=== PATIENT | female | born 1950 | race Caucasian/White ===

== ENCOUNTER → 2018-09-25 | Emergency (ER) | payer MEDICARE, MEDICAID ==
[~2018-09-25] VITALS: Ht 163.8 cm; Wt 165.1 kg
[~2018-09-25] MED LIST: HYDROcodone/APAP 5 MG/325 MG (LORTAB) TAB PO ONE
--- NOTE | 2018-09-25 12:32 | ED Head Injury ---
General Chief Complaint: Trauma-Non Activation Stated Complaint: FALL Source: patient Exam Limitations: no limitations History of Present Illness Date Seen by Provider: Sep 25, 2018 Time Seen by Provider: 12:10 Initial Comments 68-year-old female who was brought to to the emergency room by [facility] with complaints of left-sided facial pain, headache, neck pain after [facility] She is a paraplegic with a T10/T11 level spinal cord injury. She reports that her mattress is an air mattress and when she was getting out it kind of gave way causing her to roll out of bed. Her bed frame is one and a half feet off of the floor with a mattress on top of that is approximately 2 foot fall. She reports striking her left side of her head on the floor. She denies loss of consciousness, nausea, vomiting or dizziness. She does have ecchymosis to the left cheek area. Occurred: this morning Method of Injury: fell Loss of Consciousness: no loss of consciousness Associated Systoms: Denies Symptoms Allergies and Home Medications Allergies Coded Allergies: No Known Drug Allergies (Unverified , 09/25/18) Physical Exam Vital Signs Capillary Refill : Height, Weight, BMI Height: '" Weight: lbs. oz. kg; BMI Method: Progress/Results/Core Measures Results/Orders My Orders Orders - VERÓNICA LOERA Ct Head/Face/Cervical Wo (09/25/18 12:13) Shoulder, Left, 3 Views (09/25/18 12:42) Hydrocodone/Apap 5/325 Tablet (Lortab 5 (09/25/18 13:30) Ankle, Left, 3 Views (09/25/18 13:37) Medications Given in ED Current Medications Medications Dose Ordered Sig/Renato Route Start Time Stop Time Status Last Admin Dose Admin Acetaminophen/ Hydrocodone Bitart 1 tab ONCE ONCE PO 09/25/18 13:30 09/25/18 13:32 DC 09/25/18 13:41 1 TAB Departure Impression Primary Impression: Fall from bed Qualified Codes: W06.XXXA - Fall from bed, initial encounter Additional Impression: Contusion Disposition: 01 HOME, SELF-CARE Condition: Stable/Unchanged Departure-Patient Inst. Decision time for Depature: 14:21 Patient Instructions: Contusion (DC) Add. Discharge Instructions: You may continue to use your home medications as previously prescribed for pain. Follow-up with her primary care provider within 1 week for recheck. Return back to the emergency room for worsening symptoms or concerns as needed. All discharge instructions reviewed with patient and/or family. Voiced understanding. VERÓNICA LOERA Sep 25, 2018 12:32
--- NOTE | 2018-09-25 13:01 | Diagnostic Imaging Report ---
PROCEDURE: CT head, face, and cervical spine without contrast. TECHNIQUE: Multiple contiguous axial images were obtained through the head, neck, and facial bones without the use of intravenous contrast. Sagittal and coronal reformations through the cervical spine and facial bones were also performed. INDICATION: Fall with head, neck and facial injuries. COMPARISON: No prior studies are available for comparison. FINDINGS: CT head: The ventricles and sulci are within normal limits. No sulcal effacement, midline shift or hemorrhage is detected. The cisterns are patent. Visualized paranasal sinuses are clear. No depressed calvarial fracture is seen. IMPRESSION: No acute intracranial process is detected. CT cervical spine: Study is compromised due to patient body habitus. There is significant multilevel degenerative disc disease with variable disc space narrowing and marginal spurring. There are large anterior osteophytes noted C4-C5, C5-C6 and C6-C7 levels. Multilevel facet arthropathy is also noted. There is significant neuroforaminal narrowing on the left at the C2-C3 and C3-C4 levels. There is significant bilateral neuroforaminal stenosis, left greater at the C4-C5 level. Severe bilateral neuroforaminal stenosis C5-C6 and C6-C7 levels is noted. No fractures are identified. The odontoid appears to be intact. IMPRESSION: Severe cervical spondylosis. No acute bony abnormality is detected. CT face: The mandible appears intact. Zygomatic arches are intact. Maxillary sinus mills and nasal bones appear to be intact. The orbital mills are unremarkable. The visualized paranasal sinuses are clear. IMPRESSION: No facial bone fracture is identified. Dictated by: Dictated on workstation # [id number]
--- NOTE | 2018-09-25 13:07 | Diagnostic Imaging Report ---
PATIENT HISTORY: Fall, left shoulder pain. TECHNIQUE: Three views of the left shoulder. COMPARISON: None. FINDINGS: No acute fracture or dislocation is seen in the left shoulder. Alignment appears normal. There are severe degenerative changes in the glenohumeral joint and moderate in the acromioclavicular joint. IMPRESSION: Advanced degenerative changes in the left shoulder with no acute osseous abnormalities seen. Dictated by: Dictated on workstation # [id number]
--- NOTE | 2018-09-25 13:38 | NUR ---
SPoke with ZANA at [facility]. ZANA would like pt's L ankle xrayed. DON also sending transportation for pt to return to [place].
--- NOTE | 2018-09-25 14:12 | Diagnostic Imaging Report ---
INDICATION: Fall. Time of exam 1:48 PM 3 views of the left ankle were obtained. There is generalized demineralization. Ankle alignment appears normal. No definite fracture is detected. Midfoot and hindfoot are unremarkable. IMPRESSION: Demineralization. No acute bony abnormality is detected. Dictated by: Dictated on workstation # [id number]
[2018-09-25 15:15] VITALS: BP 142/71
== END | disposition home or self-care (01) ==
LOC: EDUNIT# 12:05 → ER 12:07
DX: S00.83XA Contusion of other part of head, initial encounter (principal); W06.XXXA Fall from bed, initial encounter; Y92.129 Unspecified place in nursing home as the place of occurrence of the external cause
CPT/HCPCS: 70450; 70486; 72125; 73030; 73610

== ENCOUNTER 2019-01-09 10:31 | Emergency (ER) | payer MEDICARE, MEDICAID ==
[~2019-01-09] VITALS: Ht 165.1 cm; Wt 167.8 kg
--- OUTSIDE RECORDS SUMMARY | 2019-01-09 10:36 | XMS REPORT | Continuity of Care Document ---
Author Organization Unknown Address Unknown Allergies There is no data. Medications There is no data. Problems There is no data. Procedures There is no data. Results Test Result Range MAGNESIUM SERUM - 11/25/18 10:21 MAGNESIUM 1.6 mg/dL 1.5-2.5 CULTURE, ANAEROBIC AND AEROBIC - 11/27/18 15:03 CULTURE, ANAEROBIC BACTERIA W/GRAM STAIN NRG CULTURE, AEROBIC BACTERIA NRG A1C - 12/22/18 09:36 HEMOGLOBIN A1c 10.8 % of total Hgb <5.7 Encounters ACCT No. Visit Date/Time Discharge Status Pt. Type Provider Facility Loc./Unit Complaint [id number] 12/22/2018 17:45:00 12/22/2018 23:59:59 CLS Out[facility] SELF[id number] 12/22/2018 17:45:00 Document Registration [id number] 11/27/2018 15:00:00 Document Registration [id number] 11/25/2018 17:40:00 Document Registration
--- NOTE | 2019-01-09 10:43 | ED General ---
General Source of Information: Patient, EMS History of Present Illness Date Seen by Provider: January 09, 2019 Time Seen by Provider: 10:30 Initial Comments 68-year-old female brought in by EMS. Patient is a paraplegic from [facility]. She is brought in today because she "just feels off" she can't really describe how she feels off. She reports that this is happened at occasionally in the past. She denies any cough, nausea, vomiting, diarrhea. She has a history of recurrent cellulitis/chronic vascular changes/lymphedema that is unchanged and looks good. She does have an indwelling Mc with some sediment that might be that possible problem. Otherwise she has no other complaints. Allergies and Home Medications Allergies Coded Allergies: No Known Drug Allergies (Unverified , 09/25/18) Patient Home Medication List Home Medication List Reviewed: Yes Review of Systems Review of Systems Constitutional: No chills, No diaphoresis, No fever EENTM: no symptoms reported Respiratory: No cough, No short of breath Cardiovascular: No chest pain, No palpitations Gastrointestinal: No abdominal pain, No constipation, No diarrhea, No nausea Musculoskeletal: no symptoms reported Skin: see HPI Past Inxsbyb-Tqzlix-Hagyvt Hx Past Med/Social Hx: Reviewed Nursing Past Med/Soc Hx Patient Social History Type Used: Cigarettes 2nd Hand Smoke Exposure: No (former quit 1996) Recent Hopitalizations: No Past Medical History Appendectomy, Bladder Surgery, Bowel Surgery, Orthopedic Respiratory: Yes COPD Deep Vein Thrombosis, High Cholesterol Paralysis, Spinal Cord Injury 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 Disorders: Menstrual Problems 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 oz. 165.424860hc; BMI Method:Stated General Appearance: No Apparent Distress, WD/WN, Obese (morbid ) Eyes: Bilateral Eye Normal Inspection HEENT: PERRL/EOMI, Pharynx Normal Neck: Non Tender, Supple Respiratory: Lungs Clear, Normal Breath Sounds, No Accessory Muscle Use, No Respiratory Distress Cardiovascular: Regular Rate, Rhythm, No Edema Gastrointestinal: Other (ostomy bag in place, mc in place, no acute finding ) Extremity: Normal Capillary Refill Neurologic/Psychiatric: Alert, Oriented x3, Other (no acute change ) Skin: Other (severe ecxoration, bed sores, bilateral buttock, mild bilateral lower ext changes. ) Progress/Results/Core Measures Suspected Sepsis SIRS Temperature: Pulse: Respiratory Rate: Laboratory Tests 01/09/19 10:42: White Blood Count 14.1H Blood Pressure / Mean: Laboratory Tests 01/09/19 10:42: Creatinine 0.84, Platelet Count 404H, Total Bilirubin 0.3 Results/Orders Lab Results Laboratory Tests Test 01/09/19 10:42 Range/Units White Blood Count 14.1 H 4.3-11.0 10^3/uL Red Blood Count 3.94 L 4.35-5.85 10^6/uL Hemoglobin 11.5 11.5-16.0 G/DL Hematocrit 37 35-52 % Mean Corpuscular Volume 95 80-99 FL Mean Corpuscular Hemoglobin 29 25-34 PG Mean Corpuscular Hemoglobin Concent 31 L 32-36 G/DL Red Cell Distribution Width 14.9 H 10.0-14.5 % Platelet Count 404 H 130-400 10^3/uL Mean Platelet Volume 9.4 7.4-10.4 FL Neutrophils (%) (Auto) 77 H 42-75 % Lymphocytes (%) (Auto) 14 12-44 % Monocytes (%) (Auto) 6 0-12 % Eosinophils (%) (Auto) 3 0-10 % Basophils (%) (Auto) 1 0-10 % Neutrophils # (Auto) 10.9 H 1.8-7.8 X 10^3 Lymphocytes # (Auto) 1.9 1.0-4.0 X 10^3 Monocytes # (Auto) 0.8 0.0-1.0 X 10^3 Eosinophils # (Auto) 0.4 H 0.0-0.3 10^3/uL Basophils # (Auto) 0.1 0.0-0.1 10^3/uL Neutrophils % (Manual) 76 % Lymphocytes % (Manual) 14 % Monocytes % (Manual) 6 % Eosinophils % (Manual) 1 % Basophils % (Manual) 0 % Band Neutrophils 3 % Urine Color YELLOW Urine Clarity CLOUDY Urine pH 8.0 5-9 Urine Specific [place] 1.010 L 1.016-1.022 Urine Protein 1+ H NEGATIVE Urine Glucose (UA) NEGATIVE NEGATIVE Urine Ketones TRACE H NEGATIVE Urine Nitrite NEGATIVE NEGATIVE Urine Bilirubin NEGATIVE NEGATIVE Urine Urobilinogen 0.2 NORMAL MG/DL Urine Leukocyte Esterase 2+ H NEGATIVE Urine RBC (Auto) NEGATIVE NEGATIVE Urine RBC NONE /HPF Urine WBC 5-10 H /HPF Urine Squamous Epithelial Cells 0-2 /HPF Urine Crystals NONE /LPF Urine Bacteria LARGE H /HPF Urine Casts NONE /LPF Urine Mucus NONE /LPF Urine Culture Indicated YES Sodium Level 134 L 135-145 MMOL/L Potassium Level 6.2 H 3.6-5.0 MMOL/L Chloride Level 105 98-107 MMOL/L Carbon Dioxide Level 21 21-32 MMOL/L Anion Gap 8 5-14 MMOL/L Blood Urea Nitrogen 40 H 7-18 MG/DL Creatinine 0.84 0.60-1.30 MG/DL Estimat Glomerular Filtration Rate > 60 BUN/Creatinine Ratio 48 Glucose Level 325 H 70-105 MG/DL Calcium Level 10.6 H 8.5-10.1 MG/DL Corrected Calcium 11.4 H 8.5-10.1 MG/DL Total Bilirubin 0.3 0.1-1.0 MG/DL Aspartate Amino Transf (AST/SGOT) 22 5-34 U/L Alanine Aminotransferase (ALT/SGPT) 27 0-55 U/L Alkaline Phosphatase 186 H 40-136 U/L Total Protein 8.3 H 6.4-8.2 GM/DL Albumin 3.0 L 3.2-4.5 GM/DL My Orders Orders - MEDINA,KALEN L DO Cbc With Automated Diff (01/09/19 10:43) Comprehensive Metabolic Panel (01/09/19 10:43) Ua Culture If Indicated (01/09/19 10:43) Chest 1 View Ap/Pa Only (01/09/19 10:43) Manual Differential (01/09/19 10:42) Urine Culture (01/09/19 10:42) Ceftriaxone For Iv Use (Rocephin For I (01/09/19 11:30) Diphenhydramine Injection (Benadryl Inje (01/09/19 11:30) Medications Given in ED Current Medications Medications Dose Ordered Sig/Renato Route Start Time Stop Time Status Last Admin Dose Admin Ceftriaxone Sodium 1000 mg/ Sterile Water 10 ml @ 200 mls/hr ONCE ONCE IV 01/09/19 11:30 01/09/19 11:32 DC 01/09/19 11:40 200 MLS/HR Vital Signs/I&O Capillary Refill : Progress Note : Time: 11:43 Progress Note Patient has a mild elevated WBC. Chem unsure if this is a inflammatory reaction from her significant chronic skin sores or a UTI. Patient has no significant acute physical findings. I will start her on Keflex 10 days. I recommend that she follows up with wound care and her primary care physician for reevaluation. [facility]. Departure Impression Primary Impression: Urinary tract infection Qualified Codes: T83.511A - Infection and inflammatory reaction due to indwelling urethral catheter, initial encounter; N39.0 - Urinary tract infection, site not specified Additional Impression: Decubitus skin ulcer Qualified Codes: L89.309 - Pressure ulcer of unspecified buttock, unspecified stage Disposition: 01 HOME, SELF-CARE Condition: Stable Departure-Patient Inst. Referrals: SELFFREEMAN MD (PCP/Family) Primary Care Physician Patient Instructions: Pressure Sores (DC), How to Prevent Pressure Sores, Urinary Tract Infection, Adult (DC) Scripts Cephalexin (Cephalexin) 500 Mg Tablet 500 MG PO QID, #20 TAB 0 Refills Prov: KALEN MEDINA DO 01/09/19 KALEN MEDINA DO January 09, 2019 10:42
[2019-01-09 10:57] LABS: HEMATOCRIT 37 % (35-52); HEMOGLOBIN 11.5 G/DL (11.5-16.0); MEAN CORPUSCULAR HEMOGLOBIN 29 PG (25-34); MEAN CORPUSCULAR VOLUME 95 FL (80-99); WHITE BLOOD COUNT 14.1 10^3/uL (4.3-11.0)
[2019-01-09 10:58] LABS: BASOPHILS # (AUTO) 0.1 10^3/uL (0.0-0.1); BASOPHILS % (AUTO) 1 % (0-10); EOSINOPHILS # (AUTO) 0.4 10^3/uL (0.0-0.3); EOSINOPHILS % (AUTO) 3 % (0-10); LYMPHOCYTES # (AUTO) 1.9 X 10^3 (1.0-4.0); LYMPHOCYTES % (AUTO) 14 % (12-44); MEAN CORPUSCULAR HGB CONC 31 G/DL (32-36); MEAN PLATELET VOLUME 9.4 FL (7.4-10.4); MONOCYTES # (AUTO) 0.8 X 10^3 (0.0-1.0); MONOCYTES % (AUTO) 6 % (0-12); NEUTROPHILS # (AUTO) 10.9 X 10^3 (1.8-7.8); NEUTROPHILS % (AUTO) 77 % (42-75); PLATELET COUNT 404 10^3/uL (130-400); RED CELL DISTRIBUTION WIDTH 14.9 % (10.0-14.5)
[2019-01-09 11:03] LABS: COLOR,URINE YELLOW
[2019-01-09 11:04] LABS: BACTERIA,URINE LARGE /HPF; BILIRUBIN,URINE NEGATIVE (NEGATIVE); CLARITY,URINE CLOUDY; GLUCOSE, URINE (UA) NEGATIVE (NEGATIVE); KETONES,URINE TRACE (NEGATIVE); LEUKOCYTE ESTERASE ,URINE 2+ (NEGATIVE); NITRITE,URINE NEGATIVE (NEGATIVE); PROTEIN,URINE 1+ (NEGATIVE); SQUAMOUS EPITHELIAL CELL,UR 0-2 /HPF; UROBILINOGEN,URINE 0.2 MG/DL (NORMAL)
--- NOTE | 2019-01-09 11:15 | NUR ---
Patient turned and cleaned after arriving to ED incontinent of a large amount of dark green stool. Patient has large open ulcers to gluteal folds, coccyx, and upper posterior thighs with open and bleeding areas. Stool cleaned from wounds and clean sheets replaced. Addendum: 01/09/19 at 1208 by KBELTRAM Patient turned and cleaned after arriving to ED incontinent of a large amount of dark green stool. Patient has large open ulcers to gluteal folds, coccyx, and upper posterior thighs with open and bleeding areas. Stool cleaned from wounds and clean sheets replaced. Dr Barrios present and inspected wounds.
[2019-01-09 11:18] LABS: ALANINE AMINOTRANSFERASE 27 U/L (0-55); ALKALINE PHOSPHATASE 186 U/L (40-136); BILIRUBIN,TOTAL 0.3 MG/DL (0.1-1.0); BUN/CREATININE RATIO 48; CALCIUM 10.6 MG/DL (8.5-10.1); CARBON DIOXIDE 21 MMOL/L (21-32); CHLORIDE 105 MMOL/L (98-107); CREATININE SERUM 0.84 MG/DL (0.60-1.30); GFR ESTIMATED > 60; POTASSIUM 6.2 MMOL/L (3.6-5.0); SODIUM 134 MMOL/L (135-145)
[2019-01-09 11:19] LABS: BAND NEUTROPHILS 3 %; BASOPHILS % (MANUAL) 0 %; EOSINOPHILS % (MANUAL) 1 %; GLUCOSE 325 MG/DL (70-105); LYMPHOCYTES % (MANUAL) 14 %; MONOCYTES % (MANUAL) 6 %; NEUTROPHILS % (MANUAL) 76 %; TOTAL PROTEIN 8.3 GM/DL (6.4-8.2)
[2019-01-09] MEDS ORDERED: diphenhydrAMINE 50 MG/ML INJ (BENADRYL) IVP ONE (11:30)
[2019-01-09] MEDS ORDERED: cefTRIAXone FOR IV USE 1,000 MG in WATER (STERILE) FOR INJECTION 10 ML IV ONE (11:30)
--- NOTE | 2019-01-09 11:30 | NUR ---
Spoke with [facility] to ask about current wound care for pressure ulcers. Nurse reports they are currently using hypochloric acid, triamcinolone cream and powdered collagen and then covered with an ABD. Reported to Dr Barrios.
--- NOTE | 2019-01-09 11:34 | Diagnostic Imaging Report ---
INDICATION: Poor historian. EXAMINATION: Chest, 01/09/2019. COMPARISONS: None. FINDINGS: A single frontal view of the chest demonstrates cardiomegaly. Pulmonary vasculature appears congested although there are low lung volumes possibly worsening the appearance of findings. Atelectasis or infiltrate left lung base not excluded. There may be a small left effusion. Edema not excluded. IMPRESSION: 1. Limited evaluation due to low lung volumes. Findings as above. Dictated by: Dictated on workstation # [id number]
--- NOTE | 2019-01-09 11:35 | NUR ---
Daughter present in room and updated on patient condition and probable return to [facility] on antibiotics.
[2019-01-09] MEDS ORDERED: CEPH500T PO (11:47)
--- NOTE | 2019-01-09 12:07 | NUR ---
Updated [facility] RN of patient returning to [facility] on cephalexin. RN instructed to have EMS return patient to care home.
--- NOTE | 2019-01-09 12:27 | NUR ---
urostomy pouch changed at this time.
[2019-01-09 12:28] VITALS: BP 117/64
== END 2019-01-09 12:47 | disposition home or self-care (01) ==
LOC: EDUNIT# 10:31 → ER FS 10:32
DX: N39.0 Urinary tract infection, site not specified (principal); L89.319 Pressure ulcer of right buttock, unspecified stage; L89.329 Pressure ulcer of left buttock, unspecified stage; J44.9 Chronic obstructive pulmonary disease, unspecified; E78.00 Pure hypercholesterolemia, unspecified; E11.9 Type 2 diabetes mellitus without complications; F41.9 Anxiety disorder, unspecified; F31.9 Bipolar disorder, unspecified; Z92.21 Personal history of antineoplastic chemotherapy; Z85.038 Personal history of other malignant neoplasm of large intestine; Z97.5 Presence of (intrauterine) contraceptive device; Z86.718 Personal history of other venous thrombosis and embolism; Z87.891 Personal history of nicotine dependence; Z90.49 Acquired absence of other specified parts of digestive tract; Z98.890 Other specified postprocedural states
CPT/HCPCS: 36415; 71045; 80053; 81000; 85007; 85027; 87077; 87088; 87186

== ENCOUNTER 2019-01-28 14:18 | Emergency (ER) | payer MEDICARE, MEDICAID ==
[~2019-01-28] VITALS: Ht 162.6 cm; Wt 164.7 kg
[~2019-01-28 14:18] MED LIST changes: +CEPH500T PO; -HYDROcodone/APAP 5 MG/325 MG (LORTAB) TAB PO ONE
[2019-01-28] MEDS ORDERED: NS IV 1000 ML 1,000 ML IV ONE ×2 (14:28→16:30)
[2019-01-28] MEDS ORDERED: NS IV 1000 ML 1,000 ML IV SCH ×2 (14:28)
[2019-01-28 14:30] VITALS: BP 123/54
[2019-01-28] MEDS ORDERED: CEFEPIME INJECTION 1,000 MG in WATER (STERILE) FOR INJECTION 10 ML IV ONE (14:30)
[2019-01-28] MEDS ORDERED: ONDANSETRON 4 MG/2 ML (SDV) Z0FRAN IV PRN (14:30)
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
--- OUTSIDE RECORDS SUMMARY | 2019-01-28 14:53 | XMS REPORT | Continuity of Care Document ---
Author Organization Unknown Address Unknown Allergies Active Description Code Type Severity Reaction Onset Reported/Identified Relationship to Patient Clinical Status Yes No Known Drug Allergies [id number] Drug Allergy Unknown N/A 09/25/2018 Yes exenatide [id number] Drug Allergy Unknown nausea and vomi 01/09/2019 Yes liraglutide [id number] Drug Allergy Unknown nausea and vomi 01/09/2019 Yes nitrofurantoin [id number] Drug Allergy Unknown diarrhea 01/09/2019 Yes terconazole [id number] Drug Allergy Unknown N/A 01/09/2019 Medications There is no data. Problems Date Dx Coded Attending Type Code Diagnosis Diagnosed By 09/25/2018 VERÓNICA LOERA Ot R51 HEADACHE 09/25/2018 VERÓNICA LOERA Ot S00.83XA CONTUSION OF OTHER PART OF HEAD, INITIAL 09/25/2018 VERÓNICA LOERA Ot W06.XXXA FALL FROM BED, INITIAL ENCOUNTER 09/25/2018 VERÓNICA LOERA Ot Y92.[address] CUSTODIAL PLACE 09/28/2018 VERÓNICA LOERA Ot R51 HEADACHE 09/28/2018 ZIYAD LOERAIS Ot S00.83XA CONTUSION OF OTHER PART OF HEAD, INITIAL 09/28/2018 VERÓNICA LOERA Ot W06.XXXA FALL FROM BED, INITIAL ENCOUNTER 09/28/2018 VERÓNICA LOERA Ot Y92.[address] CUSTODIAL PLACE 09/30/2018 VERÓNICA LOERA Ot R51 HEADACHE 09/30/2018 VERÓNICA LOERA Ot S00.83XA CONTUSION OF OTHER PART OF HEAD, INITIAL 09/30/2018 VERÓNICA LOERA Ot W06.XXXA FALL FROM BED, INITIAL ENCOUNTER 09/30/2018 VERÓNICA LOERA Ot Y92.[address] CUSTODIAL PLACE 09/30/2018 VERÓNICA LOERA Ot R51 HEADACHE 09/30/2018 VERÓNICA LOERA Ot S00.83XA CONTUSION OF OTHER PART OF HEAD, INITIAL 09/30/2018 VERÓNICA LOERA Ot W06.XXXA FALL FROM BED, INITIAL ENCOUNTER 09/30/2018 VERÓNICA LOERA Ot Y92.[address] CUSTODIAL PLACE 01/13/2019 MEDINA DO, KALEN L Ot E11.9 TYPE 2 DIABETES MELLITUS WITHOUT COMPLIC 01/13/2019 MEDINA DO, KALEN L Ot E78.00 PURE HYPERCHOLESTEROLEMIA, UNSPECIFIED 01/13/2019 MEDINA DO, KALEN L Ot F31.9 BIPOLAR DISORDER, UNSPECIFIED 01/13/2019 MEDINA DO, KALEN L Ot F41.9 ANXIETY DISORDER, UNSPECIFIED 01/13/2019 MEDINA DO, KALEN L Ot J44.9 CHRONIC OBSTRUCTIVE PULMONARY DISEASE, U 01/13/2019 MEDINA DO, KALEN L Ot L89.319 PRESSURE ULCER OF RIGHT BUTTOCK, UNSPECI 01/13/2019 MEDINA DO, KALEN L Ot L89.329 PRESSURE ULCER OF LEFT BUTTOCK, UNSPECIF 01/13/2019 MEDINA DO, KALEN L Ot N39.0 URINARY TRACT INFECTION, SITE NOT SPECIF 01/13/2019 MEDINA DO, KALEN L Ot R69 ILLNESS, UNSPECIFIED 01/13/2019 MEDINA DO, KALEN L Ot Z85.038 PERSONAL HISTORY OF MALIGNANT NEOPLASM O 01/13/2019 MEDINA DO, KALEN L Ot Z86.718 PERSONAL HISTORY OF OTHER VENOUS THROMBO 01/13/2019 MEDINA DO, KALEN L Ot Z87.891 PERSONAL HISTORY OF NICOTINE DEPENDENCE 01/13/2019 MEDINA DO, KALEN L Ot Z90.49 ACQUIRED ABSENCE OF OTHER SPECIFIED PART 01/13/2019 MEDINA DO, KALEN L Ot Z92.21 PERSONAL HISTORY OF ANTINEOPLASTIC CHEMO 01/13/2019 MEDINA DO, KALEN L Ot Z97.5 PRESENCE OF (INTRAUTERINE) CONTRACEPTIVE 01/13/2019 MEDINA DO, KALEN L Ot Z98.890 OTHER SPECIFIED POSTPROCEDURAL STATES Procedures There is no data. Results Test Result Range CMP - 10/20/18 12:53 GLUCOSE 277 mg/dL 65-99 UREA NITROGEN (BUN) 23 mg/dL 7-25 CREATININE 0.66 mg/dL 0.50-0.99 eGFR NON-AFR. ESTONIAN 91 mL/min/1.73m2 > OR=60 eGFR 106 mL/min/1.73m2 > OR=60 BUN/CREATININE RATIO NOT APPLICABLE (calc) 6-22 SODIUM 137 mmol/L 135-146 POTASSIUM 4.8 mmol/L 3.5-5.3 CHLORIDE 106 mmol/L 98-110 CARBON DIOXIDE 24 mmol/L 20-32 CALCIUM 10.4 mg/dL 8.6-10.4 PROTEIN, TOTAL 7.2 g/dL 6.1-8.1 ALBUMIN 3.3 g/dL 3.6-5.1 GLOBULIN 3.9 g/dL (calc) 1.9-3.7 ALBUMIN/GLOBULIN RATIO 0.8 (calc) 1.0-2.5 BILIRUBIN, TOTAL 0.3 mg/dL 0.2-1.2 ALKALINE PHOSPHATASE 141 U/L 33-130 AST 17 U/L 10-35 ALT 19 U/L 6-29 MAGNESIUM SERUM - 11/25/18 10:21 MAGNESIUM 1.6 mg/dL 1.5-2.5 CULTURE, ANAEROBIC AND AEROBIC - 11/27/18 15:03 CULTURE, ANAEROBIC BACTERIA W/GRAM STAIN NRG CULTURE, AEROBIC BACTERIA NRG A1C - 12/22/18 09:36 HEMOGLOBIN A1c 10.8 % of total Hgb <5.7 Complete blood count (CBC) with automated white blood cell (WBC) differential - 01/09/19 10:42 Blood leukocytes automated count (number/volume) 14.1 10*3/uL 4.3-11.0 Blood erythrocytes automated count (number/volume) 3.94 10*6/uL 4.35-5.85 Venous blood hemoglobin measurement (mass/volume) 11.5 g/dL 11.5-16.0 Blood hematocrit (volume fraction) 37 % 35-52 Automated erythrocyte mean corpuscular volume 95 [foz_us] 80-99 Automated erythrocyte mean corpuscular hemoglobin (mass per erythrocyte) 29 pg 25-34 Automated erythrocyte mean corpuscular hemoglobin concentration measurement (mass/volume) 31 g/dL 32-36 Automated erythrocyte distribution width ratio 14.9 % 10.0- 14.5 Automated blood platelet count (count/volume) 404 10*3/uL 130-400 Automated blood platelet mean volume measurement 9.4 [foz_us] 7.4-10.4 Automated blood neutrophils/100 leukocytes 77 % 42-75 Automated blood lymphocytes/100 leukocytes 14 % 12-44 Blood monocytes/100 leukocytes 6 % 0-12 Automated blood eosinophils/100 leukocytes 3 % 0-10 Automated blood basophils/100 leukocytes 1 % 0-10 Blood neutrophils automated count (number/volume) 10.9 10*3 1.8-7.8 Blood lymphocytes automated count (number/volume) 1.9 10*3 1.0-4.0 Blood monocytes automated count (number/volume) 0.8 10*3 0.0- 1.0 Automated eosinophil count 0.4 10*3/uL 0.0-0.3 Automated blood basophil count (count/volume) 0.1 10*3/uL 0.0-0.1 Complete urinalysis with reflex to culture - 01/09/19 10:42 Urine color determination YELLOW NRG Urine clarity determination CLOUDY NRG Urine pH measurement by test strip 8.0 5-9 Specific gravity of urine by test strip 1.010 1.016-1.022 Urine protein assay by test strip, semi-quantitative 1+ NEGATIVE Urine glucose detection by automated test strip NEGATIVE NEGATIVE Erythrocytes detection in urine sediment by light microscopy NEGATIVE NEGATIVE Urine ketones detection by automated test strip TRACE NEGATIVE Urine nitrite detection by test strip NEGATIVE NEGATIVE Urine total bilirubin detection by test strip NEGATIVE NEGATIVE Urine urobilinogen measurement by automated test strip (mass/volume) 0.2 mg/dL NORMAL Urine leukocyte esterase detection by dipstick 2+ NEGATIVE Automated urine sediment erythrocyte count by microscopy (number/high power field) NONE NRG Automated urine sediment leukocyte count by microscopy (number/high power field) [HPF] NRG Bacteria detection in urine sediment by light microscopy LARGE NRG Squamous epithelial cells detection in urine sediment by light microscopy 0-2 NRG Crystals detection in urine sediment by light microscopy NONE NRG Casts detection in urine sediment by light microscopy NONE NRG Mucus detection in urine sediment by light microscopy NONE NRG Complete urinalysis with reflex to culture YES NRG Comprehensive metabolic panel - 01/09/19 10:42 Serum or plasma sodium measurement (moles/volume) 134 mmol/L 135-145 Serum or plasma potassium measurement (moles/volume) 6.2 mmol/L 3.6-5.0 Serum or plasma chloride measurement (moles/volume) 105 mmol/L 98-107 Carbon dioxide 21 mmol/L 21-32 Serum or plasma anion gap determination (moles/volume) 8 mmol/L 5-14 Serum or plasma urea nitrogen measurement (mass/volume) 40 mg/dL 7-18 Serum or plasma creatinine measurement (mass/volume) 0.84 mg/dL 0.60-1.30 Serum or plasma urea nitrogen/creatinine mass ratio 48 NRG Serum or plasma creatinine measurement with calculation of estimated glomerular filtration rate > NRG Serum or plasma glucose measurement (mass/volume) 325 mg/dL 70-105 Serum or plasma calcium measurement (mass/volume) 10.6 mg/dL 8.5-10.1 Serum or plasma total bilirubin measurement (mass/volume) 0.3 mg/dL 0.1-1.0 Serum or plasma alkaline phosphatase measurement (enzymatic activity/volume) 186 U/L 40-136 Serum or plasma aspartate aminotransferase measurement (enzymatic activity/volume) 22 U/L 5-34 Serum or plasma alanine aminotransferase measurement (enzymatic activity/volume) 27 U/L 0-55 Serum or plasma protein measurement (mass/volume) 8.3 g/dL 6.4-8.2 Serum or plasma albumin measurement (mass/volume) 3.0 g/dL 3.2-4.5 CALCIUM CORRECTED 11.4 mg/dL 8.5-10.1 Blood manual differential performed detection - 01/09/19 10:42 Blood monocytes/100 leukocytes 6 % NR Manual blood segmented neutrophils/100 leukocytes 76 % NRG Blood band neutrophils/100 leukocytes 3 % NR Manual blood lymphocytes/100 leukocytes 14 % NRG Manual eosinophils/100 leukocytes in nose 1 % NR Manual blood basophils/100 leukocytes 0 % NRG Bacterial urine culture - 01/09/19 10:42 Bacterial urine culture [id number] NRG COLONY COUNT >100,000/ML NR FTX;REPORTABLE SUSCEPTIBILITY REPORTED 01/12/19 11:05 NR FREE TEXT ENTRY 2 ID REPORTED 01/11/19 15:05 [facility] RML Sensitivity Panel - 01/09/19 10:42 Gentamicin susceptibility test by minimum inhibitory concentration > NRG Trimethoprim/sulfamethoxazole susceptibility test by minimum inhibitoryconcentration > NR Levofloxacin susceptibility test by minimum inhibitory concentration > NRG Ampicillin susceptibility test by minimum inhibitory concentration > NRG Cefazolin susceptibility test by minimum inhibitory concentration 8 NRG Ceftriaxone susceptibility test by minimum inhibitory concentration <= NRG Ciprofloxacin susceptibility test by minimum inhibitory concentration > NRG Meropenem susceptibility test by minimum inhibitory concentration <= NRG Nitrofurantoin susceptibility test by minimum inhibitory concentration 32 NRG Amoxicillin and clavulanate potassium susc SACHIN = NRG RML Sensitivity Panel - 01/09/19 10:42 Gentamicin susceptibility test by minimum inhibitory concentration <= NRG Trimethoprim/sulfamethoxazole susceptibility test by minimum inhibitoryconcentration = NRG Levofloxacin susceptibility test by minimum inhibitory concentration > NRG Ampicillin susceptibility test by minimum inhibitory concentration <= NRG Cefazolin susceptibility test by minimum inhibitory concentration 8 NRG Ceftriaxone susceptibility test by minimum inhibitory concentration <= NRG Ciprofloxacin susceptibility test by minimum inhibitory concentration > NRG Nitrofurantoin susceptibility test by minimum inhibitory concentration > NRG Amoxicillin and clavulanate potassium susc SACHIN <= NRG Encounters ACCT No. Visit Date/Time Discharge Status Pt. Type Provider Facility Loc./Unit Complaint [id number] 12/22/2018 17:45:00 12/22/2018 23:59:59 [facility] Outpatient SELF, FREEMAN Serrano [facility] [id number] 12/22/2018 17:45:00 Document Registration [id number] 11/27/2018 15:00:00 Document Registration [id number] 11/25/2018 17:40:00 Document Registration [id number] 10/20/2018 16:15:00 Document Registration [id number] 01/09/2019 10:32:00 01/09/2019 12:47:00 DIS Outpatient KALEN MEDIAN DO Via [facility] ER FS PT NOT FEELING WELL [id number] 09/25/2018 12:07:00 09/25/2018 15:15:00 DIS Emergency VERÓNICA LOERA [facility] ER FALL
[2019-01-28 15:04] LABS: HEMATOCRIT 35 % (35-52); HEMOGLOBIN 10.6 G/DL (11.5-16.0); MEAN CORPUSCULAR HEMOGLOBIN 29 PG (25-34); MEAN CORPUSCULAR HGB CONC 31 G/DL (32-36); MEAN CORPUSCULAR VOLUME 93 FL (80-99); WHITE BLOOD COUNT 30.9 10^3/uL (4.3-11.0)
[2019-01-28 15:05] LABS: BASOPHILS # (AUTO) 0.1 10^3/uL (0.0-0.1); BASOPHILS % (AUTO) 0 % (0-10); EOSINOPHILS # (AUTO) 0.4 10^3/uL (0.0-0.3); EOSINOPHILS % (AUTO) 1 % (0-10); LYMPHOCYTES # (AUTO) 1.1 X 10^3 (1.0-4.0); LYMPHOCYTES % (AUTO) 4 % (12-44); MEAN PLATELET VOLUME 8.9 FL (7.4-10.4); MONOCYTES # (AUTO) 0.8 X 10^3 (0.0-1.0); MONOCYTES % (AUTO) 3 % (0-12); NEUTROPHILS # (AUTO) 28.1 X 10^3 (1.8-7.8); NEUTROPHILS % (AUTO) 91 % (42-75); PLATELET COUNT 597 10^3/uL (130-400); RED CELL DISTRIBUTION WIDTH 15.3 % (10.0-14.5)
[2019-01-28 15:12] LABS: BILIRUBIN,URINE NEGATIVE (NEGATIVE); CLARITY,URINE SLT CLOUDY; COLOR,URINE YELLOW; GLUCOSE, URINE (UA) NEGATIVE (NEGATIVE); KETONES,URINE NEGATIVE (NEGATIVE); LEUKOCYTE ESTERASE ,URINE 3+ (NEGATIVE); NITRITE,URINE NEGATIVE (NEGATIVE); PROTEIN,URINE TRACE (NEGATIVE); UROBILINOGEN,URINE 0.2 MG/DL (NORMAL)
[2019-01-28 15:13] LABS: BACTERIA,URINE LARGE /HPF
[2019-01-28 15:15] LABS: INR 1.3 (0.8-1.4); PROTHROMBIN TIME PATIENT 16.4 SEC (12.2-14.7)
[2019-01-28 15:20] LABS: BAND NEUTROPHILS 22 %; NEUTROPHILS % (MANUAL) 75 %
[2019-01-28 15:21] LABS: BASOPHILS % (MANUAL) 0 %; EOSINOPHILS % (MANUAL) 0 %; LYMPHOCYTES % (MANUAL) 2 %; MONOCYTES % (MANUAL) 1 %
[2019-01-28 15:28] LABS: CREATININE SERUM 1.34 MG/DL (0.60-1.30); POTASSIUM 6.4 MMOL/L (3.6-5.0)
[2019-01-28 15:29] LABS: BILIRUBIN,TOTAL 0.3 MG/DL (0.1-1.0); CALCIUM 10.2 MG/DL (8.5-10.1); TOTAL PROTEIN 8.2 GM/DL (6.4-8.2)
[2019-01-28 15:31] LABS: ALBUMIN 2.6 GM/DL (3.2-4.5)
--- NOTE | 2019-01-28 15:34 | Diagnostic Imaging Report ---
INDICATION: Lethargy. Frontal chest obtained at 3:10 p.m. and compared to 01/09/2019. FINDINGS: There is cardiomegaly. There is mild central vascular congestion with some minimal infiltrate versus atelectasis in the right medial base. Lungs are otherwise clear. Study is somewhat technically limited. IMPRESSION: Cardiomegaly and central vascular congestion with mild infiltrate or atelectasis in the right medial base. The study is somewhat technically limited. There is no other abnormality. Dictated by: Dictated on workstation # [id number]
[2019-01-28] MEDS ORDERED: RT-ALBUTEROL SULF 2.5 MG/3 ML PRE-MIX VIAL INH STA (15:55)
[2019-01-28] MEDS ORDERED: CALCIUM GLUC. 10% 4.65 MEQ/10 ML VIAL IV ONE (16:00)
--- NOTE | 2019-01-28 16:57 | NUR ---
Per doctor's orders, 3rd liter of sodium chloride will be changed to 500ml/hr.
[2019-01-28 17:30] VITALS: BP 128/57
[2019-01-28 18:36] VITALS: BP 127/61
--- NOTE | 2019-01-28 18:50 | NUR ---
Report given to EMS at this time. Care was transferred. EMS left the facility at this time. Fluids were continued en route to [facility].
== END 2019-01-28 18:50 | disposition short-term general hospital (02) ==
LOC: EDUNIT# 14:18 → ER FS 14:19
DX: A41.9 Sepsis, unspecified organism (principal); L03.116 Cellulitis of left lower limb; J18.9 Pneumonia, unspecified organism; N39.0 Urinary tract infection, site not specified; L89.150 Pressure ulcer of sacral region, unstageable; N17.9 Acute kidney failure, unspecified; E87.5 Hyperkalemia; E86.0 Dehydration; J44.9 Chronic obstructive pulmonary disease, unspecified; E78.00 Pure hypercholesterolemia, unspecified; E11.9 Type 2 diabetes mellitus without complications; F41.9 Anxiety disorder, unspecified; D64.9 Anemia, unspecified; F31.9 Bipolar disorder, unspecified; Z99.2 Dependence on renal dialysis; Z85.038 Personal history of other malignant neoplasm of large intestine; Z93.6 Other artificial openings of urinary tract status; Z87.440 Personal history of urinary (tract) infections; Z97.5 Presence of (intrauterine) contraceptive device; Z86.718 Personal history of other venous thrombosis and embolism; Z88.8 Allergy status to other drugs, medicaments and biological substances; Z90.49 Acquired absence of other specified parts of digestive tract; Z98.890 Other specified postprocedural states
CPT/HCPCS: 36415; 71045; 80053; 81000; 82962; 83605; 85007; 85027; 85610; 85730; 87040; 87077; 87088; 87186; 93005; 96361; 96365; 96375

== ENCOUNTER 2019-04-21 12:23 | Emergency (ER) | payer MEDICARE, MEDICAID ==
[~2019-04-21] VITALS: Ht 163.8 cm; Wt 144.7 kg
--- NOTE | 2019-04-21 12:53 | ED General ---
General Stated Complaint: HEADACHE; TOOTHACHE; VOMITING History of Present Illness Date Seen by Provider: Apr 21, 2019 Time Seen by Provider: 12:53 Initial Comments Patient presenting to the emergency department for evaluation of multiple complaints including headache nausea right dental pain along with generalized malaise and fatigue. Patient's headache is bilateral temporal associated with nausea but no vomiting fevers chills neck stiffness vision changes unilateral weakness numbness or tingling. She says she does not typically get headaches and this started gradually 2-3 days ago and has progressively worsened. Patient states that she has been having pain in her gingival region does appear to said he has some gingivitis but no periapical abscess. She is in no obvious distress with normal vital signs. Allergies and Home Medications Allergies Coded Allergies: exenatide (Verified Allergy, Unknown, nausea and vomiting, 01/09/19) liraglutide (Verified Allergy, Unknown, nausea and vomiting, abdominal pain, 01/09/19) nitrofurantoin (Verified Allergy, Unknown, diarrhea, 01/09/19) terconazole (Verified Allergy, Unknown, 01/09/19) Home Medications Cephalexin 500 Mg Tablet, 500 MG PO QID Prescribed by: KALEN MEDINA on 01/09/19 2267 Patient Home Medication List Home Medication List Reviewed: Yes Review of Systems Review of Systems Constitutional: no symptoms reported EENTM: mouth pain Respiratory: no symptoms reported Cardiovascular: no symptoms reported Gastrointestinal: nausea Genitourinary: no symptoms reported Musculoskeletal: no symptoms reported Psychiatric/Neurological: Headache All Other Systems Reviewed Negative Unless Noted: Yes Past Cxoskhw-Islxtu-Cwgqic Hx Patient Social History Type Used: Cigarettes 2nd Hand Smoke Exposure: No Recent Hopitalizations: No Past Medical History Appendectomy, Bladder Surgery, Bowel Surgery, Orthopedic Respiratory: Yes COPD Cardiac: Yes Angina, Deep Vein Thrombosis, High Cholesterol Neurological: Yes (PARAPLEGIA) Paralysis, Spinal Cord Injury 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 Disorders: Menstrual Problems 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 Genitourinary: Yes (urostomy) Neurogenic Bladder, UTI-Chronic Gastrointestinal: Yes (HX OF COLON CANCER; colectomy) Musculoskeletal: Yes (paraplegic; carpal tunnel; ) Arthritis, Back Injury Endocrine: Yes Diabetes, Insulin dep HEENT: Yes Cataract Cancer: Yes Colon Did You Recieve Any Treatments: Yes What Type of Treatment Did You: Chemotherapy, Radiation, Surgical Intervention Psychosocial: Yes Anxiety, Bipolar, Depression Integumentary: Yes (CHRONIC YEAST INFECTIONS; chronic pressure ulcers; cellulitis) Psoriasis Blood Disorders: Yes (anemia) Adverse Reaction/Blood Tranf: No (JEHOVAHS WITNESS-DOESNT TAKE BLOOD) Physical Exam Vital Signs Vital Signs - First Documented 04/21/19 12:59 Temp 96.8 Pulse 86 Resp 20 B/P (MAP) 131/113 (119) Pulse Ox 99 O2 Delivery Room Air Capillary Refill : Height, Weight, BMI Height: 5'4.00" Weight: 363lbs. 0oz. [phone]; BMI Method:Stated General Appearance: No Apparent Distress, Chronically ill, Obese HEENT: PERRL/EOMI Neck: Supple Respiratory: Normal Breath Sounds, No Respiratory Distress Cardiovascular: Regular Rate, Rhythm Gastrointestinal: Non Tender Back: Normal Inspection Extremity: Normal Capillary Refill Neurologic/Psychiatric: Alert, Oriented x3, No Motor/Sensory Deficits (normal baseline paraplegic neurologic exam), complex manager II-XII Norm as Tested Skin: Normal Color Progress/Results/Core Measures Suspected Sepsis SIRS Temperature: Pulse: Respiratory Rate: Laboratory Tests 04/21/19 13:08: White Blood Count 11.4H Blood Pressure / Mean: Laboratory Tests 04/21/19 13:08: Creatinine 1.25, Platelet Count 549H, Total Bilirubin 0.2 Results/Orders Lab Results Laboratory Tests Test 04/21/19 13:08 Range/Units White Blood Count 11.4 H 4.3-11.0 10^3/uL Red Blood Count 3.61 L 4.35-5.85 10^6/uL Hemoglobin 10.5 L 11.5-16.0 G/DL Hematocrit 35 35-52 % Mean Corpuscular Volume 96 80-99 FL Mean Corpuscular Hemoglobin 29 25-34 PG Mean Corpuscular Hemoglobin Concent 30 L 32-36 G/DL Red Cell Distribution Width 18.6 H 10.0-14.5 % Platelet Count 549 H 130-400 10^3/uL Mean Platelet Volume 9.8 7.4-10.4 FL Neutrophils (%) (Auto) 67 42-75 % Lymphocytes (%) (Auto) 20 12-44 % Monocytes (%) (Auto) 7 0-12 % Eosinophils (%) (Auto) 5 0-10 % Basophils (%) (Auto) 1 0-10 % Neutrophils # (Auto) 7.6 1.8-7.8 X 10^3 Lymphocytes # (Auto) 2.3 1.0-4.0 X 10^3 Monocytes # (Auto) 0.8 0.0-1.0 X 10^3 Eosinophils # (Auto) 0.6 H 0.0-0.3 10^3/uL Basophils # (Auto) 0.1 0.0-0.1 10^3/uL Sodium Level 138 135-145 MMOL/L Potassium Level 5.6 H 3.6-5.0 MMOL/L Chloride Level 104 98-107 MMOL/L Carbon Dioxide Level 19 L 21-32 MMOL/L Anion Gap 15 H 5-14 MMOL/L Blood Urea Nitrogen 35 H 7-18 MG/DL Creatinine 1.25 0.60-1.30 MG/DL Estimat Glomerular Filtration Rate 43 BUN/Creatinine Ratio 28 Glucose Level 162 H 70-105 MG/DL Calcium Level 10.8 H 8.5-10.1 MG/DL Corrected Calcium 11.4 H 8.5-10.1 MG/DL Magnesium Level 1.7 1.6-2.4 MG/DL Total Bilirubin 0.2 0.1-1.0 MG/DL Aspartate Amino Transf (AST/SGOT) 27 5-34 U/L Alanine Aminotransferase (ALT/SGPT) 25 0-55 U/L Alkaline Phosphatase 151 H 40-136 U/L Troponin I < 0.30 <0.30 NG/ML Total Protein 7.7 6.4-8.2 GM/DL Albumin 3.3 3.2-4.5 GM/DL Lipase 16 8-78 U/L My Orders Orders - LINDA CHUNG DO Ct Head Wo (04/21/19 12:54) Cbc With Automated Diff (04/21/19 12:54) Comprehensive Metabolic Panel (04/21/19 12:54) Magnesium (04/21/19 12:54) Lipase (04/21/19 12:54) Ua Culture If Indicated (04/21/19 12:54) Troponin I (04/21/19 12:54) Ekg Tracing (04/21/19 12:54) Ns Iv 1000 Ml (Sodium Chloride 0.9%) (04/21/19 13:00) Promethazine Injection (Phenergan Injec (04/21/19 13:00) Ketorolac Injection (Toradol Injection) (04/21/19 13:00) Diphenhydramine Injection (Benadryl Inje (04/21/19 13:00) Ns Iv 1000 Ml (Sodium Chloride 0.9%) (04/21/19 14:00) Diazepam Tablet (Valium Tablet) (04/21/19 14:15) Benztropine Injection (Cogentin Injectio (04/21/19 14:15) Diphenhydramine Injection (Benadryl Inje (04/21/19 14:15) Medications Given in ED Current Medications Medications Dose Ordered Sig/Renato Route Start Time Stop Time Status Last Admin Dose Admin Diphenhydramine HCl 50 mg ONCE ONCE IVP 04/21/19 13:00 04/21/19 13:01 DC 04/21/19 13:12 50 MG Ketorolac Tromethamine 15 mg ONCE ONCE IVP 04/21/19 13:00 04/21/19 13:01 DC 04/21/19 13:12 15 MG Promethazine HCl 25 mg ONCE ONCE IVP 04/21/19 13:00 04/21/19 13:01 DC 04/21/19 13:12 25 MG Vital Signs/I&O 04/21/19 12:59 Temp 96.8 Pulse 86 Resp 20 B/P (MAP) 131/113 (119) Pulse Ox 99 O2 Delivery Room Air Capillary Refill : Progress Note : Progress Note CT head negative for acute process and her headache is not typical for acute glaucoma temporal arteritis cavernous sinus thrombosis subarachnoid hemorrhage or other acute neurologic emergency. I will treat her pain nausea and reassess. Thankfully patient's workup is negative for acute process. She does have multiple laboratory abnormalities including leukocytosis hyperkalemia hypercalcemia that are all essentially the same as prior labs drawn in January and December. She does have underlying metabolic derangements however she does not appear to need any emergent intervention. Her headache and nausea resolved with treatment here however unfortunately she sustaining a dystonic reaction to the Phenergan. Patient is having some twitching but no airway involvement. She was given additional Benadryl and Cogentin and she didn't improve however it is not completely resolved. Given she is at her neurologic baseline and is normal vital signs with benign workup she will be discharged in stable condition. I will prescribe her Cogentin and Benadryl to take the next 2 days. I will also prescribe Valium as needed for muscle spasm. She is aware and agreeable with plan for discharge and verbalized understanding of the need for follow-up with her primary care provider within 1-2 days and come back to the ED sooner with any new worsening symptoms. [facility] conditi on. Departure Impression Primary Impression: Headache Additional Impressions: Nausea & vomiting Dystonic drug reaction Hyperkalemia Hypercalcemia Leukocytosis Disposition: 01 HOME, SELF-CARE Condition: Stable Departure-Patient Inst. Referrals: SELFFREEMAN MD (PCP/Family) Primary Care Physician Patient Instructions: Dystonia, Headache, Adult (DC) Add. Discharge Instructions: Follow with pcp in 1-2 days. Take tylenol and ibuprofen for headache. Drink plenty of fluids. The valium is for muscle spasms as needed. Scripts Ondansetron (Ondansetron Odt) 4 Mg Tab.rapdis 4 MG PO Q6H PRN for NAUSEA/VOMITING-1ST LINE, #10 TAB Prov: LINDA CHUNG DO 04/21/19 Diazepam (Valium) 5 Mg Tablet 5 MG PO Q6H PRN for SPASMS for 2 Days, #8 TAB Prov: LINDA CHUNG DO 04/21/19 Diphenhydramine HCl (Benadryl) 25 Mg Capsule 25 MG PO QID for 2 Days, #8 CAP Prov: LINDA CHUNG DO 04/21/19 Benztropine Mesylate (Cogentin) 2 Mg/2 Ml Ampul 2 MG PO BID for 2 Days, #4 TAB Prov: LINDA CHUNG DO 04/21/19 LINDA CHUNG DO Apr 21, 2019 12:53
[2019-04-21] MEDS ORDERED: NS IV 1000 ML 1,000 ML IV SCH ×2 (13:00→14:00)
[2019-04-21] MEDS ORDERED: KETOROLAC 15 MG/ML VIAL IVP ONE (13:00)
[2019-04-21] MEDS ORDERED: PROMETHAZINE INJ 25 MG/ML (PHENERGAN) AMP IVP ONE (13:00)
[2019-04-21] MEDS ORDERED: diphenhydrAMINE 50 MG/ML INJ (BENADRYL) IVP ONE ×2 (13:00→14:15)
[2019-04-21 13:34] LABS: BASOPHILS # (AUTO) 0.1 10^3/uL (0.0-0.1); BASOPHILS % (AUTO) 1 % (0-10); EOSINOPHILS # (AUTO) 0.6 10^3/uL (0.0-0.3); EOSINOPHILS % (AUTO) 5 % (0-10); HEMATOCRIT 35 % (35-52); HEMOGLOBIN 10.5 G/DL (11.5-16.0); LYMPHOCYTES # (AUTO) 2.3 X 10^3 (1.0-4.0); LYMPHOCYTES % (AUTO) 20 % (12-44); MEAN CORPUSCULAR HEMOGLOBIN 29 PG (25-34); MEAN CORPUSCULAR HGB CONC 30 G/DL (32-36); MEAN CORPUSCULAR VOLUME 96 FL (80-99); MEAN PLATELET VOLUME 9.8 FL (7.4-10.4); MONOCYTES # (AUTO) 0.8 X 10^3 (0.0-1.0); MONOCYTES % (AUTO) 7 % (0-12); NEUTROPHILS # (AUTO) 7.6 X 10^3 (1.8-7.8); NEUTROPHILS % (AUTO) 67 % (42-75); PLATELET COUNT 549 10^3/uL (130-400); RED CELL DISTRIBUTION WIDTH 18.6 % (10.0-14.5); WHITE BLOOD COUNT 11.4 10^3/uL (4.3-11.0)
--- NOTE | 2019-04-21 13:36 | Diagnostic Imaging Report ---
PROCEDURE: CT head without contrast. TECHNIQUE: Multiple contiguous axial images were obtained through the brain without the use of intravenous contrast. Auto Exposure Controls were utilized during the CT exam to meet ALARA standards for radiation dose reduction. INDICATION: Head pain, vomiting. COMPARISON: 09/25/2018. FINDINGS: There is no intracranial hemorrhage. There is no hydrocephalus. No focal or generalized cerebral edema. Mastoid air cells and middle ear cavities appear clear. The visualized orbits and paranasal sinuses are unremarkable. IMPRESSION: Stable unremarkable noncontrasted CT head. Dictated by: Dictated on workstation # [id number]
[2019-04-21 13:53] LABS: SODIUM 138 MMOL/L (135-145)
[2019-04-21 13:54] LABS: ALANINE AMINOTRANSFERASE 25 U/L (0-55); ALBUMIN 3.3 GM/DL (3.2-4.5); ALKALINE PHOSPHATASE 151 U/L (40-136); BILIRUBIN,TOTAL 0.2 MG/DL (0.1-1.0); BUN/CREATININE RATIO 28; CALCIUM 10.8 MG/DL (8.5-10.1); CARBON DIOXIDE 19 MMOL/L (21-32); CHLORIDE 104 MMOL/L (98-107); CREATININE SERUM 1.25 MG/DL (0.60-1.30); GFR ESTIMATED 43; GLUCOSE 162 MG/DL (70-105); LIPASE 16 U/L (8-78); MAGNESIUM 1.7 MG/DL (1.6-2.4); POTASSIUM 5.6 MMOL/L (3.6-5.0); TOTAL PROTEIN 7.7 GM/DL (6.4-8.2)
[2019-04-21] MEDS ORDERED: BENZTROPINE 2 MG/2 ML INJ (COGENTIN) AMP IV ONE (14:15)
[2019-04-21] MEDS ORDERED: DIAZEPAM 5 MG (VALIUM) TABLET PO ONE (14:15)
[2019-04-21] MEDS ORDERED: BENZ2AMP2 PO (14:36)
[2019-04-21] MEDS ORDERED: DIAZ5TAB PO (14:36)
[2019-04-21] MEDS ORDERED: DIPH25CA79 PO (14:36)
[2019-04-21] MEDS ORDERED: ONDA4TAB11 PO (14:36)
[2019-04-21 15:33] VITALS: BP 103/59
--- NOTE | 2019-04-21 15:33 | NUR ---
Patient discharged to [facility]. Report called to RINKU Schwartz at [facility] with understanding verbalized. Discharge instructions, prescriptions, personal belongings in hand at time of discharge.
== END 2019-04-21 15:33 | disposition home or self-care (01) ==
LOC: EDUNIT# 12:23 → ER FS 12:25
DX: R51 Headache (principal); G24.09 Other drug induced dystonia; E87.5 Hyperkalemia; E83.52 Hypercalcemia; D72.829 Elevated white blood cell count, unspecified; J44.9 Chronic obstructive pulmonary disease, unspecified; E78.00 Pure hypercholesterolemia, unspecified; E11.9 Type 2 diabetes mellitus without complications; Z86.718 Personal history of other venous thrombosis and embolism; Z88.8 Allergy status to other drugs, medicaments and biological substances; Z87.440 Personal history of urinary (tract) infections; Z85.038 Personal history of other malignant neoplasm of large intestine
CPT/HCPCS: 36415; 70450; 80053; 83690; 83735; 84484; 85025; 93005; 96374; 96375; 96376

== ENCOUNTER → 2019-04-28 | Outpatient (CLI) | payer MEDICARE, MEDICAID ==
[~2019-04-28] MED LIST changes: +BENZ2AMP2 PO; +DIAZ5TAB PO; +DIPH25CA79 PO; +ONDA4TAB11 PO
== END ==
LOC: RAD FS 13:36
PROVIDERS: ATTEND Family Medicine
DX: E87.5 Hyperkalemia (principal)
CPT/HCPCS: 36415; 84132

== ENCOUNTER 2019-04-30 12:14 | Emergency (ER) | payer MEDICARE, MEDICAID ==
[~2019-04-30] VITALS: Ht 162 cm; Wt 158.0 kg
[2019-04-30 12:41] LABS: BASOPHILS # (AUTO) 0.1 10^3/uL (0.0-0.1); BASOPHILS % (AUTO) 1 % (0-10); EOSINOPHILS # (AUTO) 0.7 10^3/uL (0.0-0.3); EOSINOPHILS % (AUTO) 6 % (0-10); HEMATOCRIT 36 % (35-52); HEMOGLOBIN 10.8 G/DL (11.5-16.0); LYMPHOCYTES # (AUTO) 2.4 X 10^3 (1.0-4.0); LYMPHOCYTES % (AUTO) 22 % (12-44); MEAN CORPUSCULAR HEMOGLOBIN 29 PG (25-34); MEAN CORPUSCULAR HGB CONC 30 G/DL (32-36); MEAN CORPUSCULAR VOLUME 95 FL (80-99); MEAN PLATELET VOLUME 8.9 FL (7.4-10.4); MONOCYTES # (AUTO) 0.9 X 10^3 (0.0-1.0); MONOCYTES % (AUTO) 8 % (0-12); NEUTROPHILS # (AUTO) 6.9 X 10^3 (1.8-7.8); NEUTROPHILS % (AUTO) 63 % (42-75); PLATELET COUNT 671 10^3/uL (130-400); RED CELL DISTRIBUTION WIDTH 16.9 % (10.0-14.5)
--- NOTE | 2019-04-30 12:42 | ED General ---
General Stated Complaint: ABD PAIN History of Present Illness Date Seen by Provider: Apr 30, 2019 Time Seen by Provider: 12:42 Initial Comments 69 yo s/p spinal cord injury paraplegic and morbidly obese she has a colostomy in the LLQ and a urinary diversion stoma in the RLQ [facility] the reason is not clear pt tells me she was given miralax yesterday today she had some dark liquidy stool in her ostomy she initially said she'd been vomiting a lot, but then says she just had dry heaves once in the night she's concerned about her stoma there is no apparent leakage around it, no inordinate redness warmth etc ostomy bag was not removed because don't have a replacemetn she does have areas of skin breakdown in the sacral/buttocks/upper thighs which are longstanding says the midlevel provider following this problem just saw her she goes on to relate several other minor concerns none of which seem acute, serious, or related to the above Allergies and Home Medications Allergies Coded Allergies: exenatide (Verified Allergy, Unknown, nausea and vomiting, 01/09/19) liraglutide (Verified Allergy, Unknown, nausea and vomiting, abdominal pain, 01/09/19) nitrofurantoin (Verified Allergy, Unknown, diarrhea, 01/09/19) terconazole (Verified Allergy, Unknown, 01/09/19) Home Medications Benztropine Mesylate 2 Mg/2 Ml Ampul, 2 MG PO BID Prescribed by: LINDA CHUNG on 04/21/19 1436 Cephalexin 500 Mg Tablet, 500 MG PO QID Prescribed by: KALEN MEDINA on 01/09/19 1147 Diazepam 5 Mg Tablet, 5 MG PO Q6H PRN for SPASMS Prescribed by: LINDA CHUNG on 04/21/19 1436 Diphenhydramine HCl 25 Mg Capsule, 25 MG PO QID Prescribed by: LINDA CHUNG on 04/21/19 1436 Ondansetron 4 Mg Tab.rapdis, 4 MG PO Q6H PRN for NAUSEA/VOMITING-1ST LINE Prescribed by: LINDA CHUNG on 04/21/19 1436 Patient Home Medication List Home Medication List Reviewed: Yes Review of Systems Review of Systems Constitutional: No fever EENTM: no symptoms reported Respiratory: no symptoms reported Cardiovascular: no symptoms reported Gastrointestinal: No abdominal pain; vomiting (once) Genitourinary: no symptoms reported (see HPI) Past Ojqqvgx-Jlcvnm-Faileh Hx Patient Social History Type Used: Cigarettes 2nd Hand Smoke Exposure: No Recent Hopitalizations: No Past Medical History Appendectomy, Bladder Surgery, Bowel Surgery, Orthopedic Respiratory: Yes COPD Cardiac: Yes Angina, Deep Vein Thrombosis, High Cholesterol Neurological: Yes (PARAPLEGIA) Paralysis, Spinal Cord Injury 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 Disorders: Menstrual Problems SHIRT TRIMMER History: IUD Genitourinary: Yes (urostomy) Neurogenic Bladder, UTI-Chronic Gastrointestinal: Yes (HX OF COLON CANCER; colectomy) Musculoskeletal: Yes (paraplegic; carpal tunnel; ) Arthritis, Back Injury Endocrine: Yes Diabetes, Insulin dep HEENT: Yes Cataract Cancer: Yes Colon Did You Recieve Any Treatments: Yes What Type of Treatment Did You: Chemotherapy, Radiation, Surgical Intervention Psychosocial: Yes Anxiety, Bipolar, Depression Integumentary: Yes (CHRONIC YEAST INFECTIONS; chronic pressure ulcers; cellulitis) Psoriasis Blood Disorders: Yes (anemia) Adverse Reaction/Blood Tranf: No (JEHOVAHS WITNESS-DOESNT TAKE BLOOD) Physical Exam Vital Signs Capillary Refill : Height, Weight, BMI Height: 5'4.50" Weight: 319lbs. 0oz. 144.465731bk; BMI Method:Stated General Appearance: No Apparent Distress, Chronically ill (mild) Eyes: Bilateral Eye Normal Inspection, Bilateral Eye PERRL, Bilateral Eye EOMI HEENT: PERRL/EOMI, Pharynx Normal Neck: Supple Respiratory: Lungs Clear Cardiovascular: Regular Rate, Rhythm Gastrointestinal: Normal Bowel Sounds Comments abd obese soft non-tender no guarding normal BS's urinary stoma looks fine ostomy site as can be inspected with ostomy bag in place looks fine no stool leak pt does have large areas of jagged skin breakdown over sacrum buttocks upper thighs entire area is reddened but nothing purulent nurse who saw this on her last visit 04-21 says it actually looks significantly better Focused Exam Lactate Level 04/30/19 12:35: Lactic Acid Level 1.24 Lactic Acid Level Laboratory Tests Test 04/30/19 12:35 Lactic Acid Level 1.24 MMOL/L (0.50-2.00) Progress/Results/Core Measures Suspected Sepsis SIRS Temperature: Pulse: Respiratory Rate: Laboratory Tests 04/30/19 12:30: White Blood Count 11.0 Blood Pressure / Mean: 04/30/19 12:35: Lactic Acid Level 1.24 Laboratory Tests 04/30/19 12:30: Creatinine 1.05, INR Comment 1.0, Platelet Count 671H, Total Bilirubin 0.2 Results/Orders Lab Results Laboratory Tests Test 04/30/19 12:20 04/30/19 12:30 04/30/19 12:35 Range/Units Urine Color YELLOW Urine Clarity SL CLOUDY Urine pH 7.0 5-9 Urine Specific [place] <1.005 1.016-1.022 Urine Protein NEGATIVE NEGATIVE Urine Glucose (UA) NEGATIVE NEGATIVE Urine Ketones NEGATIVE NEGATIVE Urine Nitrite POSITIVE H NEGATIVE Urine Bilirubin NEGATIVE NEGATIVE Urine Urobilinogen 0.2 NORMAL MG/DL Urine Leukocyte Esterase NEGATIVE NEGATIVE Urine RBC (Auto) 3+ H NEGATIVE Urine RBC 5-10 H /HPF Urine WBC 5-10 H /HPF Urine Squamous Epithelial Cells 2-5 /HPF Urine Crystals NONE /LPF Urine Bacteria LARGE H /HPF Urine Casts NONE /LPF Urine Mucus NEGATIVE /LPF Urine Culture Indicated YES White Blood Count 11.0 4.3-11.0 10^3/uL Red Blood Count 3.76 L 4.35-5.85 10^6/uL Hemoglobin 10.8 L 11.5-16.0 G/DL Hematocrit 36 35-52 % Mean Corpuscular Volume 95 80-99 FL Mean Corpuscular Hemoglobin 29 25-34 PG Mean Corpuscular Hemoglobin Concent 30 L 32-36 G/DL Red Cell Distribution Width 16.9 H 10.0-14.5 % Platelet Count 671 H 130-400 10^3/uL Mean Platelet Volume 8.9 7.4-10.4 FL Neutrophils (%) (Auto) 63 42-75 % Lymphocytes (%) (Auto) 22 12-44 % Monocytes (%) (Auto) 8 0-12 % Eosinophils (%) (Auto) 6 0-10 % Basophils (%) (Auto) 1 0-10 % Neutrophils # (Auto) 6.9 1.8-7.8 X 10^3 Lymphocytes # (Auto) 2.4 1.0-4.0 X 10^3 Monocytes # (Auto) 0.9 0.0-1.0 X 10^3 Eosinophils # (Auto) 0.7 H 0.0-0.3 10^3/uL Basophils # (Auto) 0.1 0.0-0.1 10^3/uL Prothrombin Time 14.0 12.2-14.7 SEC INR Comment 1.0 0.8-1.4 Sodium Level 136 135-145 MMOL/L Potassium Level 4.8 3.6-5.0 MMOL/L Chloride Level 103 98-107 MMOL/L Carbon Dioxide Level 20 L 21-32 MMOL/L Anion Gap 13 5-14 MMOL/L Blood Urea Nitrogen 28 H 7-18 MG/DL Creatinine 1.05 0.60-1.30 MG/DL Estimat Glomerular Filtration Rate 52 BUN/Creatinine Ratio 27 Glucose Level 125 H 70-105 MG/DL Calcium Level 11.0 H 8.5-10.1 MG/DL Corrected Calcium 11.8 H 8.5-10.1 MG/DL Total Bilirubin 0.2 0.1-1.0 MG/DL Aspartate Amino Transf (AST/SGOT) 20 5-34 U/L Alanine Aminotransferase (ALT/SGPT) 16 0-55 U/L Alkaline Phosphatase 158 H 40-136 U/L Total Protein 8.5 H 6.4-8.2 GM/DL Albumin 3.0 L 3.2-4.5 GM/DL Lactic Acid Level 1.24 0.50-2.00 MMOL/L My Orders Orders - ANATOLY JOE MD Cbc With Automated Diff (04/30/19 12:25) Protime With Inr (04/30/19 12:25) Basic Metabolic Panel (04/30/19 12:25) Fecal Occult Bedside (04/30/19 12:25) Lactic Acid Analyzer (04/30/19 12:34) Comprehensive Metabolic Panel (04/30/19 12:34) Urinalysis (04/30/19 12:34) Urine Culture (04/30/19 12:20) Vital Signs/I&O Capillary Refill : Progress Note : Progress Note Hb 10.8 unchanged from baseline WBC 11,000 hemoccult + dark liquid from ostomy no gross blood or typical tarry stool stool is brwon CMP neg lactic acid normal UA with large bact 5-10 WBC's 5-10 RBC's culture sent pt says she has sensation to upper thighs, has no urinary symptoms VS normal afebrile pt was concerned about sepsis, we have no indication of sepsis urine culture is pending result may dictate treatment but pt has no sx's of UTI and no fever tachycardia etc in spite of heme+ dark liquid in ostomy, there no gross blood, and there is more solid brown stool present i.e. it doesn't appear there is significant active GI bleed requiring hospitalization Departure Impression Primary Impression: Abdominal pain Qualified Codes: R10.84 - Generalized abdominal pain Disposition: HOME, SELF-CARE Condition: Stable Departure-Patient Inst. Decision time for Depature: 13:35 Referrals: FREEMAN CHAPA MD (PCP/Family) Primary Care Physician Patient Instructions: Acute Abdomen (Belly Pain), Adult (DC) ANATOLY JOE MD Apr 30, 2019 12:42
[2019-04-30 12:53] LABS: CLARITY,URINE SL CLOUDY; COLOR,URINE YELLOW; GLUCOSE, URINE (UA) NEGATIVE (NEGATIVE); PROTEIN,URINE NEGATIVE (NEGATIVE)
[2019-04-30 12:54] LABS: BACTERIA,URINE LARGE /HPF; BILIRUBIN,URINE NEGATIVE (NEGATIVE); KETONES,URINE NEGATIVE (NEGATIVE); LEUKOCYTE ESTERASE ,URINE NEGATIVE (NEGATIVE); NITRITE,URINE POSITIVE (NEGATIVE); UROBILINOGEN,URINE 0.2 MG/DL (NORMAL)
[2019-04-30 12:55] LABS: CREATININE SERUM 1.05 MG/DL (0.60-1.30); POTASSIUM 4.8 MMOL/L (3.6-5.0)
[2019-04-30 12:56] LABS: BILIRUBIN,TOTAL 0.2 MG/DL (0.1-1.0); TOTAL PROTEIN 8.5 GM/DL (6.4-8.2)
[2019-04-30 14:09] VITALS: BP 135/63
--- NOTE | 2019-04-30 14:20 | NUR ---
Patient's daughter, Alma Davenport, present in ED wanting update on patient condition. Dr Villanueva to room to talk with daughter.
--- NOTE | 2019-04-30 14:45 | NUR ---
[facility] here to turkey picker patient, but Dr Villanueva is wanting to wait on a call from the GI surgeon in prior to discharge. This RN to call Berta at [facility] when patient ready for discharge.
== END 2019-04-30 15:29 | disposition home or self-care (01) ==
LOC: EDUNIT# 12:14 → ER FS 12:17
DX: R10.84 Generalized abdominal pain (principal); E66.01 Morbid (severe) obesity due to excess calories; J44.9 Chronic obstructive pulmonary disease, unspecified; E78.00 Pure hypercholesterolemia, unspecified; E11.9 Type 2 diabetes mellitus without complications; F31.9 Bipolar disorder, unspecified; F41.9 Anxiety disorder, unspecified; Z87.440 Personal history of urinary (tract) infections; Z85.038 Personal history of other malignant neoplasm of large intestine; Z86.718 Personal history of other venous thrombosis and embolism; Z93.3 Colostomy status; Z88.8 Allergy status to other drugs, medicaments and biological substances; Z88.1 Allergy status to other antibiotic agents; Z90.49 Acquired absence of other specified parts of digestive tract; Z68.44 Body mass index [BMI] 60.0-69.9, adult
CPT/HCPCS: 36415; 80053; 81000; 82274; 83605; 85025; 85610; 87077; 87088; 87186

== ENCOUNTER 2019-05-19 08:17 | Emergency (ER) | payer MEDICARE, MEDICAID ==
[~2019-05-19] VITALS: Ht 162 cm; Wt 158.0 kg
--- NOTE | 2019-05-19 08:17 | NUR ---
Pt arrival to ER via [facility] with AMS. Pt is snoring respirations but awakens to name. Pt reports, "not feeling right, feel very tired." Pt displays obstructive sleep apnea type resp 8-14. Pt awakens for Dr and reports has had some right sided dental pain. Pt otherwise falls asleep in conversation. Pt has a jerking twitch thru body when in apneic phase. Pt is reminded to take deep breath in and out.
--- NOTE | 2019-05-19 08:41 | ED Chest Pain ---
General Stated Complaint: AMS Source: patient, EMS Exam Limitations: no limitations History of Present Illness Date Seen by Provider: May 19, 2019 Time Seen by Provider: 08:20 Initial Comments Presents via EMS from the halfway with complaint of mental status change. No great detail given from halfway, however on arrival patient complains of tooth pain on the right side with gum swelling. Denies any other significant pain or concern. Allergies and Home Medications Allergies Coded Allergies: exenatide (Verified Allergy, Unknown, nausea and vomiting, 01/09/19) liraglutide (Verified Allergy, Unknown, nausea and vomiting, abdominal pain, 01/09/19) nitrofurantoin (Verified Allergy, Unknown, diarrhea, 01/09/19) terconazole (Verified Allergy, Unknown, 01/09/19) Home Medications Benztropine Mesylate 2 Mg/2 Ml Ampul, 2 MG PO BID Prescribed by: LINDA CHUNG on 04/21/19 1436 Cephalexin 500 Mg Tablet, 500 MG PO QID Prescribed by: KALEN MEDINA on 01/09/19 1147 Cephalexin 500 Mg Capsule, 500 MG PO QID Prescribed by: LADONNA ALEGRE on 05/19/19 0959 Diazepam 5 Mg Tablet, 5 MG PO Q6H PRN for SPASMS Prescribed by: LINDA CHUNG on 04/21/19 1436 Diphenhydramine HCl 25 Mg Capsule, 25 MG PO QID Prescribed by: LINDA CHUNG on 04/21/19 1436 Ondansetron 4 Mg Tab.rapdis, 4 MG PO Q6H PRN for NAUSEA/VOMITING-1ST LINE Prescribed by: LINDA CHUNG on 04/21/19 1436 Patient Home Medication List Home Medication List Reviewed: Yes Review of Systems Review of Systems Constitutional: no symptoms reported; No malaise, No weakness Respiratory: Denies Cough, Denies Shortness of Air Cardiovascular: Denies Chest Pain, Denies Irregular Heart Rate Gastrointestinal: Denies Abdomen Distended, Denies Vomiting Musculoskeletal: No back pain, No joint pain Psychiatric/Neurological: Denies Anxiety, Denies Depressed Past Nhapafj-Thvvre-Xqamlh Hx Past Med/Social Hx: Reviewed Nursing Past Med/Soc Hx Patient Social History Type Used: Cigarettes Former Smoker, Quit: Aug 18, 1996 2nd Hand Smoke Exposure: No Recent Hopitalizations: No Past Medical History Appendectomy, Bladder Surgery, Bowel Surgery, Orthopedic Respiratory: Yes COPD Cardiac: Yes Angina, Deep Vein Thrombosis, High Cholesterol Neurological: Yes (PARAPLEGIA) Paralysis, Spinal Cord Injury 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 Disorders: Menstrual Problems 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 Genitourinary: Yes (urostomy) Neurogenic Bladder, UTI-Chronic Gastrointestinal: Yes (HX OF COLON CANCER; colectomy) Musculoskeletal: Yes (paraplegic; carpal tunnel; ) Arthritis, Back Injury Endocrine: Yes Diabetes, Insulin dep HEENT: Yes Cataract Cancer: Yes Colon Did You Recieve Any Treatments: Yes What Type of Treatment Did You: Chemotherapy, Radiation, Surgical Intervention Psychosocial: Yes Anxiety, Bipolar, Depression Integumentary: Yes (CHRONIC YEAST INFECTIONS; chronic pressure ulcers; cellulitis) Psoriasis Blood Disorders: Yes (anemia) Adverse Reaction/Blood Tranf: No (JEHOVAHS WITNESS-DOESNT TAKE BLOOD) Physical Exam Vital Signs Vital Signs - First Documented 05/19/19 08:17 Temp 36.2 Pulse 94 Resp 14 B/P (MAP) 120/64 (82) Pulse Ox 97 O2 Delivery Room Air Capillary Refill : Height, Weight, BMI Height: 5'4.50" Weight: 319lbs. 0oz. 144.608288ft; 60.00 BMI Method:Stated General Appearance: No Apparent Distress, WD/WN (morbidly obese); No Mild Distress HEENT: Normal ENT Inspection, Pharynx Normal Neck: Full Range of Motion, Normal Inspection, Non Tender, Supple Respiratory: Chest Non Tender, Lungs Clear, Normal Breath Sounds Cardiovascular: Regular Rate, Rhythm, No JVD, Normal Peripheral Pulses Gastrointestinal: Normal Bowel Sounds, Non Tender, Soft Extremity: Normal Capillary Refill; No Calf Tenderness; Pedal Edema Neurologic/Psychiatric: Alert, Normal Mood/Affect, Other (sleeps easily with heavy snoring. Easily arousable) Skin: Normal Color, Warm/Dry Focused Exam Lactate Level 05/19/19 08:50: Lactic Acid Level 1.03 Lactic Acid Level Laboratory Tests Test 05/19/19 08:50 Lactic Acid Level 1.03 MMOL/L (0.50-2.00) Progress/Results/Core Measures Results/Orders Lab Results Laboratory Tests Test 05/19/19 08:48 05/19/19 08:50 Range/Units Urine Color YELLOW Urine Clarity CLOUDY Urine pH 7.5 5-9 Urine Specific [place] 1.010 L 1.016-1.022 Urine Protein 1+ H NEGATIVE Urine Glucose (UA) NEGATIVE NEGATIVE Urine Ketones NEGATIVE NEGATIVE Urine Nitrite NEGATIVE NEGATIVE Urine Bilirubin NEGATIVE NEGATIVE Urine Urobilinogen 0.2 NORMAL MG/DL Urine Leukocyte Esterase NEGATIVE NEGATIVE Urine RBC (Auto) 2+ H NEGATIVE Urine RBC 5-10 H /HPF Urine WBC 5-10 H /HPF Urine Crystals NONE /LPF Urine Bacteria LARGE H /HPF Urine Casts NONE /LPF Urine Mucus NEGATIVE /LPF Urine Culture Indicated YES White Blood Count 16.1 H 4.3-11.0 10^3/uL Red Blood Count 3.45 L 4.35-5.85 10^6/uL Hemoglobin 9.8 L 11.5-16.0 G/DL Hematocrit 33 L 35-52 % Mean Corpuscular Volume 96 80-99 FL Mean Corpuscular Hemoglobin 28 25-34 PG Mean Corpuscular Hemoglobin Concent 30 L 32-36 G/DL Red Cell Distribution Width 17.1 H 10.0-14.5 % Platelet Count 554 H 130-400 10^3/uL Mean Platelet Volume 9.1 7.4-10.4 FL Neutrophils (%) (Auto) 68 42-75 % Lymphocytes (%) (Auto) 17 12-44 % Monocytes (%) (Auto) 8 0-12 % Eosinophils (%) (Auto) 5 0-10 % Basophils (%) (Auto) 1 0-10 % Neutrophils # (Auto) 10.9 H 1.8-7.8 X 10^3 Lymphocytes # (Auto) 2.8 1.0-4.0 X 10^3 Monocytes # (Auto) 1.3 H 0.0-1.0 X 10^3 Eosinophils # (Auto) 0.9 H 0.0-0.3 10^3/uL Basophils # (Auto) 0.2 H 0.0-0.1 10^3/uL Neutrophils % (Manual) 65 % Lymphocytes % (Manual) 19 % Monocytes % (Manual) 6 % Eosinophils % (Manual) 9 % Basophils % (Manual) 0 % Band Neutrophils 1 % Blood Morphology Comment NORMAL Sodium Level 135 135-145 MMOL/L Potassium Level 5.5 H 3.6-5.0 MMOL/L Chloride Level 106 98-107 MMOL/L Carbon Dioxide Level 20 L 21-32 MMOL/L Anion Gap 9 5-14 MMOL/L Blood Urea Nitrogen 36 H 7-18 MG/DL Creatinine 1.72 H 0.60-1.30 MG/DL Estimat Glomerular Filtration Rate 29 BUN/Creatinine Ratio 21 Glucose Level 121 H 70-105 MG/DL Lactic Acid Level 1.03 0.50-2.00 MMOL/L Calcium Level 10.0 8.5-10.1 MG/DL Corrected Calcium 11.2 H 8.5-10.1 MG/DL Total Bilirubin 0.2 0.1-1.0 MG/DL Aspartate Amino Transf (AST/SGOT) 16 5-34 U/L Alanine Aminotransferase (ALT/SGPT) 13 0-55 U/L Alkaline Phosphatase 133 40-136 U/L Troponin I < 0.30 <0.30 NG/ML Total Protein 7.4 6.4-8.2 GM/DL Albumin 2.5 L 3.2-4.5 GM/DL My Orders Orders - ROVENSTINEALEKSANDERLADONNA L DO Ed Iv/Invasive Line Start (05/19/19 08:29) Cbc With Automated Diff (05/19/19 08:29) Comprehensive Metabolic Panel (05/19/19 08:29) Lactic Acid Analyzer (05/19/19 08:29) Troponin I Fs (05/19/19 08:51) Urinalysis (05/19/19 08:53) Urine Culture (05/19/19 08:48) Manual Differential (05/19/19 08:50) Cephalexin Capsule (Keflex Capsule) (05/19/19 10:00) Ns Iv 1000 Ml (Sodium Chloride 0.9%) (05/19/19 10:00) Medications Given in ED Current Medications Medications Dose Ordered Sig/Renato Route Start Time Stop Time Status Last Admin Dose Admin Cephalexin HCl 500 mg ONCE ONCE PO 05/19/19 10:00 05/19/19 10:01 DC 05/19/19 10:02 500 MG Vital Signs/I&O 05/19/19 08:17 Temp 36.2 Pulse 94 Resp 14 B/P (MAP) 120/64 (82) Pulse Ox 97 O2 Delivery Room Air Progress Progress Note : Progress Note patient conversive and appropriate when awake. no distress. Admits she is supposed to use CPAP, but has not been using it for several days. Chronic UTI, daily Cipro. Reviewed most recent Urine culture collected 04/30/2019 showing 3 organisms. Will add keflex as pt is already on Cipro and this will provide coverage for Enterococci. Advised close f/u if not improving or worse. Mostly seems to have chronic problems that are being addressed adequately with routine care.......indwelling urine cath, colostomy, chronic ulcerations, morbid obesity, anemia. No evidence or sign of Sepsis. Discussed plan with patients daughter and she agreed w plan and treatment. Took a very long time to return patient to halfway due to her being totally dependent on others to move her and her large size. Assisted by EMS. Departure Impression Primary Impression: Chronic UTI Additional Impression: Anemia Qualified Codes: D64.9 - Anemia, unspecified Disposition: 01 HOME, SELF-CARE ([facility]) Condition: Stable Departure-Patient Inst. Decision time for Depature: 09:48 Referrals: FREEMAN CHAPA MD (PCP/Family) Primary Care Physician Patient Instructions: Urinary Tract Infection, Adult (DC) Add. Discharge Instructions: See Your Primary Care Doctor in 2 days for re-evaluation......go to the nearest ER if not improving or worse in 24 hours. Scripts Cephalexin (Cephalexin) 500 Mg Capsule 500 MG PO QID, #28 CAP Prov: LADONNA ALEGRE DO 05/19/19 LADONNA ALEGRE DO May 19, 2019 08:41
[2019-05-19 09:04] LABS: BILIRUBIN,URINE NEGATIVE (NEGATIVE); CLARITY,URINE CLOUDY; COLOR,URINE YELLOW; GLUCOSE, URINE (UA) NEGATIVE (NEGATIVE); KETONES,URINE NEGATIVE (NEGATIVE); LEUKOCYTE ESTERASE ,URINE NEGATIVE (NEGATIVE); NITRITE,URINE NEGATIVE (NEGATIVE); PH,URINE 7.5 (5-9); PROTEIN,URINE 1+ (NEGATIVE); UROBILINOGEN,URINE 0.2 MG/DL (NORMAL)
[2019-05-19 09:05] LABS: WHITE BLOOD COUNT 16.1 10^3/uL (4.3-11.0)
[2019-05-19 09:05] LABS: BACTERIA,URINE LARGE /HPF
[2019-05-19 09:06] LABS: BASOPHILS # (AUTO) 0.2 10^3/uL (0.0-0.1); BASOPHILS % (AUTO) 1 % (0-10); EOSINOPHILS # (AUTO) 0.9 10^3/uL (0.0-0.3); EOSINOPHILS % (AUTO) 5 % (0-10); HEMATOCRIT 33 % (35-52); HEMOGLOBIN 9.8 G/DL (11.5-16.0); LYMPHOCYTES # (AUTO) 2.8 X 10^3 (1.0-4.0); LYMPHOCYTES % (AUTO) 17 % (12-44); MEAN CORPUSCULAR HEMOGLOBIN 28 PG (25-34); MEAN CORPUSCULAR HGB CONC 30 G/DL (32-36); MEAN CORPUSCULAR VOLUME 96 FL (80-99); MEAN PLATELET VOLUME 9.1 FL (7.4-10.4); MONOCYTES # (AUTO) 1.3 X 10^3 (0.0-1.0); MONOCYTES % (AUTO) 8 % (0-12); NEUTROPHILS # (AUTO) 10.9 X 10^3 (1.8-7.8); NEUTROPHILS % (AUTO) 68 % (42-75); PLATELET COUNT 554 10^3/uL (130-400); RED CELL DISTRIBUTION WIDTH 17.1 % (10.0-14.5)
--- NOTE | 2019-05-19 09:15 | NUR ---
Dgt arriving to visit pt. Pt sleeping but awakens to verbal stimuli of name. Pt continues with snorous respirations.
[2019-05-19 09:21] LABS: ALANINE AMINOTRANSFERASE 13 U/L (0-55); ALKALINE PHOSPHATASE 133 U/L (40-136); BILIRUBIN,TOTAL 0.2 MG/DL (0.1-1.0); BUN/CREATININE RATIO 21; CARBON DIOXIDE 20 MMOL/L (21-32); CHLORIDE 106 MMOL/L (98-107); CREATININE SERUM 1.72 MG/DL (0.60-1.30); GFR ESTIMATED 29; GLUCOSE 121 MG/DL (70-105); POTASSIUM 5.5 MMOL/L (3.6-5.0); SODIUM 135 MMOL/L (135-145)
[2019-05-19 09:22] LABS: ALBUMIN 2.5 GM/DL (3.2-4.5); TOTAL PROTEIN 7.4 GM/DL (6.4-8.2)
[2019-05-19 09:25] LABS: BAND NEUTROPHILS 1 %; NEUTROPHILS % (MANUAL) 65 %
[2019-05-19 09:26] LABS: BASOPHILS % (MANUAL) 0 %; EOSINOPHILS % (MANUAL) 9 %; LYMPHOCYTES % (MANUAL) 19 %; MONOCYTES % (MANUAL) 6 %; RBC MORPH NORMAL
--- NOTE | 2019-05-19 09:30 | NUR ---
spoke with bertha, RN present. Dgt reports patient has a CPAP but possibly not compliant wearing it.
[2019-05-19] MEDS ORDERED: CEPH500C PO (09:59)
[2019-05-19] MEDS ORDERED: CEPHALEXIN 250 MG (KEFLEX) CAP PO ONE (10:00)
[2019-05-19] MEDS ORDERED: NS IV 1000 ML 1,000 ML IV SCH (10:00)
--- NOTE | 2019-05-19 10:20 | NUR ---
Dgt leaving at this time.
--- NOTE | 2019-05-19 10:45 | NUR ---
Pt continues to sleep but awakens easily. NIBP discrepencies with patient BP cuff placement and bending arms. Trying radial cuff at this time. SaO2 95-98% room air when no sleep apnea present, SaO2 down to 90-92% with sleep apneic spells.
--- NOTE | 2019-05-19 11:00 | NUR ---
IV fluids completed, called to [facility] to give report. The primary RN unavailable and the person on phone states "I am the other RN tell me what you need to." Report given and request WC van along with the lift sling for their usage required at residential for [facility] L[facility] available there. Was told the payroll administrator will be notified that patient condition remains altered with sleeping thru ER visit. Explained the patient is displaying sleep apnea thru ED stay and dgt present reports patient does not wear CPAP as it bothers her nose or it is too constraining and causes feeling of unable to breathe.
--- NOTE | 2019-05-19 11:35 | NUR ---
[facility] "[facility]" called and spoke with Bety [facility]B[employer]. Discussed patient report again and she reports that they do not have a WC van available. The senior network administrator reports do not call for EMS.
--- NOTE | 2019-05-19 11:50 | NUR ---
Return call from Berta Kinsey, [employer] and she reports the maintenance staff went to [place] to borrow the WC van and will return to use for her discharge. Berta reports she will also come to assist.
--- NOTE | 2019-05-19 12:25 | NUR ---
Continue to await transportation. Pt has been sleeping soundly with observed periods of sleep apnea of no > 30 seconds.
--- NOTE | 2019-05-19 12:40 | NUR ---
[facility] maintenance arrival with the and a cushion. The van is not here presently.
[2019-05-19 13:40] VITALS: BP 125/65
--- NOTE | 2019-05-19 13:40 | NUR ---
Pt discharged to [facility] at this time via WC assist lift of 7 staff: Dr, 2 EMS, and 3 RN's and PCCT. Pt is weight lift to a WC as no [facility] Lift at this facility. Risks discussed with EMS and Dr and will choose to do EMS transport next time as pt is truly non mobile and [facility] transfer movements only. The [facility] Director, Berta Kinsey had staff assist to get patient onto ramp to elevate patient up to [facility] van the patient's WC does not easily go thru the rear door and add'l VT staff/maintenance came over and another call for assist from EMS. Much manuevering done to get the bariatric WC onto van. There has been approximately 45 min-hour utilized by staff to get patient prepared in transferrring manuevers.
== END 2019-05-19 13:40 | disposition home or self-care (01) ==
LOC: EDUNIT# 08:17 → ER FS 08:18
DX: N39.0 Urinary tract infection, site not specified (principal); D64.9 Anemia, unspecified; J44.9 Chronic obstructive pulmonary disease, unspecified; E11.9 Type 2 diabetes mellitus without complications; F41.9 Anxiety disorder, unspecified; F31.9 Bipolar disorder, unspecified; E78.00 Pure hypercholesterolemia, unspecified; Z86.718 Personal history of other venous thrombosis and embolism; Z87.440 Personal history of urinary (tract) infections; Z85.038 Personal history of other malignant neoplasm of large intestine; Z88.8 Allergy status to other drugs, medicaments and biological substances; Z87.891 Personal history of nicotine dependence; Z90.49 Acquired absence of other specified parts of digestive tract; Z87.828 Personal history of other (healed) physical injury and trauma
CPT/HCPCS: 36415; 80053; 81000; 83605; 84484; 85007; 85027; 87077; 87088; 87186

== ENCOUNTER 2019-05-24 00:57 | Emergency (ER) | payer MEDICARE, MEDICAID ==
[~2019-05-24] VITALS: Ht 162 cm; Wt 145.0 kg
[~2019-05-24 00:57] MED LIST changes: +CEPH500C PO
[2019-05-24] MEDS ORDERED: ONDANSETRON 4 MG/2 ML (SDV) Z0FRAN IVP STA ×2 (01:13→04:36)
[2019-05-24 01:20] LABS: HEMATOCRIT 34 % (35-52); HEMOGLOBIN 10.2 G/DL (11.5-16.0); MEAN CORPUSCULAR HEMOGLOBIN 28 PG (25-34); MEAN CORPUSCULAR HGB CONC 30 G/DL (32-36); MEAN CORPUSCULAR VOLUME 94 FL (80-99); PLATELET COUNT 744 10^3/uL (130-400); RED CELL DISTRIBUTION WIDTH 16.6 % (10.0-14.5); WHITE BLOOD COUNT 13.2 10^3/uL (4.3-11.0)
[2019-05-24 01:21] LABS: BASOPHILS # (AUTO) 0.1 10^3/uL (0.0-0.1); BASOPHILS % (AUTO) 1 % (0-10); EOSINOPHILS # (AUTO) 0.9 10^3/uL (0.0-0.3); EOSINOPHILS % (AUTO) 7 % (0-10); LYMPHOCYTES # (AUTO) 2.6 X 10^3 (1.0-4.0); LYMPHOCYTES % (AUTO) 20 % (12-44); MEAN PLATELET VOLUME 8.7 FL (7.4-10.4); MONOCYTES # (AUTO) 0.8 X 10^3 (0.0-1.0); MONOCYTES % (AUTO) 6 % (0-12); NEUTROPHILS # (AUTO) 8.7 X 10^3 (1.8-7.8); NEUTROPHILS % (AUTO) 66 % (42-75)
[2019-05-24 01:25] LABS: INR 1.2 (0.8-1.4); PROTHROMBIN TIME PATIENT 15.4 SEC (12.2-14.7)
--- NOTE | 2019-05-24 01:27 | ED General ---
General Chief Complaint: Chest Pain Stated Complaint: CHEST PAIN Nursing Triage Note: PT TO [facility] VIA EMS WITH C/O CHEST PAIN AND SOA STARTING THIS MORNING. PT STATES HAS NO CHEST PAIN AT THIS TIME. PT ALSO C/O N/V. Nursing Sepsis Screen: No Definite Risk Source of Information: Patient, EMS History of Present Illness Date Seen by Provider: May 24, 2019 Time Seen by Provider: 00:59 Initial Comments 69-year-old female presenting with complaints of feeling some epigastric pain into her chest. She was also more short of breath with this. The patient does have nausea and vomiting that has been a recurrent issue for her. She still has some nausea on arrival to the emergency department. She has a history of colon cancer and multiple abdominal surgeries. No known fever. Patient has had some chills. Allergies and Home Medications Allergies Coded Allergies: exenatide (Verified Allergy, Unknown, nausea and vomiting, 01/09/19) liraglutide (Verified Allergy, Unknown, nausea and vomiting, abdominal pain, 01/09/19) nitrofurantoin (Verified Allergy, Unknown, diarrhea, 01/09/19) terconazole (Verified Allergy, Unknown, 01/09/19) Home Medications Benztropine Mesylate 2 Mg/2 Ml Ampul, 2 MG PO BID Prescribed by: LINDA CHUNG on 04/21/19 143 Cephalexin 500 Mg Tablet, 500 MG PO QID Prescribed by: KALEN MEDINA on 01/09/19 1147 Cephalexin 500 Mg Capsule, 500 MG PO QID Prescribed by: CASTRO PÉREZ on 05/24/19511 Diazepam 5 Mg Tablet, 5 MG PO Q6H PRN for SPASMS Prescribed by: LINDA CHUNG on 04/21/19 143 Diphenhydramine HCl 25 Mg Capsule, 25 MG PO QID Prescribed by: LINDA CHUNG on 04/21/19 143 Ondansetron 4 Mg Tab.rapdis, 4 MG PO Q6H PRN for NAUSEA/VOMITING-1ST LINE Prescribed by: CASTRO PÉREZ on 05/24/19511 Patient Home Medication List Home Medication List Reviewed: Yes Review of Systems Review of Systems Constitutional: chills; No fever; malaise EENTM: no symptoms reported Respiratory: short of breath (some shortness of breath with her epigastric pain radiating into her chest tonight) Cardiovascular: chest pain (epigastric pain radiating into chest) Gastrointestinal: abdominal pain (epigastric pain that radiates up into her chest), nausea, vomiting Genitourinary: other (chronic indwelling Villanueva catheter) Musculoskeletal: no symptoms reported Skin: no symptoms reported Psychiatric/Neurological: Headache (chronic related to neck pain) Past Gaiyuvy-Ewflen-Mzqmgz Hx Past Med/Social Hx: Reviewed Nursing Past Med/Soc Hx Patient Social History Type Used: Cigarettes Former Smoker, Quit: Aug 18, 1996 2nd Hand Smoke Exposure: No Recent Foreign Travel: No Contact w/Someone Who Travel: No Recent Infectious Disease Expo: No Recent Hopitalizations: No Physical Abuse: No Sexual Abuse: No Mistreated: No Fear: No Seasonal Allergies Seasonal Allergies: No Past Medical History Appendectomy, Bladder Surgery, Bowel Surgery, Orthopedic Respiratory: Yes (questionable GERALDINE) COPD Cardiac: Yes Angina, Deep Vein Thrombosis, High Cholesterol Neurological: Yes (paraplegic) Paralysis, Spinal Cord Injury 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 Disorders: Menstrual Problems [employer] History: IUD Genitourinary: Yes (urostomy) Neurogenic Bladder, UTI-Chronic Gastrointestinal: Yes (Hx colon cancer; colectomy) Musculoskeletal: Yes (paraplegic; carpal tunnel ) Arthritis, Back Injury Endocrine: Yes Diabetes, Insulin dep HEENT: Yes Cataract Cancer: Yes Colon Did You Recieve Any Treatments: Yes What Type of Treatment Did You: Chemotherapy, Radiation, Surgical Intervention Psychosocial: Yes Anxiety, Bipolar, Depression Integumentary: Yes (chronic yeast infections; chronic pressure ulcers; ce llulitis) Psoriasis Blood Disorders: Yes (anemia) Adverse Reaction/Blood Tranf: No (JEHOVAHS WITNESS-DOESNT TAKE BLOOD) Physical Exam Vital Signs Vital Signs - First Documented 05/24/19 05/24/19 00:58 01:06 Temp 35.8 Pulse 106 Resp 18 B/P (MAP) 96/56 (69) Pulse Ox 100 O2 Delivery Nasal Cannula O2 Flow Rate 4.00 Capillary Refill : Less Than 3 Seconds Height, Weight, BMI Height: 5'4.50" Weight: 319lbs. 0oz. [age]yo; 55.00 BMI Method:Stated General Appearance: No Apparent Distress, Obese HEENT: PERRL/EOMI, Normal ENT Inspection, Pharynx Normal Neck: Non Tender, Supple Respiratory: Chest Non Tender, Lungs Clear, No Accessory Muscle Use, No Respiratory Distress, Decreased Breath Sounds Cardiovascular: Regular Rate, Rhythm, Normal Peripheral Pulses Gastrointestinal: No Pulsatile Mass, Soft, Abnormal Bowel Sounds (hyperactive); No Guarding, No Rebound; Tenderness (epigastric tenderness to palpation), Other (colostomy in place with brown colored stool in colostomy bag) Extremity: Normal Capillary Refill, Non Tender Neurologic/Psychiatric: Alert, Oriented x3 Skin: Warm/Dry, Pallor Focused Exam Lactate Level 05/24/19 01:03: Lactic Acid Level 1.45 Lactic Acid Level Progress/Results/Core Measures Suspected Sepsis Recent Fever Within 48 Hours: No Infection Criteria Present: None New/Unexplained Altered Menta: No Sepsis Screen: No Definite Risk SIRS Temperature: Pulse: 106 Respiratory Rate: 18 Laboratory Tests 05/24/19 01:03: White Blood Count 13.2H Blood Pressure 96 /56 Mean: 69 05/24/19 01:03: Lactic Acid Level 1.45 Laboratory Tests 05/24/19 01:03: Creatinine 1.21, INR Comment 1.2, Platelet Count 744H, Total Bilirubin 0.2 Results/Orders Lab Results Laboratory Tests Test 05/24/19 01:03 05/24/19 03:16 05/24/19 04:09 Range/Units White Blood Count 13.2 H 4.3-11.0 10^3/uL Red Blood Count 3.64 L 4.35-5.85 10^6/uL Hemoglobin 10.2 L 11.5-16.0 G/DL Hematocrit 34 L 35-52 % Mean Corpuscular Volume 94 80-99 FL Mean Corpuscular Hemoglobin 28 25-34 PG Mean Corpuscular Hemoglobin Concent 30 L 32-36 G/DL Red Cell Distribution Width 16.6 H 10.0-14.5 % Platelet Count 744 H 130-400 10^3/uL Mean Platelet Volume 8.7 7.4-10.4 FL Neutrophils (%) (Auto) 66 42-75 % Lymphocytes (%) (Auto) 20 12-44 % Monocytes (%) (Auto) 6 0-12 % Eosinophils (%) (Auto) 7 0-10 % Basophils (%) (Auto) 1 0-10 % Neutrophils # (Auto) 8.7 H 1.8-7.8 X 10^3 Lymphocytes # (Auto) 2.6 1.0-4.0 X 10^3 Monocytes # (Auto) 0.8 0.0-1.0 X 10^3 Eosinophils # (Auto) 0.9 H 0.0-0.3 10^3/uL Basophils # (Auto) 0.1 0.0-0.1 10^3/uL Prothrombin Time 15.4 H 12.2-14.7 SEC INR Comment 1.2 0.8-1.4 Activated Partial Thromboplast Time 31 24-35 SEC Sodium Level 139 135-145 MMOL/L Potassium Level 5.1 H 3.6-5.0 MMOL/L Chloride Level 107 98-107 MMOL/L Carbon Dioxide Level 21 21-32 MMOL/L Anion Gap 11 5-14 MMOL/L Blood Urea Nitrogen 30 H 7-18 MG/DL Creatinine 1.21 0.60-1.30 MG/DL Estimat Glomerular Filtration Rate 44 BUN/Creatinine Ratio 25 Glucose Level 149 H 70-105 MG/DL Lactic Acid Level 1.45 0.50-2.00 MMOL/L Calcium Level 10.1 8.5-10.1 MG/DL Corrected Calcium 11.3 H 8.5-10.1 MG/DL Magnesium Level 1.9 1.6-2.4 MG/DL Total Bilirubin 0.2 0.1-1.0 MG/DL Aspartate Amino Transf (AST/SGOT) 21 5-34 U/L Alanine Aminotransferase (ALT/SGPT) 15 0-55 U/L Alkaline Phosphatase 169 H 40-136 U/L Troponin I < 0.30 < 0.30 <0.30 NG/ML Pro-B-Type Natriuretic Peptide 222.2 H <75.0 PG/ML Total Protein 7.7 6.4-8.2 GM/DL Albumin 2.5 L 3.2-4.5 GM/DL Urine Color YELLOW Urine Clarity CLOUDY Urine pH 6.5 5-9 Urine Specific [place] 1.020 1.016-1.022 Urine Protein TRACE NEGATIVE Urine Glucose (UA) NEGATIVE NEGATIVE Urine Ketones NEGATIVE NEGATIVE Urine Nitrite POSITIVE H NEGATIVE Urine Bilirubin NEGATIVE NEGATIVE Urine Urobilinogen 0.2 NORMAL MG/DL Urine Leukocyte Esterase NEGATIVE NEGATIVE Urine RBC (Auto) 2+ H NEGATIVE Urine RBC NONE /HPF Urine WBC 10-25 H /HPF Urine Squamous Epithelial Cells NONE /HPF Urine Crystals NONE /LPF Urine Bacteria LARGE H /HPF Urine Casts PRESENT /LPF Urine Granular Casts RARE /LPF Urine Mucus NEGATIVE /LPF Urine Yeast LARGE H /HPF Urine Culture Indicated YES My Orders Orders - CASTRO PÉREZ MD Cbc With Automated Diff (05/24/19 01:13) Magnesium (05/24/19 01:13) Chest 1 View Ap/Pa Only (05/24/19 01:13) Ekg Tracing (05/24/19:13) Comprehensive Metabolic Panel (05/24/19:13) Protime With Inr (05/24/19:13) Partial Thromboplastin Time (05/24/19:13) O2 (05/24/19 01:13) Monitor-Rhythm Ecg Trace Only (05/24/19:13) Ed Iv/Invasive Line Start (05/24/19 01:13) Troponin I Fs (05/24/19 01:13) Probnp Fs (05/24/19 01:13) Ondansetron Injection (Zofran Injectio (05/24/19 01:13) Blood Culture (05/24/19 01:16) Lactic Acid Analyzer (05/24/19 01:16) Ns Iv 1000 Ml (Sodium Chloride 0.9%) (05/24/19 01:30) Ua Culture If Indicated (05/24/19 01:20) Acetaminophen Tablet (Tylenol Tablet) (05/24/19 02:10) Ns Iv 1000 Ml (Sodium Chloride 0.9%) (05/24/19 02:29) Troponin I Fs (05/24/19 03:01) Ketorolac Injection (Toradol Injection) (05/24/19 03:16) Orphenadrine Injection (Norflex Injectio (05/24/19 03:16) Fentanyl Injection (Sublimaze Injection (05/24/19 03:45) Ct Head/Cervical Spine Wo (05/24/19 03:49) Urine Culture (05/24/19 04:09) Ondansetron Injection (Zofran Injectio (05/24/19 04:36) Ceftriaxone For Iv Use (Rocephin For I (05/24/19 04:37) Medications Given in ED Current Medications Medications Dose Ordered Sig/Renato Route Start Time Stop Time Status Last Admin Dose Admin Fentanyl Citrate 25 mcg ONCE ONCE IVP 05/24/19 03:45 05/24/19 03:46 DC 05/24/19 03:47 25 MCG Vital Signs/I&O 05/24/19 05/24/19 05/24/19 00:58 01:06 01:21 Temp 35.8 Pulse 106 Resp 18 B/P (MAP) 96/56 (69) Pulse Ox 100 100 O2 Delivery Nasal Cannula Nasal Cannula Nasal Cannula O2 Flow Rate 4.00 4.00 4.0 Capillary Refill : Less Than 3 Seconds Blood Pressure Mean: 69 Progress Note #1: Progress Note Obtain labs and electrocardiogram with chest x-ray. Give IVF for hydration and Zofran for nausea. Patient denies having any pain currently. Progress Note #2: Progress Note Labs show continued mild elevation of her white blood cell count. This has improved since previous visit. She has stable chemistry without elevation of her lactic acid. She has negative troponin. Her chest x-ray does not show any definite infiltrate. Will order a second troponin. In the meantime she was complaining of a headache so will give Tylenol for that. Progress Note #3: Progress Note While waiting on the repeat troponin the patient was complaining more of headache and neck pain. Toradol and Norflex were given for headache and neck pain. She states that the neck pain is what is causing her headache and she has seen doctors in over [place] for it and they have done scans in the past. However after receiving the Toradol and Norflex she complained that her headache was worse. Despite complaining about her headache she would fall asleep in between complaining about her headaches. A low-dose of fentanyl 25 g was given to try and help with her headache. Also the repeat troponin did come back and still 0. A CT scan of the head and cervical spine was added on just to make sure there is nothing new or different since she was continuing to intermittently complain about the pain. Progress Note #4: Progress Note CT scan does not show any acute process in the head or neck. She has chronic changes. The urinalysis does show nitrites and chronic infection. Will continue another week of the antibiotics. ECG Initial ECG Impression Date: May 24, 2019 Initial ECG Impression Time: 00:59 Initial ECG Rate: 91 Initial ECG Rhythm: Normal Sinus Initial ECG Comparisson: No Previous ECG Available Comment Normal sinus rhythm with a heart rate of 91 bpm. TX interval of 59 ms. QT interval 334 ms and QT corrected interval [address] elevation but she does have T wave flattening globally. No prior tracing available for comparison. Diagnostic Imaging Diagonstic Imaging: Xray Plain Films/CT/US/NM/MRI: chest Comments No acute infiltrate or effusion on my review of her 1 view CXR NAME: KB PIZANO [facility] REC#: [id number] PT STATUS: REG ER : 1950 PHYSICIAN: CASTRO PÉREZ MD ADMIT DATE: 05/24/19/ER FS Draft Date of Exam:05/24/19 CHEST 1 VIEW AP/PA ONLY INDICATION: Chest pain COMPARISON: None FINDINGS: Single frontal view of the chest demonstrates normal heart size and pulmonary vascularity. The lungs are well aerated and clear. No large pleural effusion or pneumothorax is seen. The visualized osseous structures show no acute abnormalities. Metallic foreign object is seen projecting over the lower chest, midline. IMPRESSION: 1. No acute cardiopulmonary process. Dictated on workstation # [id number] Dict: 05/24/19517 Trans: 05/24/19519 [facility] [id number] Interpreted by: FILIBERTO HAM MD Electronically signed by: Reviewed: Reviewed by Me Diagonstic Imaging: CT Plain Films/CT/US/NM/MRI: c-spine, head Comments Extensive motion artifact markedly limits evaluation. No grossly evident acute intracranial abnormality on this limited exam. Chronic ossific fragment adjacent to the right C1 and C2 lateral mass articulation. Multiple severe foraminal stenosis. Severe cervical degenerative spondylosis. Severe spinal canal stenosis at C4 5 and C5 6. No acute fracture or malalignment. Radiologist Jake Izquierdo M.D. read at 4:54 AM and faxed at 5:11 AM Reviewed: Reviewed Night [facility] Departure Impression Primary Impression: UTI (urinary tract infection) due to urinary indwelling Villanueva catheter Qualified Codes: T83.511A - Infection and inflammatory reaction due to indwelling urethral catheter, initial encounter; N39.0 - Urinary tract infection, site not specified Additional Impressions: Chronic neck pain Nausea and vomiting Qualified Codes: R11.14 - Bilious vomiting Disposition: 01 HOME, SELF-CARE Condition: Stable Departure-Patient Inst. Decision time for Depature: 05:13 Referrals: FREEMAN CHAPA MD (PCP/Family) Primary Care Physician Patient Instructions: Urinary Tract Infection, Adult (DC), Nausea and Vomiting, Adult (DC), Chronic Neck Pain (DC) Add. Discharge Instructions: Continue on antibiotics. Change out Villanueva Catheter when the Antibiotics are completed to help clear the infection. Check back with primary provider about continued problems/concerns All discharge instructions reviewed with patient and/or family. Voiced understanding. Scripts Ondansetron (Ondansetron Odt) 4 Mg Tab.rapdis 4 MG PO Q6H PRN for NAUSEA/VOMITING-1ST LINE, #10 TAB Prov: CASTRO PÉREZ MD 05/24/19 Cephalexin (Cephalexin) 500 Mg Capsule 500 MG PO QID, #28 CAP Prov: CASTRO PÉREZ MD 05/24/19 CASTRO PÉREZ MD May 24, 2019 01:27
[2019-05-24] MEDS ORDERED: NS IV 1000 ML 1,000 ML IV SCH (01:30)
[2019-05-24 01:33] LABS: BILIRUBIN,TOTAL 0.2 MG/DL (0.1-1.0); CALCIUM 10.1 MG/DL (8.5-10.1); MAGNESIUM 1.9 MG/DL (1.6-2.4); POTASSIUM 5.1 MMOL/L (3.6-5.0); TOTAL PROTEIN 7.7 GM/DL (6.4-8.2)
[2019-05-24 01:35] LABS: ALBUMIN 2.5 GM/DL (3.2-4.5); CREATININE SERUM 1.21 MG/DL (0.60-1.30)
--- NOTE | 2019-05-24 02:00 | NUR ---
PT RESTING IN BED. PT STATES THAT SHE HAS NO CHEST PAIN AT THIS TIME BUT SHE DOES HAVE PAIN IN HER LEFT SHOULDER. PROVIDER NOTIFIED.
[2019-05-24] MEDS ORDERED: ACETAMINOPHEN 500 MG TAB (TYLENOL) PO STA (02:10)
[2019-05-24] MEDS ORDERED: NS IV 1000 ML 1,000 ML IV STA (02:29)
--- NOTE | 2019-05-24 03:15 | NUR ---
PT RESTING IN BED. PT STATES SHE HAS PAIN IN HER HEAD AND NECK. PROVIDER NOTIFIED. PT STATES THERE IS NOTHING SHE NEEDS AT THIS TIME.
[2019-05-24] MEDS ORDERED: ORPHENADRINE 60 MG/2 ML (NORFLEX) AMP IV STA (03:16)
[2019-05-24] MEDS ORDERED: KETOROLAC 30 MG/ML VIAL IVP STA (03:16)
[2019-05-24] MEDS ORDERED: fentaNYL INJECTION 100 MCG/2 ML AMP IVP ONE (03:45)
[2019-05-24 04:31] LABS: BACTERIA,URINE LARGE /HPF; BILIRUBIN,URINE NEGATIVE (NEGATIVE); CLARITY,URINE CLOUDY; COLOR,URINE YELLOW; GLUCOSE, URINE (UA) NEGATIVE (NEGATIVE); KETONES,URINE NEGATIVE (NEGATIVE); LEUKOCYTE ESTERASE ,URINE NEGATIVE (NEGATIVE); NITRITE,URINE POSITIVE (NEGATIVE); PH,URINE 6.5 (5-9); PROTEIN,URINE TRACE (NEGATIVE); UROBILINOGEN,URINE 0.2 MG/DL (NORMAL)
[2019-05-24 04:32] LABS: GRANULAR CASTS,URINE RARE /LPF; YEAST,URINE LARGE /HPF
[2019-05-24] MEDS ORDERED: cefTRIAXone FOR IV USE 1,000 MG in WATER (STERILE) FOR INJECTION 10 ML IV STA (04:37)
[2019-05-24] MEDS ORDERED: ONDA4TAB11 PO (05:12)
[2019-05-24] MEDS ORDERED: CEPH500C PO (05:12)
--- NOTE | 2019-05-24 05:20 | Diagnostic Imaging Report ---
INDICATION: Chest pain COMPARISON: None FINDINGS: Single frontal view of the chest demonstrates normal heart size and pulmonary vascularity. The lungs are well aerated and clear. No large pleural effusion or pneumothorax is seen. The visualized osseous structures show no acute abnormalities. Metallic foreign object is seen projecting over the lower chest, midline. IMPRESSION: 1. No acute cardiopulmonary process. Dictated by: Dictated on workstation # [id number]
--- NOTE | 2019-05-24 05:22 | NUR ---
[facility] CONTACTED AND INFORMED THAT PT IS READY TO RETURN. [facility] STATED THAT THEY WILL NOT HAVE A SLIP TENDER UNTIL 0600 AND THAT THEY WILL BE HERE AFTER THAT TO PICK PT UP.
[2019-05-24 06:52] VITALS: BP 113/64
--- NOTE | 2019-05-24 07:23 | Diagnostic Imaging Report ---
PROCEDURE: CT head and CT cervical spine without contrast. TECHNIQUE: Multiple contiguous axial images were obtained through the brain and cervical spine without the use of intravenous contrast. Sagittal and coronal reformations through the cervical spine were then performed. Auto Exposure Controls were utilized during the CT exam to meet ALARA standards for radiation dose reduction. DATE: May 24, 2019. COMPARISON: None. INDICATION: 69-year-old female, head and neck pain. FINDINGS: There are marked motion limitations of the exam. Repeat images were not obtained or provided. There is nondiagnostic evaluation of the skull. There is also essentially nondiagnostic intracranial evaluation. There is no blatantly obvious large area of acute intracranial hemorrhage or midline shift. There is no hydrocephalus. There is also prominent motion artifact limiting cervical spine evaluation although not nearly as prominent as it limited CT head examination. There are multilevel advanced facet degenerative changes of the cervical spine. There is no identified facet joint subluxation or dislocation. There is no asymmetric widening of the cervical disc spaces. There is no particularly prominent prevertebral soft tissue swelling. There are multilevel advanced disc degenerative changes of the cervical spine with multilevel prominent anterior osteophytes. There are also multilevel posterior osteophytes with posterior disc aspect complexes at C3-C4, C4-C5, C5-C6, and C6-C7. CT is limited for assessment of disc pathology and evaluation of non-bony causes of foraminal spinal stenosis. There is motion artifact most notably limiting evaluation at the level of C1-C2 and in the region of the craniocervical junction. There is a benign well-corticated ossification adjacent to the right lateral masses of C1 best illustrated on sagittal image 23 and axial image 40 and adjacent sequential images. The well-corticated nature of the finding is consistent with a long-standing etiology. There is a contour deformity of the right first rib on axial image 120 and also the left first rib on axial image 119. It is uncertain if this relates to motion artifact versus mildly displaced fractures of the bilateral first ribs. Recommend correlation for focal pain at both sites. There are marked limitations of soft tissue assessment. IMPRESSION: 1. Marked motion limitations of CT head evaluation which is essentially nondiagnostic. There is no blatantly obvious very large acute intracranial hemorrhage, midline shift, or hydrocephalus. 2. Significantly limited CT cervical spine evaluation without obvious cervical spine fracture. 3. Multilevel advanced disc and facet degenerative changes of the cervical spine. 4. Contour abnormalities of the bilateral first ribs which potentially may be a motion related versus mildly displaced fractures. Recommend correlation for focal pain at each site. Called to Dr. Martin at 7:20 a.m. by jmb. Dictated by: Dictated on workstation # [id number]
== END 2019-05-24 06:52 | disposition home or self-care (01) ==
LOC: ER FS 00:57 → EDUNIT# 00:57 → ER FS 06:52
DX: T83.511A Infection and inflammatory reaction due to indwelling urethral catheter, initial encounter (principal); N39.0 Urinary tract infection, site not specified; G89.29 Other chronic pain; M54.2 Cervicalgia; E11.9 Type 2 diabetes mellitus without complications; J44.9 Chronic obstructive pulmonary disease, unspecified; E78.00 Pure hypercholesterolemia, unspecified; D64.9 Anemia, unspecified; F41.9 Anxiety disorder, unspecified; F31.9 Bipolar disorder, unspecified; G83.9 Paralytic syndrome, unspecified; Z85.038 Personal history of other malignant neoplasm of large intestine; Z88.8 Allergy status to other drugs, medicaments and biological substances; Z87.440 Personal history of urinary (tract) infections; Z86.718 Personal history of other venous thrombosis and embolism; Z87.891 Personal history of nicotine dependence; Z90.49 Acquired absence of other specified parts of digestive tract
CPT/HCPCS: 36415; 70450; 71045; 72125; 80053; 81000; 83605; 83735; 83880; 84484; 85025; 85610; 85730; 87040; 87077; 87088; 87186; 93005; 93041

== ENCOUNTER 2019-05-26 09:25 | Emergency (ER) | payer MEDICARE, MEDICAID ==
[~2019-05-26] VITALS: Ht 162.6 cm; Wt 145.5 kg
[2019-05-26] MEDS ORDERED: ONDANSETRON 4 MG/2 ML (SDV) Z0FRAN IVP ONE ×2 (09:45→14:00)
[2019-05-26] MEDS ORDERED: NS IV 1000 ML 1,000 ML IV SCH ×2 (09:45→11:00)
[2019-05-26] MEDS ORDERED: FAMOTIDINE 20MG/2ML IV (PEPCID) IVP ONE (10:00)
[2019-05-26 10:17] LABS: BASOPHILS % (AUTO) 1 % (0-10); EOSINOPHILS % (AUTO) 5 % (0-10); HEMATOCRIT 34 % (35-52); LYMPHOCYTES % (AUTO) 18 % (12-44); MEAN CORPUSCULAR HEMOGLOBIN 28 PG (25-34); MEAN CORPUSCULAR HGB CONC 30 G/DL (32-36); MEAN CORPUSCULAR VOLUME 94 FL (80-99); MEAN PLATELET VOLUME 8.6 FL (7.4-10.4); MONOCYTES % (AUTO) 5 % (0-12); PLATELET COUNT 729 10^3/uL (130-400); RED CELL DISTRIBUTION WIDTH 16.8 % (10.0-14.5); WHITE BLOOD COUNT 16.5 10^3/uL (4.3-11.0)
[2019-05-26 10:18] LABS: BASOPHILS # (AUTO) 0.1 10^3/uL (0.0-0.1); EOSINOPHILS # (AUTO) 0.8 10^3/uL (0.0-0.3); LYMPHOCYTES # (AUTO) 2.9 X 10^3 (1.0-4.0); MONOCYTES # (AUTO) 0.9 X 10^3 (0.0-1.0); NEUTROPHILS # (AUTO) 11.8 X 10^3 (1.8-7.8); NEUTROPHILS % (AUTO) 71 % (42-75)
[2019-05-26 10:34] LABS: ALKALINE PHOSPHATASE 173 U/L (40-136); BILIRUBIN,TOTAL 0.2 MG/DL (0.1-1.0); BUN/CREATININE RATIO 23; CALCIUM 10.1 MG/DL (8.5-10.1); CARBON DIOXIDE 19 MMOL/L (21-32); CHLORIDE 108 MMOL/L (98-107); CREATININE SERUM 1.43 MG/DL (0.60-1.30); GFR ESTIMATED 36; GLUCOSE 131 MG/DL (70-105); SODIUM 137 MMOL/L (135-145)
[2019-05-26 10:35] LABS: ALANINE AMINOTRANSFERASE 13 U/L (0-55); ALBUMIN 2.4 GM/DL (3.2-4.5); LIPASE 24 U/L (8-78); TOTAL PROTEIN 7.6 GM/DL (6.4-8.2)
[2019-05-26 10:36] LABS: POTASSIUM 5.2 MMOL/L (3.6-5.0)
--- NOTE | 2019-05-26 11:06 | NUR ---
Attempted to do CT abdomen, patient's body habitus too large for scanner. Dr. Mendenhall notified.
[2019-05-26 11:11] LABS: NEUTROPHILS % (MANUAL) 64 %
[2019-05-26 11:12] LABS: BAND NEUTROPHILS 7 %; BASOPHILS % (MANUAL) 2 %; EOSINOPHILS % (MANUAL) 5 %; HYPOCHROMASIA SLIGHT; LYMPHOCYTES % (MANUAL) 18 %; MONOCYTES % (MANUAL) 4 %
--- NOTE | 2019-05-26 11:20 | ED Abdominal Pain ---
General Chief Complaint: Abdominal/GI Problems Stated Complaint: BLOODY IN COLOSTOMY BAG Nursing Triage Note: [facility] and patient's daughter report that patient had blood in her colostomy bag yesterday, none today. They also report patient had outpatient blood work that revealed her Hgb had dropped from 10 to 9 and her creatinine was increased from previous recent labwork. EMS was called to [facility] and brought patient to ED per PCP recommendation. Sepsis Screen: Possible Severe Sepsis Risk Source of Information: Patient History of Present Illness Date Seen by Provider: May 26, 2019 Time Seen by Provider: 09:45 Initial Comments Patient is a 69-year-old female long term patient with history of paraplegia, colon cancer multiple abdominal surgeries with colostomy who presents with reported bloody output in colostomy bag last evening and this morning. Patient also noted to be hypotensive at long term. Patient denies fever chills nausea vomiting and sweats. She reports feeling fatigue and feeling generally weak and clammy. Denies abdominal pain. Patient is not on anticoagulation therapy. Patient was evaluated emergency department 2 days ago for nausea and vomiting an d diagnosed with urinary tract infection and placed on Keflex and discharged to the long term. Patient denies back pain. No other acute symptoms or complaints. Timing/Duration: 12 Hours Severity/Quality: Mild Activities at Onset: None Allergies and Home Medications Allergies Coded Allergies: exenatide (Verified Allergy, Unknown, nausea and vomiting, 01/09/19) liraglutide (Verified Allergy, Unknown, nausea and vomiting, abdominal pain, 01/09/19) nitrofurantoin (Verified Allergy, Unknown, diarrhea, 01/09/19) terconazole (Verified Allergy, Unknown, 01/09/19) Home Medications Benztropine Mesylate 2 Mg/2 Ml Ampul, 2 MG PO BID Prescribed by: LINDA CHUNG on 04/21/19 1436 Cephalexin 500 Mg Tablet, 500 MG PO QID Prescribed by: KALEN MEDINA on 01/09/19 1147 Cephalexin 500 Mg Capsule, 500 MG PO QID Prescribed by: CASTRO PÉREZ on 05/24/19 0512 Diazepam 5 Mg Tablet, 5 MG PO Q6H PRN for SPASMS Prescribed by: LINDA CHUNG on 04/21/19 1436 Diphenhydramine HCl 25 Mg Capsule, 25 MG PO QID Prescribed by: LINDA CHUNG on 04/21/19 1436 Ondansetron 4 Mg Tab.rapdis, 4 MG PO Q6H PRN for NAUSEA/VOMITING-1ST LINE Prescribed by: CASTRO PÉREZ on 05/24/19 0512 Patient Home Medication List Home Medication List Reviewed: Yes Review of Systems Review of Systems Constitutional: see HPI EENTM: See HPI Respiratory: See HPI Cardiovascular: See HPI Gastrointestinal: See HPI Genitourinary: See HPI Skin: see HPI Psychiatric/Neurological: See HPI Endocrine: See HPI Hematologic/Lymphatic: No Symptoms Reported Past Teygmnc-Mivwpz-Sbrwmo Hx Past Med/Social Hx: Reviewed Nursing Past Med/Soc Hx Patient Social History Alcohol Use: Denies Use Recreational Drug Use: No Smoking Status: Former Smoker Type Used: Cigarettes Former Smoker, Quit: Aug 18, 1996 2nd Hand Smoke Exposure: No Recent Foreign Travel: No Contact w/Someone Who Travel: No Recent Infectious Disease Expo: No Recent Hopitalizations: No Physical Abuse: No Sexual Abuse: No Mistreated: No Fear: No Seasonal Allergies Seasonal Allergies: No Past Medical History Surgeries: Yes (heart cath ) Appendectomy, Bladder Surgery, Bowel Surgery, Orthopedic Respiratory: Yes (questionable GERALDINE) COPD Cardiac: Yes Angina, Deep Vein Thrombosis, High Cholesterol Neurological: Yes (paraplegic) Paralysis, Spinal Cord Injury 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 Disorders: 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 Genitourinary: Yes (urostomy) Neurogenic Bladder, UTI-Chronic Gastrointestinal: Yes (Hx colon cancer; colectomy) Musculoskeletal: Yes (paraplegic; carpal tunnel ) Arthritis, Back Injury Endocrine: Yes Diabetes, Insulin dep HEENT: Yes Cataract Cancer: Yes Colon Did You Recieve Any Treatments: Yes What Type of Treatment Did You: Chemotherapy, Radiation, Surgical Intervention Psychosocial: Yes Anxiety, Bipolar, Depression Integumentary: Yes (chronic yeast infections; chronic pressure ulcers; cellulitis) Psoriasis Blood Disorders: Yes (anemia) Adverse Reaction/Blood Tranf: No (JEHOVAHS WITNESS-DOESNT TAKE BLOOD) Physical Exam Vital Signs Vital Signs - First Documented 05/26/19 09:26 Temp 36.2 Pulse 94 Resp 22 B/P (MAP) 148/92 (110) Pulse Ox 99 O2 Delivery Room Air Capillary Refill : Less Than 3 Seconds Height/Weight/BMI Height: 5'4.50" Weight: 319lbs. 0oz. 144.588727uj; 55.00 BMI Method:Stated General Appearance: WD/WN, no apparent distress HEENT: PERRL/EOMI, normal ENT inspection Neck: full range of motion, supple Respiratory: lungs clear, normal breath sounds Cardiovascular: normal peripheral pulses, regular rate, rhythm Gastrointestinal: soft, other (vital pain/tenderness around colostomy site.) Extremities: pedal edema Neurologic/Psychiatric: normal mood/affect, oriented x 3 Skin: normal color, warm/dry Focused Exam Possible Source: GI Tract/Intra-Abdominal Lactate Level 05/26/19 10:45: Lactic Acid Level 1.11 Respiratory: Chest Non Tender, Lungs Clear Cardiovascular: Regular Rate, Rhythm Capillary Refill: Less Than 3 Seconds Lactic Acid Level Laboratory Tests Test 05/26/19 10:45 Lactic Acid Level 1.11 MMOL/L (0.50-2.00) Progress/Results/Core Measures Results/Orders Lab Results Laboratory Tests Test 05/26/19 10:00 05/26/19 10:45 Range/Units White Blood Count 16.5 H 4.3-11.0 10^3/uL Red Blood Count 3.58 L 4.35-5.85 10^6/uL Hemoglobin 10.0 L 11.5-16.0 G/DL Hematocrit 34 L 35-52 % Mean Corpuscular Volume 94 80-99 FL Mean Corpuscular Hemoglobin 28 25-34 PG Mean Corpuscular Hemoglobin Concent 30 L 32-36 G/DL Red Cell Distribution Width 16.8 H 10.0-14.5 % Platelet Count 729 H 130-400 10^3/uL Mean Platelet Volume 8.6 7.4-10.4 FL Neutrophils (%) (Auto) 71 42-75 % Lymphocytes (%) (Auto) 18 12-44 % Monocytes (%) (Auto) 5 0-12 % Eosinophils (%) (Auto) 5 0-10 % Basophils (%) (Auto) 1 0-10 % Neutrophils # (Auto) 11.8 H 1.8-7.8 X 10^3 Lymphocytes # (Auto) 2.9 1.0-4.0 X 10^3 Monocytes # (Auto) 0.9 0.0-1.0 X 10^3 Eosinophils # (Auto) 0.8 H 0.0-0.3 10^3/uL Basophils # (Auto) 0.1 0.0-0.1 10^3/uL Neutrophils % (Manual) 64 % Lymphocytes % (Manual) 18 % Monocytes % (Manual) 4 % Eosinophils % (Manual) 5 % Basophils % (Manual) 2 % Band Neutrophils 7 % Hypochromasia SLIGHT Macrocytosis SLIGHT Sodium Level 137 135-145 MMOL/L Potassium Level 5.2 H 3.6-5.0 MMOL/L Chloride Level 108 H 98-107 MMOL/L Carbon Dioxide Level 19 L 21-32 MMOL/L Anion Gap 10 5-14 MMOL/L Blood Urea Nitrogen 33 H 7-18 MG/DL Creatinine 1.43 H 0.60-1.30 MG/DL Estimat Glomerular Filtration Rate 36 BUN/Creatinine Ratio 23 Glucose Level 131 H 70-105 MG/DL Calcium Level 10.1 8.5-10.1 MG/DL Corrected Calcium 11.4 H 8.5-10.1 MG/DL Total Bilirubin 0.2 0.1-1.0 MG/DL Aspartate Amino Transf (AST/SGOT) 19 5-34 U/L Alanine Aminotransferase (ALT/SGPT) 13 0-55 U/L Alkaline Phosphatase 173 H 40-136 U/L Troponin I < 0.30 <0.30 NG/ML Total Protein 7.6 6.4-8.2 GM/DL Albumin 2.4 L 3.2-4.5 GM/DL Lipase 24 8-78 U/L Lactic Acid Level 1.11 0.50-2.00 MMOL/L My Orders Orders - VIDHYA MALONE DO Cbc With Automated Diff (05/26/19 09:45) Comprehensive Metabolic Panel (05/26/19 09:45) Ns Iv 1000 Ml (Sodium Chloride 0.9%) (05/26/19 09:45) Ondansetron Injection (Zofran Injectio (05/26/19 09:45) Lipase (05/26/19 09:45) Ekg Tracing (05/26/19 09:45) Troponin I Fs (05/26/19 09:45) Famotidine Injection (Pepcid Injection) (05/26/19 10:00) Occult Blood Stool (05/26/19 09:56) Blood Culture (05/26/19 10:06) Lactic Acid Analyzer (05/26/19 10:06) Manual Differential (05/26/19 10:00) Ns Iv 1000 Ml (Sodium Chloride 0.9%) (05/26/19 11:00) Blood Culture (05/26/19 10:52) Medications Given in ED Current Medications Medications Dose Ordered Sig/Renato Route Start Time Stop Time Status Last Admin Dose Admin Famotidine 20 mg ONCE ONCE IVP 05/26/19 10:00 05/26/19 10:01 DC 05/26/19 10:19 20 MG Ondansetron HCl 4 mg ONCE ONCE IVP 05/26/19 09:45 05/26/19 09:47 DC 05/26/19 10:19 4 MG Vital Signs/I&O 05/26/19 09:26 Temp 36.2 Pulse 94 Resp 22 B/P (MAP) 148/92 (110) Pulse Ox 99 O2 Delivery Room Air Blood Pressure Mean: 110 Fecal Occult: Positive Departure Communication (Admissions) Patient with trace heme positive diarrhea with persistent hypotension in the emergency department despite volume resuscitation. Patient with elevated white blood cell count. Lactic acid is 1.11. No abdominal pain or tenderness on exam. Unable to obtain CT imaging secondary to patient's body size. Patient accepted to [facility] in [place] per Dr. Desai. Impression Primary Impression: Enteritis Additional Impression: Hypotension Disposition: XF SHT-TRM HOSP Condition: Stable Departure-Patient Inst. Referrals: FREEMAN CHAPA MD (PCP/Family) Primary Care Physician VIDHYA MALONE DO May 26, 2019 11:20
[2019-05-26] MEDS ORDERED: morphine INJ 10 MG/ML 1ML (SYR OR VIAL) IVP STA (13:49)
--- NOTE | 2019-05-26 14:31 | NUR ---
1345: Patient to be admitted to [facility] per patient and family prefernece. [facility] called, they declined admission because patient's body habitus is too large for their CT scanner as well. [facility] has bariatric services, call placed to [facility] transfer center. 1400: Patient's daughter called and updated on plan of care. Daughter states that she and other family members do not want patient to go to [facility] because of a previous bad experience with her care there. They would prefer [facility] or [place] for patient's transfer. 1415: [facility] called, agricultural technical officer reports they do have a bariatric CT scanner. Dr. Mendenhall informed, patient agreeable with going to [facility].
[2019-05-26 16:04] VITALS: BP 92/29
== END 2019-05-26 15:50 | disposition short-term general hospital (02) ==
LOC: EDUNIT# 09:25 → ER FS 09:27
DX: K52.9 Noninfective gastroenteritis and colitis, unspecified (principal); I95.9 Hypotension, unspecified; J44.9 Chronic obstructive pulmonary disease, unspecified; E11.9 Type 2 diabetes mellitus without complications; F41.9 Anxiety disorder, unspecified; F31.9 Bipolar disorder, unspecified; D64.9 Anemia, unspecified; G83.9 Paralytic syndrome, unspecified; E78.00 Pure hypercholesterolemia, unspecified; Z86.718 Personal history of other venous thrombosis and embolism; Z90.49 Acquired absence of other specified parts of digestive tract; Z87.440 Personal history of urinary (tract) infections; Z85.038 Personal history of other malignant neoplasm of large intestine; Z98.890 Other specified postprocedural states; Z93.3 Colostomy status; Z88.8 Allergy status to other drugs, medicaments and biological substances; Z87.891 Personal history of nicotine dependence
CPT/HCPCS: 36415; 80053; 82274; 83605; 83690; 84484; 85007; 85027; 87040; 93005; 96361; 96374; 96375; 96376

== ENCOUNTER 2019-12-31 11:28 | Emergency (ER) | payer MEDICARE, MEDICAID ==
[~2019-12-31] VITALS: Ht 167.7 cm; Wt 152.0 kg
--- NOTE | 2019-12-31 11:35 | NUR ---
[place] [facility] [place] at [place].
--- NOTE | 2019-12-31 11:40 | NUR ---
The pts mc catheter line appears to be cloudy and sediment present as well as strong odor. Urine collected.
[2019-12-31 12:05] LABS: BILIRUBIN,URINE NEGATIVE (NEGATIVE); COLOR,URINE PALE YELLOW; GLUCOSE, URINE (UA) NEGATIVE (NEGATIVE); KETONES,URINE NEGATIVE (NEGATIVE); LEUKOCYTE ESTERASE ,URINE 2+ (NEGATIVE); NITRITE,URINE NEGATIVE (NEGATIVE); PROTEIN,URINE 1+ (NEGATIVE)
[2019-12-31 12:06] LABS: BACTERIA,URINE LARGE /HPF; CLARITY,URINE SL CLOUDY; WBC,URINE >100 /HPF
[2019-12-31 12:10] LABS: HEMATOCRIT 37 % (35-52); MEAN CORPUSCULAR HEMOGLOBIN 26 PG (25-34); MEAN CORPUSCULAR HGB CONC 30 G/DL (32-36); MEAN CORPUSCULAR VOLUME 87 FL (80-99); MEAN PLATELET VOLUME 9.5 FL (7.4-10.4); NEUTROPHILS % (AUTO) 74 % (42-75); PLATELET COUNT 422 10^3/uL (130-400); RED CELL DISTRIBUTION WIDTH 18.3 % (10.0-14.5)
[2019-12-31 12:11] LABS: BASOPHILS # (AUTO) 0.1 10^3/uL (0.0-0.1); BASOPHILS % (AUTO) 1 % (0-10); EOSINOPHILS # (AUTO) 0.1 10^3/uL (0.0-0.3); EOSINOPHILS % (AUTO) 1 % (0-10); LYMPHOCYTES % (AUTO) 18 % (12-44); MONOCYTES # (AUTO) 0.6 X 10^3 (0.0-1.0); MONOCYTES % (AUTO) 6 % (0-12); NEUTROPHILS # (AUTO) 8.2 X 10^3 (1.8-7.8)
[2019-12-31 12:13] LABS: BUN/CREATININE RATIO 38; CALCIUM 10.2 MG/DL (8.5-10.1); CARBON DIOXIDE 26 MMOL/L (21-32); CHLORIDE 100 MMOL/L (98-107); CREATININE SERUM 0.84 MG/DL (0.60-1.30); GFR ESTIMATED > 60; GLUCOSE 259 MG/DL (70-105); POTASSIUM 4.5 MMOL/L (3.6-5.0); SODIUM 140 MMOL/L (135-145)
[2019-12-31 12:14] LABS: ALANINE AMINOTRANSFERASE 14 U/L (0-55); ALBUMIN 3.3 GM/DL (3.2-4.5); ALKALINE PHOSPHATASE 155 U/L (40-136); BILIRUBIN,TOTAL 0.3 MG/DL (0.1-1.0); TOTAL PROTEIN 8.4 GM/DL (6.4-8.2)
[2019-12-31] MEDS ORDERED: CIPR500T4 PO (12:27)
--- NOTE | 2019-12-31 12:29 | ED GU-Female ---
General Chief Complaint: - Urinary Stated Complaint: NOT URINATING Nursing Triage Note: Pt arrived via [facility] from [facility] with c/o generalized weakness and "no output for last couple of hours", per [facility] staff. Pt conscious and alert, oriented x3, denies pain or problem yet is lethargic in presentation. Nursing Sepsis Screen: No Definite Risk Source: patient, EMS, retirement records Exam Limitations: no limitations History of Present Illness Date Seen by Provider: December 31, 2019 Time Seen by Provider: 11:30 Initial Comments staff was concerned this morning that she was having decreased urine output and was concerned she may be "septic". No fever. Hx Urostomy and colostomy, paraplegic. Allergies and Home Medications Allergies Coded Allergies: exenatide (Verified Allergy, Unknown, nausea and vomiting, 01/09/19) liraglutide (Verified Allergy, Unknown, nausea and vomiting, abdominal pain, 01/09/19) nitrofurantoin (Verified Allergy, Unknown, diarrhea, 01/09/19) terconazole (Verified Allergy, Unknown, 01/09/19) Home Medications Benztropine Mesylate 2 Mg/2 Ml Ampul, 2 MG PO BID Prescribed by: LINDA CHUNG on 04/21/19 1436 Cephalexin 500 Mg Tablet, 500 MG PO QID Prescribed by: KALEN MEDINA on 01/09/19 1147 Cephalexin 500 Mg Capsule, 500 MG PO QID Prescribed by: CASTRO PÉREZ on 05/24/19511 Ciprofloxacin HCl 500 Mg Tablet, 500 MG PO BID Prescribed by: LADONNA ALEGRE on 12/31/19 1227 Diazepam 5 Mg Tablet, 5 MG PO Q6H PRN for SPASMS Prescribed by: LINDA CHUNG on 04/21/19 1436 Diphenhydramine HCl 25 Mg Capsule, 25 MG PO QID Prescribed by: LINDA CHUNG on 04/21/19 1436 Ondansetron 4 Mg Tab.rapdis, 4 MG PO Q6H PRN for NAUSEA/VOMITING-1ST LINE Prescribed by: CASTRO PÉREZ on 05/24/19511 Patient Home Medication List Home Medication List Reviewed: Yes Review of Systems Review of Systems Constitutional: see HPI; No chills, No fever Respiratory: No cough, No short of breath Cardiovascular: No chest pain, No syncope Gastrointestinal: nausea, vomiting (intermittent) Genitourinary: other (urostomy tube. ) Past Mkybwtg-Rgxpqi-Mmoajy Hx Past Med/Social Hx: Reviewed Nursing Past Med/Soc Hx Patient Social History Alcohol Use: Denies Use Recreational Drug Use: No Type Used: Cigarettes Former Smoker, Quit: Aug 18, 1996 2nd Hand Smoke Exposure: No Recent Foreign Travel: No Contact w/Someone Who Travel: No Recent Infectious Disease Expo: No Recent Hopitalizations: No Physical Abuse: No Sexual Abuse: No Mistreated: No Fear: No Seasonal Allergies Seasonal Allergies: No Past Medical History Surgeries: Yes (heart cath ) Appendectomy, Bladder Surgery, Bowel Surgery, Orthopedic Respiratory: Yes (questionable GERALDINE) COPD Cardiac: Yes Angina, Deep Vein Thrombosis, High Cholesterol Neurological: Yes (paraplegic) Paralysis, Spinal Cord Injury 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 Genitourinary: Yes (urostomy) Neurogenic Bladder, UTI-Chronic Gastrointestinal: Yes (Hx colon cancer; colectomy) Musculoskeletal: Yes (paraplegic; carpal tunnel ) Arthritis, Back Injury Endocrine: Yes Diabetes, Insulin dep HEENT: Yes Cataract Cancer: Yes Colon Did You Recieve Any Treatments: Yes What Type of Treatment Did You: Chemotherapy, Radiation, Surgical Intervention Psychosocial: Yes Anxiety, Bipolar, Depression Integumentary: Yes (chronic yeast infections; chronic pressure ulcers; cellulitis) Psoriasis Blood Disorders: Yes (anemia) Adverse Reaction/Blood Tranf: No (JEHOVAHS WITNESS-DOESNT TAKE BLOOD) Physical Exam Vital Signs Vital Signs - First Documented Capillary Refill : Less Than 3 Seconds Height, Weight, BMI Height: 5'4.50" Weight: 319lbs. 0oz. 144.535856ms; 54.00 BMI Method:Stated General Appearance: WD/WN, no apparent distress Cardiovascular: regular rate, rhythm, no JVD Respiratory: chest non-tender, lungs clear, no respiratory distress Gastrointestinal: non tender, soft Back: normal inspection, no CVA tenderness Extremities: normal range of motion, non-tender Neurologic/Psychiatric: alert, normal mood/affect Skin: normal color, warm/dry Focused Exam Lactate Level 12/31/19 11:35: Lactic Acid Level 1.98 Lactic Acid Level Laboratory Tests Test 12/31/19 11:35 Lactic Acid Level 1.98 MMOL/L (0.50-2.00) Progress/Results/Core Measures Suspected Sepsis Recent Fever Within 48 Hours: No Infection Criteria Present: Suspected New Infection New/Unexplained Altered Menta: Yes Sepsis Screen: No Definite Risk SIRS Temperature: Pulse: 81 Respiratory Rate: 14 Laboratory Tests 12/31/19 11:35: White Blood Count 11.0 Blood Pressure 117 /62 Mean: 80 12/31/19 11:35: Lactic Acid Level 1.98 Laboratory Tests 12/31/19 11:35: Creatinine 0.84, Platelet Count 422H, Total Bilirubin 0.3 Results/Orders Lab Results Laboratory Tests Test 12/31/19 11:35 Range/Units White Blood Count 11.0 4.3-11.0 10^3/uL Red Blood Count 4.24 L 4.35-5.85 10^6/uL Hemoglobin 11.0 L 11.5-16.0 G/DL Hematocrit 37 35-52 % Mean Corpuscular Volume 87 80-99 FL Mean Corpuscular Hemoglobin 26 25-34 PG Mean Corpuscular Hemoglobin Concent 30 L 32-36 G/DL Red Cell Distribution Width 18.3 H 10.0-14.5 % Platelet Count 422 H 130-400 10^3/uL Mean Platelet Volume 9.5 7.4-10.4 FL Neutrophils (%) (Auto) 74 42-75 % Lymphocytes (%) (Auto) 18 12-44 % Monocytes (%) (Auto) 6 0-12 % Eosinophils (%) (Auto) 1 0-10 % Basophils (%) (Auto) 1 0-10 % Neutrophils # (Auto) 8.2 H 1.8-7.8 X 10^3 Lymphocytes # (Auto) 2.0 1.0-4.0 X 10^3 Monocytes # (Auto) 0.6 0.0-1.0 X 10^3 Eosinophils # (Auto) 0.1 0.0-0.3 10^3/uL Basophils # (Auto) 0.1 0.0-0.1 10^3/uL Urine Color PALE YELLOW Urine Clarity SL CLOUDY Urine pH 7.0 5-9 Urine Specific [place] 1.015 L 1.016-1.022 Urine Protein 1+ H NEGATIVE Urine Glucose (UA) NEGATIVE NEGATIVE Urine Ketones NEGATIVE NEGATIVE Urine Nitrite NEGATIVE NEGATIVE Urine Bilirubin NEGATIVE NEGATIVE Urine Urobilinogen 0.2 < = 1.0 MG/DL Urine Leukocyte Esterase 2+ H NEGATIVE Urine RBC (Auto) 1+ H NEGATIVE Urine RBC 5-10 H /HPF Urine WBC >100 H /HPF Urine Squamous Epithelial Cells NONE /HPF Urine Crystals NONE /LPF Urine Bacteria LARGE H /HPF Urine Casts NONE /LPF Urine Mucus NEGATIVE /LPF Urine Culture Indicated YES Sodium Level 140 135-145 MMOL/L Potassium Level 4.5 3.6-5.0 MMOL/L Chloride Level 100 98-107 MMOL/L Carbon Dioxide Level 26 21-32 MMOL/L Anion Gap 14 5-14 MMOL/L Blood Urea Nitrogen 32 H 7-18 MG/DL Creatinine 0.84 0.60-1.30 MG/DL Estimat Glomerular Filtration Rate > 60 BUN/Creatinine Ratio 38 Glucose Level 259 H 70-105 MG/DL Lactic Acid Level 1.98 0.50-2.00 MMOL/L Calcium Level 10.2 H 8.5-10.1 MG/DL Corrected Calcium 10.8 H 8.5-10.1 MG/DL Total Bilirubin 0.3 0.1-1.0 MG/DL Aspartate Amino Transf (AST/SGOT) 17 5-34 U/L Alanine Aminotransferase (ALT/SGPT) 14 0-55 U/L Alkaline Phosphatase 155 H 40-136 U/L Total Protein 8.4 H 6.4-8.2 GM/DL Albumin 3.3 3.2-4.5 GM/DL My Orders Orders - JAMILVENSTLADONNA YOON DO Ed Iv/Invasive Line Start (12/31/19 11:36) Cbc With Automated Diff (12/31/19 11:36) Comprehensive Metabolic Panel (12/31/19 11:36) Blood Culture (12/31/19 11:36) Lactic Acid Analyzer (12/31/19 11:36) Urinalysis (12/31/19 11:36) Urine Culture (12/31/19 11:35) Vital Signs/I&O 12/31/19 12/31/19 11:33 11:33 Temp 36.2 36.2 Pulse 81 81 Resp 14 14 B/P (MAP) 117/62 (80) 117/62 Pulse Ox 88 88 O2 Delivery Nasal Cannula Nasal Cannula O2 Flow Rate 3.00 3.00 Capillary Refill : Less Than 3 Seconds Blood Pressure Mean: 80 Departure Impression Primary Impression: Urinary tract infection Qualified Codes: T83.511A - Infection and inflammatory reaction due to indwelling urethral catheter, initial encounter; N39.0 - Urinary tract infection, site not specified Disposition: 01 HOME, SELF-CARE (retirement) Condition: Stable Departure-Patient Inst. Decision time for Depature: 12:27 Referrals: FREEMAN CHAPA MD (PCP/Family) Primary Care Physician Patient Instructions: Urinary Tract Infection, Adult (DC) Add. Discharge Instructions: contact your PCP about rechecking your urine in 1 week. Your urine will also be sent for a urine culture. You will receive a phone call if the culture reveals the need to switch antibiotic regimen. All discharge instructions reviewed with patient and/or family. Voiced understanding. Scripts Ciprofloxacin HCl (Ciprofloxacin HCl) 500 Mg Tablet 500 MG PO BID, #14 TAB Prov: LADONNA ALEGRE DO 12/31/19 LADONNA ALEGRE DO December 31, 2019 12:29
--- NOTE | 2019-12-31 12:48 | NUR ---
Berta dom[facility]nguez [facility] was present with another pt here and this RN spoke with her about transporting pt back to retirement. She states she would return with a wheelchair and van for transfer back to retirement.
--- OUTSIDE RECORDS SUMMARY | 2019-12-31 13:02 | XMS REPORT | Continuity of Care Document ---
Author Organization Unknown Address Unknown Phone Unavailable Allergies Active Description Code Type Severity Reaction Onset Reported/Identified Relationship to Patient Clinical Status Yes No Known Drug Allergies [id number] Drug Allergy Unknown N/A 09/25/2018 Yes exenatide [id number] Drug Allergy Unknown nausea and vomi 01/09/2019 Yes liraglutide [id number] Drug Aller gy Unknown nausea and vomi 01/09/[id number] ug Allergy Unknown diarrhea 01/09/2019 Yes terconazole [id number] Drug Aller gy Unknown N/A 01/09/2019 Medications There is no data. Problems Date Dx Coded Attending Type Code Diagnosis Diagnosed By 09/25/2018 VERÓNICA LOERA Ot R51 HEADACHE 09/25/2018 VERÓNICA LOERA Ot S00.83XA CONTUSION OF OTHER PART OF HEAD, INITIAL 09/25/2018 VERÓNICA LOERA Ot W06.XXXA FALL FROM BED, INITIAL ENCOUNTER 09/25/2018 VERÓNICA LOERA Ot Y92.[address] IN HALF-WAY PLACE 09/28/2018 VERÓNICA LOERA Ot R51 HEADACHE 09/28/2018 VERÓNICA LOERA Ot S00.83XA CONTUSION OF OTHER PART OF HEAD, INITIAL 09/28/2018 VERÓNICA LOERA Ot W06.XXXA FALL FROM BED, INITIAL ENCOUNTER 09/28/2018 VERÓNICA LOERA Ot Y92.[address] IN HALF-WAY PLACE 09/30/2018 VERÓNICA LOERA Ot R51 HEADACHE 09/30/2018 VERÓNICA LOERA Ot S00.83XA CONTUSION OF OTHER PART OF HEAD, INITIAL 09/30/2018 VERÓNICA LOERA Ot W06.XXXA FALL FROM BED, INITIAL ENCOUNTER 09/30/2018 VERÓNICA LOERA Ot Y92.[address] IN HALF-WAY PLACE 09/30/2018 VERÓNICA LOERA Ot R51 HEADACHE 09/30/2018 VERÓNICA LOERA Ot S00.83XA CONTUSION OF OTHER PART OF HEAD, INITIAL 09/30/2018 VERÓNICA LOERA Ot W06.XXXA FALL FROM BED, INITIAL ENCOUNTER 09/30/2018 VERÓNICA LOERA Ot Y92.[address] IN HALF-WAY PLACE 01/09/2019 MEDINA DO, KALEN L Ot E11.9 TYPE 2 DIABETES MELLITUS WITHOUT COMPLIC 01/09/2019 MEDINA DO, KALEN L Ot E78.0 0 PURE HYPERCHOLESTEROLEMIA, UNSPECIFIED 01/09/2019 MEDINA DO, KALEN L Ot F31.9 BIPOLAR DISORDER, UNSPECIFIED 01/09/2019 MEDINA DO, KALEN L Ot F41.9 ANXIETY DISORDER, UNSPECIFIED 01/09/2019 MEDINA DO, KALEN L Ot J44.9 CHRONIC OBSTRUCTIVE PULMONARY DISEASE, U 01/09/2019 MEDINA DO, KALEN L Ot L89.3 19 PRESSURE ULCER OF RIGHT BUTTOCK, UNSPECI 01/09/2019 MEDINA DO, KALEN L Ot L89.3 29 PRESSURE ULCER OF LEFT BUTTOCK, UNSPECIF 01/09/2019 MEDINA DO, KALEN L Ot N39.0 URINARY TRACT INFECTION, SITE NOT SPECIF 01/09/2019 MEDINA DO, KALEN L Ot R69 ILLNESS, UNSPECIFIED 01/09/2019 MEDINA DO, KALEN L Ot Z85.0 38 PERSONAL HISTORY OF MALIGNANT NEOPLASM O 01/09/2019 MEDINA DO, KALEN L Ot Z86.7 18 PERSONAL HISTORY OF OTHER VENOUS THROMBO 01/09/2019 MEDINA DO, KALEN L Ot Z87.8 91 PERSONAL HISTORY OF NICOTINE DEPENDENCE 01/09/2019 MEDINA DO, KALEN L Ot Z90.4 9 ACQUIRED ABSENCE OF OTHER SPECIFIED PART 01/09/2019 MEDINA DO, KALEN L Ot Z92.2 1 PERSONAL HISTORY OF ANTINEOPLASTIC CHEMO 01/09/2019 MEDINA DO, KALEN L Ot Z97.5 PRESENCE OF (INTRAUTERINE) CONTRACEPTIVE 01/09/2019 MEDINA DO, KALEN L Ot Z98.8 90 OTHER SPECIFIED POSTPROCEDURAL STATES 01/13/2019 MEDINA DO, KALEN L Ot E11.9 TYPE 2 DIABETES MELLITUS WITHOUT COMPLIC 01/13/2019 MEDINA DO, KALEN L Ot E78.0 0 PURE HYPERCHOLESTEROLEMIA, UNSPECIFIED 01/13/2019 MEDINA DO, KALEN L Ot F31.9 BIPOLAR DISORDER, UNSPECIFIED 01/13/2019 MEDINA DO, KALEN L Ot F41.9 ANXIETY DISORDER, UNSPECIFIED 01/13/2019 MEDINA DO, KALEN L Ot J44.9 CHRONIC OBSTRUCTIVE PULMONARY DISEASE, U 01/13/2019 MEDINA DO, KALEN L Ot L89.3 19 PRESSURE ULCER OF RIGHT BUTTOCK, UNSPECI 01/13/2019 MEDINA DO, KALEN L Ot L89.3 29 PRESSURE ULCER OF LEFT BUTTOCK, UNSPECIF 01/13/2019 MEDINA DO, KALEN L Ot N39.0 URINARY TRACT INFECTION, SITE NOT SPECIF 01/13/2019 MEDINA DO, KALEN L Ot R69 ILLNESS, UNSPECIFIED 01/13/2019 MEDINA DO, KALEN L Ot Z85.0 38 PERSONAL HISTORY OF MALIGNANT NEOPLASM O 01/13/2019 MEDINA DO, KALEN L Ot Z86.7 18 PERSONAL HISTORY OF OTHER VENOUS THROMBO 01/13/2019 MEDINA DO, KALEN L Ot Z87.8 91 PERSONAL HISTORY OF NICOTINE DEPENDENCE 01/13/2019 MEDINA DO, KALEN L Ot Z90.4 9 ACQUIRED ABSENCE OF OTHER SPECIFIED PART 01/13/2019 MEDINA DO, KALEN L Ot Z92.2 1 PERSONAL HISTORY OF ANTINEOPLASTIC CHEMO 01/13/2019 MEDINA DO, KALEN L Ot Z97.5 PRESENCE OF (INTRAUTERINE) CONTRACEPTIVE 01/13/2019 MEDINA DO, KALEN L Ot Z98.8 90 OTHER SPECIFIED POSTPROCEDURAL STATES 01/28/2019 NIDA SCOTT MD Ot A41. 9 SEPSIS, UNSPECIFIED ORGANISM 01/28/2019 NIDA SCOTT MD Ot D64. 9 ANEMIA, UNSPECIFIED 01/28/2019 NIDA SCOTT MD Ot E11. 9 TYPE 2 DIABETES MELLITUS WITHOUT COMPLIC 01/28/2019 NIDA SCOTT MD Ot E78. 00 PURE HYPERCHOLESTEROLEMIA, UNSPECIFIED 01/28/2019 NIDA SCOTT MD Ot E86. 0 DEHYDRATION 01/28/2019 NIDA SCOTT MD Ot E87. 5 HYPERKALEMIA 01/28/2019 NIDA SCOTT MD Ot F31. 9 BIPOLAR DISORDER, UNSPECIFIED 01/28/2019 NIDA SCOTT MD Ot F41. 9 ANXIETY DISORDER, UNSPECIFIED 01/28/2019 NIDA SCOTT MD Ot J18. 9 PNEUMONIA, UNSPECIFIED ORGANISM 01/28/2019 NIDA SCOTT MD Ot J44. 9 CHRONIC OBSTRUCTIVE PULMONARY DISEASE, U 01/28/2019 NIDA SCOTT MD Ot L03.116 CELLULITIS OF LEFT LOWER LIMB 01/28/2019 NIDA SCOTT MD Ot L89.150 PRESSURE ULCER OF SACRAL REGION, UNSTAGE 01/28/2019 NIDA SCOTT MD Ot N17. 9 ACUTE KIDNEY FAILURE, UNSPECIFIED 01/28/2019 NIDA SCOTT MD Ot N39. 0 URINARY TRACT INFECTION, SITE NOT SPECIF 01/28/2019 NIDA SCOTT MD Ot R53. 83 OTHER FATIGUE 01/28/2019 NIDA SCOTT MD Ot Z85.038 PERSONAL HISTORY OF MALIGNANT NEOPLASM O 01/28/2019 NIDA SCOTT MD Ot Z86.718 PERSONAL HISTORY OF OTHER VENOUS THROMBO 01/28/2019 NIDA SCOTT MD Ot Z87.440 PERSONAL HISTORY OF URINARY (TRACT) INFE 01/28/2019 NIDA SCOTT MD Ot Z88. 8 ALLERGY STATUS TO [facility] DRUG/MEDS/BIOL SUB 01/28/2019 NIDA SCOTT MD Ot Z90. 49 ACQUIRED ABSENCE OF OTHER SPECIFIED PART 01/28/2019 NIDA SCOTT MD Ot Z93. 6 OTHER ARTIFICIAL OPENINGS OF URINARY TRA 01/28/2019 NIDA SCOTT MD Ot Z97. 5 PRESENCE OF (INTRAUTERINE) CONTRACEPTIVE 01/28/2019 NIDA SCOTT MD Ot Z98.890 OTHER SPECIFIED POSTPROCEDURAL STATES 01/28/2019 NIDA SCOTT MD Ot Z99. 2 DEPENDENCE ON RENAL DIALYSIS 02/01/2019 NIDA SCOTT MD Ot A41. 9 SEPSIS, UNSPECIFIED ORGANISM 02/01/2019 NIDA SCOTT MD Ot D64. 9 ANEMIA, UNSPECIFIED 02/01/2019 NIDA SCOTT MD Ot E11. 9 TYPE 2 DIABETES MELLITUS WITHOUT COMPLIC 02/01/2019 NIDA SCOTT MD Ot E78. 00 PURE HYPERCHOLESTEROLEMIA, UNSPECIFIED 02/01/2019 NIDA SCOTT MD Ot E86. 0 DEHYDRATION 02/01/2019 NIDA SCOTT MD Ot E87. 5 HYPERKALEMIA 02/01/2019 NIDA SCOTT MD Ot F31. 9 BIPOLAR DISORDER, UNSPECIFIED 02/01/2019 NIDA SCOTT MD Ot F41. 9 ANXIETY DISORDER, UNSPECIFIED 02/01/2019 NIDA SCOTT MD, Ot J18. 9 PNEUMONIA, UNSPECIFIED ORGANISM 02/01/2019 NIDA SCOTT MD, Ot J44. 9 CHRONIC OBSTRUCTIVE PULMONARY DISEASE, U 02/01/2019 NIDA SCOTT MD Ot L03.116 CELLULITIS OF LEFT LOWER LIMB 02/01/2019 NIDA SCOTT MD Ot L89.150 PRESSURE ULCER OF SACRAL REGION, UNSTAGE 02/01/2019 NIDA SCOTT MD Ot N17. 9 ACUTE KIDNEY FAILURE, UNSPECIFIED 02/01/2019 NIDA SCOTT MD Ot N39. 0 URINARY TRACT INFECTION, SITE NOT SPECIF 02/01/2019 NIDA SCOTT MD Ot R53. 83 OTHER FATIGUE 02/01/2019 NIDA SCOTT MD Ot Z85.038 PERSONAL HISTORY OF MALIGNANT NEOPLASM O 02/01/2019 NIDA SCOTT MD Ot Z86.718 PERSONAL HISTORY OF OTHER VENOUS THROMBO 02/01/2019 NIDA SCOTT MD Ot Z87.440 PERSONAL HISTORY OF URINARY (TRACT) INFE 02/01/2019 NIDA SCOTT MD Ot Z88. 8 ALLERGY STATUS TO [facility] DRUG/MEDS/BIOL SUB 02/01/2019 NIDA SCOTT MD Ot Z90. 49 ACQUIRED ABSENCE OF OTHER SPECIFIED PART 02/01/2019 NIDA SCOTT MD Ot Z93. 6 OTHER ARTIFICIAL OPENINGS OF URINARY TRA 02/01/2019 NIDA SCOTT MD Ot Z97. 5 PRESENCE OF (INTRAUTERINE) CONTRACEPTIVE 02/01/2019 NIDA SCOTT MD Ot Z98.890 OTHER SPECIFIED POSTPROCEDURAL STATES 02/01/2019 NIDA SCOTT MD Ot Z99. 2 DEPENDENCE ON RENAL DIALYSIS 02/05/2019 NIDA SCOTT MD Ot A41. 9 SEPSIS, UNSPECIFIED ORGANISM 02/05/2019 NIDA SCOTT MD Ot D64. 9 ANEMIA, UNSPECIFIED 02/05/2019 NIDA SOCTT MD Ot E11. 9 TYPE 2 DIABETES MELLITUS WITHOUT COMPLIC 02/05/2019 NIDA SCOTT MD Ot E78. 00 PURE HYPERCHOLESTEROLEMIA, UNSPECIFIED 02/05/2019 NIDA SCOTT MD Ot E86. 0 DEHYDRATION 02/05/2019 NIDA SCOTT MD Ot E87. 5 HYPERKALEMIA 02/05/2019 NIDA SCOTT MD Ot F31. 9 BIPOLAR DISORDER, UNSPECIFIED 02/05/2019 NIDA SCOTT MD Ot F41. 9 ANXIETY DISORDER, UNSPECIFIED 02/05/2019 NIDA SCOTT MD Ot J18. 9 PNEUMONIA, UNSPECIFIED ORGANISM 02/05/2019 NIDA SCOTT MD, Ot J44. 9 CHRONIC OBSTRUCTIVE PULMONARY DISEASE, U 02/05/2019 NIDA SCOTT MD Ot L03.116 CELLULITIS OF LEFT LOWER LIMB 02/05/2019 NIDA SCOTT MD Ot L89.150 PRESSURE ULCER OF SACRAL REGION, UNSTAGE 02/05/2019 NIDA SCOTT MD Ot N17. 9 ACUTE KIDNEY FAILURE, UNSPECIFIED 02/05/2019 NIDA SCOTT MD Ot N39. 0 URINARY TRACT INFECTION, SITE NOT SPECIF 02/05/2019 NIDA SCOTT MD Ot R53. 83 OTHER FATIGUE 02/05/2019 NIDA SCOTT MD Ot Z85.038 PERSONAL HISTORY OF MALIGNANT NEOPLASM O 02/05/2019 NIDA SCOTT MD Ot Z86.718 PERSONAL HISTORY OF OTHER VENOUS THROMBO 02/05/2019 NIDA SCOTT MD Ot Z87.440 PERSONAL HISTORY OF URINARY (TRACT) INFE 02/05/2019 NIDA SCOTT MD Ot Z88. 8 ALLERGY STATUS TO [facility] DRUG/MEDS/BIOL SUB 02/05/2019 NIDA SCOTT MD Ot Z90. 49 ACQUIRED ABSENCE OF OTHER SPECIFIED PART 02/05/2019 NIDA SCOTT MD Ot Z93. 6 OTHER ARTIFICIAL OPENINGS OF URINARY TRA 02/05/2019 NIDA SCOTT MD Ot Z97. 5 PRESENCE OF (INTRAUTERINE) CONTRACEPTIVE 02/05/2019 NIDA SCOTT MD Ot Z98.890 OTHER SPECIFIED POSTPROCEDURAL STATES 02/05/2019 NIDA SCOTT MD Ot Z99. 2 DEPENDENCE ON RENAL DIALYSIS 04/21/2019 LINDA CHUNG DO Ot D72.829 ELEVATED WHITE BLOOD CELL COUNT, UNSPECI 04/21/2019 LINDA CHUNG DO Ot E11 .9 TYPE 2 DIABETES MELLITUS WITHOUT COMPLIC 04/21/2019 LINDA CHUNG DO Ot E78.00 PURE HYPERCHOLESTEROLEMIA, UNSPECIFIED 04/21/2019 LINDA CHUNG DO Ot E83.52 HYPERCALCEMIA 04/21/2019 LINDA CHUNG DO Ot E87 .5 HYPERKALEMIA 04/21/2019 LINDA CHUNG DO Ot G24.09 OTHER DRUG INDUCED DYSTONIA 04/21/2019 LINDA CHUNG DO Ot J44 .9 CHRONIC OBSTRUCTIVE PULMONARY DISEASE, U 04/21/2019 LINDA CHUNG DO Ot R51 HEADACHE 04/21/2019 LINDA CHUNG DO, Ot Z85.038 PERSONAL HISTORY OF MALIGNANT NEOPLASM O 04/21/2019 LINDA CHUNG DO, Ot Z86.718 PERSONAL HISTORY OF OTHER VENOUS THROMBO 04/21/2019 LINDA CHUNG DO, Ot Z87.440 PERSONAL HISTORY OF URINARY (TRACT) INFE 04/21/2019 LINDA CHUNG DO, Ot Z88 .8 ALLERGY STATUS TO [facility] DRUG/MEDS/BIOL SUB 04/27/2019 LINDA CHUNG DO, Ot D72.829 ELEVATED WHITE BLOOD CELL COUNT, UNSPECI 04/27/2019 LINDA CHUNG DO, Ot E11 .9 TYPE 2 DIABETES MELLITUS WITHOUT COMPLIC 04/27/2019 LINDA CHUNG DO, Ot E78.00 PURE HYPERCHOLESTEROLEMIA, UNSPECIFIED 04/27/2019 LINDA CHUNG DO, Ot E83.52 HYPERCALCEMIA 04/27/2019 LINDA CHUNG DO, Ot E87 .5 HYPERKALEMIA 04/27/2019 LINDA CHUNG DO, Ot G24.09 OTHER DRUG INDUCED DYSTONIA 04/27/2019 LINDA CHUNG DO, Ot J44 .9 CHRONIC OBSTRUCTIVE PULMONARY DISEASE, U 04/27/2019 LINDA CHUNG DO, Ot R51 HEADACHE 04/27/2019 LINDA CHUNG DO, Ot Z85.038 PERSONAL HISTORY OF MALIGNANT NEOPLASM O 04/27/2019 LINDA CHUNG DO, Ot Z86.718 PERSONAL HISTORY OF OTHER VENOUS THROMBO 04/27/2019 LINDA CHUNG DO, Ot Z87.440 PERSONAL HISTORY OF URINARY (TRACT) INFE 04/27/2019 LINDA CHUNG DO, Ot Z88 .8 ALLERGY STATUS TO [facility] DRUG/MEDS/BIOL SUB 04/29/2019 LINDA CHUNG DO, Ot D72.829 ELEVATED WHITE BLOOD CELL COUNT, UNSPECI 04/29/2019 LINDA CHUNG DO Ot E11 .9 TYPE 2 DIABETES MELLITUS WITHOUT COMPLIC 04/29/2019 LINDA CHUNG DO Ot E78.00 PURE HYPERCHOLESTEROLEMIA, UNSPECIFIED 04/29/2019 LINDA CHUNG DO Ot E83.52 HYPERCALCEMIA 04/29/2019 LINDA CHUNG DO Ot E87 .5 HYPERKALEMIA 04/29/2019 LNIDA CHUNG DO Ot G24.09 OTHER DRUG INDUCED DYSTONIA 04/29/2019 LINDA CHUNG DO Ot J44 .9 CHRONIC OBSTRUCTIVE PULMONARY DISEASE, U 04/29/2019 LINDA CHUNG DO Ot R51 HEADACHE 04/29/2019 LINDA CHUNG DO Ot Z85.038 PERSONAL HISTORY OF MALIGNANT NEOPLASM O 04/29/2019 LINDA CHUNG DO Ot Z86.718 PERSONAL HISTORY OF OTHER VENOUS THROMBO 04/29/2019 LINDA CHUNG DO Ot Z87.440 PERSONAL HISTORY OF URINARY (TRACT) INFE 04/29/2019 LINDA CHUNG DO Ot Z88 .8 ALLERGY STATUS TO [facility] DRUG/MEDS/BIOL SUB 04/30/2019 FREEMAN CHAPA MD Ot E87.5 HYPERKALEMIA 04/30/2019 ANATOLY JOE MD Ot E11. 9 TYPE 2 DIABETES MELLITUS WITHOUT COMPLIC 04/30/2019 ANATOLY JOE MD Ot E66. 01 MORBID (SEVERE) OBESITY DUE TO EXCESS CA 04/30/2019 ANATOLY JOE MD Ot E78. 00 PURE HYPERCHOLESTEROLEMIA, UNSPECIFIED 04/30/2019 ANATOLY JOE MD Ot F31. 9 BIPOLAR DISORDER, UNSPECIFIED 04/30/2019 ANATOLY JOE MD Ot F41. 9 ANXIETY DISORDER, UNSPECIFIED 04/30/2019 ANATOLY JOE MD Ot J44. 9 CHRONIC OBSTRUCTIVE PULMONARY DISEASE, U 04/30/2019 ANATOLY JOE MD Ot R10. 32 LEFT LOWER QUADRANT PAIN 04/30/2019 ANATOLY JOE MD Ot R10. 84 GENERALIZED ABDOMINAL PAIN 04/30/2019 ANATOLY JOE MD Ot Z68. 44 BODY MASS INDEX (BMI) 60.0-69.9, ADULT 04/30/2019 ANATOLY JOE MD Ot Z85.038 PERSONAL HISTORY OF MALIGNANT NEOPLASM O 04/30/2019 ANATOLY JOE MD Ot Z86.718 PERSONAL HISTORY OF OTHER VENOUS THROMBO 04/30/2019 ANATOLY JOE MD Ot Z87.440 PERSONAL HISTORY OF URINARY (TRACT) INFE 04/30/2019 ANATOLY JOE MD Ot Z88. 1 ALLERGY STATUS TO OTHER ANTIBIOTIC AGENT 04/30/2019 ANATOLY JOE MD Ot Z88. 8 ALLERGY STATUS TO [facility] DRUG/MEDS/BIOL SUB 04/30/2019 ANATOLY JOE MD Ot Z90. 49 ACQUIRED ABSENCE OF OTHER SPECIFIED PART 04/30/2019 ANATOLY JOE MD Ot Z93. 3 COLOSTOMY STATUS 05/04/2019 FREEMAN CHAPA MD Ot E87.5 HYPERKALEMIA 05/04/2019 ANATOLY JOE MD Ot E11. 9 TYPE 2 DIABETES MELLITUS WITHOUT COMPLIC 05/04/2019 ANATOLY JOE MD Ot E66. 01 MORBID (SEVERE) OBESITY DUE TO EXCESS CA 05/04/2019 ANATOLY JOE MD Ot E78. 00 PURE HYPERCHOLESTEROLEMIA, UNSPECIFIED 05/04/2019 ANATOLY JOE MD Ot F31. 9 BIPOLAR DISORDER, UNSPECIFIED 05/04/2019 ANATOLY JOE MD, Ot F41. 9 ANXIETY DISORDER, UNSPECIFIED 05/04/2019 ANATOLY JOE MD Ot J44. 9 CHRONIC OBSTRUCTIVE PULMONARY DISEASE, U 05/04/2019 ANATOLY JOE MD Ot R10. 32 LEFT LOWER QUADRANT PAIN 05/04/2019 ANATOLY JOE MD Ot R10. 84 GENERALIZED ABDOMINAL PAIN 05/04/2019 ANATOLY JOE MD Ot Z68. 44 BODY MASS INDEX (BMI) 60.0-69.9, ADULT 05/04/2019 ANATOLY JOE MD Ot Z85.038 PERSONAL HISTORY OF MALIGNANT NEOPLASM O 05/04/2019 ANATOLY JOE MD Ot Z86.718 PERSONAL HISTORY OF OTHER VENOUS THROMBO 05/04/2019 ANATOLY JOE MD Ot Z87.440 PERSONAL HISTORY OF URINARY (TRACT) INFE 05/04/2019 ANATOLY JOE MD Ot Z88. 1 ALLERGY STATUS TO OTHER ANTIBIOTIC AGENT 05/04/2019 ANATOLY JOE MD Ot Z88. 8 ALLERGY STATUS TO [facility] DRUG/MEDS/BIOL SUB 05/04/2019 ANATOLY JOE MD Ot Z90. 49 ACQUIRED ABSENCE OF OTHER SPECIFIED PART 05/04/2019 TATYANA BELTRE, ANATOLY Morales Ot Z93. 3 COLOSTOMY STATUS 05/19/2019 ROVENSTINE DO, LADONNA Velazco Ot D64.9 ANEMIA, UNSPECIFIED 05/19/2019 ROVENSTINE DO, LADONNA L Ot E11.9 TYPE 2 DIABETES MELLITUS WITHOUT COMPLIC 05/19/2019 ROVENSTINE DOLADONNA Ot E78.00 PURE HYPERCHOLESTEROLEMIA, UNSPECIFIED 05/19/2019 ROVENSTINE DOLADONNA L Ot F31.9 BIPOLAR DISORDER, UNSPECIFIED 05/19/2019 ROVENSTINE DOLADONNA L Ot F41.9 ANXIETY DISORDER, UNSPECIFIED 05/19/2019 ROVENSTINE DOLADONNA Ot J44.9 CHRONIC OBSTRUCTIVE PULMONARY DISEASE, U 05/19/2019 ROVENSTINE DOLADONNA Ot N39.0 URINARY TRACT INFECTION, SITE NOT SPECIF 05/19/2019 ROVENSTINE DOLADONNA Ot R41.82 ALTERED MENTAL STATUS, UNSPECIFIED 05/19/2019 ROVENSTINE DOLADONNA Ot Z85.038 PERSONAL HISTORY OF MALIGNANT NEOPLASM O 05/19/2019 ROVENSTINE DOLADONNA L Ot Z86.718 PERSONAL HISTORY OF OTHER VENOUS THROMBO 05/19/2019 ROVENSTINE DOLADONNA Ot Z87.440 PERSONAL HISTORY OF URINARY (TRACT) INFE 05/19/2019 ROVENSTINE DOLADONNA Ot Z87.828 PERSONAL HISTORY OF OTH (HEALED) PHYSICA 05/19/2019 ROVENSTINE DOLADONNA Ot Z87.891 PERSONAL HISTORY OF NICOTINE DEPENDENCE 05/19/2019 ROVENSTINE DOLADONNA Ot Z88.8 ALLERGY STATUS TO [facility] DRUG/MEDS/BIOL SUB 05/19/2019 ROVENSTINE DOLADONNA Ot Z90.49 ACQUIRED ABSENCE OF OTHER SPECIFIED PART 05/20/2019 FREEMAN CHAPA MD Ot E87.5 HYPERKALEMIA 05/21/2019 ROVENSTINE DOLADONNA Ot D64.9 ANEMIA, UNSPECIFIED 05/21/2019 ROVENSTINE DOLADONNA Ot E11.9 TYPE 2 DIABETES MELLITUS WITHOUT COMPLIC 05/21/2019 ROVENSTINE DOLADONNA Ot E78.00 PURE HYPERCHOLESTEROLEMIA, UNSPECIFIED 05/21/2019 ROVENSTINE DO, LADONNA Velazco Ot F31.9 BIPOLAR DISORDER, UNSPECIFIED 05/21/2019 ROVENSTINE DO LADONNA Velazco Ot F41.9 ANXIETY DISORDER, UNSPECIFIED 05/21/2019 ROVENSTINE DO LADONNA Velazco Ot J44.9 CHRONIC OBSTRUCTIVE PULMONARY DISEASE, U 05/21/2019 ROVENSTINE DO LADONNA Velazco Ot N39.0 URINARY TRACT INFECTION, SITE NOT SPECIF 05/21/2019 ROVENSTINE DO LADONNA Velazco Ot R41.82 ALTERED MENTAL STATUS, UNSPECIFIED 05/21/2019 ROVENSTINE DO LADONNA Velazco Ot Z85.038 PERSONAL HISTORY OF MALIGNANT NEOPLASM O 05/21/2019 ROVENSTINE DO LADONNA Velazco Ot Z86.718 PERSONAL HISTORY OF OTHER VENOUS THROMBO 05/21/2019 ROVENSTINE DO LADONNA Velazco Ot Z87.440 PERSONAL HISTORY OF URINARY (TRACT) INFE 05/21/2019 JAMILVENSTINE DO LADONNA Velazco Ot Z87.828 PERSONAL HISTORY OF OTH (HEALED) PHYSICA 05/21/2019 ROVENSTINE DO LADONNA Velazco Ot Z87.891 PERSONAL HISTORY OF NICOTINE DEPENDENCE 05/21/2019 JAMILVENSTINE DO LADONNA Velazco Ot Z88.8 ALLERGY STATUS TO [facility]TH DRUG/MEDS/BIOL SUB 05/21/2019 ROVENSTINE DO LADONNA Velazco Ot Z90.49 ACQUIRED ABSENCE OF OTHER SPECIFIED PART 05/24/2019 CASTRO PÉREZ MD, Ot D64.9 ANEMIA, UNSPECIFIED 05/24/2019 CASTRO PÉREZ MD, Ot E11.9 TYPE 2 DIABETES MELLITUS WITHOUT COMPLIC 05/24/2019 CASTRO PÉREZ MD, Ot E78.0 0 PURE HYPERCHOLESTEROLEMIA, UNSPECIFIED 05/24/2019 CASTRO PÉREZ MD, Ot F31.9 BIPOLAR DISORDER, UNSPECIFIED 05/24/2019 CASTRO PÉREZ MD, Ot F41.9 ANXIETY DISORDER, UNSPECIFIED 05/24/2019 CASTRO PÉREZ MD, Ot G83.9 PARALYTIC SYNDROME, UNSPECIFIED 05/24/2019 CASTRO PÉREZ MD, Ot G89.2 9 OTHER CHRONIC PAIN 05/24/2019 CASTRO PÉREZ MD, Ot J44.9 CHRONIC OBSTRUCTIVE PULMONARY DISEASE, U 05/24/2019 CASTRO PÉREZ MD, Ot M54.2 CERVICALGIA 05/24/2019 CASTRO PÉREZ MD, Ot N39.0 URINARY TRACT INFECTION, SITE NOT SPECIF 05/24/2019 CASTRO PÉREZ MD, Ot R07.9 CHEST PAIN, UNSPECIFIED 05/24/2019 CASTRO PÉREZ MD, Ot T83.511A I/I REACT D/T INDWELLING URETHRAL CATHET 05/24/2019 CASTRO PÉREZ MD, Ot Z85.0 38 PERSONAL HISTORY OF MALIGNANT NEOPLASM O 05/24/2019 CASTRO PÉREZ MD, Ot Z86.7 18 PERSONAL HISTORY OF OTHER VENOUS THROMBO 05/24/2019 CASTRO PÉREZ MD, Ot Z87.4 40 PERSONAL HISTORY OF URINARY (TRACT) INFE 05/24/2019 CASTRO PÉREZ MD, Ot Z87.8 91 PERSONAL HISTORY OF NICOTINE DEPENDENCE 05/24/2019 CASTRO PÉREZ MD, Ot Z88.8 ALLERGY STATUS TO [facility] DRUG/MEDS/BIOL SUB 05/24/2019 CASTRO PÉREZ MD, Ot Z90.4 9 ACQUIRED ABSENCE OF OTHER SPECIFIED PART 05/26/2019 KIRA DOVIDHYA Ot D64.9 ANEMIA, UNSPECIFIED 05/26/2019 MALONE DO, VIDHYA Ot E11.9 TYPE 2 DIABETES MELLITUS WITHOUT COMPLIC 05/26/2019 KIRA DO, VIDHYA Ot E78.00 PURE HYPERCHOLESTEROLEMIA, UNSPECIFIED 05/26/2019 MALONE DO, VIDHYA Ot F31.9 BIPOLAR DISORDER, UNSPECIFIED 05/26/2019 MALONE DO, VIDHYA Ot F41.9 ANXIETY DISORDER, UNSPECIFIED 05/26/2019 MALONE DO, VIDHYA Ot G83.9 PARALYTIC SYNDROME, UNSPECIFIED 05/26/2019 MALONE DO, VIDHYA Ot I95.9 HYPOTENSION, UNSPECIFIED 05/26/2019 MALONE DO, VIDHYA Ot J44.9 CHRONIC OBSTRUCTIVE PULMONARY DISEASE, U 05/26/2019 KIRA DO VIDHYA Ot K52.9 NONINFECTIVE GASTROENTERITIS AND COLITIS 05/26/2019 VIDHYA MALONE DO Ot Z85.038 PERSONAL HISTORY OF MALIGNANT NEOPLASM O 05/26/2019 KIRA DOVIDHYA Ot Z86.718 PERSONAL HISTORY OF OTHER VENOUS THROMBO 05/26/2019 KIRA DOVIDHYA Ot Z87.440 PERSONAL HISTORY OF URINARY (TRACT) INFE 05/26/2019 KIRA DOVIDHYA Ot Z87.891 PERSONAL HISTORY OF NICOTINE DEPENDENCE 05/26/2019 VIDHYA MALONE DO Ot Z88.8 ALLERGY STATUS TO OTH DRUG/MEDS/BIOL SUB 05/26/2019 VIDHYA MALONE DO Ot Z90.49 ACQUIRED ABSENCE OF OTHER SPECIFIED PART 05/26/2019 MALONE VIDHYA Ot Z93.3 COLOSTOMY STATUS 05/26/2019 VIDHYA MALONE DO Ot Z98.890 OTHER SPECIFIED POSTPROCEDURAL STATES 05/28/2019 CASTRO PÉREZ MD, Ot D64.9 ANEMIA, UNSPECIFIED 05/28/2019 CASTRO PÉREZ MD Ot E11.9 TYPE 2 DIABETES MELLITUS WITHOUT COMPLIC 05/28/2019 CASTRO PÉREZ MD Ot E78.0 0 PURE HYPERCHOLESTEROLEMIA, UNSPECIFIED 05/28/2019 CASTRO PÉREZ MD, Ot F31.9 BIPOLAR DISORDER, UNSPECIFIED 05/28/2019 CASTRO PÉREZ MD, Ot F41.9 ANXIETY DISORDER, UNSPECIFIED 05/28/2019 CASTRO PÉREZ MD Ot G83.9 PARALYTIC SYNDROME, UNSPECIFIED 05/28/2019 CASTRO PÉREZ MD, Ot G89.2 9 OTHER CHRONIC PAIN 05/28/2019 CASTRO PÉREZ MD, Ot J44.9 CHRONIC OBSTRUCTIVE PULMONARY DISEASE, U 05/28/2019 CASTRO PÉREZ MD, Ot M54.2 CERVICALGIA 05/28/2019 CASTRO PÉREZ MD, Ot N39.0 URINARY TRACT INFECTION, SITE NOT SPECIF 05/28/2019 CASTRO PÉREZ MD, Ot R07.9 CHEST PAIN, UNSPECIFIED 05/28/2019 CASTRO PÉREZ MD, Ot T83.511A I/I REACT D/T INDWELLING URETHRAL CATHET 05/28/2019 CASTRO PÉREZ MD, Ot Z85.0 38 PERSONAL HISTORY OF MALIGNANT NEOPLASM O 05/28/2019 CASTRO PÉREZ MD, Ot Z86.7 18 PERSONAL HISTORY OF OTHER VENOUS THROMBO 05/28/2019 CASTRO PÉREZ MD, Ot Z87.4 40 PERSONAL HISTORY OF URINARY (TRACT) INFE 05/28/2019 CASTRO PÉREZ MD, Ot Z87.8 91 PERSONAL HISTORY OF NICOTINE DEPENDENCE 05/28/2019 CASTRO PÉREZ MD, Ot Z88.8 ALLERGY STATUS TO [facility] DRUG/MEDS/BIOL SUB 05/28/2019 ENYART MD, CASTRO E Ot Z90.4 9 ACQUIRED ABSENCE OF OTHER SPECIFIED PART 06/01/2019 MALONE DO, VIDHYA Ot D64.9 ANEMIA, UNSPECIFIED 06/01/2019 MALONE DO, VIDHYA Ot E11.9 TYPE 2 DIABETES MELLITUS WITHOUT COMPLIC 06/01/2019 WAXHAW DO, VIDHYA Ot E78.00 PURE HYPERCHOLESTEROLEMIA, UNSPECIFIED 06/01/2019 [place]W DO, VIDHYA Ot F31.9 BIPOLAR DISORDER, UNSPECIFIED 06/01/2019 [place] DO, VIDHYA Ot F41.9 ANXIETY DISORDER, UNSPECIFIED 06/01/2019 [place] DO, VIDHYA Ot G83.9 PARALYTIC SYNDROME, UNSPECIFIED 06/01/2019 [place] DO, VIDHYA Ot I95.9 HYPOTENSION, UNSPECIFIED 06/01/2019 [place] DO, VIDHYA Ot J44.9 CHRONIC OBSTRUCTIVE PULMONARY DISEASE, U 06/01/2019 [place] DO, VIDHYA Ot K52.9 NONINFECTIVE GASTROENTERITIS AND COLITIS 06/01/2019 [place] DO, VIDHYA Ot Z85.038 PERSONAL HISTORY OF MALIGNANT NEOPLASM O 06/01/2019 [place]AX[place]W DO, VIDHYA Ot Z86.718 PERSONAL HISTORY OF OTHER VENOUS THROMBO 06/01/2019 [place] DO, VIDHYA Ot Z87.440 PERSONAL HISTORY OF URINARY (TRACT) INFE 06/01/2019 [place] DO, VIDHYA Ot Z87.891 PERSONAL HISTORY OF NICOTINE DEPENDENCE 06/01/2019 [place] DO, VIDHYA Ot Z88.8 ALLERGY STATUS TO [facility] DRUG/MEDS/BIOL SUB 06/01/2019 [place]W DO, VIDHYA Ot Z90.49 ACQUIRED ABSENCE OF OTHER SPECIFIED PART 06/01/2019 [place] DO, VIDHYA Ot Z93.3 COLOSTOMY STATUS 06/01/2019 [place] DO, VIDHYA Ot Z98.890 OTHER SPECIFIED POSTPROCEDURAL STATES 06/02/2019 CASTRO PÉREZ MD Ot D64.9 ANEMIA, UNSPECIFIED 06/02/2019 CASTRO PÉREZ MD, Ot E11.9 TYPE 2 DIABETES MELLITUS WITHOUT COMPLIC 06/02/2019 CASTRO PÉREZ MD, Ot E78.0 0 PURE HYPERCHOLESTEROLEMIA, UNSPECIFIED 06/02/2019 CASTRO PÉREZ MD, Ot F31.9 BIPOLAR DISORDER, UNSPECIFIED 06/02/2019 CASTRO PÉREZ MD, Ot F41.9 ANXIETY DISORDER, UNSPECIFIED 06/02/2019 CASTRO PÉREZ MD Ot G83.9 PARALYTIC SYNDROME, UNSPECIFIED 06/02/2019 CASTRO PÉREZ MD, Ot G89.2 9 OTHER CHRONIC PAIN 06/02/2019 CASTRO PÉREZ MD, Ot J44.9 CHRONIC OBSTRUCTIVE PULMONARY DISEASE, U 06/02/2019 CASTRO PÉREZ MD, Ot M54.2 CERVICALGIA 06/02/2019 CASTRO PÉREZ MD, Ot N39.0 URINARY TRACT INFECTION, SITE NOT SPECIF 06/02/2019 CASTRO PÉREZ MD, Ot R07.9 CHEST PAIN, UNSPECIFIED 06/02/2019 CASTRO PÉREZ MD, Ot T83.511A I/I REACT D/T INDWELLING URETHRAL CATHET 06/02/2019 CASTRO PÉREZ MD, Ot Z85.0 38 PERSONAL HISTORY OF MALIGNANT NEOPLASM O 06/02/2019 CASTRO PÉREZ MD, Ot Z86.7 18 PERSONAL HISTORY OF OTHER VENOUS THROMBO 06/02/2019 CASTRO PÉREZ MD, Ot Z87.4 40 PERSONAL HISTORY OF URINARY (TRACT) INFE 06/02/2019 CASTRO PÉREZ MD, Ot Z87.8 91 PERSONAL HISTORY OF NICOTINE DEPENDENCE 06/02/2019 CASTRO PÉREZ MD, Ot Z88.8 ALLERGY STATUS TO [facility] DRUG/MEDS/BIOL SUB 06/02/2019 CASTRO PÉREZ MD, Ot Z90.4 9 ACQUIRED ABSENCE OF OTHER SPECIFIED PART 06/03/2019 KIRA DOVIDHYA Ot D64.9 ANEMIA, UNSPECIFIED 06/03/2019 MALONE DO, VIDHYA Ot E11.9 TYPE 2 DIABETES MELLITUS WITHOUT COMPLIC 06/03/2019 KRIA DO, VIDHYA Ot E78.00 PURE HYPERCHOLESTEROLEMIA, UNSPECIFIED 06/03/2019 MALONE DOVIDHYA Ot F31.9 BIPOLAR DISORDER, UNSPECIFIED 06/03/2019 MALONE DO, VIDHYA Ot F41.9 ANXIETY DISORDER, UNSPECIFIED 06/03/2019 MALONE DO VIDHYA Ot G83.9 PARALYTIC SYNDROME, UNSPECIFIED 06/03/2019 MALONE DO, VIDHYA Ot I95.9 HYPOTENSION, UNSPECIFIED 06/03/2019 MALONE DOVIDHYA Ot J44.9 CHRONIC OBSTRUCTIVE PULMONARY DISEASE, U 06/03/2019 KIRA DOVIDHYA Ot K52.9 NONINFECTIVE GASTROENTERITIS AND COLITIS 06/03/2019 KIRA DOVIDHYA Ot Z85.038 PERSONAL HISTORY OF MALIGNANT NEOPLASM O 06/03/2019 MALONE DOVIDHYA Ot Z86.718 PERSONAL HISTORY OF OTHER VENOUS THROMBO 06/03/2019 KIRA VIDHYA SAINZ Ot Z87.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 Results Test Result Range CMP - 10/20/18 12:53 GLUCOSE 277 mg/dL 65-99 UREA NITROGEN (BUN) 23 mg/dL 7-25 CREATININE 0.66 mg/dL 0.50-0.99 eGFR NON-AFR. MONEGASQUE 91 mL/min/1.73m2 > OR = 60 eGFR 106 mL/min/1.73m2 > OR = 60 BUN/CREATININE RATIO NOT APPLICABLE (calc) 6-22 SODIUM 137 mmol/L 135-146 POTASSIUM 4.8 mmol/L 3.5-5.3 CHLORIDE 106 mmol/L 98-110 CARBON DIOXIDE 24 mmol/L 20-32 CALCIUM 10.4 mg/dL 8.6-10.4 PROTEIN, TOTAL 7.2 g/dL 6.1-8.1 ALBUMIN 3.3 g/dL 3.6-5.1 GLOBULIN 3.9 g/dL (calc) 1.9-3.7 ALBUMIN/GLOBULIN RATIO 0.8 (calc) 1.0-2. 5 BILIRUBIN, TOTAL 0.3 mg/dL 0.2-1.2 ALKALINE PHOSPHATASE 141 U/L 33-130 AST 17 U/L 10-35 ALT 19 U/L 6-29 MAGNESIUM SERUM - 11/25/18 10:21 MAGNESIUM 1.6 mg/dL 1.5-2.5 CULTURE, ANAEROBIC AND AEROBIC - 9 15:03 CULTURE, ANAEROBIC BACTERIA W/GRAM STAIN NR CULTURE, AEROBIC BACTERIA [facility] A1C - 12/22/18 09:36 HEMOGLOBIN A1c 10.8 % of total Hgb <5.7 Complete blood count (CBC) with automate d white blood cell (WBC) differential - 01/09/19 10:42 Blood leukocytes automated count (number/volume) 14.1 10*3/uL 4.3-11.0 Blood erythrocytes automated count (number/volume) 3.94 10*6/uL 4.35-5.85 Venous blood hemoglobin measurement (mass/volume) 11.5 g/dL 11.5-16.0 Blood hematocrit (volume fraction) 37 % 35-52 Automated erythrocyte mean corpuscular volume 95 [ foz_us] 80-99 Automated erythrocyte mean corpuscular h emoglobin (mass per erythrocyte) 29 pg 25-34 Automated erythrocyte mean corpuscular h emoglobin concentration measurement (mass/volume) 31 g/dL 32-36 Automated erythrocyte distribution width ratio 14. 9 % 10.0- 14.5 Automated blood platelet count [...] 10*3 1.0-4.0 Blood monocytes automated count (number/volume) 0. 8 10*3 0.0-1.0 Automated eosinophil count 0.4 10*3/uL 0 .0-0.3 Automated blood basophil count (count/volume) 0.1 10*3/uL 0.0-0.1 Complete urinalysis with reflex to cultu re - 01/09/19 10:42 Urine color determination YELLOW NRG Urine clarity determination CLOUDY NR G Urine pH measurement by test strip 8.0 5-9 Specific gravity of urine by test strip 1.010 1.016-1.022 Urine protein assay by test strip, semi-quantitative 1+ NEGATIVE Urine glucose detection by automated test strip NE GATIVE NEGATIVE Erythrocytes detection in urine sediment by light micr oscopy NEGATIVE NEGATIVE Urine ketones detection by automated test strip TR HOLA NEGATIVE Urine nitrite detection by test strip NEGATIVE NEGATIVE Urine total bilirubin detection by test strip NEGA TIVE NEGATIVE Urine urobilinogen measurement by automated test strip (mass/volume) 0.2 mg/dL NORMAL Urine leukocyte esterase detection by dipstick 2+ NEGATIVE Automated urine sediment erythrocyte cou nt by microscopy (number/high power field) NONE NRG Automated urine sediment leukocyte count by microscopy (number/high power field) [HPF] NRG Bacteria detection in urine sediment by light microsco py LARGE NRG Squamous epithelial cells detection in u rine sediment by light microscopy 0-2 NRG Crystals detection in urine sediment by light microsco py NONE NRG Casts detection in urine sediment [...] 5-14 Serum or plasma urea nitrogen measurement (mass/volume ) 40 mg/dL 7-18 Serum or plasma creatinine measurement (mass/volume) 0.84 mg/dL 0.60-1.30 Serum or plasma urea nitrogen/creatinine mass ratio 48 NRG Serum or plasma creatinine measurement w ith calculation of estimated glomerular filtration rate > NRG Serum or plasma glucose measurement (mass/volume) 325 mg/dL 70-105 Serum or plasma calcium measurement (mass/volume) 10.6 mg/dL 8.5-10.1 Serum or plasma total bilirubin measurement (mass/volu me) 0.3 mg/dL 0.1-1.0 Serum or plasma alkaline phosphatase adrianne surement (enzymatic activity/volume) 186 U/L 40-136 Serum or plasma aspartate aminotransfera se measurement (enzymatic activity/volume) 22 U/L 5-34 Serum or plasma alanine aminotransferase measurement (enzymatic activity/volume) 27 U/L 0-55 Serum or plasma protein measurement (mass/volume) 8.3 g/dL 6.4-8.2 Serum or plasma albumin measurement (mass/volume) 3.0 g/dL 3.2-4.5 CALCIUM CORRECTED 11.4 mg/dL 8.5-10.1 Blood manual differential performed dete ction - 01/09/19 10:42 Blood monocytes/100 leukocytes 6 % NRG Manual blood segmented neutrophils/100 leukocytes 76 % NRG Blood band neutrophils/100 leukocytes 3 % NRG Manual blood lymphocytes/100 leukocytes 14 % NRG Manual eosinophils/100 leukocytes in nose 1 % NRG Manual blood basophils/100 leukocytes 0 % NRG Bacterial urine culture - 01/09/19 10:42 Bacterial urine culture [id number] NRG COLONY COUNT >100,000/ML NRG FTX;REPORTABLE SUSCEPTIBILITY REPORTED 01/12/19 11: 05 NRG FREE TEXT ENTRY 2 ID REPORTED 01/11/19 15:05 NRG RM Sensitivity Panel - 01/09/19 10:42 Gentamicin susceptibility test by minimum inhibitory c oncentration > NRG Trimethoprim/sulfamethoxazole susceptibi lity test by minimum inhibitoryconcentration > NRG Levofloxacin susceptibility test by minimum inhibitory concentration > NRG Ampicillin susceptibility test by minimum inhibitory c oncentration > NRG Cefazolin susceptibility test by minimum inhibitory co ncentration 8 NRG Ceftriaxone susceptibility test by minimum inhibitory concentration <= NRG Ciprofloxacin susceptibility test by minimum inhibitor y concentration > NRG Meropenem susceptibility test by minimum inhibitory co ncentration <= NRG Nitrofurantoin susceptibility test by mi nimum inhibitory concentration 32 NRG Amoxicillin and clavulanate potassium susc SACHIN = NRG RML Sensitivity Panel - 01/09/19 10:42 Gentamicin susceptibility test by minimum inhibitory c oncentration <= NRG Trimethoprim/sulfamethoxazole susceptibi lity test by minimum inhibitoryconcentration = NRG Levofloxacin susceptibility test by minimum inhibitory concentration > NRG Ampicillin susceptibility test by minimum inhibitory c oncentration <= NRG Cefazolin susceptibility test by minimum inhibitory co ncentration 8 NRG Ceftriaxone susceptibility test by minimum inhibitory concentration <= NRG Ciprofloxacin susceptibility test by minimum inhibitor y concentration > NRG Nitrofurantoin susceptibility test by mi nimum inhibitory concentration > NRG Amoxicillin and clavulanate potassium susc SACHIN <= NRG Capillary blood glucose measurement by g lucometer (mass/volume) - 01/28/19 14:28 Capillary blood glucose measurement by glucometer (mas s/volume) 136 mg/dL 70-110 Complete blood count (CBC) with automate d white blood cell (WBC) differential - 01/28/19 14:30 Blood leukocytes automated count (number/volume) 30.9 10*3/uL 4.3-11.0 Blood erythrocytes automated count (number/volume) 3.72 10*6/uL 4.35-5.85 Venous blood hemoglobin measurement (mass/volume) 10.6 g/dL 11.5-16.0 Blood hematocrit (volume fraction) 35 % 35-52 Automated erythrocyte mean corpuscular volume 93 [ foz_us] 80-99 Automated erythrocyte mean corpuscular h emoglobin (mass per erythrocyte) 29 pg 25-34 Automated erythrocyte mean corpuscular h emoglobin concentration measurement (mass/volume) 31 g/dL 32-36 Automated erythrocyte distribution width ratio 15. 3 % 10.0- 14.5 Automated blood platelet count (count/volume) 597 10*3/uL 130-400 Automated blood platelet mean volume measurement 8.9 [foz_us] 7.4-10.4 Automated blood neutrophils/100 leukocytes 91 % 42-75 Automated blood lymphocytes/100 leukocytes 4 % 12-44 Blood monocytes/100 leukocytes 3 % 0-12 Automated blood eosinophils/100 leukocytes 1 % 0-10 Automated blood basophils/100 leukocytes 0 % 0-10 Blood neutrophils automated count (number/volume) 28.1 10*3 1.8-7.8 Blood lymphocytes automated count (number/volume) 1.1 10*3 1.0-4.0 Blood monocytes automated count (number/volume) 0. 8 10*3 0.0-1.0 Automated eosinophil count 0.4 10*3/uL 0 .0-0.3 Automated blood basophil count (count/volume) 0.1 10*3/uL 0.0-0.1 Blood lactic acid measurement (moles/vol ume) - 01/28/19 14:30 Blood lactic acid measurement (moles/volume) 1.48 mmol/L 0.50-2.00 PT panel in platelet poor plasma by coag ulation assay - 01/28/19 14:30 Prothrombin time (PT) in platelet poor plasma by coagu lation assay 16.4 s 12.2-14.7 INR in platelet poor plasma or blood by coagulation as say 1.3 0.8-1.4 Activated partial thromboplastin time (a PTT) in platelet poor plasma bycoagulation assay - 01/28/19 14:30 Activated partial thromboplastin time (a PTT) in platelet poor plasma bycoagulation assay 31 s 24-35 Manual absolute plasma cell count - 01/16 11/03 14:30 Blood monocytes/100 leukocytes 1 % NRG Manual blood segmented neutrophils/100 leukocytes 75 % NRG Blood band neutrophils/100 leukocytes 22 % NRG Manual blood lymphocytes/100 leukocytes 2 % NRG Manual eosinophils/100 leukocytes in nose 0 % NRG Manual blood basophils/100 leukocytes 0 % NRG Comprehensive metabolic panel - 01/28/19 14:30 Serum or plasma sodium measurement (moles/volume) 130 mmol/L 135-145 Serum or plasma potassium measurement (moles/volume) 6.4 mmol/L 3.6-5.0 Serum or plasma chloride measurement (moles/volume) 97 mmol/L 98-107 Carbon dioxide 20 mmol/L 21-32 Serum or plasma anion gap determination (moles/volume) 13 mmol/L 5-14 Serum or plasma urea nitrogen measurement (mass/volume ) 52 mg/dL 7-18 Serum or plasma creatinine measurement (mass/volume) 1.34 mg/dL 0.60-1.30 Serum or plasma urea nitrogen/creatinine mass ratio 39 NRG Serum or plasma creatinine measurement w ith calculation of estimated glomerular filtration rate 39 NRG Serum or plasma glucose measurement (mass/volume) 146 mg/dL 70-105 Serum or plasma calcium measurement (mass/volume) 10.2 mg/dL 8.5-10.1 Serum or plasma total bilirubin measurement (mass/volu me) 0.3 mg/dL 0.1-1.0 Serum or plasma alkaline phosphatase adrianne surement (enzymatic activity/volume) 212 U/L 40-136 Serum or plasma aspartate aminotransfera se measurement (enzymatic activity/volume) 28 U/L 5-34 Serum or plasma alanine aminotransferase measurement (enzymatic activity/volume) 27 U/L 0-55 Serum or plasma protein measurement (mass/volume) 8.2 g/dL 6.4-8.2 Serum or plasma albumin measurement (mass/volume) 2.6 g/dL 3.2-4.5 CALCIUM CORRECTED 11.3 mg/dL 8.5-10.1 Bacterial blood culture - 01/28/19 14:30 Bacterial blood culture NG NRG Complete urinalysis with reflex to cultu re - 01/28/19 14:48 Urine color determination YELLOW NRG Urine clarity determination SLT CLOUDY NRG Urine pH measurement by test strip 8.0 5-9 Specific gravity of urine by test strip 1.010 1.016-1.022 Urine protein assay by test strip, semi-quantitative TRACE NEGATIVE Urine glucose detection by automated test strip NE GATIVE NEGATIVE Erythrocytes detection in urine sediment by light micr oscopy TRACE NEGATIVE Urine ketones detection by automated test strip NE GATIVE NEGATIVE Urine nitrite detection by test strip NEGATIVE NEGATIVE Urine total bilirubin detection by test strip NEGA TIVE NEGATIVE Urine urobilinogen measurement by automated test strip (mass/volume) 0.2 mg/dL NORMAL Urine leukocyte esterase detection by dipstick 3+ NEGATIVE Automated urine sediment erythrocyte cou nt by microscopy (number/high power field) NONE NRG Automated urine sediment leukocyte count by microscopy (number/high power field) [HPF] NRG Bacteria detection in urine sediment by light microsco py LARGE NRG Squamous epithelial cells detection in u rine sediment by light microscopy NONE NRG Crystals detection in urine sediment by light microsco py NONE NRG Casts detection in urine sediment by light microscopy NONE NRG Mucus detection in urine sediment by light microscopy NONE NRG Complete urinalysis with reflex to culture NO NRG Bacterial urine culture - 01/28/19 14:48 Bacterial urine culture [id number] NRG COLONY COUNT >100,000/ML NRG FTX;REPORTABLE SUSCEPTIBILITY REPORTED 02/02 11:45 NRG FREE TEXT ENTRY 2 ID REPORTED 02/01/19 15:05 NRG FREE TEXT ENTRY 3 SEE COMMENTS FOR ADDITIONAL NRG Dirithromycin susceptibility test by dis k diffusion - 01/28/19 14:48 Gentamicin susceptibility test by minimum inhibitory c oncentration <= NRG Trimethoprim/sulfamethoxazole susceptibi lity test by minimum inhibitoryconcentration <= NRG Levofloxacin susceptibility test by minimum inhibitory concentration <= NRG Ampicillin susceptibility test by minimum inhibitory c oncentration > NRG Cefazolin susceptibility test by minimum inhibitory co ncentration > NRG Ceftriaxone susceptibility test by minimum inhibitory concentration > NRG Ciprofloxacin susceptibility test by minimum inhibitor y concentration <= NRG Meropenem susceptibility test by minimum inhibitory co ncentration <= NRG Nitrofurantoin susceptibility test by mi nimum inhibitory concentration > NRG Ertapenem susceptibility test by minimum inhibitory co ncentration R NRG Amoxicillin and clavulanate potassium susc SACHIN > NRG Dirithromycin susceptibility test by dis k diffusion - 01/28/19 14:48 Gentamicin susceptibility test by minimum inhibitory c oncentration <= NRG Trimethoprim/sulfamethoxazole susceptibi lity test by minimum inhibitoryconcentration <= NRG Levofloxacin susceptibility test by minimum inhibitory concentration <= NRG Ampicillin susceptibility test by minimum inhibitory c oncentration > NRG Cefazolin susceptibility test by minimum inhibitory co ncentration > NRG Ceftriaxone susceptibility test by minimum inhibitory concentration > NRG Ciprofloxacin susceptibility test by minimum inhibitor y concentration <= NRG Meropenem susceptibility test by minimum inhibitory co ncentration <= NRG Nitrofurantoin susceptibility test by mi nimum inhibitory concentration > NRG Ertapenem susceptibility test by minimum inhibitory co ncentration R NRG Amoxicillin and clavulanate potassium susc SACHIN > NRG Dirithromycin susceptibility test by dis k diffusion - 01/28/19 14:48 Gentamicin susceptibility test by minimum inhibitory c oncentration <= NRG Trimethoprim/sulfamethoxazole susceptibi lity test by minimum inhibitoryconcentration > NRG Levofloxacin susceptibility test by minimum inhibitory concentration <= NRG Ampicillin susceptibility test by minimum inhibitory c oncentration > NRG Cefazolin susceptibility test by minimum inhibitory co ncentration > NRG Ceftriaxone susceptibility test by minimum inhibitory concentration <= NRG Ciprofloxacin susceptibility test by minimum inhibitor y concentration <= NRG Meropenem susceptibility test by minimum inhibitory co ncentration <= NRG Nitrofurantoin susceptibility test by mi nimum inhibitory concentration R NRG Amoxicillin and clavulanate potassium susc SACHIN > NRG Dirithromycin susceptibility test by dis k diffusion - 01/28/19 14:48 Gentamicin susceptibility test by minimum inhibitory c oncentration > NRG Trimethoprim/sulfamethoxazole susceptibi lity test by minimum inhibitoryconcentration > NRG Levofloxacin susceptibility test by minimum inhibitory concentration > NRG Ampicillin susceptibility test by minimum inhibitory c oncentration > NRG Cefazolin susceptibility test by minimum inhibitory co ncentration 4 NRG Ceftriaxone susceptibility test by minimum inhibitory concentration <= NRG Ciprofloxacin susceptibility test by minimum inhibitor y concentration > NRG Meropenem susceptibility test by minimum inhibitory co ncentration <= NRG Nitrofurantoin susceptibility test by mi nimum inhibitory concentration 32 NRG Amoxicillin and clavulanate potassium susc SACHIN = NRG Dirithromycin susceptibility test by dis k diffusion - 01/28/19 14:48 Gentamicin susceptibility test by minimum inhibitory c oncentration <= NRG Trimethoprim/sulfamethoxazole susceptibi lity test by minimum inhibitoryconcentration <= NRG Levofloxacin susceptibility test by minimum inhibitory concentration > NRG Ampicillin susceptibility test by minimum inhibitory c oncentration <= NRG Cefazolin susceptibility test by minimum inhibitory co ncentration 4 NRG Ceftriaxone susceptibility test by minimum inhibitory concentration <= NRG Ciprofloxacin susceptibility test by minimum inhibitor y concentration > NRG Nitrofurantoin susceptibility test by mi nimum inhibitory concentration > NRG Amoxicillin and clavulanate potassium susc SACHIN <= NRG Dirithromycin susceptibility test by dis k diffusion - 01/28/19 14:48 Gentamicin susceptibility test by minimum inhibitory c oncentration 4 NRG Levofloxacin susceptibility test by minimum inhibitory concentration > NRG Tobramycin susceptibility test by minimum inhibitory c oncentration <= NRG Piperacillin/tazobactam susceptibility t est by minimum inhibitory concentration = NRG Ciprofloxacin susceptibility test by minimum inhibitor y concentration > NRG Meropenem susceptibility test by minimum inhibitory co ncentration 4 NRG Aztreonam susceptibility test by minimum inhibitory co ncentration > NRG Cefepime susceptibility test by minimum inhibitory con centration 16 NRG Imipenem susceptibility test by minimum inhibitory con centration 8 NRG Ceftazidime susceptibility test by minimum inhibitory concentration 16 NRG Bacterial blood culture - 01/28/19 15:43 Bacterial blood culture NG NRG Complete blood count (CBC) with automate d white blood cell (WBC) differential - 04/21/19 13:08 Blood leukocytes automated count (number/volume) 11.4 10*3/uL 4.3-11.0 Blood erythrocytes automated count (number/volume) 3.61 10*6/uL 4.35-5.85 Venous blood hemoglobin measurement (mass/volume) 10.5 g/dL 11.5-16.0 Blood hematocrit (volume fraction) 35 % 35-52 Automated erythrocyte mean corpuscular volume 96 [ foz_us] 80-99 Automated erythrocyte mean corpuscular h emoglobin (mass per erythrocyte) 29 pg 25-34 Automated erythrocyte mean corpuscular h emoglobin concentration measurement (mass/volume) 30 g/dL 32-36 Automated erythrocyte distribution width ratio 18. 6 % 10.0- 14.5 Automated blood platelet count (count/volume) 549 10*3/uL 130-400 Automated blood platelet mean volume measurement 9.8 [foz_us] 7.4-10.4 Automated blood neutrophils/100 leukocytes 67 % 42-75 Automated blood lymphocytes/100 leukocytes 20 % 12-44 Blood monocytes/100 leukocytes 7 % 0-12 Automated blood eosinophils/100 leukocytes 5 % 0-10 Automated blood basophils/100 leukocytes 1 % 0-10 Blood neutrophils automated count (number/volume) 7.6 10*3 1.8-7.8 Blood lymphocytes automated count (number/volume) 2.3 10*3 1.0-4.0 Blood monocytes automated count (number/volume) 0. 8 10*3 0.0-1.0 Automated eosinophil count 0.6 10*3/uL 0 .0-0.3 Automated blood basophil count (count/volume) 0.1 10*3/uL 0.0-0.1 Comprehensive metabolic panel - 04/21/19 13:08 Serum or plasma sodium measurement (moles/volume) 138 mmol/L 135-145 Serum or plasma potassium measurement (moles/volume) 5.6 mmol/L 3.6-5.0 Serum or plasma chloride measurement (moles/volume) 104 mmol/L 98-107 Carbon dioxide 19 mmol/L 21-32 Serum or plasma anion gap determination (moles/volume) 15 mmol/L 5-14 Serum or plasma urea nitrogen measurement (mass/volume ) 35 mg/dL 7-18 Serum or plasma creatinine measurement (mass/volume) 1.25 mg/dL 0.60-1.30 Serum or plasma urea nitrogen/creatinine mass ratio 28 NRG Serum or plasma creatinine measurement w ith calculation of estimated glomerular filtration rate 43 NRG Serum or plasma glucose measurement (mass/volume) 162 mg/dL 70-105 Serum or plasma calcium measurement (mass/volume) 10.8 mg/dL 8.5-10.1 Serum or plasma total bilirubin measurement (mass/volu me) 0.2 mg/dL 0.1-1.0 Serum or plasma alkaline phosphatase adrianne surement (enzymatic activity/volume) 151 U/L 40-136 Serum or plasma aspartate aminotransfera se measurement (enzymatic activity/volume) 27 U/L 5-34 Serum or plasma alanine aminotransferase measurement (enzymatic activity/volume) 25 U/L 0-55 Serum or plasma protein measurement (mass/volume) 7.7 g/dL 6.4-8.2 Serum or plasma albumin measurement (mass/volume) 3.3 g/dL 3.2-4.5 CALCIUM CORRECTED 11.4 mg/dL 8.5-10.1 Magnesium - 04/21/19 13:08 Magnesium 1.7 mg/dL 1.6-2.4 Serum or plasma troponin i.cardiac measu rement (mass/volume) - 04/21/19 13:08 Serum or plasma troponin i.cardiac measurement (mass/v olume) < ng/mL <0.30 Lipase - 04/21/19 13:08 Lipase 16 U/L 8-78 Serum or plasma potassium measurement (m oles/volume) - 04/28/19 00:00 Serum or plasma potassium measurement (moles/volume) 5.0 mmol/L 3.6-5.0 Complete urinalysis with reflex to cultu re - 04/30/19 12:20 Urine color determination YELLOW NRG Urine clarity determination SL CLOUDY N RG Urine pH measurement by test strip 7.0 5-9 Specific gravity of urine by test strip < 1.016-1.022 Urine protein assay by test strip, semi-quantitative NEGATIVE NEGATIVE Urine glucose detection by automated test strip NE GATIVE NEGATIVE Erythrocytes detection in urine sediment by light micr oscopy 3+ NEGATIVE Urine ketones detection by automated test strip NE GATIVE NEGATIVE Urine nitrite detection by test strip POSITIVE NEGATIVE Urine total bilirubin detection by test strip NEGA TIVE NEGATIVE Urine urobilinogen measurement by automated test strip (mass/volume) 0.2 mg/dL NORMAL Urine leukocyte esterase detection by dipstick NEG ATIVE NEGATIVE Automated urine sediment erythrocyte cou nt by microscopy (number/high power field) [HPF] NRG Automated urine sediment leukocyte count by microscopy (number/high power field) [HPF] NRG Bacteria detection in urine sediment by light microsco py LARGE NRG Squamous epithelial cells detection in u rine sediment by light microscopy 2-5 NRG Crystals detection in urine sediment by light microsco py NONE NRG Casts detection in urine sediment by light microscopy NONE NRG Mucus detection in urine sediment by light microscopy NEGATIVE NRG Complete urinalysis with reflex to culture YES NRG Bacterial urine culture - 04/30/19 12:20 Bacterial urine culture [id number] NRG COLONY COUNT >100,000/ML NRG FTX;REPORTABLE SUSCEPTIBILITIES REPORTED [id number]. NRG Dirithromycin susceptibility test by dis k diffusion - 04/30/19 12:20 Gentamicin susceptibility test by minimum inhibitory c oncentration R NRG Trimethoprim/sulfamethoxazole susceptibi lity test by minimum inhibitoryconcentration <= NRG Levofloxacin susceptibility test by minimum inhibitory concentration > NRG Ampicillin susceptibility test by minimum inhibitory c oncentration > NRG Cefazolin susceptibility test by minimum inhibitory co ncentration > NRG Ceftriaxone susceptibility test by minimum inhibitory concentration <= NRG Ciprofloxacin susceptibility test by minimum inhibitor y concentration > NRG Meropenem susceptibility test by minimum inhibitory co ncentration <= NRG Nitrofurantoin susceptibility test by mi nimum inhibitory concentration > NRG Amoxicillin and clavulanate potassium susc SACHIN > NRG Dirithromycin susceptibility test by dis k diffusion - 04/30/19 12:20 Gentamicin susceptibility test by minimum inhibitory c oncentration <= NRG Levofloxacin susceptibility test by minimum inhibitory concentration <= NRG Tobramycin susceptibility test by minimum inhibitory c oncentration <= NRG Piperacillin/tazobactam susceptibility t est by minimum inhibitory concentration = NRG Ciprofloxacin susceptibility test by minimum inhibitor y concentration <= NRG Meropenem susceptibility test by minimum inhibitory co ncentration 1 NRG Aztreonam susceptibility test by minimum inhibitory co ncentration 8 NRG Cefepime susceptibility test by minimum inhibitory con centration 2 NRG Imipenem susceptibility test by minimum inhibitory con centration 2 NRG Ceftazidime susceptibility test by minimum inhibitory concentration <= NRG Dirithromycin susceptibility test by dis k diffusion - 04/30/19 12:20 Vancomycin susceptibility test by minimum inhibitory c oncentration 1 NRG Levofloxacin susceptibility test by minimum inhibitory concentration > NRG Ampicillin susceptibility test by minimum inhibitory c oncentration 2 NRG Nitrofurantoin susceptibility test by mi nimum inhibitory concentration <= NRG Linezolid susceptibility test by minimum inhibitory co ncentration <= NRG Daptomycin susc SACHIN <= NRG Complete blood count (CBC) with automate d white blood cell (WBC) differential - 04/30/19 12:30 Blood leukocytes automated count (number/volume) 11.0 10*3/uL 4.3-11.0 Blood erythrocytes automated count (number/volume) 3.76 10*6/uL 4.35-5.85 Venous blood hemoglobin measurement (mass/volume) 10.8 g/dL 11.5-16.0 Blood hematocrit (volume fraction) 36 % 35-52 Automated erythrocyte mean corpuscular volume 95 [ foz_us] 80-99 Automated erythrocyte mean corpuscular h emoglobin (mass per erythrocyte) 29 pg 25-34 Automated erythrocyte mean corpuscular h emoglobin concentration measurement (mass/volume) 30 g/dL 32-36 Automated erythrocyte distribution width ratio 16. 9 % 10.0- 14.5 Automated blood platelet count (count/volume) 671 10*3/uL 130-400 Automated blood platelet mean volume measurement 8.9 [foz_us] 7.4-10.4 Automated blood neutrophils/100 leukocytes 63 % 42-75 Automated blood lymphocytes/100 leukocytes 22 % 12-44 Blood monocytes/100 leukocytes 8 % 0-12 Automated blood eosinophils/100 leukocytes 6 % 0-10 Automated blood basophils/100 leukocytes 1 % 0-10 Blood neutrophils automated count (number/volume) 6.9 10*3 1.8-7.8 Blood lymphocytes automated count (number/volume) 2.4 10*3 1.0-4.0 Blood monocytes automated count (number/volume) 0. 9 10*3 0.0-1.0 Automated eosinophil count 0.7 10*3/uL 0 .0-0.3 Automated blood basophil count (count/volume) 0.1 10*3/uL 0.0-0.1 Comprehensive metabolic panel - 04/30/19 12:30 Serum or plasma sodium measurement (moles/volume) 136 mmol/L 135-145 Serum or plasma potassium measurement (moles/volume) 4.8 mmol/L 3.6-5.0 Serum or plasma chloride measurement (moles/volume) 103 mmol/L 98-107 Carbon dioxide 20 mmol/L 21-32 Serum or plasma anion gap determination (moles/volume) 13 mmol/L 5-14 Serum or plasma urea nitrogen measurement (mass/volume ) 28 mg/dL 7-18 Serum or plasma creatinine measurement (mass/volume) 1.05 mg/dL 0.60-1.30 Serum or plasma urea nitrogen/creatinine mass ratio 27 NRG Serum or plasma creatinine measurement w ith calculation of estimated glomerular filtration rate 52 NRG Serum or plasma glucose measurement (mass/volume) 125 mg/dL 70-105 Serum or plasma calcium measurement (mass/volume) 11.0 mg/dL 8.5-10.1 Serum or plasma total bilirubin measurement (mass/volu me) 0.2 mg/dL 0.1-1.0 Serum or plasma alkaline phosphatase adrianne surement (enzymatic activity/volume) 158 U/L 40-136 Serum or plasma aspartate aminotransfera se measurement (enzymatic activity/volume) 20 U/L 5-34 Serum or plasma alanine aminotransferase measurement (enzymatic activity/volume) 16 U/L 0-55 Serum or plasma protein measurement (mass/volume) 8.5 g/dL 6.4-8.2 Serum or plasma albumin measurement (mass/volume) 3.0 g/dL 3.2-4.5 CALCIUM CORRECTED 11.8 mg/dL 8.5-10.1 PT panel in platelet poor plasma by coag ulation assay - 04/30/19 12:30 Prothrombin time (PT) in platelet poor plasma by coagu lation assay 14.0 s 12.2-14.7 INR in platelet poor plasma or blood by coagulation as say 1.0 0.8-1.4 Blood lactic acid measurement (moles/vol ume) - 04/30/19 12:35 Blood lactic acid measurement (moles/volume) 1.24 mmol/L 0.50-2.00 CMP - 05/17/19 17:22 GLUCOSE 158 mg/dL 65-99 UREA NITROGEN (BUN) 27 mg/dL 7-25 CREATININE 1.09 mg/dL 0.50-0.99 eGFR NON-AFR. MONEGASQUE 52 mL/min/1.73m2 > OR = 60 eGFR 60 mL/min/1.73m2 > OR = 60 BUN/CREATININE RATIO 25 (calc) 6-22 SODIUM 137 mmol/L 135-146 POTASSIUM 4.8 mmol/L 3.5-5.3 CHLORIDE 108 mmol/L 98-110 CARBON DIOXIDE 22 mmol/L 20-32 CALCIUM 9.4 mg/dL 8.6-10.4 PROTEIN, TOTAL 6.2 g/dL 6.1-8.1 ALBUMIN 2.5 g/dL 3.6-5.1 GLOBULIN 3.7 g/dL (calc) 1.9-3.7 ALBUMIN/GLOBULIN RATIO 0.7 (calc) 1.0-2. 5 BILIRUBIN, TOTAL 0.2 mg/dL 0.2-1.2 ALKALINE PHOSPHATASE 120 U/L 33-130 AST 13 U/L 10-35 ALT 11 U/L 6-29 CBC - 05/17/19 17:22 WHITE BLOOD CELL COUNT 12.4 Thousand/uL 3.8-10.8 RED BLOOD CELL COUNT 3.26 Million/uL 3.8 0-5.10 HEMOGLOBIN 9.3 g/dL 11.7-15.5 HEMATOCRIT 29.6 % 35.0-45.0 MCV 90.8 fL 80.0-100.0 MCH 28.5 pg 27.0-33.0 MCHC 31.4 g/dL 32.0-36.0 RDW 15.1 % 11.0-15.0 PLATELET COUNT 445 Thousand/uL 140-400 MPV 9.4 fL 7.5-12.5 ABSOLUTE NEUTROPHILS 8097 cells/uL 1500- 7800 ABSOLUTE LYMPHOCYTES 2418 cells/uL 850-3 900 ABSOLUTE MONOCYTES 992 cells/uL 200-950 ABSOLUTE EOSINOPHILS 794 cells/uL 15-500 ABSOLUTE BASOPHILS 99 cells/uL 0-200 NEUTROPHILS 65.3 % NRG LYMPHOCYTES 19.5 % NRG MONOCYTES 8.0 % NRG EOSINOPHILS 6.4 % NRG BASOPHILS 0.8 % NRG Complete urinalysis with reflex to cultu re - 05/19/19 08:48 Urine color determination YELLOW NRG Urine clarity determination CLOUDY NR G Urine pH measurement by test strip 7.5 5-9 Specific gravity of urine by test strip 1.010 1.016-1.022 Urine protein assay by test strip, semi-quantitative 1+ NEGATIVE Urine glucose detection by automated test strip NE GATIVE NEGATIVE Erythrocytes detection in urine sediment by light micr oscopy 2+ NEGATIVE Urine ketones detection by automated test strip NE GATIVE NEGATIVE Urine nitrite detection by test strip NEGATIVE NEGATIVE Urine total bilirubin detection by test strip NEGA TIVE NEGATIVE Urine urobilinogen measurement by automated test strip (mass/volume) 0.2 mg/dL NORMAL Urine leukocyte esterase detection by dipstick NEG ATIVE NEGATIVE Automated urine sediment erythrocyte cou nt by microscopy (number/high power field) [HPF] NRG Automated urine sediment leukocyte count by microscopy (number/high power field) [HPF] NRG Bacteria detection in urine sediment by light microsco py LARGE NRG Crystals detection in urine sediment by light microsco py NONE NRG Casts detection in urine sediment by light microscopy NONE NRG Mucus detection in urine sediment by light microscopy NEGATIVE NRG Complete urinalysis with reflex to culture YES NRG Bacterial urine culture - 05/19/19 08:48 Bacterial urine culture [id number] NRG COLONY COUNT >100,000/ML NRG FTX;REPORTABLE SUSCEPTIBILITY REPORTED 05/21/19 11: 05 NRG Dirithromycin susceptibility test by dis k diffusion - 05/19/19 08:48 Gentamicin susceptibility test by minimum inhibitory c oncentration > NRG Trimethoprim/sulfamethoxazole susceptibi lity test by minimum inhibitoryconcentration > NRG Levofloxacin susceptibility test by minimum inhibitory concentration > NRG Ampicillin susceptibility test by minimum inhibitory c oncentration > NRG Cefazolin susceptibility test by minimum inhibitory co ncentration 4 NRG Ceftriaxone susceptibility test by minimum inhibitory concentration <= NRG Ciprofloxacin susceptibility test by minimum inhibitor y concentration > NRG Meropenem susceptibility test by minimum inhibitory co ncentration <= NRG Nitrofurantoin susceptibility test by mi nimum inhibitory concentration 32 NRG Amoxicillin and clavulanate potassium susc SACHIN = NRG Complete blood count (CBC) with automate d white blood cell (WBC) differential - 05/19/19 08:50 Blood leukocytes automated count (number/volume) 16.1 10*3/uL 4.3-11.0 Blood erythrocytes automated count (number/volume) 3.45 10*6/uL 4.35-5.85 Venous blood hemoglobin measurement (mass/volume) 9.8 g/dL 11.5-16.0 Blood hematocrit (volume fraction) 33 % 35-52 Automated erythrocyte mean corpuscular volume 96 [ foz_us] 80-99 Automated erythrocyte mean corpuscular h emoglobin (mass per erythrocyte) 28 pg 25-34 Automated erythrocyte mean corpuscular h emoglobin concentration measurement (mass/volume) 30 g/dL 32-36 Automated erythrocyte distribution width ratio 17. 1 % 10.0- 14.5 Automated blood platelet count (count/volume) 554 10*3/uL 130-400 Automated blood platelet mean volume measurement 9.1 [foz_us] 7.4-10.4 Automated blood neutrophils/100 leukocytes 68 % 42-75 Automated blood lymphocytes/100 leukocytes 17 % 12-44 Blood monocytes/100 leukocytes 8 % 0-12 Automated blood eosinophils/100 leukocytes 5 % 0-10 Automated blood basophils/100 leukocytes 1 % 0-10 Blood neutrophils automated count (number/volume) 10.9 10*3 1.8-7.8 Blood lymphocytes automated count (number/volume) 2.8 10*3 1.0-4.0 Blood monocytes automated count (number/volume) 1. 3 10*3 0.0-1.0 Automated eosinophil count 0.9 10*3/uL 0 .0-0.3 Automated blood basophil count (count/volume) 0.2 10*3/uL 0.0-0.1 Blood lactic acid measurement (moles/vol ume) - 05/19/19 08:50 Blood lactic acid measurement (moles/volume) 1.03 mmol/L 0.50-2.00 Comprehensive metabolic panel - 05/19/19 08:50 Serum or plasma sodium measurement (moles/volume) 135 mmol/L 135-145 Serum or plasma potassium measurement (moles/volume) 5.5 mmol/L 3.6-5.0 Serum or plasma chloride measurement (moles/volume) 106 mmol/L 98-107 Carbon dioxide 20 mmol/L 21-32 Serum or plasma anion gap determination (moles/volume) 9 mmol/L 5-14 Serum or plasma urea nitrogen measurement (mass/volume ) 36 mg/dL 7-18 Serum or plasma creatinine measurement (mass/volume) 1.72 mg/dL 0.60-1.30 Serum or plasma urea nitrogen/creatinine mass ratio 21 NRG Serum or plasma creatinine measurement w ith calculation of estimated glomerular filtration rate 29 NRG Serum or plasma glucose measurement (mass/volume) 121 mg/dL 70-105 Serum or plasma calcium measurement (mass/volume) 10.0 mg/dL 8.5-10.1 Serum or plasma total bilirubin measurement (mass/volu me) 0.2 mg/dL 0.1-1.0 Serum or plasma alkaline phosphatase adrianne surement (enzymatic activity/volume) 133 U/L 40-136 Serum or plasma aspartate aminotransfera se measurement (enzymatic activity/volume) 16 U/L 5-34 Serum or plasma alanine aminotransferase measurement (enzymatic activity/volume) 13 U/L 0-55 Serum or plasma protein measurement (mass/volume) 7.4 g/dL 6.4-8.2 Serum or plasma albumin measurement (mass/volume) 2.5 g/dL 3.2-4.5 CALCIUM CORRECTED 11.2 mg/dL 8.5-10.1 TROPONIN I FS - 05/19/19 08:50 TROPONIN I FS < 0.30 <0.30 Manual absolute plasma cell count - 10/06 08:50 Blood monocytes/100 leukocytes 6 % NRG Manual blood segmented neutrophils/100 leukocytes 65 % NRG Blood band neutrophils/100 leukocytes 1 % NRG Manual blood lymphocytes/100 leukocytes 19 % NRG Manual eosinophils/100 leukocytes in nose 9 % NRG Manual blood basophils/100 leukocytes 0 % NRG Blood erythrocyte morphology finding identification NORMAL NRG Complete blood count (CBC) with automate d white blood cell (WBC) differential - 05/24/19 01:03 Blood leukocytes automated count (number/volume) 13.2 10*3/uL 4.3-11.0 Blood erythrocytes automated count (number/volume) 3.64 10*6/uL 4.35-5.85 Venous blood hemoglobin measurement (mass/volume) 10.2 g/dL 11.5-16.0 Blood hematocrit (volume fraction) 34 % 35-52 Automated erythrocyte mean corpuscular volume 94 [ foz_us] 80-99 Automated erythrocyte mean corpuscular h emoglobin (mass per erythrocyte) 28 pg 25-34 Automated erythrocyte mean corpuscular h emoglobin concentration measurement (mass/volume) 30 g/dL 32-36 Automated erythrocyte distribution width ratio 16. 6 % 10.0- 14.5 Automated blood platelet count (count/volume) 744 10*3/uL 130-400 Automated blood platelet mean volume measurement 8.7 [foz_us] 7.4-10.4 Automated blood neutrophils/100 leukocytes 66 % 42-75 Automated blood lymphocytes/100 leukocytes 20 % 12-44 Blood monocytes/100 leukocytes 6 % 0-12 Automated blood eosinophils/100 leukocytes 7 % 0-10 Automated blood basophils/100 leukocytes 1 % 0-10 Blood neutrophils automated count (number/volume) 8.7 10*3 1.8-7.8 Blood lymphocytes automated count (number/volume) 2.6 10*3 1.0-4.0 Blood monocytes automated count (number/volume) 0. 8 10*3 0.0-1.0 Automated eosinophil count 0.9 10*3/uL 0 .0-0.3 Automated blood basophil count (count/volume) 0.1 10*3/uL 0.0-0.1 PT panel in platelet poor plasma by coag ulation assay - 05/24/19 01:03 Prothrombin time (PT) in platelet poor plasma by coagu lation assay 15.4 s 12.2-14.7 INR in platelet poor plasma or blood by coagulation as say 1.2 0.8-1.4 Activated partial thromboplastin time (a PTT) in platelet poor plasma bycoagulation assay - 05/24/19 01:03 Activated partial thromboplastin time (a PTT) in platelet poor plasma bycoagulation assay 31 s 24-35 Comprehensive metabolic panel - 05/24/19 01:03 Serum or plasma sodium measurement (moles/volume) 139 mmol/L 135-145 Serum or plasma potassium measurement (moles/volume) 5.1 mmol/L 3.6-5.0 Serum or plasma chloride measurement (moles/volume) 107 mmol/L 98-107 Carbon dioxide 21 mmol/L 21-32 Serum or plasma anion gap determination (moles/volume) 11 mmol/L 5-14 Serum or plasma urea nitrogen measurement (mass/volume ) 30 mg/dL 7-18 Serum or plasma creatinine measurement (mass/volume) 1.21 mg/dL 0.60-1.30 Serum or plasma urea nitrogen/creatinine mass ratio 25 NRG Serum or plasma creatinine measurement w ith calculation of estimated glomerular filtration rate 44 NRG Serum or plasma glucose measurement (mass/volume) 149 mg/dL 70-105 Serum or plasma calcium measurement (mass/volume) 10.1 mg/dL 8.5-10.1 Serum or plasma total bilirubin measurement (mass/volu me) 0.2 mg/dL 0.1-1.0 Serum or plasma alkaline phosphatase adrianne surement (enzymatic activity/volume) 169 U/L 40-136 Serum or plasma aspartate aminotransfera se measurement (enzymatic activity/volume) 21 U/L 5-34 Serum or plasma alanine aminotransferase measurement (enzymatic activity/volume) 15 U/L 0-55 Serum or plasma protein measurement (mass/volume) 7.7 g/dL 6.4-8.2 Serum or plasma albumin measurement (mass/volume) 2.5 g/dL 3.2-4.5 CALCIUM CORRECTED 11.3 mg/dL 8.5-10.1 Magnesium - 05/24/19 01:03 Magnesium 1.9 mg/dL 1.6-2.4 TROPONIN I FS - 05/24/19 01:03 TROPONIN I FS < 0.30 <0.30 PROBNP FS - 05/24/19 01:03 PROBNP FS 222.2 pg/mL <75.0 Blood lactic acid measurement (moles/vol ume) - 05/24/19 01:03 Blood lactic acid measurement (moles/volume) 1.45 mmol/L 0.50-2.00 Bacterial blood culture - 05/24/19 01:03 Bacterial blood culture NG NRG Bacterial blood culture - 05/24/19 01:55 Bacterial blood culture NG NRG TROPONIN I FS - 05/24/19 03:16 TROPONIN I FS < 0.30 <0.30 Complete urinalysis with reflex to cultu re - 05/24/19 04:09 Urine color determination YELLOW NRG Urine clarity determination CLOUDY NR G Urine pH measurement by test strip 6.5 5-9 Specific gravity of urine by test strip 1.020 1.016-1.022 Urine protein assay by test strip, semi-quantitative TRACE NEGATIVE Urine glucose detection by automated test strip NE GATIVE NEGATIVE Erythrocytes detection in urine sediment by light micr oscopy 2+ NEGATIVE Urine ketones detection by automated test strip NE GATIVE NEGATIVE Urine nitrite detection by test strip POSITIVE NEGATIVE Urine total bilirubin detection by test strip NEGA TIVE NEGATIVE Urine urobilinogen measurement by automated test strip (mass/volume) 0.2 mg/dL NORMAL Urine leukocyte esterase detection by dipstick NEG ATIVE NEGATIVE Automated urine sediment erythrocyte cou nt by microscopy (number/high power field) NONE NRG Automated urine sediment leukocyte count by microscopy (number/high power field) [HPF] NRG Bacteria detection in urine sediment by light microsco py LARGE NRG Squamous epithelial cells detection in u rine sediment by light microscopy NONE NRG Crystals detection in urine sediment by light microsco py NONE NRG Casts detection in urine sediment by light microscopy PRESENT NRG Mucus detection in urine sediment by light microscopy NEGATIVE NRG Complete urinalysis with reflex to culture YES NRG Yeast detection in urine sediment by light microscopy LARGE NRG Granular casts detection in urine sediment by light mi croscopy RARE NRG Bacterial urine culture - 05/24/19 04:09 Bacterial urine culture [id number] NRG COLONY COUNT >100,000/ML NRG FTX;REPORTABLE VANCOMYCIN-RESISTANT ENTEROCOCCI NRG FREE TEXT ENTRY 2 NOTE: RESISTANT ORGANISM/CONTACT NRG FREE TEXT ENTRY 3 PRECAUTIONS. CALLED TO [facility] NRG FREE TEXT ENTRY 4 (RUBÉN) 05/28 10:55 BY Cole RHOADES NRG Dirithromycin susceptibility test by dis k diffusion - 05/24/19 04:09 Vancomycin susceptibility test by minimum inhibitory c oncentration > NRG Levofloxacin susceptibility test by minimum inhibitory concentration > NRG Ampicillin susceptibility test by minimum inhibitory c oncentration > NRG Linezolid susceptibility test by minimum inhibitory co ncentration 2 NRG Daptomycin susc SACHIN 4 NRG CMP - 05/25/19 15:05 GLUCOSE 97 mg/dL 65-99 UREA NITROGEN (BUN) 32 mg/dL 7-25 CREATININE 1.41 mg/dL 0.50-0.99 eGFR NON-AFR. MONEGASQUE 38 mL/min/1.73m2 > OR = 60 eGFR 44 mL/min/1.73m2 > OR = 60 BUN/CREATININE RATIO 23 (calc) 6-22 SODIUM 140 mmol/L 135-146 POTASSIUM 5.0 mmol/L 3.5-5.3 CHLORIDE 109 mmol/L 98-110 CARBON DIOXIDE 20 mmol/L 20-32 CALCIUM 9.5 mg/dL 8.6-10.4 PROTEIN, TOTAL 7.0 g/dL 6.1-8.1 ALBUMIN 2.4 g/dL 3.6-5.1 GLOBULIN 4.6 g/dL (calc) 1.9-3.7 ALBUMIN/GLOBULIN RATIO 0.5 (calc) 1.0-2. 5 BILIRUBIN, TOTAL 0.2 mg/dL 0.2-1.2 ALKALINE PHOSPHATASE 180 U/L 33-130 AST 13 U/L 10-35 ALT 13 U/L 6-29 CBC - 05/25/19 15:05 WHITE BLOOD CELL COUNT 19.5 Thousand/uL 3.8-10.8 RED BLOOD CELL COUNT 3.53 Million/uL 3.8 0-5.10 HEMOGLOBIN 9.8 g/dL 11.7-15.5 HEMATOCRIT 32.1 % 35.0-45.0 MCV 90.9 fL 80.0-100.0 MCH 27.8 pg 27.0-33.0 MCHC 30.5 g/dL 32.0-36.0 RDW 14.8 % 11.0-15.0 PLATELET COUNT 700 Thousand/uL 140-400 MPV 8.8 fL 7.5-12.5 ABSOLUTE NEUTROPHILS 76271 cells/uL 1500 -7800 ABSOLUTE LYMPHOCYTES 2516 cells/uL 850-3 900 ABSOLUTE MONOCYTES 858 cells/uL 200-950 ABSOLUTE EOSINOPHILS 644 cells/uL 15-500 ABSOLUTE BASOPHILS 137 cells/uL 0-200 NEUTROPHILS 78.7 % NRG LYMPHOCYTES 12.9 % NRG MONOCYTES 4.4 % NRG EOSINOPHILS 3.3 % NRG BASOPHILS 0.7 % NRG Complete blood count (CBC) with automate d white blood cell (WBC) differential - 05/26/19 10:00 Blood leukocytes automated count (number/volume) 16.5 10*3/uL 4.3-11.0 Blood erythrocytes automated count (number/volume) 3.58 10*6/uL 4.35-5.85 Venous blood hemoglobin measurement (mass/volume) 10.0 g/dL 11.5-16.0 Blood hematocrit (volume fraction) 34 % 35-52 Automated erythrocyte mean corpuscular volume 94 [ foz_us] 80-99 Automated erythrocyte mean corpuscular h emoglobin (mass per erythrocyte) 28 pg 25-34 Automated erythrocyte mean corpuscular h emoglobin concentration measurement (mass/volume) 30 g/dL 32-36 Automated erythrocyte distribution width ratio 16. 8 % 10.0- 14.5 Automated blood platelet count (count/volume) 729 10*3/uL 130-400 Automated blood platelet mean volume measurement 8.6 [foz_us] 7.4-10.4 Automated blood neutrophils/100 leukocytes 71 % 42-75 Automated blood lymphocytes/100 leukocytes 18 % 12-44 Blood monocytes/100 leukocytes 5 % 0-12 Automated blood eosinophils/100 leukocytes 5 % 0-10 Automated blood basophils/100 leukocytes 1 % 0-10 Blood neutrophils automated count (number/volume) 11.8 10*3 1.8-7.8 Blood lymphocytes automated count (number/volume) 2.9 10*3 1.0-4.0 Blood monocytes automated count (number/volume) 0. 9 10*3 0.0-1.0 Automated eosinophil count 0.8 10*3/uL 0 .0-0.3 Automated blood basophil count (count/volume) 0.1 10*3/uL 0.0-0.1 Comprehensive metabolic panel - 05/26/19 10:00 Serum or plasma sodium measurement (moles/volume) 137 mmol/L 135-145 Serum or plasma potassium measurement (moles/volume) 5.2 mmol/L 3.6-5.0 Serum or plasma chloride measurement (moles/volume) 108 mmol/L 98-107 Carbon dioxide 19 mmol/L 21-32 Serum or plasma anion gap determination (moles/volume) 10 mmol/L 5-14 Serum or plasma urea nitrogen measurement (mass/volume ) 33 mg/dL 7-18 Serum or plasma creatinine measurement (mass/volume) 1.43 mg/dL 0.60-1.30 Serum or plasma urea nitrogen/creatinine mass ratio 23 NRG Serum or plasma creatinine measurement w ith calculation of estimated glomerular filtration rate 36 NRG Serum or plasma glucose measurement (mass/volume) 131 mg/dL 70-105 Serum or plasma calcium measurement (mass/volume) 10.1 mg/dL 8.5-10.1 Serum or plasma total bilirubin measurement (mass/volu me) 0.2 mg/dL 0.1-1.0 Serum or plasma alkaline phosphatase adrianne surement (enzymatic activity/volume) 173 U/L 40-136 Serum or plasma aspartate aminotransfera se measurement (enzymatic activity/volume) 19 U/L 5-34 Serum or plasma alanine aminotransferase measurement (enzymatic activity/volume) 13 U/L 0-55 Serum or plasma protein measurement (mass/volume) 7.6 g/dL 6.4-8.2 Serum or plasma albumin measurement (mass/volume) 2.4 g/dL 3.2-4.5 CALCIUM CORRECTED 11.4 mg/dL 8.5-10.1 TROPONIN I FS - 05/26/19 10:00 TROPONIN I FS < 0.30 <0.30 Lipase - 05/26/19 10:00 Lipase 24 U/L 8-78 Manual absolute plasma cell count - 05/06 10:00 Blood monocytes/100 leukocytes 4 % NRG Manual blood segmented neutrophils/100 leukocytes 64 % NRG Blood band neutrophils/100 leukocytes 7 % NRG Manual blood lymphocytes/100 leukocytes 18 % NRG Manual eosinophils/100 leukocytes in nose 5 % NRG Manual blood basophils/100 leukocytes 2 % NRG Blood macrocytes detection by light microscopy SLI GHT NRG Blood [facility]ochromia detection by light [facility] Blood lactic acid measurement (moles/vol ume) - 05/26/19 10:45 Blood lactic acid measurement (moles/volume) 1.11 mmol/L 0.50-2.00 Bacterial blood culture - 05/26/19 10:45 Bacterial blood culture NG NRG Bacterial blood culture - 05/26/19 11:20 Bacterial blood culture NG NRG CMP - 06/29/19 08:56 GLUCOSE 132 mg/dL 65-99 UREA NITROGEN (BUN) 19 mg/dL 7-25 CREATININE 0.73 mg/dL 0.50-0.99 eGFR NON-AFR. MONEGASQUE 85 mL/min/1.73m2 > OR = 60 eGFR 98 mL/min/1.73m2 > OR = 60 BUN/CREATININE RATIO NOT APPLICABLE (calc) 6-22 SODIUM 134 mmol/L 135-146 POTASSIUM 3.6 mmol/L 3.5-5.3 CHLORIDE 105 mmol/L 98-110 CARBON DIOXIDE 22 mmol/L 20-32 CALCIUM 8.3 mg/dL 8.6-10.4 PROTEIN, TOTAL 5.7 g/dL 6.1-8.1 ALBUMIN 1.9 g/dL 3.6-5.1 GLOBULIN 3.8 g/dL (calc) 1.9-3.7 ALBUMIN/GLOBULIN RATIO 0.5 (calc) 1.0-2. 5 BILIRUBIN, TOTAL 0.2 mg/dL 0.2-1.2 ALKALINE PHOSPHATASE 188 U/L 33-130 AST 23 U/L 10-35 ALT 22 U/L 6-29 CBC - 06/29/19 08:56 WHITE BLOOD CELL COUNT 8.4 Thousand/uL 3 .8-10.8 RED BLOOD CELL COUNT 3.11 Million/uL 3.8 0-5.10 HEMOGLOBIN 8.8 g/dL 11.7-15.5 HEMATOCRIT 28.1 % 35.0-45.0 MCV 90.4 fL 80.0-100.0 MCH 28.3 pg 27.0-33.0 MCHC 31.3 g/dL 32.0-36.0 RDW 16.4 % 11.0-15.0 PLATELET COUNT 368 Thousand/uL 140-400 MPV 8.7 fL 7.5-12.5 ABSOLUTE NEUTROPHILS 4595 cells/uL 1500- 7800 ABSOLUTE LYMPHOCYTES 2848 cells/uL 850-3 900 ABSOLUTE MONOCYTES 647 cells/uL 200-950 ABSOLUTE EOSINOPHILS 252 cells/uL 15-500 ABSOLUTE BASOPHILS 59 cells/uL 0-200 NEUTROPHILS 54.7 % NRG LYMPHOCYTES 33.9 % NRG MONOCYTES 7.7 % NRG EOSINOPHILS 3.0 % NRG BASOPHILS 0.7 % NRG COMMENT(S) NRG A1C - 06/29/19 08:56 HEMOGLOBIN A1c 6.5 % of total Hgb <5.7 Complete urinalysis with reflex to cultu re - 12/31/19 11:35 Urine color determination PALE YELLOW N RG Urine clarity determination SL CLOUDY N RG Urine pH measurement by test strip 7.0 5-9 Specific gravity of urine by test strip 1.015 1.016-1.022 Urine protein assay by test strip, semi-quantitative 1+ NEGATIVE Urine glucose detection by automated test strip NE GATIVE NEGATIVE Erythrocytes detection in urine sediment by light micr oscopy 1+ NEGATIVE Urine ketones detection by automated test strip NE GATIVE NEGATIVE Urine nitrite detection by test strip NEGATIVE NEGATIVE Urine total bilirubin detection by test strip NEGA TIVE NEGATIVE Urine urobilinogen measurement by automated test strip (mass/volume) 0.2 mg/dL < = 1.0 Urine leukocyte esterase detection by dipstick 2+ NEGATIVE Automated urine sediment erythrocyte cou nt by microscopy (number/high power field) [HPF] NRG Automated urine sediment leukocyte count by microscopy (number/high power field) > [HPF] NRG Bacteria detection in urine sediment by light microsco py LARGE NRG Squamous epithelial cells detection in u rine sediment by light microscopy NONE NRG Crystals detection in urine sediment by light microsco py NONE NRG Casts detection in urine sediment by light microscopy NONE NRG Mucus detection in urine sediment by light microscopy NEGATIVE NRG Complete urinalysis with reflex to culture YES NRG Complete blood count (CBC) with automate d white blood cell (WBC) differential - 12/31/19 11:35 Blood leukocytes automated count (number/volume) 11.0 10*3/uL 4.3-11.0 Blood erythrocytes automated count (number/volume) 4.24 10*6/uL 4.35-5.85 Venous blood hemoglobin measurement (mass/volume) 11.0 g/dL 11.5-16.0 Blood hematocrit (volume fraction) 37 % 35-52 Automated erythrocyte mean corpuscular volume 87 [ foz_us] 80-99 Automated erythrocyte mean corpuscular h emoglobin (mass per erythrocyte) 26 pg 25-34 Automated erythrocyte mean corpuscular h emoglobin concentration measurement (mass/volume) 30 g/dL 32-36 Automated erythrocyte distribution width ratio 18. 3 % 10.0- 14.5 Automated blood platelet count (count/volume) 422 10*3/uL 130-400 Automated blood platelet mean volume measurement 9.5 [foz_us] 7.4-10.4 Automated blood neutrophils/100 leukocytes 74 % 42-75 Automated blood lymphocytes/100 leukocytes 18 % 12-44 Blood monocytes/100 leukocytes 6 % 0-12 Automated blood eosinophils/100 leukocytes 1 % 0-10 Automated blood basophils/100 leukocytes 1 % 0-10 Blood neutrophils automated count (number/volume) 8.2 10*3 1.8-7.8 Blood lymphocytes automated count (number/volume) 2.0 10*3 1.0-4.0 Blood monocytes automated count (number/volume) 0. 6 10*3 0.0-1.0 Automated eosinophil count 0.1 10*3/uL 0 .0-0.3 Automated blood basophil count (count/volume) 0.1 10*3/uL 0.0-0.1 Blood lactic acid measurement (moles/vol ume) - 12/31/19 11:35 Blood lactic acid measurement (moles/volume) 1.98 mmol/L 0.50-2.00 Comprehensive metabolic panel - 12/31/19 11:35 Serum or plasma sodium measurement (moles/volume) 140 mmol/L 135-145 Serum or plasma potassium measurement (moles/volume) 4.5 mmol/L 3.6-5.0 Serum or plasma chloride measurement (moles/volume) 100 mmol/L 98-107 Carbon dioxide 26 mmol/L 21-32 Serum or plasma anion gap determination (moles/volume) 14 mmol/L 5-14 Serum or plasma urea nitrogen measurement (mass/volume ) 32 mg/dL 7-18 Serum or plasma creatinine measurement (mass/volume) 0.84 mg/dL 0.60-1.30 Serum or plasma urea nitrogen/creatinine mass ratio 38 NRG Serum or plasma creatinine measurement w ith calculation of estimated glomerular filtration rate > NRG Serum or plasma glucose measurement (mass/volume) 259 mg/dL 70-105 Serum or plasma calcium measurement (mass/volume) 10.2 mg/dL 8.5-10.1 Serum or plasma total bilirubin measurement (mass/volu me) 0.3 mg/dL 0.1-1.0 Serum or plasma alkaline phosphatase adrianne surement (enzymatic activity/volume) 155 U/L 40-136 Serum or plasma aspartate aminotransfera se measurement (enzymatic activity/volume) 17 U/L 5-34 Serum or plasma alanine aminotransferase measurement (enzymatic activity/volume) 14 U/L 0-55 Serum or plasma protein measurement (mass/volume) 8.4 g/dL 6.4-8.2 Serum or plasma albumin measurement (mass/volume) 3.3 g/dL 3.2-4.5 CALCIUM CORRECTED 10.8 mg/dL 8.5-10.1 Encounters ACCT No. Visit Date/Time Discharge Status Pt. Type Provider Facility Loc./Unit Complaint [id number] 10/01/2019 13:45:00 10/01/2019 23:59:5 9 [facility] Outpatient SELF, FREEMAN Serrano [facility] Kite [id number] 06/29/2019 17:45:00 Document Registration [id number] 05/25/2019 17:30:00 Document Registration [id number] 05/17/2019 16:20:00 Document Registration [id number] 12/22/2018 17:45:00 Document Registration [id number] 11/27/2018 15:00:00 Document Registration [id number] 11/25/2018 17:40:00 Document Registration [id number] 10/20/2018 16:15:00 Document Registration [id number] 05/26/2019 09:27:00 15:50:00 DIS Emergency VIDHYA MALONE DO [facility] ER FS BLOODY IN COLOSTOMY BAG [id number] 05/24/2019 00:57:00 06:52:00 DIS Emergency CASTRO PÉREZ MD [facility] ER FS CHEST PAIN [id number] 05/19/2019 08:18:00 13:40:00 DIS Emergency LADONNA ALEGRE DO [facility] ER FS AMS [id number] 04/30/2019 12:17:00 09/13/2 019 15:29:00 DIS Emergency TATYANA BELTRE, ANATOLY Morales [facility] ER FS ABD PAIN [id number] 04/28/2019 13:36:00 23:59:59 CLS Outpatient SELF FREEMAN BELTRE [facility] RAD FS E87.5 [id number] 04/21/2019 12:25:00 15:33:00 DIS Emergency LINDA CHUNG DO [facility] ER FS HEADACHE; TOOTHACHE; VO MITING [id number] 01/28/2019 14:19:00 18:50:00 DIS Emergency TYLER BELTRE, NIDA Serrano [facility] ER FS LETHARGIC [id number] 01/09/2019 10:32:00 12:47:00 DIS Emergency KALEN MEDINA DO [facility] ER FS PT NOT FEELING WELL [id number] 09/25/2018 12:07:00 15:15:00 DIS Emergency VERÓNICA LOERA [facility] ER FALL [id number] 12/31/2019 12:07:00 Document Registration
--- OUTSIDE RECORDS SUMMARY | 2019-12-31 13:02 | XMS REPORT ---
Author Author Augustina CHAPA Organization [facility] [place] [facility] Address [address] [place] [address] Care Team Providers Care Stock Or Delivery Clerk Name Role Phone SELFDANIELFREEMAN Unavailable PROBLEMS Type Condition ICD9-CM Code XSH73-UZ Code Onset Dates Condition S tatus SNOMED Code Problem Uncontrolled type 2 diabetes mellitus with diabetic polyneuropathy, with long-term current use of insulin E11.42 May, 0 725763092 Problem Ulceration of vulva, unspecified N76.6 December, 0 54308654 Problem CTS (carpal tunnel syndrome) G56.00 Feb, 9 0 34108459 Problem Lower paraplegia G82.20 May, 0 39938957 Problem Lower urinary tract infectious disease N39.0 0 4 Nov, 2013 0 8698753 Problem DA (degenerative arthritis) M19.90 May, 0 284015197 Problem Unstable angina I20.0 Oct, 0 4 782381 Problem Other psoriasis L40.8 Feb, 0 9 700198 Problem Change in bowel habits R19.4 Feb, 0 08026594 Problem Mental status change R41.82 Nov, 0 053491968 Problem Cellulitis L03.90 Nov, 0 845426 006 Problem Abnormal uterine bleeding N93.9 May, 0 31061943328055 Problem Anemia D64.9 May, 0 8471745 00 Problem Morbid obesity due to excess calories E66.01 Feb, 0 689925700 Problem Precordial pain R07.2 Jan, 0 7 8514077 Problem Essential hypertension I10 May, 0 26328591 Problem Adjustment disorder with mixed anxiety and depressed m ood F43.23 May, 0 622475537 Problem Hyperlipemia E78.5 Active 7344064 4 Problem Controlled type 2 diabetes m ellitus without complication, unspecified correction insulin use status E11.9 Active 244886183 Problem 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 Active 7125391607668 Problem Fatty liver determined by biopsy K76.0 Aug, 0 735965644 Problem Constipation, unspecified constipation type K59.00 Active 03169616 Problem Glenohumeral arthritis M19.019 Feb, 0 085828361 Problem Gallbladder colic K80.20 December, 0 96631868 Problem Psychophysiological insomnia F51.04 A ctive 373207930 Problem Benign essential HTN I10 Active 77462754 Problem Decubitus ulcer of coccygeal region, unspecified ulcer stage L89.159 Active 723219722 Problem Chronic obstructive pulmonary disease, unspecified J44.9 Active 22812122 ALLERGIES No Information ENCOUNTERS Encounter Location Date Diagnosis [address] [id number] [address] Oct, [address] [id number] [address] Oct, [address] [id number] [place] [address] Sep, [address] [id number] [place] [address] Sep, Sore throat J02.[address] [id number] [place] [address] Sep, [facility] [address] [place] [address] 14 Sep, 2019 Essential hypertension I10 ; Morbid obesity due to excess calories E66.01 ; Lower paraplegia G82.20 ; Sore throat J02.9 and Constipation, unspecified constipation type K59.[address] [id number] [place] [address] Sep, Yeast infection B37.[address] [id number] [place] [address] Aug, [address] [id number] [place] [address] Aug, Edema, unspecified type R60. 9 and Yeast infection B37.[address] [id number] [place] [address] Aug, Edema, unspecified type R60. [address] [id number] [place] [address] Aug, [facility] [address] [place] [address] Jul, Benign essential HTN I10 ; Acute URI J06.9 and Edema, unspecified type R60.[address] [id number] [place] [address] Jul, [address] [id number] [place] [address] Jul, [address] [id number] [place] [address] Jul, [address] [id number] [place] [address] Jun, Yeast infection B37.[address] [id number] [place] [address] Jun, Controlled type 2 diabetes m ellitus without complication, 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.[address] [id number] [place] [address] Jun, [address] [id number] [place] [address] May, [facility] [address] [place] [address] May, Essential hypertension I10 ; Decubitus ulcer of coccygeal region, unspecified ulcer stage L89.159 ; Yeast infection B37.9 and Atherosclerosis of [place] coronary artery of [place] heart with angina pectoris I25.[address] [id number] [place] [address] May, [place] [address] [id number] [place] [address] May, [facility] [place] [address] [id number] [place] [address] May, [facility] [place] [address] [id number] [place] [address] May, [facility] [place] [address] [id number] [place] [address] May, [facility] [place] [address] [id number] [place] [address] May, [facility] [place] [address] [id number] [place] [address] May, Bleeding from colostomy stom a K94.01 [facility] [place] [address] [id number] [place] [address] May, Bleeding from colostomy stom a K94.01 [facility] [place] [address] [id number] [place] [address] May, [facility] [place] [address] [id number] [place] [address] May, [facility] [place] [address] [id number] [place] [address] May, [facility] [place] [address] [id number] [place] [address] Apr, Acute UTI N39.0 [facility] [place] [address] [id number] [place] [address] Apr, Nausea and vomiting, intract ability of vomiting not specified, unspecified vomiting type R11.2 [facility] [place] [address] [id number] [place] [address] Apr, Nausea and vomiting, intract ability of vomiting not specified, unspecified vomiting type R11.2 [facility] [place] [address] [id number] [place] [address] Apr, [facility] [address] [facility] [id number] [address] [place] [address] Apr, [facility] [place] [facility] [address] [place] [address] [address] [id number] [place] [address] Apr, [facility] [place] [facility] [address] [place] [address] [address] [id number] [place] [address] Apr, [facility] [place] [facility] [address] [place] [address] [address] [id number] [place] [address] Apr, [facility] [place] [facility] [address] [place] [address] [address] [id number] [place] [address] Apr, [facility] [place] [facility] [address] [place], [place] [address] [id number] [place] [address] Apr, [facility] [place] [address] [id number] [place] [address] Apr, [facility] [place] [address] [id number] [place] [address] Apr, [facility] [address] [place] [address] Mar, Benign essential HTN I10 and Uncontrolled type 2 diabetes mellitus with diabetic polyneuropathy, with long-term current use of insulin E11.42 [facility] [place] [address] [id number] [place] [address] Jan, [facility] [place] [facility] [address] [place] [address] [address] [id number] [place] [address] Jan, [facility] [place] [facility] [address] [place] [address] [address] [id number] [place] [address] Jan, [facility] [place] [facility] [address] [place] [address] [address] [id number] [place] [address] December, [facility] [place] [facility] [address] [place] [address] [address] [id number] [place] [address] December, [facility] [place] [facility] [address] [place] [address] [address] [id number] [place] [address] December, [facility] [address] [facility] [id number] [address] [address] December, [facility] [place] [address] [id number] [place] [address] December, [facility] [place] [address] [id number] [place] [address] December, [facility] [place] [address] [id number] [place] [address] December, [facility] [place] [address] [id number] [place] [address] December, Controlled type 2 diabetes m ellitus without complication, unspecified correction insulin use status E11.9 and Benign essential HTN I10 [facility] [place] [address] [id number] [place] [address] December, [facility] [place] [address] [id number] [place] [address] Nov, [facility] [place] [address] [id number] [place] [address] Nov, Wound of left upper extremit y, initial encounter S41.102A [facility] [place] [address] [id number] [place] [address] Nov, [facility] [place] [address] [id number] [place] [address] Nov, [facility] [place] [address] [id number] [place] [address] Nov, Magnesium deficiency E61.2 [facility] [place] [address] [id number] [place] [address] Nov, [facility] [place] [address] [id number] [place] [address] Nov, [facility] [place] [address] [id number] [place] [address] Nov, [facility] [place] [address] [id number] [place] [address] Oct, Strain of left shoulder, ini tial encounter S46.912A ; Psychophysiological insomnia F51.04 and Sinus congestion R09.81 [facility] [place] [address] [id number] [place] [address] Oct, [address] [id number] [place] [address] Oct, Controlled diabetes mellitus E11.[address] [id number] [place] [address] Sep, Controlled type 2 diabetes m ellitus without complication, unspecified correction insulin use status E11.[address] [id number] [place] [address] Sep, [address] [id number] [place] [address] Sep, Hyperlipemia E78.5 [facility] [address] [facility] [id number] [address] [place] [address] Sep, [facility] [address] [facility] [id number] [address] [place] [address] Jul, [facility] [address] [facility] [id number] [address] [place] [address] Jul, [facility] [address] [facility] [id number] [address] [place] [address] Jul, [facility] [address] [facility] [id number] [address] [place] [address] Jul, [facility] [address] [facility] [id number] [address] [place] [address] Jul, [facility] [address] [facility] [id number] [address] [place] [address] Jun, [facility] [address] [facility] [id number] [place] [address] Jan, [facility] [address] [facility] [id number] [place] [address] Oct, [facility] [address] [facility] [id number] [address] [place] [id number] Feb, Dental examination V72.2 IMMUNIZATIONS No Known Immunizations SOCIAL HISTORY Never Assessed REASON FOR VISIT CHRONIC PLAN OF CARE Activity Details Follow Up 2 Months Reason: VITAL SIGNS MEDICATIONS Unknown Medications RESULTS No Results PROCEDURES Procedure Date Ordered Result Body Site Minor complication (15 mins) November 13, 2018 INSTRUCTIONS MEDICATIONS ADMINISTERED No Known Medications MEDICAL (GENERAL) HISTORY Type Description Date Medical History Adjustment disorder with mixed anxiety a nd depressed mood Medical History Unstable angina Medical History Chronic obstructive pulmonary disease, u nspecified
--- NOTE | 2019-12-31 13:20 | NUR ---
This RN along with EMS personnel as well as other RN and radiology staff placed avtar lift mesh under pt which was provided by Berta from [facility]. The pt was this lifted via six person lift, bed removed and wheelchair placed under the pt. Pt moved without incident. Pt signed discharge form with an "X" and discharge packet and new presciption sent with Berta.
[2019-12-31 13:30] VITALS: BP 121/67
== END 2019-12-31 13:30 | disposition home or self-care (01) ==
LOC: EDUNIT# 11:28 → ER FS 11:29
DX: N39.0 Urinary tract infection, site not specified (principal); E11.9 Type 2 diabetes mellitus without complications; Z88.8 Allergy status to other drugs, medicaments and biological substances; Z88.1 Allergy status to other antibiotic agents; Z87.891 Personal history of nicotine dependence; Z93.3 Colostomy status; Z93.6 Other artificial openings of urinary tract status; Z86.718 Personal history of other venous thrombosis and embolism; Z85.038 Personal history of other malignant neoplasm of large intestine
CPT/HCPCS: 36415; 80053; 81000; 83605; 85025; 87040; 87077; 87088; 87186

== ENCOUNTER → 2020-04-15 | Outpatient (CLI) | payer MEDICARE, MEDICAID ==
[~2020-04-15] MED LIST changes: +CIPR500T4 PO
[2020-04-15 07:20] LABS: BILIRUBIN,URINE NEGATIVE (NEGATIVE); CLARITY,URINE CLEAR; COLOR,URINE YELLOW; GLUCOSE, URINE (UA) 1+ (NEGATIVE); KETONES,URINE NEGATIVE (NEGATIVE); LEUKOCYTE ESTERASE ,URINE 1+ (NEGATIVE); NITRITE,URINE POSITIVE (NEGATIVE); PROTEIN,URINE NEGATIVE (NEGATIVE)
[2020-04-15 07:21] LABS: BACTERIA,URINE LARGE /HPF; WBC,URINE 25-50 /HPF
== END ==
LOC: LAB FS 07:12
PROVIDERS: ATTEND Family Medicine
DX: Z01.89 Encounter for other specified special examinations (principal)
CPT/HCPCS: 81000; 87077; 87088

== ENCOUNTER → 2020-06-12 | Outpatient (CLI) | payer MEDICARE, MEDICAID ==
[2020-06-12 22:22] LABS: BAND NEUTROPHILS 2 %; BASOPHILS # (AUTO) 0.1 10^3/uL (0.0-0.1); BASOPHILS % (AUTO) 1 % (0-10); EOSINOPHILS # (AUTO) 0.6 10^3/uL (0.0-0.3); EOSINOPHILS % (AUTO) 6 % (0-10); EOSINOPHILS % (MANUAL) 6 %; HEMATOCRIT 38 % (35-52); HEMOGLOBIN 11.2 G/DL (11.5-16.0); LYMPHOCYTES # (AUTO) 2.5 X 10^3 (1.0-4.0); LYMPHOCYTES % (AUTO) 25 % (12-44); LYMPHOCYTES % (MANUAL) 24 %; MEAN CORPUSCULAR HEMOGLOBIN 27 PG (25-34); MEAN CORPUSCULAR HGB CONC 29 G/DL (32-36); MEAN CORPUSCULAR VOLUME 91 FL (80-99); MEAN PLATELET VOLUME 10.3 FL (7.4-10.4); MONOCYTES # (AUTO) 0.5 X 10^3 (0.0-1.0); MONOCYTES % (AUTO) 5 % (0-12); MONOCYTES % (MANUAL) 4 %; NEUTROPHILS # (AUTO) 6.3 X 10^3 (1.8-7.8); NEUTROPHILS % (AUTO) 63 % (42-75); NEUTROPHILS % (MANUAL) 64 %; PLATELET COUNT 344 10^3/uL (130-400)
[2020-06-12 22:23] LABS: BASOPHILS % (MANUAL) 0 %; RBC MORPH NORMAL
== END ==
LOC: LAB FS 15:01
PROVIDERS: ATTEND Family Medicine
DX: E11.9 Type 2 diabetes mellitus without complications (principal); I51.9 Heart disease, unspecified
CPT/HCPCS: 36415; 83036; 85007; 85027

== ENCOUNTER 2020-12-14 07:35 | Inpatient (IN) | payer MEDICARE, MEDICAID ==
[~2020-12-14] VITALS: Ht 162.5 cm; Wt 160.0 kg
[~2020-12-14 07:35] MED LIST changes: -CIPR500T4 PO; +CIPR500T5 PO
[2020-12-14] MEDS ORDERED: LORazepam INJ 2 MG/ML (ATIVAN) VIAL IVP STA (07:52)
[2020-12-14] MEDS ORDERED: NS IV 1000 ML 1,000 ML IV STA (07:52)
--- NOTE | 2020-12-14 07:59 | ED General ---
General Stated Complaint: AMS Source of Information: EMS, Long-Term Records, Old Records History of Present Illness Date Seen by Provider: Dec 14, 2020 Time Seen by Provider: 07:37 Initial Comments 70-year-old female presenting with complaints of altered mental status. She has a history of recurrent urinary tract infections and is currently on Cipro for UTI. She has previously had symptoms like this with sepsis and UTI not responding to antibiotics. She is a hospice patient and has a DNR order. She is not able to answer questions. She seems anxious and is poorly cooperative. No fever on presentation to the ED. She has a urostomy as well as colostomy. She is a paraplegic. She is moaning and crying out when anyone tries to examine her or do any activity around her. She is not speaking coherently. Allergies and Home Medications Allergies Coded Allergies: exenatide (Verified Allergy, Unknown, nausea and vomiting, 01/09/19) liraglutide (Verified Allergy, Unknown, nausea and vomiting, abdominal pain, 01/09/19) nitrofurantoin (Verified Allergy, Unknown, diarrhea, 01/09/19) terconazole (Verified Allergy, Unknown, 01/09/19) Home Medications Benztropine Mesylate 2 Mg/2 Ml Ampul, 2 MG PO BID Prescribed by: LINDA CHUNG on 04/21/19 143 Cephalexin 500 Mg Tablet, 500 MG PO QID Prescribed by: KALEN MEDINA on 01/09/19 1147 Cephalexin 500 Mg Capsule, 500 MG PO QID Prescribed by: CASTRO Pino ENYART on 05/24/19511 Ciprofloxacin HCl 500 Mg Tablet, 500 MG PO BID Prescribed by: LADONNA ALEGRE on 12/31/19 1227 Diazepam 5 Mg Tablet, 5 MG PO Q6H PRN for SPASMS Prescribed by: LINDA CHUNG on 04/21/19 1436 Diphenhydramine HCl 25 Mg Capsule, 25 MG PO QID Prescribed by: LINDA CHUNG on 04/21/19 1436 Ondansetron 4 Mg Tab.rapdis, 4 MG PO Q6H PRN for NAUSEA/VOMITING-1ST LINE Prescribed by: CASTRO Pino ENYART on 05/24/19511 Patient Home Medication List Home Medication List Reviewed: Yes Review of Systems Review of Systems Constitutional: No fever Respiratory: no symptoms reported Psychiatric/Neurological: See HPI Unable to obtain complete ROS as patient is not coherent enough to answer questions Past Hehyhbg-Sbkjyn-Yujtlj Hx Past Med/Social Hx: Reviewed Nursing Past Med/Soc Hx Patient Social History Type Used: Cigarettes Former Smoker, Quit: Aug 18, 1996 2nd Hand Smoke Exposure: No Recent Hopitalizations: No Seasonal Allergies Seasonal Allergies: No Past Medical History Surgeries: Yes (heart cath ) Appendectomy, Bladder Surgery, Bowel Surgery, Orthopedic Respiratory: Yes (questionable GERALDINE) COPD Cardiac: Yes Angina, Deep Vein Thrombosis, High Cholesterol Neurological: Yes (paraplegic) Paralysis, Spinal Cord Injury 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 Disorders: 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 Genitourinary: Yes (urostomy) Neurogenic Bladder, UTI-Chronic Gastrointestinal: Yes (Hx colon cancer; colectomy) Musculoskeletal: Yes (paraplegic; carpal tunnel ) Arthritis, Back Injury Endocrine: Yes Diabetes, Insulin dep HEENT: Yes Cataract Cancer: Yes Colon Did You Recieve Any Treatments: Yes What Type of Treatment Did You: Chemotherapy, Radiation, Surgical Intervention Psychosocial: Yes Anxiety, Bipolar, Depression Integumentary: Yes (chronic yeast infections; chronic pressure ulcers; cellulitis) Psoriasis Blood Disorders: Yes (anemia) Adverse Reaction/Blood Tranf: No (JEHOVAHS WITNESS-DOESNT TAKE BLOOD) Physical Exam Vital Signs Vital Signs - First Documented 12/14/20 07:37 Temp 36.5 Pulse 83 Resp 24 B/P (MAP) 142/74 (96) Pulse Ox 91 O2 Delivery Room Air Capillary Refill : Height, Weight, BMI Height: 5'4.50" Weight: 319lbs. 0oz. [id number]; 54.00 BMI Method:Stated General Appearance: Anxious, Chronically ill, Moderate Distress, Obese HEENT: PERRL/EOMI; No Moist Mucous Membranes (dry mucous membranes) Neck: Full Range of Motion, Non Tender Respiratory: Chest Non Tender, No Accessory Muscle Use, No Respiratory Distress, Decreased Breath Sounds Cardiovascular: Regular Rate, Rhythm, Normal Peripheral Pulses Gastrointestinal: Normal Bowel Sounds, No Pulsatile Mass, Non Tender, Soft Rectal: Deferred Extremity: Pedal Edema (3+ pitting edema BLE) Neurologic/Psychiatric: Alert, Disoriented Skin: Normal Color, Warm/Dry Focused Exam Sepsis Stage: Sepsis Possible Source: Genitouriary Lactate Level 12/14/20 08:25: Lactic Acid Level 3.15*H 4/29/21 10:23: Lactic Acid Level 0.88 Time of Focused Exam: 09:18 Respiratory: Chest Non Tender, Lungs Clear, No Accessory Muscle Use, No Respiratory Distress, Decreased Breath Sounds Cardiovascular: Regular Rate, Rhythm, Normal Peripheral Pulses Capillary Refill: Less Than 3 Seconds Peripheral Pulses: 2+ Carotid (R), 2+ Carotid (L), 2+ Radial Pulses (R), 2+ Radial Pulses (L) Skin: normal color, warm/dry Lactic Acid Level Laboratory Tests Test 12/14/20 08:25 12/14/20 10:23 Lactic Acid Level 3.15 MMOL/L (0.50-2.00) *H 0.88 MMOL/L (0.50-2.00) Within 3hrs of presentation: Admin fluids, Admin ABX, Blood cultures prior to ABX's, Focus exam, Lactate level Progress/Results/Core Measures Suspected Sepsis SIRS Temperature: Pulse: Respiratory Rate: Laboratory Tests 12/14/20 08:25: White Blood Count 9.5 Blood Pressure / Mean: 12/14/20 08:25: Lactic Acid Level 3.15*H 12/14/20 10:23: Lactic Acid Level 0.88 Laboratory Tests 12/14/20 08:25: Creatinine 0.73, Platelet Count 377, Total Bilirubin 0.2 Results/Orders Lab Results Laboratory Tests Test 12/14/20 08:10 12/14/20 08:25 12/14/20 10:23 Range/Units Urine Color YELLOW Urine Clarity SLT CLOUDY Urine pH 6.0 5-9 Urine Specific [place] 1.020 1.016-1.022 Urine Protein 1+ H NEGATIVE Urine Glucose (UA) NEGATIVE NEGATIVE Urine Ketones NEGATIVE NEGATIVE Urine Nitrite NEGATIVE NEGATIVE Urine Bilirubin NEGATIVE NEGATIVE Urine Urobilinogen 0.2 < = 1.0 MG/DL Urine Leukocyte Esterase 1+ H NEGATIVE Urine RBC (Auto) TRACE H NEGATIVE Urine RBC NONE /HPF Urine WBC 2-5 /HPF Urine Squamous Epithelial Cells NONE /HPF Urine Crystals NONE /LPF Urine Bacteria FEW H /HPF Urine Casts NONE /LPF Urine Mucus NEGATIVE /LPF Urine Culture Indicated YES White Blood Count 9.5 4.3-11.0 10^3/uL Red Blood Count 4.30 L 4.35-5.85 10^6/uL Hemoglobin 10.8 L 11.5-16.0 G/DL Hematocrit 38 35-52 % Mean Corpuscular Volume 89 80-99 FL Mean Corpuscular Hemoglobin 25 25-34 PG Mean Corpuscular Hemoglobin Concent 28 L 32-36 G/DL Red Cell Distribution Width 16.5 H 10.0-14.5 % Platelet Count 377 130-400 10^3/uL Mean Platelet Volume 8.8 7.4-10.4 FL Immature Granulocyte % (Auto) 0 % Neutrophils (%) (Auto) 67 42-75 % Lymphocytes (%) (Auto) 23 12-44 % Monocytes (%) (Auto) 6 0-12 % Eosinophils (%) (Auto) 3 0-10 % Basophils (%) (Auto) 1 0-10 % Neutrophils # (Auto) 6.4 1.8-7.8 X 10^3 Lymphocytes # (Auto) 2.2 1.0-4.0 X 10^3 Monocytes # (Auto) 0.6 0.0-1.0 X 10^3 Eosinophils # (Auto) 0.3 0.0-0.3 10^3/uL Basophils # (Auto) 0.1 0.0-0.1 10^3/uL Immature Granulocyte # (Auto) 0.0 0.0-0.1 10^3/uL Neutrophils % (Manual) 64 % Lymphocytes % (Manual) 17 % Monocytes % (Manual) 4 % Eosinophils % (Manual) 6 % Basophils % (Manual) 2 % Band Neutrophils 2 % Atypical Lymphocytes 3 % Blast Cells 2 % Sodium Level 136 135-145 MMOL/L Potassium Level 4.5 3.6-5.0 MMOL/L Chloride Level 105 98-107 MMOL/L Carbon Dioxide Level 22 21-32 MMOL/L Anion Gap 9 5-14 MMOL/L Blood Urea Nitrogen 20 H 7-18 MG/DL Creatinine 0.73 0.60-1.30 MG/DL Estimat Glomerular Filtration Rate > 60 BUN/Creatinine Ratio 27 Glucose Level 205 H 70-105 MG/DL Lactic Acid Level 3.15 *H 0.88 0.50-2.00 MMOL/L Calcium Level 9.8 8.5-10.1 MG/DL Corrected Calcium 11.0 H 8.5-10.1 MG/DL Total Bilirubin 0.2 0.1-1.0 MG/DL Aspartate Amino Transf (AST/SGOT) 14 5-34 U/L Alanine Aminotransferase (ALT/SGPT) 13 0-55 U/L Alkaline Phosphatase 175 H 40-136 U/L C-Reactive Protein 6.16 H <0.50 MG/DL Total Protein 7.8 6.4-8.2 GM/DL Albumin 2.5 L 3.2-4.5 GM/DL My Orders Orders - CASTRO PÉREZ MD Cbc With Automated Diff (12/14/20 07:52) Comprehensive Metabolic Panel (12/14/20 07:52) Blood Culture (12/14/20 07:52) Ua Culture If Indicated (12/14/20 07:52) Chest 1 View Ap/Pa Only (12/14/20 07:52) Ed Iv/Invasive Line Start (12/14/20 07:52) Crp Fs (12/14/20 07:52) Lactic Acid Analyzer (12/14/20 07:52) Ns Iv 1000 Ml (Sodium Chloride 0.9%) (12/14/20 07:52) Lorazepam Injection (Ativan Injection) (12/14/20 07:52) Code/Resuscitation (12/14/20 07:52) Monitor-Rhythm Ecg Trace Only (12/14/20 07:54) O2 (12/14/20 07:54) Urine Culture (12/14/20 08:10) Cefepime Injection (Maxipime Injection) (12/14/20 09:35) Manual Differential (12/14/20 08:25) Ed Iv/Invasive Line Start (12/14/20 10:34) Ns Iv 1000 Ml (Sodium Chloride 0.9%) (12/14/20 10:45) Vital Signs/I&O 12/14/20 12/14/20 07:37 08:15 Temp 36.5 36.5 Pulse 83 86 Resp 24 24 B/P (MAP) 142/74 (96) 142/74 Pulse Ox 91 91 O2 Delivery Room Air Room Air Capillary Refill : Progress Note #1: Progress Note Try to obtain the culture and sensitivity results for the [facility] Order labs and blood cultures with a lactic acid here in addition to a chest x-ray. Give IV fluids for hydration. For her anxiety and agitation will try a dose of Ativan IV 1 mg. Try to obtain a fresh urine specimen for testing. Differential diagnosis includes sepsis from UTI, pneumonia, electrolyte imbalance, UTI with drug-resistant organism Progress Note #2: Time: 09:18 Progress Note Labs show a normal white blood cell count of 9.5 with out a left shift. She does have an elevated glucose of 205, lactic acid of 3.15, CRP of 6.18 and BUN of 20. She remains hemodynamically stable and is having a second liter of normal saline infusing after the first liter from EMS. With urine as the likely source as her chest x-ray did not show an acute infiltrate although it was a poor inspiratory effort, will start cefepime based off of the sepsis order set. When updating the daughter about the plan and results she requests that the patient go to [facility] as she reports that the patient always goes [facility] to the [facility] when she has to be admitted. [id number] call placed to [facility] transfer center and spoke with RINKU Cobb. she connected me to Dr. Дмитрий Williamson and after giving him report on patient he stated they would look for a bed for the patient. 1003 Dr. Williamson called back stating that all of [facility] system was full and had no beds currently available to take the patient. When I spoke with the daughter and updated her about this to see where she would want to go for a 2nd choice, she was ok with going to [facility] to continue antibiotics and care of the patient. She did state that if the patient became too ill for the staff at [facility] then she would like to try transfer to [facility] again at that point. 1013 d/w Dr. Burks, radiation officer provider for [facility] and Dr. Up, and she accepted pt for admit. Will continue with sepsis order set with antibiotics and IVF. Patient is a DNR and has been on Hospice at [facility]. Progress Note #3: Time: 11:48 Progress Note pt remains hemodynamically stable here in ED and repeat Lactic acid improved to 0.88. Continue with fluids and antibiotics. Daughter decided to revoke Hospice so patient would be admitted and treated more aggressively for her UTI/sepsis. Diagnostic Imaging Diagonstic Imaging: Xray Plain Films/CT/US/NM/MRI: chest Comments NAME: KB PIZANO [facility] REC#: [id number] PT STATUS: REG ER : 1950 PHYSICIAN: CASTRO PÉREZ MD ADMIT DATE: 12/14/20/ER FS Draft Date of Exam:12/14/20 CHEST 1 VIEW AP/PA ONLY EXAMINATION: Portable erect AP chest at 7:51 AM INDICATION: Altered mental status This exam is less than optimal as the study is taken in shallow inspiration and the patient is rotated. Allowing for these technical factors, the heart seems stable when compared to the prior exam of 06/03/2019. The lungs, where visualized, are generally clear. There is no evidence for overt failure, pneumonia or for pleural effusion. The mediastinum is not widened. The osseous structures are intact. IMPRESSION: There is no evidence for an acute cardiopulmonary abnormality on this suboptimal exam. Dictated on workstation # [id number] Dict: 12/14/20 0806 Trans: 12/14/20 0809 [facility] [id number] Interpreted by: VALERI PICHARDO MD Electronically signed by: Reviewed: Reviewed by Me Departure Communication (Admissions) Time/Spoke to Admitting Phy: 10:13 d/w Dr. Burks for [facility] about admit for sepsis and UTI with delirium. Continue with antibiotics and meds from sepsis order set. Impression Primary Impression: Sepsis Qualified Codes: A41.9 - Sepsis, unspecified organism Additional Impressions: Delirium UTI (urinary tract infection) due to urinary indwelling catheter Qualified Codes: T83.510A - Infection and inflammatory reaction due to cystostomy catheter, initial encounter; N39.0 - Urinary tract infection, site not specified Disposition: 30 STILL A PATIENT Condition: Stable Admissions Decision to Admit Reason: Admit from ER (General) Decision to Admit/Date: Dec 14, 2020 Time/Decision to Admit Time: 10:13 Departure-Patient Inst. Referrals: SELF,FREEMAN BELTRE (PCP/Family) Primary Care Physician CASTRO PÉREZ MD Dec 14, 2020 07:59
--- NOTE | 2020-12-14 08:09 | Diagnostic Imaging Report ---
EXAMINATION: Portable erect AP chest at 7:51 AM INDICATION: Altered mental status This exam is less than optimal as the study is taken in shallow inspiration and the patient is rotated. Allowing for these technical factors, the heart seems stable when compared to the prior exam of 06/03/2019. The lungs, where visualized, are generally clear. There is no evidence for overt failure, pneumonia or for pleural effusion. The mediastinum is not widened. The osseous structures are intact. IMPRESSION: There is no evidence for an acute cardiopulmonary abnormality on this suboptimal exam. Dictated by: Dictated on workstation # [id number]
[2020-12-14 08:33] LABS: HEMOGLOBIN 10.8 G/DL (11.5-16.0); MEAN CORPUSCULAR HEMOGLOBIN 25 PG (25-34); WHITE BLOOD COUNT 9.5 10^3/uL (4.3-11.0)
[2020-12-14 08:34] LABS: BASOPHILS % (AUTO) 1 % (0-10); EOSINOPHILS % (AUTO) 3 % (0-10); HEMATOCRIT 38 % (35-52); LYMPHOCYTES % (AUTO) 23 % (12-44); MEAN CORPUSCULAR HGB CONC 28 G/DL (32-36); MEAN CORPUSCULAR VOLUME 89 FL (80-99); MEAN PLATELET VOLUME 8.8 FL (7.4-10.4); MONOCYTES % (AUTO) 6 % (0-12); NEUTROPHILS # (AUTO) 6.4 X 10^3 (1.8-7.8); NEUTROPHILS % (AUTO) 67 % (42-75); PLATELET COUNT 377 10^3/uL (130-400)
[2020-12-14 08:35] LABS: BASOPHILS # (AUTO) 0.1 10^3/uL (0.0-0.1); EOSINOPHILS # (AUTO) 0.3 10^3/uL (0.0-0.3); LYMPHOCYTES # (AUTO) 2.2 X 10^3 (1.0-4.0); MONOCYTES # (AUTO) 0.6 X 10^3 (0.0-1.0)
[2020-12-14 08:56] LABS: ALANINE AMINOTRANSFERASE 13 U/L (0-55); ALKALINE PHOSPHATASE 175 U/L (40-136); BILIRUBIN,TOTAL 0.2 MG/DL (0.1-1.0); BUN/CREATININE RATIO 27; CALCIUM 9.8 MG/DL (8.5-10.1); CARBON DIOXIDE 22 MMOL/L (21-32); CHLORIDE 105 MMOL/L (98-107); CREATININE SERUM 0.73 MG/DL (0.60-1.30); GFR ESTIMATED > 60; GLUCOSE 205 MG/DL (70-105); POTASSIUM 4.5 MMOL/L (3.6-5.0); SODIUM 136 MMOL/L (135-145)
[2020-12-14 08:57] LABS: ALBUMIN 2.5 GM/DL (3.2-4.5); TOTAL PROTEIN 7.8 GM/DL (6.4-8.2)
[2020-12-14 09:19] LABS: CLARITY,URINE SLT CLOUDY; COLOR,URINE YELLOW; GLUCOSE, URINE (UA) NEGATIVE (NEGATIVE); KETONES,URINE NEGATIVE (NEGATIVE); PROTEIN,URINE 1+ (NEGATIVE)
[2020-12-14 09:20] LABS: BACTERIA,URINE FEW /HPF; BILIRUBIN,URINE NEGATIVE (NEGATIVE); LEUKOCYTE ESTERASE ,URINE 1+ (NEGATIVE); NITRITE,URINE NEGATIVE (NEGATIVE)
[2020-12-14] MEDS ORDERED: CEFEPIME INJECTION 1,000 MG in WATER (STERILE) FOR INJECTION 10 ML IV STA (09:35)
[2020-12-14 09:45] LABS: ATYPICAL LYMPHOCYTES 3 %; BAND NEUTROPHILS 2 %; BASOPHILS % (MANUAL) 2 %; BLAST CELLS 2 %; EOSINOPHILS % (MANUAL) 6 %; LYMPHOCYTES % (MANUAL) 17 %; MONOCYTES % (MANUAL) 4 %; NEUTROPHILS % (MANUAL) 64 %
[2020-12-14] MEDS ORDERED: NS IV 1000 ML 1,000 ML IV SCH (10:45)
[2020-12-14 12:45] VITALS: BP 127/89
[2020-12-14] MEDS: NS IV 1000 ML 1,000 ML IV SCH ×2 (13:42→19:49)
[2020-12-14] MEDS ORDERED: CATHETER FLUSH 10 ML SYR IV PRN (13:45)
[2020-12-14] MEDS: LORazepam INJ 2 MG/ML (ATIVAN) VIAL IV PRN ×2 (13:47→18:40)
[2020-12-14] MEDS ORDERED: MEROPENEM 1,000 MG in WATER (STERILE) FOR INJECTION 20 ML IV SCH (14:45)
[2020-12-14] MEDS: MEROPENEM 500 MG/SWFI 10 ML IV PUSH IV SCH ×4 (15:11→20:35)
[2020-12-14] MEDS: fentaNYL INJ 100 MCG/2 ML AMP IVP PRN ×5 (15:11→20:35)
[2020-12-14] MEDS ORDERED: MULT-166 PO (15:44)
[2020-12-14] MEDS ORDERED: LATA2.5D19 OU (15:44)
[2020-12-14] MEDS ORDERED: MELO7.5T46 PO (15:44)
[2020-12-14] MEDS ORDERED: DOXA2TAB2 PO (15:44)
[2020-12-14] MEDS ORDERED: MONT10TA32 PO (15:44)
[2020-12-14] MEDS ORDERED: FLUT9.9S NS (15:44)
[2020-12-14] MEDS ORDERED: ASPI-1238 PO (15:44)
[2020-12-14] MEDS ORDERED: CYAN500T8 PO (15:44)
[2020-12-14] MEDS ORDERED: FOLI1TAB33 PO (15:44)
[2020-12-14] MEDS ORDERED: POLY17PO6 PO (15:44)
[2020-12-14] MEDS ORDERED: L.AC1CAP6 PO (15:44)
[2020-12-14] MEDS ORDERED: NYST60PO TOP (15:44)
[2020-12-14 16:00] VITALS: BP 154/77
[2020-12-14] MEDS ORDERED: CEFEPIME 1,000 MG/SWFI 10 ML IV PUSH IV SCH ×2 (16:00)
[2020-12-14] MEDS ORDERED: BACL20TA PO (16:13)
[2020-12-14] MEDS ORDERED: VNL75T PO (16:13)
[2020-12-14] MEDS ORDERED: ALB0.5V INH (16:13)
[2020-12-14] MEDS ORDERED: HYOS-20 PO (16:13)
[2020-12-14] MEDS ORDERED: ACET325C7 PO (16:13)
[2020-12-14] MEDS ORDERED: INSU100I29 SC (16:13)
[2020-12-14] MEDS ORDERED: ONDA-105 PO (16:13)
[2020-12-14] MEDS ORDERED: OXYC5TAB PO (16:13)
[2020-12-14] MEDS ORDERED: DIPH25TA31 PO (16:13)
[2020-12-14] MEDS ORDERED: CIPR-225 PO (16:13)
[2020-12-14] MEDS ORDERED: SUMA100T3 PO (16:13)
[2020-12-14] MEDS ORDERED: BISA5TAB8 PO (16:13)
[2020-12-14] MEDS ORDERED: OMEP20CA18 PO (16:13)
[2020-12-14] MEDS ORDERED: INSU100I14 SC (16:13)
[2020-12-14] MEDS ORDERED: MOME17SP9 TOP (16:13)
[2020-12-14] MEDS ORDERED: PETR3.5O OU (16:13)
[2020-12-14] MEDS ORDERED: ALPR0.5T7 PO (16:13)
[2020-12-14 16:57] VITALS: BP 140/72
[2020-12-14] MEDS ORDERED: RT-ALBUTEROL/IPRATROPIUM 3 ML (DUONEB) VIAL INH PRN (17:15)
[2020-12-14 20:00] VITALS: BP 145/72
[2020-12-14] MEDS: SILVER SULFADIAZINE 400 GM CREAM TOP SCH (21:25)
[2020-12-14] MEDS: RT-ALBUTEROL/IPRATROPIUM 3 ML (DUONEB) VIAL INH SCH (22:26)
[2020-12-15] VITALS: BP 145/75
[2020-12-15] MEDS: NS IV 1000 ML 1,000 ML IV SCH ×4 (02:28→20:29)
[2020-12-15] MEDS: MEROPENEM 500 MG/SWFI 10 ML IV PUSH IV SCH ×8 (02:28→20:15)
[2020-12-15] MEDS: LORazepam INJ 2 MG/ML (ATIVAN) VIAL IV PRN ×2 (02:45→20:16)
[2020-12-15 04:00] VITALS: BP 141/74
[2020-12-15] MEDS: fentaNYL INJ 100 MCG/2 ML AMP IVP PRN (04:36)
[2020-12-15 05:28] LABS: BASOPHILS # (AUTO) 0.1 10^3/uL (0.0-0.1); BASOPHILS % (AUTO) 1 % (0-10); EOSINOPHILS # (AUTO) 0.2 10^3/uL (0.0-0.3); EOSINOPHILS % (AUTO) 2 % (0-10); HEMATOCRIT 37 % (35-52); HEMOGLOBIN 10.6 g/dL (11.5-16.0); LYMPHOCYTES # (AUTO) 2.1 10^3/uL (1.0-4.0); LYMPHOCYTES % (AUTO) 23 % (12-44); MEAN CORPUSCULAR HEMOGLOBIN 25 pg (25-34); MEAN CORPUSCULAR HGB CONC 29 g/dL (32-36); MEAN CORPUSCULAR VOLUME 87 fL (80-99); MEAN PLATELET VOLUME 9.2 fL (9.0-12.2); MONOCYTES # (AUTO) 0.5 10^3/uL (0.0-1.0); MONOCYTES % (AUTO) 5 % (0-12); NEUTROPHILS # (AUTO) 6.5 10^3/uL (1.8-7.8); NEUTROPHILS % (AUTO) 69 % (42-75); PLATELET COUNT 357 10^3/uL (130-400); WHITE BLOOD COUNT 9.4 10^3/uL (4.3-11.0)
[2020-12-15 05:50] LABS: ALANINE AMINOTRANSFERASE 15 U/L (0-55); ALBUMIN 2.9 GM/DL (3.2-4.5); ALKALINE PHOSPHATASE 146 U/L (40-136); BILIRUBIN,TOTAL 0.2 MG/DL (0.1-1.0); BUN/CREATININE RATIO 17; CALCIUM 9.7 MG/DL (8.5-10.1); CARBON DIOXIDE 22 MMOL/L (21-32); CHLORIDE 108 MMOL/L (98-107); GFR ESTIMATED > 60; GLUCOSE 214 MG/DL (70-105); SODIUM 139 MMOL/L (135-145); TOTAL PROTEIN 7.9 GM/DL (6.4-8.2)
[2020-12-15] MEDS: RT-ALBUTEROL/IPRATROPIUM 3 ML (DUONEB) VIAL INH SCH ×2 (07:22→22:08)
[2020-12-15 07:30] VITALS: BP 136/87
[2020-12-15] MEDS: SILVER SULFADIAZINE 400 GM CREAM TOP SCH ×2 (08:47→23:40)
--- NOTE | 2020-12-15 11:39 | History & Physical ---
BETHANY BEGUM,MED STUDENT 12/15/20 1139: HPI History of Present Illness: Upon interview today, she wasn't able to provide a history due to altered mental status. She can track at times with her eyes, but isn't able to state why she is here or what her current problems are. Per chart review, she has had increased confusion, similar to when she previously had a UTI/was septic. She is a hospice patient, but was brought in for possible UTI treatment. On Cipro for UTI treatment prior to arrival. At baseline, she has a urostomy and colostomy, and is paraplegic. Source: other (EMR reviewed from current hospitalization) Exam Limitations: other (patient with altered mental status) Time Seen by Provider: 09:45 Attending Physician Everett Mendieta MD PCP Self,Gustavo BELTRE Consult Date of Admission Dec 14, 2020 at 12:55 Home Medications Home Medications Reviewed patient Home Medication Reconciliation performed by pharmacy medication reconciliations histotechnician and/or nursing. Patients Allergies have been reviewed. Allergies Coded Allergies: exenatide (Verified Allergy, Unknown, nausea and vomiting, 01/09/19) liraglutide (Verified Allergy, Unknown, nausea and vomiting, abdominal pain, 01/09/19) nitrofurantoin (Verified Allergy, Unknown, diarrhea, 01/09/19) terconazole (Verified Allergy, Unknown, 01/09/19) VHF-Ayvqun-Ncxdiy Hx Patient Social History Smoking Status: Former Smoker 2nd Hand Smoke Exposure: No Recent Hopitalizations: No Have you traveled recently?: No Immunizations Up To Date Date of Influenza Vaccine: Jun 19, 2020 Past Medical History PMH: Spinal Cord Injury/Paralysis Neurogenic Bladder/Recurrent UTIs COPD Colon Cancer Angina DVT DM2 Arthritis Surg Hx: Urostomy Colostomy Appendectomy Family Medical History Significant Family History: No Pertinent Family Hx Review of Systems ([facility]) Other Unable to obtain ROS due to patient altered mental status. Reviewed Test Results Reviewed Test Results Lab Laboratory Tests Test 12/15/20 04:47 Range/Units White Blood Count 9.4 4.3-11.0 10^3/uL Red Blood Count 4.24 3.80-5.11 10^6/uL Hemoglobin 10.6 L 11.5-16.0 g/dL Hematocrit 37 35-52 % Mean Corpuscular Volume 87 80-99 fL Mean Corpuscular Hemoglobin 25 25-34 pg Mean Corpuscular Hemoglobin Concent 29 L 32-36 g/dL Red Cell Distribution Width 16.2 H 10.0-14.5 % Platelet Count 357 130-400 10^3/uL Mean Platelet Volume 9.2 9.0-12.2 fL Immature Granulocyte % (Auto) 0 % Neutrophils (%) (Auto) 69 42-75 % Lymphocytes (%) (Auto) 23 12-44 % Monocytes (%) (Auto) 5 0-12 % Eosinophils (%) (Auto) 2 0-10 % Basophils (%) (Auto) 1 0-10 % Neutrophils # (Auto) 6.5 1.8-7.8 10^3/uL Lymphocytes # (Auto) 2.1 1.0-4.0 10^3/uL Monocytes # (Auto) 0.5 0.0-1.0 10^3/uL Eosinophils # (Auto) 0.2 0.0-0.3 10^3/uL Basophils # (Auto) 0.1 0.0-0.1 10^3/uL Immature Granulocyte # (Auto) 0.0 0.0-0.1 10^3/uL Sodium Level 139 135-145 MMOL/L Potassium Level 4.0 3.6-5.0 MMOL/L Chloride Level 108 H 98-107 MMOL/L Carbon Dioxide Level 22 21-32 MMOL/L Anion Gap 9 5-14 MMOL/L Blood Urea Nitrogen 12 7-18 MG/DL Creatinine 0.70 0.60-1.30 MG/DL Estimat Glomerular Filtration Rate > 60 BUN/Creatinine Ratio 17 Glucose Level 214 H 70-105 MG/DL Calcium Level 9.7 8.5-10.1 MG/DL Corrected Calcium 10.6 H 8.5-10.1 MG/DL Total Bilirubin 0.2 0.1-1.0 MG/DL Aspartate Amino Transf (AST/SGOT) 20 5-34 U/L Alanine Aminotransferase (ALT/SGPT) 15 0-55 U/L Alkaline Phosphatase 146 H 40-136 U/L Total Protein 7.9 6.4-8.2 GM/DL Albumin 2.9 L 3.2-4.5 GM/DL Radiology Date of Exam:12/14/20 CHEST 1 VIEW AP/PA ONLY EXAMINATION: Portable erect AP chest at 7:51 AM INDICATION: Altered mental status This exam is less than optimal as the study is taken in shallow inspiration and the patient is rotated. Allowing for these technical factors, the heart seems stable when compared to the prior exam of 06/03/2019. The lungs, where visualized, are generally clear. There is no evidence for overt failure, pneumonia or for pleural effusion. The mediastinum is not widened. The osseous structures are intact. IMPRESSION: There is no evidence for an acute cardiopulmonary abnormality on this suboptimal exam. Physical Exam-([facility]) Physical Exam Vital Signs VS - Last 72 Hours, by Label 12/14/20 12/14/20 12/14/20 12/14/20 07:37 08:15 08:30 08:45 Temp 36.5 36.5 Pulse 83 86 85 88 Resp 24 24 B/P (MAP) 142/74 (96) 142/74 123/70 152/82 Pulse Ox 91 91 91 91 O2 Delivery Room Air Room Air Room Air Room Air 12/14/20 12/14/20 12/14/20 12/14/20 09:00 09:00 09:15 09:25 Pulse 93 86 79 Resp 24 B/P (MAP) 137/74 141/75 125/70 Pulse Ox 99 98 96 96 O2 Delivery Nasal Cannula Nasal Cannula Nasal Cannula Nasal Cannula O2 Flow Rate 2.00 12/14/20 12/14/20 12/14/20 12/14/20 09:33 09:45 10:00 10:15 Temp 36.2 Pulse 80 81 86 88 Resp 24 24 B/P (MAP) 115/63 133/83 124/90 142/81 Pulse Ox 98 96 96 98 O2 Delivery Nasal Cannula Nasal Cannula Nasal Cannula Nasal Cannula 12/14/20 12/14/20 12/14/20 12/14/20 10:30 10:45 11:00 11:15 Temp 36.3 Pulse 89 83 81 83 Resp 24 B/P (MAP) 134/79 136/75 132/73 131/76 Pulse Ox 97 97 96 96 O2 Delivery Nasal Cannula Nasal Cannula Nasal Cannula Nasal Cannula 12/14/20 12/14/20 12/14/20 12/14/20 11:30 11:50 12:45 16:00 Temp 36.5 37.0 36.6 Pulse 82 82 87 95 Resp 24 24 18 18 B/P (MAP) 140/72 140/72 (94) 127/89 (102) 154/77 (102) Pulse Ox 97 97 93 O2 Delivery Nasal Cannula Nasal Cannula Nasal Cannula Nasal Cannula O2 Flow Rate 2.00 2.00 2.00 12/14/20 12/14/20 12/14/20 12/14/20 16:57 16:59 20:00 20:00 Temp 36.3 36.6 Pulse 82 91 Resp 20 B/P (MAP) 145/72 (96) Pulse Ox 93 93 94 95 O2 Delivery Nasal Cannula Nasal Cannula Nasal Cannula O2 Flow Rate 2.00 2.00 2.00 FiO2 28 12/14/20 12/15/20 12/15/20 12/15/20 22:31 00:00 04:00 07:22 Temp 37.1 36.9 Pulse 103 93 Resp 22 20 B/P (MAP) 145/75 (98) 141/74 (96) Pulse Ox 93 93 93 O2 Delivery Nasal Cannula Nasal Cannula Nasal Cannula Nasal Cannula O2 Flow Rate 1.00 2.00 2.00 2.00 12/15/20 12/15/20 07:30 08:00 Temp 36.8 Pulse 87 Resp 24 B/P (MAP) 136/87 (103) Pulse Ox 96 O2 Delivery Nasal Cannula Nasal Cannula O2 Flow Rate 2.00 2.00 Capillary Refill : Less Than 3 Seconds General Appearance: other (appears uncomfortable) Eyes: Bilateral Eye EOMI Neck: full range of motion, supple, normal inspection Respiratory: normal breath sounds Cardiovascular: regular rate, rhythm, no JVD Gastrointestinal: normal bowel sounds, soft Extremities: pedal edema Neurologic/Psychiatric: disoriented x 3, other (tracks with eyes, but unable to converse) Skin: normal color, warm/dry Assessment/Plan Assessment/Plan (1) UTI (urinary tract infection) due to urinary indwelling catheter Status: Acute Assessment & Plan: Started on Meropenem due to previous culture results. U/A with 1+ protein, 1+ leuk est, 2-5 WBC and few bacteria Qualifiers: Qualified Codes: T83.510A - Infection and inflammatory reaction due to cystostomy catheter, initial encounter; N39.0 - Urinary tract infection, site not specified (2) Delirium Status: Acute Assessment & Plan: Currently altered, likely secondary to UTI. Has Ativan prn for anxiety, and Fentanyl prn for pain. (3) Sepsis Status: Acute Assessment & Plan: Treated with fluid resuscitation and Meropenem. Lactate has normalized, currently afebrile and vital signs stable. Qualifiers: Qualified Codes: A41.9 - Sepsis, unspecified organism EVERETT MENDIETA MD 12/15/20 1241: Home Medications Allergies Coded Allergies: exenatide (Verified Allergy, Unknown, nausea and vomiting, 01/09/19) liraglutide (Verified Allergy, Unknown, nausea and vomiting, abdominal pain, 01/09/19) nitrofurantoin (Verified Allergy, Unknown, diarrhea, 01/09/19) terconazole (Verified Allergy, Unknown, 01/09/19) Review of Systems ([facility]) Constitutional: other (unable to obtain) Assessment/Plan Assessment/Plan Admission Status: Inpatient Order (span 2 midnights) Reason for Inpatient Admission: Sepsis with UTI and multiple comorbidities (1) UTI (urinary tract infection) due to urinary indwelling catheter Status: Acute Qualifiers: Qualified Codes: T83.510A - Infection and inflammatory reaction due to cystostomy catheter, initial encounter; N39.0 - Urinary tract infection, site not specified (2) Delirium Status: Acute Assessment & Plan: Suspect UTI related, but unknown baseline. Called daughter but was unable to reach. (3) Sepsis Status: Acute Qualifiers: Qualified Codes: A41.9 - Sepsis, unspecified organism (4) Paraplegia Status: Chronic (5) Colon cancer Status: Chronic (6) Hospice care patient Status: Acute Assessment & Plan: Patient was on hospice services prior to admission, family revoked for this admission. (7) Diabetes mellitus Status: Chronic Qualifiers: Qualified Codes: E11.65 - Type 2 diabetes mellitus with hyperglycemia; Z79.4 - FPC (current) use of insulin (8) Decubitus ulcer Status: Chronic Assessment & Plan: Wound care nurse evaluated, Dr. Obando consulted. Qualifiers: (9) DVT prophylaxis Status: Acute Assessment & Plan: Enoxaparin Supervisory-Addendum Brief Verification & Attestation Participated in pt care: history, MDM, physical Personally performed: exam, history, MDM Care discussed with: Medical Student Procedures: n/a I personally saw and examined this patient today and agree with the findings documented by the medical student. I directed the plan of care as documented. BETHANY BEGUM,MED STUDENT Dec 15, 2020 11:39 EVERETT MENDIETA MD Dec 15, 2020 12:41
--- NOTE | 2020-12-15 11:53 | Wound Care Assessment ---
Wound Care Assessment Date Seen by Provider: Dec 15, 2020 Time Seen by Provider: 11:05 Chief Complaint Buttock ulcers. HPI The patient is a 70 year old female with multiple bilateral buttock pressure ulcers, not clearly associated with bony prominences. She has a BMI =60, is paraplegic, cause unknown to this examiner, minimally verbal, and agitated. She indicates that she has R buttock pain. She was admitted for sepsis, has been on Hospice, and is a resident of LT in [facility]. Her daughter stated that the ulcers have been present for years, that she receives good care for them at the facility that she is at, and that they are improved from what they have been in the past. The ulcers have primarily viable granulating tissue at the bases, chronic-appearing rolled edges, and on area of significant slough. Given the clinical setting, our intent would be only palliative, and Silvadene dressings without covering gauze (due to increased drainage) are begun. Will see again as needed. Past Medical History: Admits Diabetes Type II Smoking Status: Former Smoker Recreational Drug Use: No Alcohol Use: Denies Use Review of Systems Neurological: Confusion (very agitated.) Exam Vital Signs Date Time Temp Pulse Resp B/P (MAP) Pulse Ox O2 Delivery O2 Flow Rate FiO2 12/15/20 08:00 Nasal Cannula 2.00 12/15/20 07:30 36.8 87 24 136/87 (103) 96 12/14/20 16:57 28 Capillary Refill : Less Than 3 Seconds Back: other (Multiple deep granulating bilateral buttock pressure ulcers, mostly over areas of prominant adipose tissue due to habitus.) Results Laboratory Tests 12/15/20 04:47: White Blood Count 9.4, Red Blood Count 4.24, Hemoglobin 10.6L, Hematocrit 37, Mean Corpuscular Volume 87, Mean Corpuscular Hemoglobin 25, Mean Corpuscular Hemoglobin Concent 29L, Red Cell Distribution Width 16.2H, Platelet Count 357, Mean Platelet Volume 9.2, Immature Granulocyte % (Auto) 0, Neutrophils (%) (Auto) 69, Lymphocytes (%) (Auto) 23, Monocytes (%) (Auto) 5, Eosinophils (%) (Auto) 2, Basophils (%) (Auto) 1, Neutrophils # (Auto) 6.5, Lymphocytes # (Auto) 2.1, Monocytes # (Auto) 0.5, Eosinophils # (Auto) 0.2, Basophils # (Auto) 0.1, Immature Granulocyte # (Auto) 0.0, Sodium Level 139, Potassium Level 4.0, Chloride Level 108H, Carbon Dioxide Level 22, Anion Gap 9, Blood Urea Nitrogen 12, Creatinine 0.70, Estimat Glomerular Filtration Rate > 60, BUN/Creatinine Ratio 17, Glucose Level 214H, Calcium Level 9.7, Corrected Calcium 10.6H, Total Bilirubin 0.2, Aspartate Amino Transf (AST/SGOT) 20, Alanine Aminotransferase (ALT/SGPT) 15, Alkaline Phosphatase 146H, Total Protein 7.9, Albumin 2.9L Assessment/Plan/Dx 1. Bilateral buttock pressure ulcers, Stage 3, present on admission. 2. Morbid obesity. 3. Paraplegia. 4. Mental dissociation. Plan: Bariatric bed with repositioning capability, low air loss mattress, Primo boots to heels, Silvadene dressings with chucks to catch drainage. JEFFREY TONY MD Dec 15, 2020 11:53
[2020-12-15 12:00] VITALS: BP 143/84
[2020-12-15] MEDS ORDERED: RT-ALBUTEROL SULF 2.5 MG/3 ML PRE-MIX VIAL INH PRN (12:45)
[2020-12-15] MEDS ORDERED: NON-FORMULARY MEDICATION 1 EA EA (Ondansetron HCl 4 MG) PO SCH (12:45)
[2020-12-15] MEDS ORDERED: [UNRECOGNIZED DRUG - OTHER] OU PRN (12:45)
[2020-12-15] MEDS ORDERED: PETROLAT WHT OU PRN (12:45)
[2020-12-15] MEDS ORDERED: NON-FORMULARY MEDICATION 1 EA EA (Acetaminophen (Tylenol) 650 MG) PO PRN (12:45)
[2020-12-15] MEDS ORDERED: SOD CHL OU PRN (12:45)
[2020-12-15] MEDS ORDERED: MIN OIL OU PRN (12:45)
[2020-12-15] MEDS ORDERED: ENOXAPARIN 40 MG/0.4 ML (LOVENOX) SYR SQ SCH (13:00)
[2020-12-15] MEDS ORDERED: ONDANSETRON 4 MG (ZOFRAN) ORAL DISSOLVE TAB PO PRN (13:00)
[2020-12-15] MEDS ORDERED: LACRI-LUBE OPTHALMIC OINT 3.5 GM TUBE OU PRN (13:15)
[2020-12-15] MEDS: ALPRAZolam 0.5 MG (XANAX) TAB PO SCH (13:56)
[2020-12-15 15:30] VITALS: BP 140/72
[2020-12-15] MEDS: VENlafaxine 75 MG (EFFEXOR) TAB PO SCH ×2 (15:57→16:31)
[2020-12-15] MEDS: ENOXAPARIN 60 MG/0.6 ML (LOVENOX) SYR SC SCH (15:57)
[2020-12-15 19:00] VITALS: BP 171/72
[2020-12-15] MEDS: PANTOPRAZOLE 20 MG TABLET (PROTONIX) PO SCH (20:15)
[2020-12-15] MEDS: doxAzosin 2 MG (CARDURA) TAB PO SCH (20:15)
[2020-12-15] MEDS: LATANOPROST 0.005% (XALATAN) OPHTH SOLN 2.5 ML OU SCH ×2 (20:16→20:22)
[2020-12-15] MEDS ORDERED: OMEPRAZOLE 20 MG (PriLOSEC) CAP NON-FORMULARY PO SCH (21:00)
[2020-12-16] VITALS (7 sets, daily range): BP systolic 139–180; BP diastolic 72–82
[2020-12-16] MEDS: ALPRAZolam 0.5 MG (XANAX) TAB PO SCH ×2 (01:01→12:49)
[2020-12-16] MEDS: MEROPENEM 500 MG/SWFI 10 ML IV PUSH IV SCH ×8 (02:36→20:19)
[2020-12-16] MEDS: NS IV 1000 ML 1,000 ML IV SCH ×4 (03:10→23:00)
[2020-12-16] MEDS: ENOXAPARIN 60 MG/0.6 ML (LOVENOX) SYR SC SCH ×2 (04:46→17:23)
[2020-12-16 05:43] LABS: BASOPHILS # (AUTO) 0.1 10^3/uL (0.0-0.1); BASOPHILS % (AUTO) 1 % (0-10); EOSINOPHILS # (AUTO) 0.3 10^3/uL (0.0-0.3); EOSINOPHILS % (AUTO) 3 % (0-10); HEMATOCRIT 36 % (35-52); HEMOGLOBIN 10.5 g/dL (11.5-16.0); LYMPHOCYTES # (AUTO) 2.1 10^3/uL (1.0-4.0); LYMPHOCYTES % (AUTO) 24 % (12-44); MEAN CORPUSCULAR HEMOGLOBIN 25 pg (25-34); MEAN CORPUSCULAR HGB CONC 29 g/dL (32-36); MEAN CORPUSCULAR VOLUME 85 fL (80-99); MONOCYTES # (AUTO) 0.5 10^3/uL (0.0-1.0); MONOCYTES % (AUTO) 6 % (0-12); NEUTROPHILS # (AUTO) 5.9 10^3/uL (1.8-7.8); NEUTROPHILS % (AUTO) 66 % (42-75); PLATELET COUNT 354 10^3/uL (130-400); WHITE BLOOD COUNT 8.8 10^3/uL (4.3-11.0)
[2020-12-16 06:06] LABS: ALANINE AMINOTRANSFERASE 14 U/L (0-55); ALBUMIN 2.8 GM/DL (3.2-4.5); ALKALINE PHOSPHATASE 139 U/L (40-136); BILIRUBIN,TOTAL 0.2 MG/DL (0.1-1.0); BUN/CREATININE RATIO 15; CALCIUM 9.5 MG/DL (8.5-10.1); CARBON DIOXIDE 24 MMOL/L (21-32); CHLORIDE 107 MMOL/L (98-107); CREATININE SERUM 0.65 MG/DL (0.60-1.30); GFR ESTIMATED > 60; GLUCOSE 187 MG/DL (70-105); POTASSIUM 3.6 MMOL/L (3.6-5.0); SODIUM 139 MMOL/L (135-145); TOTAL PROTEIN 7.8 GM/DL (6.4-8.2)
[2020-12-16] MEDS: RT-ALBUTEROL/IPRATROPIUM 3 ML (DUONEB) VIAL INH SCH ×2 (08:07→18:21)
[2020-12-16] MEDS: ACETAMINOPHEN 325 MG TABLET PO PRN ×2 (09:27→16:15)
[2020-12-16] MEDS: polyethylene glycoL POWDER 17 GM (MIRALAX) PACK PO SCH (09:28)
[2020-12-16] MEDS: PANTOPRAZOLE 20 MG TABLET (PROTONIX) PO SCH ×2 (09:28→20:20)
[2020-12-16] MEDS: VENlafaxine 75 MG (EFFEXOR) TAB PO SCH ×2 (09:28→18:42)
[2020-12-16] MEDS: ASPIRIN E.C. 81 MG (ECOTRIN) TAB PO SCH (09:28)
[2020-12-16] MEDS: SILVER SULFADIAZINE 400 GM CREAM TOP SCH ×2 (09:29→20:20)
--- NOTE | 2020-12-16 11:06 | Progress Note - Hospitalist ---
Subjective HPI/CC On Admission Date Seen by Provider: December 16, 2020 Time Seen by Provider: 10:45 Subjective/Events-last exam Patient was awake and alert oriented to person and place reporting some back pain denies cough or abdominal pain. Focused Exam Lactate Level 12/14/20 08:25: Lactic Acid Level 3.15*H 12/14/20 10:23: Lactic Acid Level 0.88 Time of Focused Exam: 09:18 Objective Exam Vital Signs Vital Signs Date Time Temp Pulse Resp B/P (MAP) Pulse Ox O2 Delivery O2 Flow Rate FiO2 12/16/20 08:32 36.9 83 22 170/73 (105) 95 Nasal Cannula 2.00 12/14/20 16:57 28 Capillary Refill : Less Than 3 Seconds General Appearance: No Apparent Distress, Chronically ill, Obese Respiratory: Chest Non Tender, Lungs Clear, Normal Breath Sounds, No Accessory Muscle Use, No Respiratory Distress Cardiovascular: Regular Rate, Rhythm, No Edema, No Gallop, No JVD, No Murmur, Normal Peripheral Pulses Gastrointestinal: Normal Bowel Sounds, No Organomegaly, No Pulsatile Mass, Non Tender, Soft, Other (Ileostomy right lower quadrant no surrounding erythema unremarkable in appearance no evidence for hematuria.) Results/Procedures Lab Laboratory Tests 12/16/20 05:03 Patient resulted labs reviewed. Assessment/Plan Assessment and Plan Assess & Plan/Chief Complaint 1. Delirium resolved UA not consistent with urinary tract infection diagnosis of sepsis questionable if it was present it is resolved. Patient apparently had received several doses of morphine which may be the underlying cause. 2. Mild hypercalcemia possibly contributing to #1 as well considering history of colon cancer in addition to elevated alkaline phosphatase level is a little concerning for recurrence. Do not know the status and whether or not this pat ient has had known recurrence of her disease. Repeat CMP in the morning. Continue IV fluids can advance diet as tolerated to 1500-calorie ADA. MEENA DEMARCO MD December 16, 2020 11:06
[2020-12-16] MEDS: doxAzosin 2 MG (CARDURA) TAB PO SCH (20:19)
[2020-12-16] MEDS: LATANOPROST 0.005% (XALATAN) OPHTH SOLN 2.5 ML OU SCH (20:19)
[2020-12-17] VITALS (8 sets, daily range): BP systolic 167–193; BP diastolic 67–84
[2020-12-17] MEDS: ACETAMINOPHEN 325 MG TABLET PO PRN ×3 (00:17→15:24)
[2020-12-17] MEDS: ALPRAZolam 0.5 MG (XANAX) TAB PO SCH ×3 (00:17→23:45)
[2020-12-17] MEDS: MEROPENEM 500 MG/SWFI 10 ML IV PUSH IV SCH ×8 (03:31→20:30)
[2020-12-17] MEDS: ENOXAPARIN 60 MG/0.6 ML (LOVENOX) SYR SC SCH ×2 (05:19→17:30)
[2020-12-17 05:22] LABS: BASOPHILS # (AUTO) 0.1 10^3/uL (0.0-0.1); BASOPHILS % (AUTO) 1 % (0-10); EOSINOPHILS # (AUTO) 0.2 10^3/uL (0.0-0.3); EOSINOPHILS % (AUTO) 3 % (0-10); HEMATOCRIT 34 % (35-52); HEMOGLOBIN 9.9 g/dL (11.5-16.0); LYMPHOCYTES # (AUTO) 2.2 10^3/uL (1.0-4.0); LYMPHOCYTES % (AUTO) 31 % (12-44); MEAN CORPUSCULAR HEMOGLOBIN 25 pg (25-34); MEAN CORPUSCULAR HGB CONC 29 g/dL (32-36); MEAN CORPUSCULAR VOLUME 86 fL (80-99); MEAN PLATELET VOLUME 8.8 fL (9.0-12.2); MONOCYTES # (AUTO) 0.4 10^3/uL (0.0-1.0); MONOCYTES % (AUTO) 6 % (0-12); NEUTROPHILS # (AUTO) 4.3 10^3/uL (1.8-7.8); NEUTROPHILS % (AUTO) 60 % (42-75); PLATELET COUNT 318 10^3/uL (130-400); WHITE BLOOD COUNT 7.2 10^3/uL (4.3-11.0)
[2020-12-17 05:43] LABS: ALANINE AMINOTRANSFERASE 13 U/L (0-55); ALBUMIN 2.6 GM/DL (3.2-4.5); ALKALINE PHOSPHATASE 124 U/L (40-136); BILIRUBIN,TOTAL 0.2 MG/DL (0.1-1.0); BUN/CREATININE RATIO 13; CARBON DIOXIDE 22 MMOL/L (21-32); CHLORIDE 108 MMOL/L (98-107); CREATININE SERUM 0.62 MG/DL (0.60-1.30); GFR ESTIMATED > 60; GLUCOSE 154 MG/DL (70-105); POTASSIUM 3.6 MMOL/L (3.6-5.0); SODIUM 138 MMOL/L (135-145); TOTAL PROTEIN 7.3 GM/DL (6.4-8.2)
[2020-12-17] MEDS: NS IV 1000 ML 1,000 ML IV SCH ×3 (06:08→22:39)
[2020-12-17] MEDS: RT-ALBUTEROL/IPRATROPIUM 3 ML (DUONEB) VIAL INH SCH ×2 (08:02→17:51)
[2020-12-17] MEDS: SILVER SULFADIAZINE 400 GM CREAM TOP SCH ×2 (08:32→20:31)
[2020-12-17] MEDS: PANTOPRAZOLE 20 MG TABLET (PROTONIX) PO SCH ×2 (08:32→20:30)
[2020-12-17] MEDS: VENlafaxine 75 MG (EFFEXOR) TAB PO SCH ×2 (08:32→17:30)
[2020-12-17] MEDS: ASPIRIN E.C. 81 MG (ECOTRIN) TAB PO SCH (08:32)
[2020-12-17] MEDS: polyethylene glycoL POWDER 17 GM (MIRALAX) PACK PO SCH (08:32)
--- NOTE | 2020-12-17 12:32 | Progress Note - Hospitalist ---
Subjective HPI/CC On Admission Date Seen by Provider: December 17, 2020 Time Seen by Provider: 08:00 Patient oriented x3 appears to be in no acute distress. She reports she is back to baseline significant spasm of the lower extremities and requests that she be placed back on baclofen which she is taking chronically for many years. She voices no other complaints. Focused Exam Time of Focused Exam: 09:18 Objective Exam Vital Signs Vital Signs Date Time Temp Pulse Resp B/P (MAP) Pulse Ox O2 Delivery O2 Flow Rate FiO2 12/17/20 11:41 36.8 87 22 179/81 (113) 93 Nasal Cannula 2.00 12/14/20 16:57 28 Capillary Refill : Less Than 3 Seconds General Appearance: No Apparent Distress, Obese Respiratory: Chest Non Tender, Lungs Clear, Normal Breath Sounds, No Accessory Muscle Use, No Respiratory Distress Cardiovascular: Regular Rate, Rhythm, No Edema, No Gallop, No JVD, No Murmur, Normal Peripheral Pulses Results/Procedures Lab Laboratory Tests 12/17/20 05:05 Patient resulted labs reviewed. Assessment/Plan Assessment and Plan Assess & Plan/Chief Complaint 1. Delirium resolved UA not consistent with urinary tract infection diagnosis of sepsis questionable if it was present it is resolved. Patient apparently had received several doses of morphine which may be the underlying cause. 2. Mild hypercalcemia possibly contributing to #1 as well considering history of colon cancer in addition to elevated alkaline phosphatase level is a little concerning for recurrence. Do not know the status and whether or not this patient has had known recurrence of her disease. Repeat CMP in the morning. Continue IV fluids can advance diet as tolerated to 1500-calorie ADA. Plan on discharge in the morning. 3. Longstanding lower extremity trauma related paraplegia with secondary muscle spasm resume baclofen. MEENA DEMARCO MD December 17, 2020 12:32
[2020-12-17] MEDS: BACLOFEN 10 MG (LIORESAL) TAB PO SCH ×3 (13:01→20:30)
[2020-12-17] MEDS: doxAzosin 2 MG (CARDURA) TAB PO SCH (20:30)
[2020-12-17] MEDS: LATANOPROST 0.005% (XALATAN) OPHTH SOLN 2.5 ML OU SCH (20:31)
[2020-12-18] MEDS: MEROPENEM 500 MG/SWFI 10 ML IV PUSH IV SCH ×6 (03:31→14:31)
[2020-12-18 03:39] VITALS: BP 146/66
[2020-12-18] MEDS: ENOXAPARIN 60 MG/0.6 ML (LOVENOX) SYR SC SCH (05:48)
[2020-12-18] MEDS: NS IV 1000 ML 1,000 ML IV SCH ×2 (05:48→12:25)
[2020-12-18 06:03] LABS: BASOPHILS # (AUTO) 0.1 10^3/uL (0.0-0.1); BASOPHILS % (AUTO) 1 % (0-10); EOSINOPHILS # (AUTO) 0.3 10^3/uL (0.0-0.3); EOSINOPHILS % (AUTO) 4 % (0-10); HEMATOCRIT 36 % (35-52); HEMOGLOBIN 10.5 g/dL (11.5-16.0); LYMPHOCYTES # (AUTO) 2.3 10^3/uL (1.0-4.0); LYMPHOCYTES % (AUTO) 32 % (12-44); MEAN CORPUSCULAR HEMOGLOBIN 25 pg (25-34); MEAN CORPUSCULAR HGB CONC 29 g/dL (32-36); MEAN CORPUSCULAR VOLUME 86 fL (80-99); MEAN PLATELET VOLUME 9.3 fL (9.0-12.2); MONOCYTES # (AUTO) 0.4 10^3/uL (0.0-1.0); MONOCYTES % (AUTO) 6 % (0-12); NEUTROPHILS # (AUTO) 4.2 10^3/uL (1.8-7.8); NEUTROPHILS % (AUTO) 57 % (42-75); PLATELET COUNT 357 10^3/uL (130-400); WHITE BLOOD COUNT 7.3 10^3/uL (4.3-11.0)
[2020-12-18 06:25] LABS: ALANINE AMINOTRANSFERASE 15 U/L (0-55); ALBUMIN 2.7 GM/DL (3.2-4.5); ALKALINE PHOSPHATASE 137 U/L (40-136); BILIRUBIN,TOTAL 0.2 MG/DL (0.1-1.0); BUN/CREATININE RATIO 12; CALCIUM 9.2 MG/DL (8.5-10.1); CARBON DIOXIDE 25 MMOL/L (21-32); CHLORIDE 106 MMOL/L (98-107); CREATININE SERUM 0.73 MG/DL (0.60-1.30); GFR ESTIMATED > 60; GLUCOSE 182 MG/DL (70-105); POTASSIUM 3.6 MMOL/L (3.6-5.0); SODIUM 138 MMOL/L (135-145); TOTAL PROTEIN 7.6 GM/DL (6.4-8.2)
[2020-12-18 08:00] VITALS: BP 146/93
[2020-12-18] MEDS: RT-ALBUTEROL/IPRATROPIUM 3 ML (DUONEB) VIAL INH SCH (08:06)
[2020-12-18] MEDS: ASPIRIN E.C. 81 MG (ECOTRIN) TAB PO SCH (09:09)
[2020-12-18] MEDS: SILVER SULFADIAZINE 400 GM CREAM TOP SCH (09:09)
[2020-12-18] MEDS: VENlafaxine 75 MG (EFFEXOR) TAB PO SCH (09:09)
[2020-12-18] MEDS: PANTOPRAZOLE 20 MG TABLET (PROTONIX) PO SCH (09:09)
[2020-12-18] MEDS: polyethylene glycoL POWDER 17 GM (MIRALAX) PACK PO SCH (09:09)
[2020-12-18] MEDS: BACLOFEN 10 MG (LIORESAL) TAB PO SCH ×2 (09:09→11:49)
[2020-12-18] MEDS ORDERED: OXYC5TAB PO (10:23)
[2020-12-18] MEDS ORDERED: AMOX-358 PO (10:23)
[2020-12-18] MEDS ORDERED: ALPR0.5T7 PO (10:23)
--- NOTE | 2020-12-18 10:24 | Discharge Summary ---
Discharge Summary Hospital Course Was the Problem List Reviewed?: Yes Problems/Dx: (1) Delirium Status: Acute (2) Sepsis Status: Acute Qualifiers: Qualified Codes: A41.9 - Sepsis, unspecified organism (3) UTI (urinary tract infection) due to urinary indwelling catheter Status: Acute Qualifiers: Qualified Codes: T83.510A - Infection and inflammatory reaction due to cystostomy catheter, initial encounter; N39.0 - Urinary tract infection, site not specified (4) Paraplegia Status: Chronic (5) Diabetes mellitus Status: Chronic Qualifiers: Qualified Codes: E11.65 - Type 2 diabetes mellitus with hyperglycemia; 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 Pt was placed on broad-spectrum antibiotics and stabilized and improved. She had stable labs and all the bacteria showed sensitivity to Augmentin so that antibiotic was sent in to complete for five days and Dr. Up was updated and she will go back on hospice at the [facility]. Labs and Pending Lab Test: Laboratory Tests 12/18/20 05:14: White Blood Count 7.3, Red Blood Count 4.21, Hemoglobin 10.5L, Hematocrit 36, Mean Corpuscular Volume 86, Mean Corpuscular Hemoglobin 25, Mean Corpuscular Hemoglobin Concent 29L, Red Cell Distribution Width 15.9H, Platelet Count 357, Mean Platelet Volume 9.3, Immature Granulocyte % (Auto) 0, Neutrophils (%) (Auto) 57, Lymphocytes (%) (Auto) 32, Monocytes (%) (Auto) 6, Eosinophils (%) (Auto) 4, Basophils (%) (Auto) 1, Neutrophils # (Auto) 4.2, Lymphocytes # (Auto) 2.3, Monocytes # (Auto) 0.4, Eosinophils # (Auto) 0.3, Basophils # (Auto) 0.1, Immature Granulocyte # (Auto) 0.0, Sodium Level 138, Potassium Level 3.6, Chloride Level 106, Carbon Dioxide Level 25, Anion Gap 7, Blood Urea Nitrogen 9, Creatinine 0.73, Estimat Glomerular Filtration Rate > 60, BUN/Creatinine Ratio 12, Glucose Level 182H, Calcium Level 9.2, Corrected Calcium 10.2H, Total Bilirubin 0.2, Aspartate Amino Transf (AST/SGOT) 18, Alanine Aminotransferase (ALT/SGPT) 15, Alkaline Phosphatase 137H, Total Protein 7.6, Albumin 2.7L Microbiology 12/14/20 Gram Stain - Final, Resulted 12/14/20 Wound Culture - Preliminary, Resulted Mixed Bacterial Monica Staphylococcus aureus Gram Negative Adrian 12/14/20 Blood Culture - Preliminary, Resulted No growth 12/14/20 Urine Culture - Final, Complete Escherichia coli Citrobacter koseri Proteus mirabilis Home Meds Active Augmentin 875-125 Tablet (Amoxicillin/Potassium Clav) 1 Each Tablet 1 Each PO BID Oxycodone HCl 5 Mg Tablet 5 Mg PO Q8H PRN Alprazolam 0.5 Mg Tablet 0.25 Mg PO 0100,1300 Reported Tylenol (Acetaminophen) 325 Mg Capsule 650 Mg PO Q6H PRN Ondansetron HCl 4 Mg Tablet 4 Mg PO Q4H Mometasone Furoate 17 Gm Max.pump 1 Applic TOP DAILY PRN APPLY TO THE SCALP Refresh P.m. Ointment P-F (Petrolat,Wht/Min Oil/Sod Chl) 3.5 Gm Oint...g. 1 Applic OU Q8H PRN Sumatriptan Succinate 100 Mg Tablet 100 Mg PO DAILY PRN Hyoscyamine Sulfate 0.125 Mg Tablet 0.125 Mg PO Q6H PRN Bisacodyl 5 Mg Tablet.dr 10 Mg PO DAILY PRN Diphenhydramine HCl 25 Mg Tablet 25 Mg PO Q6H PRN Albuterol Sulfate 2.5 Mg/0.5 Ml Vial.neb 2.5 Mg INH Q4H PRN Novolog Flexpen (Insulin Aspart) 300 Units/3 Ml Solution Units SC AC USE PER SLIDING SCALE Levemir Flextouch (Insulin Detemir) 100 Unit/1 Ml Insuln.pen 22 Units SC BID Baclofen 20 Mg Tablet 20 Mg PO QID Venlafaxine HCl 75 Mg Tab 75 Mg PO BID Omeprazole 20 Mg Capsule. 20 Mg PO BID Cipro (Ciprofloxacin HCl) 500 Mg Tablet 500 Mg PO BID START DATE 12-10-2020 #14/7 DAY SUPPLY Vitamin B-12 (Cyanocobalamin (Vitamin B-12)) 500 Mcg Tablet 1,000 Mcg PO DAILY Montelukast Sodium 10 Mg Tablet 10 Mg PO DAILY Probiotic (L.acidoph & Paracasei,B.lactis) 1 Each Capsule 2 Each PO DAILY Miralax (Polyethylene Glycol 3350) 17 Gm Powd.pack 8.5 Gm PO DAILY Multivitamins with Minerals (Multivitamin with Minerals) 1 Each Tablet 1 Each PO 1200 Meloxicam 7.5 Mg Tablet 7.5 Mg PO DAILY Xalatan (Latanoprost) 2.5 Ml Drops 1 Drop OU HS Folic Acid 1 Mg Tablet 1 Mg PO DAILY Flonase Allergy Relief (Fluticasone Propionate) 9.9 Ml Max.susp 2 Max NS DAILY Doxazosin Mesylate 2 Mg Tablet 2 Mg PO HS Aspirin EC (Aspirin) 81 Mg Tablet. 81 Mg PO DAILY Nystop (Nystatin) 60 Gm Powder 1 Applic TOP BID PRN PRN APPLY TO GROIN AND ABDOMINAL FOLDS Assessment/Pt Instructions Hospice with Dr Up at [facility] Discharge Planning: <30 minutes discharge planning Discharge Instructions Discharge Diet: No Restrictions Discharge Physical Examination Vital Signs Vital Signs Date Time Temp Pulse Resp B/P (MAP) Pulse Ox O2 Delivery O2 Flow Rate FiO2 12/18/20 08:12 91 Nasal Cannula 2.00 12/18/20 08:00 36.5 95 20 146/93 (110) 12/14/20 16:57 28 General Appearance: No Apparent Distress, WD/WN, Chronically ill, Obese Respiratory: Lungs Clear Cardiovascular: Regular Rate, Rhythm Neurologic/Psychiatric: Alert, Oriented x3 Allergies: Coded Allergies: exenatide (Verified Allergy, Unknown, nausea and vomiting, 01/09/19) liraglutide (Verified Allergy, Unknown, nausea and vomiting, abdominal pain, 01/09/19) nitrofurantoin (Verified Allergy, Unknown, diarrhea, 01/09/19) terconazole (Verified Allergy, Unknown, 01/09/19) Discharge Summary Date of Admission Dec 14, 2020 at 12:55 Date of Discharge Discharge Date: December 18, 2020 BHARTI DAILY DO December 18, 2020 10:24
[2020-12-18] MEDS: ALPRAZolam 0.5 MG (XANAX) TAB PO SCH (11:49)
[2020-12-18 12:18] VITALS: BP 192/84
== END 2020-12-18 15:15 | disposition hospice, inpatient (51) | DRG 698 ==
LOC: EDUNIT# 07:35 → ER FS 07:36 → 4TH 12:55
PROVIDERS: ADMIT Family Medicine; ATTEND Internal Medicine
DX: T83.510A Infection and inflammatory reaction due to cystostomy catheter, initial encounter (principal); L89.323 Pressure ulcer of left buttock, stage 3; L89.313 Pressure ulcer of right buttock, stage 3; A41.9 Sepsis, unspecified organism; N39.0 Urinary tract infection, site not specified; C18.9 Malignant neoplasm of colon, unspecified; Z68.44 Body mass index [BMI] 60.0-69.9, adult; Z66 Do not resuscitate; Z88.8 Allergy status to other drugs, medicaments and biological substances; Z79.4 Long term (current) use of insulin; F41.9 Anxiety disorder, unspecified; N31.9 Neuromuscular dysfunction of bladder, unspecified; J44.9 Chronic obstructive pulmonary disease, unspecified; Z86.718 Personal history of other venous thrombosis and embolism; M19.90 Unspecified osteoarthritis, unspecified site; Z87.891 Personal history of nicotine dependence; Z90.49 Acquired absence of other specified parts of digestive tract; Z93.3 Colostomy status; E66.01 Morbid (severe) obesity due to excess calories; E83.52 Hypercalcemia; T14.8XXS Other injury of unspecified body region, sequela
CPT/HCPCS: 36415; 71045; 80053; 81000; 83605; 85007; 85025; 85027; 86141; 87040; 87070; 87077; 87088; 87186; 87205; 94640; 94760

== ENCOUNTER 2021-01-01 16:57 | Emergency (ER) | payer MEDICARE, MEDICAID ==
[~2021-01-01 16:57] MED LIST changes: +ACET325C7 PO; +ALB0.5V INH; +ALPR0.5T7 PO; +AMOX-358 PO; +ASPI-1238 PO; +BACL20TA PO; +BISA5TAB8 PO; +CIPR-225 PO; +CYAN500T8 PO; +DIPH25TA31 PO; +DOXA2TAB2 PO; +FLUT9.9S NS; +FOLI1TAB33 PO; +HYOS-20 PO; +INSU100I14 SC; +INSU100I29 SC; +L.AC1CAP6 PO; +LATA2.5D19 OU; +MELO7.5T46 PO; +MOME17SP9 TOP; +MONT10TA32 PO; +MULT-166 PO; +NYST60PO TOP; +OMEP20CA18 PO; +ONDA-105 PO; +OXYC5TAB PO; +PETR3.5O OU; +POLY17PO6 PO; +SUMA100T3 PO; +VNL75T PO
[2021-01-01] MEDS ORDERED: NS IV 1000 ML 1,000 ML IV STA ×2 (17:08→21:08)
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
--- NOTE | 2021-01-01 17:44 | Diagnostic Imaging Report ---
PROCEDURE: CT head without contrast. TECHNIQUE: Multiple contiguous axial images were obtained through the brain without the use of intravenous contrast. Auto Exposure Controls were utilized during the CT exam to meet ALARA standards for radiation dose reduction. INDICATION: Confusion. This study is less than optimal due to motion artifact. There is no mass, shift of the midline or hemorrhage to suggest an acute intracranial abnormality. The ventricles are not abnormally dilated and similar in size to the prior of 05/24/2019. The bone windows show no evidence for a fracture or for a destructive lesion. The orbits are symmetrical and within normal limits. There is a 1.2 cm area of mucosal thickening along the posterior aspect of the right maxillary antrum. There is also minimal mucosal thickening of the medial wall of left maxillary antrum. The sinuses, where visualized, are otherwise clear. IMPRESSION: 1. There is no evidence for an acute intracranial abnormality. There is no sign of a mass lesion either. 2. If clinical concern regarding an underlying abnormality persists, then MRI would be recommended for further study. Dictated by: Dictated on workstation # [id number]
--- NOTE | 2021-01-01 17:54 | Diagnostic Imaging Report ---
EXAMINATION: Erect AP chest at 5:44 PM INDICATION: Confusion The heart is stable in size when compared to the prior exam of 12/14/2020. The lungs are generally clear. There is no sign of failure, pneumonia or pleural effusion. The mediastinum is not widened. The osseous structures are intact. Orthopedic hardware is again seen overlying the thoracic spine. IMPRESSION: There is no evidence for active disease. Dictated by: Dictated on workstation # [id number]
[2021-01-01 17:57] LABS: ALBUMIN 3.1 GM/DL (3.2-4.5); BILIRUBIN,TOTAL 0.3 MG/DL (0.1-1.0); CALCIUM 9.6 MG/DL (8.5-10.1); CREATININE SERUM 1.11 MG/DL (0.60-1.30); POTASSIUM 5.9 MMOL/L (3.6-5.0); TOTAL PROTEIN 8.1 GM/DL (6.4-8.2)
[2021-01-01 18:07] LABS: HEMATOCRIT 42 % (35-52); HEMOGLOBIN 11.9 G/DL (11.5-16.0); MEAN CORPUSCULAR HEMOGLOBIN 25 PG (25-34); MEAN CORPUSCULAR HGB CONC 28 G/DL (32-36); MEAN CORPUSCULAR VOLUME 88 FL (80-99); MEAN PLATELET VOLUME 9.7 FL (7.4-10.4); PLATELET COUNT 356 10^3/uL (130-400); WHITE BLOOD COUNT 9.2 10^3/uL (4.3-11.0)
[2021-01-01 18:08] LABS: BASOPHILS # (AUTO) 0.1 10^3/uL (0.0-0.1); BASOPHILS % (AUTO) 1 % (0-10); EOSINOPHILS # (AUTO) 0.2 10^3/uL (0.0-0.3); EOSINOPHILS % (AUTO) 2 % (0-10); LYMPHOCYTES # (AUTO) 1.8 X 10^3 (1.0-4.0); LYMPHOCYTES % (AUTO) 20 % (12-44); MONOCYTES # (AUTO) 0.5 X 10^3 (0.0-1.0); MONOCYTES % (AUTO) 6 % (0-12); NEUTROPHILS # (AUTO) 6.5 X 10^3 (1.8-7.8); NEUTROPHILS % (AUTO) 71 % (42-75)
[2021-01-01 18:23] LABS: CLARITY,URINE CLOUDY; COLOR,URINE YELLOW; GLUCOSE, URINE (UA) NEGATIVE (NEGATIVE); KETONES,URINE TRACE (NEGATIVE); PROTEIN,URINE 2+ (NEGATIVE)
[2021-01-01 18:24] LABS: NITRITE,URINE NEGATIVE (NEGATIVE)
[2021-01-01 18:29] LABS: BACTERIA,URINE LARGE /HPF; BILIRUBIN,URINE 1+ (NEGATIVE); HYALINE CASTS, URINE RARE /LPF; LEUKOCYTE ESTERASE ,URINE 3+ (NEGATIVE)
[2021-01-01] MEDS ORDERED: MEROPENEM 1,000 MG in WATER (STERILE) FOR INJECTION 20 ML IV STA (19:04)
[2021-01-01] MEDS ORDERED: VANCOMYCIN INJECTION 1,000 MG in NS (IVPB) 250 ML IV STA (19:04)
[2021-01-01] MEDS ORDERED: NS IV 1000 ML 1,000 ML ONE (21:01)
[2021-01-01 23:30] VITALS: BP 124/64
== END 2021-01-01 23:30 | disposition short-term general hospital (02) ==
LOC: EDUNIT# 16:57 → ER FS 17:01
DX: T83.518A Infection and inflammatory reaction due to other urinary catheter, initial encounter (principal); N30.80 Other cystitis without hematuria; E86.0 Dehydration; L89.90 Pressure ulcer of unspecified site, unspecified stage; R41.0 Disorientation, unspecified; N17.9 Acute kidney failure, unspecified; E87.5 Hyperkalemia; R79.89 Other specified abnormal findings of blood chemistry; G82.20 Paraplegia, unspecified; E11.9 Type 2 diabetes mellitus without complications; J44.9 Chronic obstructive pulmonary disease, unspecified; F41.9 Anxiety disorder, unspecified; F31.9 Bipolar disorder, unspecified; D64.9 Anemia, unspecified; E66.9 Obesity, unspecified; Z87.891 Personal history of nicotine dependence; Z79.4 Long term (current) use of insulin; Z79.899 Other long term (current) drug therapy; Z79.51 Long term (current) use of inhaled steroids; Z88.8 Allergy status to other drugs, medicaments and biological substances; Z88.1 Allergy status to other antibiotic agents
CPT/HCPCS: 36415; 70450; 71045; 80053; 81000; 83605; 85025; 86141; 87040; 87077; 87088

== ENCOUNTER → 2021-02-23 | Outpatient (CLI) | payer MEDICARE, MEDICAID ==
[~2021-02-23] MED LIST changes: +CATHETER FLUSH 10 ML SYR IV PRN
--- NOTE | 2021-02-23 10:44 | Diagnostic Imaging Report ---
INDICATION: Gallbladder disease. Patient was administered 5.5 mCi technetium 99m Choletec intravenously and imaging over the abdomen was performed. At 60 minutes patient ingested 8 ounces of Ensure and the gallbladder ejection fraction was calculated. There is homogeneous uptake of activity by the liver with prompt excretion of activity into the gallbladder and common duct. There is normal passage of activity into the small bowel. Gallbladder ejection fraction is lower limits of normal at 35%. IMPRESSION: 1. Patent cystic duct and common bile duct. 2. Lower limits of normal gallbladder ejection fraction of 35%. Dictated by: Dictated on workstation # [id number]
--- NOTE | 2021-02-23 10:58 | Diagnostic Imaging Report ---
PROCEDURE: CT abdomen and pelvis without contrast. TECHNIQUE: Multiple contiguous axial images were obtained through the abdomen and pelvis without the use of intravenous contrast. Auto Exposure Controls were utilized during the CT exam to meet ALARA standards for radiation dose reduction. INDICATION: Right upper quadrant pain. COMPARISON: No prior studies are available for comparison. The lung bases are clear. The liver and gallbladder are unremarkable. There is no biliary ductal dilatation. The pancreas and spleen are unremarkable. There is no adrenal mass. The kidneys are unremarkable. No calculi or hydronephrosis is detected. The aorta is calcified but nonaneurysmal. There appears to be postoperative changes from right hemicolectomy. There is moderate stool throughout the colon. No bowel obstruction is seen. There is an ostomy in the left lower quadrant and right upper quadrant. No free fluid or fluid collection in the abdomen or pelvis is seen. There are no inflammatory changes seen. The uterus contains an IUD. No definite abdominal or pelvic lymphadenopathy is identified. Other postsurgical changes in the lower thoracic and lumbar spine. IMPRESSION: Postoperative changes in the abdomen and pelvis. No acute feature is identified. Dictated by: Dictated on workstation # [id number]
== END ==
LOC: CARD 08:00
PROVIDERS: ATTEND Family Medicine
DX: K82.9 Disease of gallbladder, unspecified (principal)
CPT/HCPCS: 74176; 78227; A9537

== ENCOUNTER 2021-03-17 17:48 | Emergency (ER) | payer MEDICARE, MEDICAID ==
[~2021-03-17 17:48] MED LIST changes: -CATHETER FLUSH 10 ML SYR IV PRN
[2021-03-17 18:29] LABS: BASOPHILS # (AUTO) 0.1 10^3/uL (0.0-0.1); BASOPHILS % (AUTO) 0 % (0-10); EOSINOPHILS # (AUTO) 0.1 10^3/uL (0.0-0.3); EOSINOPHILS % (AUTO) 0 % (0-10); HEMATOCRIT 37 % (35-52); HEMOGLOBIN 11.2 G/DL (11.5-16.0); LYMPHOCYTES # (AUTO) 0.7 X 10^3 (1.0-4.0); LYMPHOCYTES % (AUTO) 4 % (12-44); MEAN CORPUSCULAR HEMOGLOBIN 25 PG (25-34); MEAN CORPUSCULAR HGB CONC 30 G/DL (32-36); MEAN CORPUSCULAR VOLUME 83 FL (80-99); MEAN PLATELET VOLUME 9.1 FL (7.4-10.4); MONOCYTES # (AUTO) 0.6 X 10^3 (0.0-1.0); MONOCYTES % (AUTO) 3 % (0-12); NEUTROPHILS # (AUTO) 19.2 X 10^3 (1.8-7.8); NEUTROPHILS % (AUTO) 92 % (42-75); PLATELET COUNT 482 10^3/uL (130-400); WHITE BLOOD COUNT 20.8 10^3/uL (4.3-11.0)
[2021-03-17 18:42] LABS: INR 1.1 (0.8-1.4); PROTHROMBIN TIME PATIENT 14.2 SEC (12.2-14.7)
[2021-03-17 18:53] LABS: CALCIUM 9.8 MG/DL (8.5-10.1); CREATININE SERUM 0.73 MG/DL (0.60-1.30)
[2021-03-17 18:54] LABS: ALBUMIN 3.1 GM/DL (3.2-4.5); BILIRUBIN,TOTAL 0.2 MG/DL (0.1-1.0); TOTAL PROTEIN 7.9 GM/DL (6.4-8.2)
[2021-03-17 18:54] LABS: BACTERIA,URINE LARGE /HPF; BILIRUBIN,URINE NEGATIVE (NEGATIVE); CLARITY,URINE SLIGHTLY CLOUDY; COLOR,URINE YELLOW; GLUCOSE, URINE (UA) NEGATIVE (NEGATIVE); KETONES,URINE NEGATIVE (NEGATIVE); LEUKOCYTE ESTERASE ,URINE NEGATIVE (NEGATIVE); NITRITE,URINE POSITIVE (NEGATIVE); PROTEIN,URINE 2+ (NEGATIVE)
--- NOTE | 2021-03-17 19:23 | ED General ---
General Chief Complaint: Fever-Adult/Adol Stated Complaint: SOB Source of Information: Patient Exam Limitations: No Limitations History of Present Illness Date Seen by Provider: Mar 17, 2021 Time Seen by Provider: 18:25 Initial Comments Here from detention with reported fever. Patient is in facility with Covid positives. One of her primary caretakers was found to be Covid positive. Patient has had vaccine with [employer] in August. Does also have history of frequent urinary tract infections. Fever apparently 102 today. Patient states that she does not feel well with mild runny nose. She was swabbed yesterday and today and both were negative at the facility. Denies nausea, vomiting or diarrhea. She has urostomy. Noted to have decreased oxygenation that improved with her BiPAP or with nasal cannula. Timing/Duration: 1-2 Days, Getting Worse Severity: Moderate Associated Systoms: No Cough; Fever/Chills; No Nausea/Vomiting; Shortness of Air, Weakness Allergies and Home Medications Allergies Coded Allergies: exenatide (Verified Allergy, Unknown, nausea and vomiting, 01/09/19) liraglutide (Verified Allergy, Unknown, nausea and vomiting, abdominal pain, 01/09/19) nitrofurantoin (Verified Allergy, Unknown, diarrhea, 01/09/19) terconazole (Verified Allergy, Unknown, 01/09/19) Home Medications Acetaminophen 325 Mg Capsule, 650 MG PO Q6H PRN for PAIN-MILD (1-4), (Reported) Albuterol Sulfate 2.5 Mg/0.5 Ml Vial.neb, 2.5 MG INH Q4H PRN for SHORTNESS OF BREATH, (Reported) Alprazolam 0.5 Mg Tablet, 0.25 MG PO 0100,1300 Prescribed by: BHARTI DAILY on 12/18/20 1023 Amoxicillin/Potassium Clav 1 Each Tablet, 1 EACH PO BID Prescribed by: BHARTI DAILY on 12/18/20 1023 Aspirin 81 Mg Tablet.dr, 81 MG PO DAILY, (Reported) Baclofen 20 Mg Tablet, 20 MG PO QID, (Reported) Bisacodyl 5 Mg Tablet.dr, 10 MG PO DAILY PRN for CONSTIPATION-4TH LINE, (Reported) Cefdinir 300 Mg Capsule, 300 MG PO BID Prescribed by: ZULAY VILLASENOR on 03/17/212225 Cyanocobalamin (Vitamin B-12) 500 Mcg Tablet, 1,000 MCG PO DAILY, (Reported) Diphenhydramine HCl 25 Mg Tablet, 25 MG PO Q6H PRN for INSOMNIA/ITCHING, (Reported) Doxazosin Mesylate 2 Mg Tablet, 2 MG PO HS, (Reported) Fluticasone Propionate 9.9 Ml Waka.susp, 2 SPRAY NS DAILY, (Reported) Folic Acid 1 Mg Tablet, 1 MG PO DAILY, (Reported) Hyoscyamine Sulfate 0.125 Mg Tablet, 0.125 MG PO Q6H PRN for BLADDER PAIN, (Reported) Insulin Aspart 300 Units/3 Ml Solution, UNITS SC AC, (Reported) USE PER SLIDING SCALE Insulin Detemir 100 Unit/1 Ml Insuln.pen, 22 UNITS SC BID, (Reported) Reymundoacidoph & Dolores Moseleylactis 1 Each Capsule, 2 EACH PO DAILY, (Reported) Latanoprost 2.5 Ml Drops, 1 DROP OU HS, (Reported) Meloxicam 7.5 Mg Tablet, 7.5 MG PO DAILY, (Reported) Mometasone Furoate 17 Gm Waka.pump, 1 APPLIC TOP DAILY PRN for ITCHING, (Reported) APPLY TO THE SCALP Montelukast Sodium 10 Mg Tablet, 10 MG PO DAILY, (Reported) Multivitamin with Minerals 1 Each Tablet, 1 EACH PO 1200, (Reported) Nystatin 60 Gm Powder, 1 APPLIC TOP BID PRN PRN for SOILING AND SATURATION, (Reported) APPLY TO GROIN AND ABDOMINAL FOLDS Omeprazole 20 Mg Capsule.dr, 20 MG PO BID, (Reported) Ondansetron HCl 4 Mg Tablet, 4 MG PO Q4H, (Reported) Oxycodone HCl 5 Mg Tablet, 5 MG PO Q8H PRN for PAIN-SEVERE (8-10) Prescribed by: BHARTI DAILY on 12/18/20 1023 Petrolat,Wht/Min Oil/Sod Chl 3.5 Gm Oint...g., 1 APPLIC OU Q8H PRN for DRY EYES, (Reported) Polyethylene Glycol 3350 17 Gm Powd.pack, 8.5 GM PO DAILY, (Reported) Sumatriptan Succinate 100 Mg Tablet, 100 MG PO DAILY PRN for MIGRAINE, (Reported) Venlafaxine HCl 75 Mg Tab, 75 MG PO BID, (Reported) Patient Home Medication List Home Medication List Reviewed: Yes Review of Systems Review of Systems Constitutional: see HPI, chills, fever EENTM: no symptoms reported Respiratory: No cough; short of breath Cardiovascular: no symptoms reported Gastrointestinal: No abdominal pain, No nausea, No vomiting Genitourinary: decreased output Musculoskeletal: back pain, joint pain All Other Systems Reviewed Negative Unless Noted: Yes Past Dogxxez-Cnupne-Dzrymc Hx Patient Social History Tobacco Use?: No Substance use?: No Alcohol Use?: No Seasonal Allergies Seasonal Allergies: No Past Medical History Surgeries: Yes (heart cath ) Appendectomy, Bladder Surgery, Bowel Surgery, Orthopedic Respiratory: Yes (questionable GERALDINE) COPD Cardiac: Yes Angina, Deep Vein Thrombosis, High Cholesterol Neurological: Yes (paraplegic) Paralysis, Spinal Cord Injury 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 Disorders: Menstrual Problems [employer] History: IUD Genitourinary: Yes (urostomy) Neurogenic Bladder, UTI-Chronic Gastrointestinal: Yes (Hx colon cancer; colectomy) Musculoskeletal: Yes (paraplegic; carpal tunnel ) Arthritis, Back Injury Endocrine: Yes Diabetes, Insulin dep HEENT: Yes Cataract Cancer: Yes Colon Did You Recieve Any Treatments: Yes What Type of Treatment Did You: Chemotherapy, Radiation, Surgical Intervention Psychosocial: Yes Anxiety, Bipolar, Depression Integumentary: Yes (chronic yeast infections; chronic pressure ulcers; cellulitis) Psoriasis Blood Disorders: Yes (anemia) Adverse Reaction/Blood Tranf: No (JEHOVAHS WITNESS-DOESNT TAKE BLOOD) Family Medical History Reviewed Nursing Family Hx No Pertinent Family Hx Physical Exam-Suspected Sepsis Physical Exam Vital Signs Vital Signs - First Documented 03/17/21 17:53 Temp 38.3 Pulse 120 Resp 26 B/P (MAP) 221/89 (133) Pulse Ox 94 O2 Delivery Nasal Cannula O2 Flow Rate 6.00 Capillary Refill : Height, Weight, BMI Height: 5'4.50" Weight: 319lbs. 0oz. 144.493803ty; BMI Method:Stated General Appearance: No Apparent Distress, Obese HEENT: PERRL/EOMI, Pharyngeal Erythema Neck: Non Tender, Supple Respiratory: Lungs Clear, Normal Breath Sounds Cardiovascular: No Murmur, Tachycardia Gastrointestinal: Non Tender, Soft, Other (Urostomy right of midline in the low abdomen) Back: Normal Inspection, No CVA Tenderness, No Vertebral Tenderness Extremity: Normal Range of Motion, Non Tender Neurologic/Psychiatric: Alert, Oriented x3 Skin: normal color, warm/dry Focused Exam Lactate Level 03/17/21 18:17: Lactic Acid Level 1.24 Lactic Acid Level Progress/Results/Core Measures Suspected Sepsis SIRS Temperature: Pulse: Respiratory Rate: Laboratory Tests 03/17/21 18:17: White Blood Count 20.8H Blood Pressure / Mean: 03/17/21 18:17: Lactic Acid Level 1.24 Laboratory Tests 03/17/21 18:17: Creatinine 0.73, INR Comment 1.1, Platelet Count 482H, Total Bilirubin 0.2 Results/Orders Lab Results Laboratory Tests Test 03/17/21 18:17 03/17/21 18:34 Range/Units White Blood Count 20.8 H 4.3-11.0 10^3/uL Red Blood Count 4.43 4.35-5.85 10^6/uL Hemoglobin 11.2 L 11.5-16.0 G/DL Hematocrit 37 35-52 % Mean Corpuscular Volume 83 80-99 FL Mean Corpuscular Hemoglobin 25 25-34 PG Mean Corpuscular Hemoglobin Concent 30 L 32-36 G/DL Red Cell Distribution Width 17.6 H 10.0-14.5 % Platelet Count 482 H 130-400 10^3/uL Mean Platelet Volume 9.1 7.4-10.4 FL Immature Granulocyte % (Auto) 1 % Neutrophils (%) (Auto) 92 H 42-75 % Lymphocytes (%) (Auto) 4 L 12-44 % Monocytes (%) (Auto) 3 0-12 % Eosinophils (%) (Auto) 0 0-10 % Basophils (%) (Auto) 0 0-10 % Neutrophils # (Auto) 19.2 H 1.8-7.8 X 10^3 Lymphocytes # (Auto) 0.7 L 1.0-4.0 X 10^3 Monocytes # (Auto) 0.6 0.0-1.0 X 10^3 Eosinophils # (Auto) 0.1 0.0-0.3 10^3/uL Basophils # (Auto) 0.1 0.0-0.1 10^3/uL Immature Granulocyte # (Auto) 0.1 0.0-0.1 10^3/uL Neutrophils % (Manual) 96 % Lymphocytes % (Manual) 3 % Eosinophils % (Manual) 1 % Toxic Granulation 2+ Prothrombin Time 14.2 12.2-14.7 SEC INR Comment 1.1 0.8-1.4 Activated Partial Thromboplast Time 28 24-35 SEC Sodium Level 130 L 135-145 MMOL/L Potassium Level 5.0 3.6-5.0 MMOL/L Chloride Level 100 98-107 MMOL/L Carbon Dioxide Level 22 21-32 MMOL/L Anion Gap 8 5-14 MMOL/L Blood Urea Nitrogen 30 H 7-18 MG/DL Creatinine 0.73 0.60-1.30 MG/DL Estimat Glomerular Filtration Rate 79 BUN/Creatinine Ratio 41 Glucose Level 322 H 70-105 MG/DL Lactic Acid Level 1.24 0.50-2.00 MMOL/L Calcium Level 9.8 8.5-10.1 MG/DL Corrected Calcium 10.5 H 8.5-10.1 MG/DL Total Bilirubin 0.2 0.1-1.0 MG/DL Aspartate Amino Transf (AST/SGOT) 15 5-34 U/L Alanine Aminotransferase (ALT/SGPT) 14 0-55 U/L Alkaline Phosphatase 202 H 40-136 U/L Total Protein 7.9 6.4-8.2 GM/DL Albumin 3.1 L 3.2-4.5 GM/DL SARS-CoV-2 RNA (RT-PCR) Not Detected Not Detecte Urine Color YELLOW Urine Clarity SLIGHTLY CLOUDY Urine pH 8.0 5-9 Urine Specific Gilman 1.015 L 1.016-1.022 Urine Protein 2+ H NEGATIVE Urine Glucose (UA) NEGATIVE NEGATIVE Urine Ketones NEGATIVE NEGATIVE Urine Nitrite POSITIVE H NEGATIVE Urine Bilirubin NEGATIVE NEGATIVE Urine Urobilinogen 0.2 < = 1.0 MG/DL Urine Leukocyte Esterase NEGATIVE NEGATIVE Urine RBC (Auto) 1+ H NEGATIVE Urine RBC NONE /HPF Urine WBC 10-25 H /HPF Urine Crystals NONE /LPF Urine Bacteria LARGE H /HPF Urine Casts NONE /LPF Urine Mucus SMALL H /LPF Urine Culture Indicated NO My Orders Orders - ZULAY VILLASENOR MD Cbc With Automated Diff (03/17/21 18:23) Comprehensive Metabolic Panel (03/17/21 18:23) Blood Culture (03/17/21 18:23) Sputum Culture (03/17/21 18:23) Urinalysis (03/17/21 18:23) Urine Culture (03/17/21 18:23) Protime With Inr (03/17/21 18:23) Partial Thromboplastin Time (03/17/21 18:23) Chest 1 View Ap/Pa Only (03/17/21 18:23) Ed Iv/Invasive Line Start (03/17/21 18:23) Vital Signs Adult Sepsis Patie Q15M (03/17/21 18:23) O2 (03/17/21 18:23) Remove Rings In Anticipation O (03/17/21 18:23) Lactic Acid Analyzer (03/17/21 18:23) Manual Differential (03/17/21 18:17) Covid 19 Inhouse Test (03/17/21 18:17) Ceftriaxone (Rocephin) (03/17/21 22:18) Vital Signs/I&O 03/17/21 03/17/21 17:53 17:53 Temp 38.3 Pulse 120 Resp 26 B/P (MAP) 221/89 (133) Pulse Ox 94 94 O2 Delivery Nasal Cannula Nasal Cannula O2 Flow Rate 6.00 6.00 Capillary Refill : Progress Note : Progress Note Seen and evaluated. IV, labs, UA, chest x-ray, blood cultures and lactic acid ordered. We will recheck Covid with PCR testing to evaluate given high risk contacts. Patient also a resident of long-term care facility her status will need to be verified prior to being able to send her back there. Monitor patient. 2219: Covid PCR results are negative. Patient does have urinary tract infection without significant elevation of white count or lactic acid. Blood pressure and oxygen saturation remained in normal range throughout the ED stay. Patient does have urinary tract infection but does not require hospitalization at this point. Historically, Rocephin has been effective and/or third-generation cephalosporins. We will give Rocephin 1 g IV now and send her back to facility on cefdinir. Patient is fully on board with that plan. Discharged back to facility with return precautions. Patient verbalized understanding of instructions and agreement with plan. There is question of atelectasis on chest x-ray which is likely. I do not believe that this represents a pneumonia but patient will be on cefdinir and this will cover either way. Diagnostic Imaging Diagonstic Imaging: Xray Plain Films/CT/US/NM/MRI: chest Comments [facility], [place], [place] NAME: [facility] REC#: [id number] PT STATUS: REG ER : 1950 PHYSICIAN: ZULAY VILLASENOR MD ADMIT DATE: 03/17/21/ER FS Signed Date of Exam:03/17/21 CHEST 1 VIEW AP/PA ONLY EXAMINATION: Chest radiograph, portable AP view. DATE: 03/17/2021 7:13 PM INDICATION: 70-year-old female, hypoxia and fever. COMPARISON: January 01, 2021. FINDINGS: Stable overall appearance of the cardiomediastinal silhouette. There is no identified pneumothorax. There are mild linear opacities in the right lower lung zone. Lung volumes are low. IMPRESSION: Low lung volumes with predominantly linear opacities in the right lower lobe which may relate to atelectasis although are not technically specific. This is a new change since January 01, 2021. Dictated by: Dictated on workstation # [id number] Dict: 03/17/211912 Trans: 03/17/211999 [facility] [id number] Interpreted by: JOHNNIE HUGHES MD Electronically signed by: JOHNNIE HUGHES MD 03/17/211999 Departure Impression Primary Impression: Urinary tract infection Qualified Codes: N30.00 - Acute cystitis without hematuria Disposition: HOME, SELF-CARE Condition: Stable Departure-Patient Inst. Decision time for Depature: 22:22 Referrals: FREEMAN CHAPA MD (PCP/Family) Primary Care Physician Patient Instructions: Urinary Tract Infection, Adult ED Add. Discharge Instructions: All discharge instructions reviewed with patient and/or family. Voiced understanding. Take medications as directed. Follow-up with your doctor for recheck and further evaluation. Continue previous orders at facility but add the cefdinir dosing twice daily. Scripts Cefdinir (Cefdinir) 300 Mg Capsule 300 MG PO BID, #14 CAP 0 Refills Prov: ZULAY VILLASENOR MD 03/17/21 ZULAY VILLASENOR MD Mar 17, 2021 19:23
[2021-03-17 19:31] LABS: EOSINOPHILS % (MANUAL) 1 %; LYMPHOCYTES % (MANUAL) 3 %; NEUTROPHILS % (MANUAL) 96 %; TOXIC GRANULATION/VACUOLAZATIO 2+
--- NOTE | 2021-03-17 19:31 | Diagnostic Imaging Report ---
EXAMINATION: Chest radiograph, portable AP view. DATE: 03/17/2021 7:13 PM INDICATION: 70-year-old female, hypoxia and fever. COMPARISON: January 01, 2021. FINDINGS: Stable overall appearance of the cardiomediastinal silhouette. There is no identified pneumothorax. There are mild linear opacities in the right lower lung zone. Lung volumes are low. IMPRESSION: Low lung volumes with predominantly linear opacities in the right lower lobe which may relate to atelectasis although are not technically specific. This is a new change since January 01, 2021. Dictated by: Dictated on workstation # [id number]
[2021-03-17] MEDS ORDERED: cefTRIAXone 1,000 MG in WATER (STERILE) FOR INJECTION 10 ML IV STA (22:18)
[2021-03-17] MEDS ORDERED: CEFD300C3 PO (22:26)
[2021-03-17 22:38] VITALS: BP 141/69
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
== END 2021-03-17 23:11 | disposition home or self-care (01) ==
LOC: EDUNIT# 17:48 → ER FS 17:49
DX: N39.0 Urinary tract infection, site not specified (principal); E11.9 Type 2 diabetes mellitus without complications; J44.9 Chronic obstructive pulmonary disease, unspecified; D64.9 Anemia, unspecified; F41.9 Anxiety disorder, unspecified; F31.9 Bipolar disorder, unspecified; G82.20 Paraplegia, unspecified; E66.9 Obesity, unspecified; Z79.51 Long term (current) use of inhaled steroids; Z79.4 Long term (current) use of insulin; Z79.899 Other long term (current) drug therapy; Z88.1 Allergy status to other antibiotic agents; Z20.822 Contact with and (suspected) exposure to COVID-19
CPT/HCPCS: 36415; 71045; 80053; 81000; 83605; 85007; 85027; 85610; 85730; 87040; 87077; 87088; 87184; 87186; 87636; 96374

== ENCOUNTER 2021-04-15 10:45 | Emergency (ER) | payer MEDICARE, MEDICAID ==
[~2021-04-15] VITALS: Ht 162 cm; Wt 181.0 kg
[~2021-04-15 10:45] MED LIST changes: +CEFD300C3 PO
--- OUTSIDE RECORDS SUMMARY | 2021-04-15 11:04 | XMS REPORT | Clinical Summary ---
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 Patient is of [employer] Family History Medical History Relation Name Comments [...] Completed Directive COVID-19 Vaccine Completed 09/26/2020, 09/06/2020 Results Not on filefrom Last 3 Months Insurance Type Payer Benefit Subscriber ID Effective Phone Address Plan / Dates Group Medicare RAILROAD MEDICARE RAILROAD [id number] 1981-P MEDICARE resent MEDICAID MANAGED CARE [facility] [id number] 2020 -P ([place] [place] [place] [address] Augustina Bains Personal/F Self 1950 [address] [facility] (Home) [place] [address] Advance Directives For more information, please contact: [phone] 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
--- NOTE | 2021-04-15 11:21 | ED General ---
General Chief Complaint: Respiratory Problems Stated Complaint: COVID+ Source of Information: Patient, EMS, [facility] Records History of Present Illness Date Seen by Provider: Apr 15, 2021 Time Seen by Provider: 10:45 Initial Comments 71-year-old female presenting with EMS from [facility] due to complaints of low oxygen saturation per alf. EMS reports on their arrival her saturations were 94 to 96% on 3 L. Patient denies having any increased cough or shortness of breath. She states she felt she was improving. She got monoclonal antibody infusion yesterday. On arrival to ED she was placed on 2 Lpm by n.c. and had O2 saturation of 100% with probe on her forehead. Patient herself denies any complaints or reason to come to the emergency department. Again she stated that she felt like she was improving. Associated Systoms: No Chest Pain; Cough; No Diaphoresis, No Fever/Chills, No Nausea/Vomiting; Shortness of Air (chronic but no worse today) Allergies and Home Medications Allergies Coded Allergies: exenatide (Verified Allergy, Unknown, nausea and vomiting, 01/09/19) liraglutide (Verified Allergy, Unknown, nausea and vomiting, abdominal pain, 01/09/19) nitrofurantoin (Verified Allergy, Unknown, diarrhea, 01/09/19) terconazole (Verified Allergy, Unknown, 01/09/19) Home Medications Acetaminophen 325 Mg Capsule, 650 MG PO Q6H PRN for PAIN-MILD (1-4), (Reported) Albuterol Sulfate 2.5 Mg/0.5 Ml Vial.neb, 2.5 MG INH Q4H PRN for SHORTNESS OF BREATH, (Reported) Alprazolam 0.5 Mg Tablet, 0.25 MG PO 0100,1300 Prescribed by: BHARTI DAILY on 12/18/20 1023 Amoxicillin/Potassium Clav 1 Each Tablet, 1 EACH PO BID Prescribed by: BHARTI DAILY on 12/18/20 1023 Aspirin 81 Mg Tablet.dr, 81 MG PO DAILY, (Reported) Baclofen 20 Mg Tablet, 20 MG PO QID, (Reported) Bisacodyl 5 Mg Tablet.dr, 10 MG PO DAILY PRN for CONSTIPATION-4TH LINE, (Reported) Cefdinir 300 Mg Capsule, 300 MG PO BID Prescribed by: ZULAY VILLASENOR on 03/17/216 Cyanocobalamin (Vitamin B-12) 500 Mcg Tablet, 1,000 MCG PO DAILY, (Reported) Diphenhydramine HCl 25 Mg Tablet, 25 MG PO Q6H PRN for INSOMNIA/ITCHING, (Reported) Doxazosin Mesylate 2 Mg Tablet, 2 MG PO HS, (Reported) Fluticasone Propionate 9.9 Ml [place].susp, 2 SPRAY NS DAILY, (Reported) Folic Acid 1 Mg Tablet, 1 MG PO DAILY, (Reported) Hyoscyamine Sulfate 0.125 Mg Tablet, 0.125 MG PO Q6H PRN for BLADDER PAIN, (Reported) Insulin Aspart 300 Units/3 Ml Solution, UNITS SC AC, (Reported) USE PER SLIDING SCALE Insulin Detemir 100 Unit/1 Ml Insuln.pen, 22 UNITS SC BID, (Reported) L.acidoph & Paracasei,B.lactis 1 Each Capsule, 2 EACH PO DAILY, (Reported) Latanoprost 2.5 Ml Drops, 1 DROP OU HS, (Reported) Meloxicam 7.5 Mg Tablet, 7.5 MG PO DAILY, (Reported) Mometasone Furoate 17 Gm [place].pump, 1 APPLIC TOP DAILY PRN for ITCHING, (Rep orted) APPLY TO THE SCALP Montelukast Sodium 10 Mg Tablet, 10 MG PO DAILY, (Reported) Multivitamin with Minerals 1 Each Tablet, 1 EACH PO 1200, (Reported) Nystatin 60 Gm Powder, 1 APPLIC TOP BID PRN PRN for SOILING AND SATURATION, (Reported) APPLY TO GROIN AND ABDOMINAL FOLDS Omeprazole 20 Mg Capsule.dr, 20 MG PO BID, (Reported) Ondansetron HCl 4 Mg Tablet, 4 MG PO Q4H, (Reported) Oxycodone HCl 5 Mg Tablet, 5 MG PO Q8H PRN for PAIN-SEVERE (8-10) Prescribed by: BHARTI DAILY on 12/18/20 1023 Petrolat,Wht/Min Oil/Sod Chl 3.5 Gm Oint...g., 1 APPLIC OU Q8H PRN for DRY EYES, (Reported) Polyethylene Glycol 3350 17 Gm Powd.pack, 8.5 GM PO DAILY, (Reported) Sumatriptan Succinate 100 Mg Tablet, 100 MG PO DAILY PRN for MIGRAINE, (Reported) Venlafaxine HCl 75 Mg Tab, 75 MG PO BID, (Reported) Patient Home Medication List Home Medication List Reviewed: Yes Review of Systems Review of Systems Constitutional: see HPI EENTM: see HPI Respiratory: see HPI Cardiovascular: no symptoms reported Gastrointestinal: no symptoms reported Genitourinary: other (indwelling mc catheter) Musculoskeletal: no symptoms reported Skin: no symptoms reported Psychiatric/Neurological: No Symptoms Reported Past Utlamhi-Kpogdl-Trphiw Hx Seasonal Allergies Seasonal Allergies: No Past Medical History Surgery/Hospitalization HX: COPD, GERALDINE, CPAP prescribed, Chronic UTI, Morbid Obesity, DM, chronic HTN, Paraplegic Surgeries: Yes (heart cath ) Appendectomy, Bladder Surgery, Bowel Surgery, Orthopedic Respiratory: Yes (questionable GERALDINE) COPD Cardiac: Yes Angina, Deep Vein Thrombosis, High Cholesterol Neurological: Yes (paraplegic) Paralysis, Spinal Cord Injury 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 Disorders: Menstrual Problems 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 Genitourinary: Yes (urostomy) Neurogenic Bladder, UTI-Chronic Gastrointestinal: Yes (Hx colon cancer; colectomy) Musculoskeletal: Yes (paraplegic; carpal tunnel ) Arthritis, Back Injury Endocrine: Yes Diabetes, Insulin dep HEENT: Yes Cataract Cancer: Yes Colon Did You Recieve Any Treatments: Yes What Type of Treatment Did You: Chemotherapy, Radiation, Surgical Intervention Psychosocial: Yes Anxiety, Bipolar, Depression Integumentary: Yes (chronic yeast infections; chronic pressure ulcers; cellulitis) Psoriasis Blood Disorders: Yes (anemia) Adverse Reaction/Blood Tranf: No (JEHOVAHS WITNESS-DOESNT TAKE BLOOD) Family Medical History No Pertinent Family Hx Physical Exam Vital Signs Vital Signs - First Documented 04/15/21 11:20 Temp 36.7 Pulse 97 Resp 22 B/P (MAP) 151/98 (115) Capillary Refill : Height, Weight, BMI Height: 5'4.50" Weight: 319lbs. 0oz. 144.716572ws; BMI Method:Stated General Appearance: No Apparent Distress, Obese HEENT: PERRL/EOMI Neck: Full Range of Motion, Non Tender, Supple Respiratory: Chest Non Tender, No Accessory Muscle Use, No Respiratory Distress, Decreased Breath Sounds Cardiovascular: Regular Rate, Rhythm, Normal Peripheral Pulses Gastrointestinal: No Pulsatile Mass, Non Tender, Soft Rectal: Deferred Extremity: Normal Capillary Refill Neurologic/Psychiatric: Alert, Oriented x3 Skin: Normal Color, Warm/Dry Progress/Results/Core Measures Suspected Sepsis SIRS Temperature: Pulse: Respiratory Rate: Laboratory Tests 04/15/21 11:15: White Blood Count 11.1H Blood Pressure / Mean: Laboratory Tests 04/15/21 11:15: Creatinine 0.72, INR Comment 1.0, Platelet Count 404H, Total Bilirubin 0.2 Results/Orders Lab Results Laboratory Tests Test 04/15/21 11:15 Range/Units White Blood Count 11.1 H 4.3-11.0 10^3/uL Red Blood Count 4.35 3.80-5.11 10^6/uL Hemoglobin 11.0 L 11.5-16.0 g/dL Hematocrit 37 35-52 % Mean Corpuscular Volume 86 80-99 fL Mean Corpuscular Hemoglobin 25 25-34 pg Mean Corpuscular Hemoglobin Concent 30 L 32-36 g/dL Red Cell Distribution Width 18.3 H 10.0-14.5 % Platelet Count 404 H 130-400 10^3/uL Mean Platelet Volume 9.0 9.0-12.2 fL Immature Granulocyte % (Auto) 1 % Neutrophils (%) (Auto) 91 H 42-75 % Lymphocytes (%) (Auto) 6 L 12-44 % Monocytes (%) (Auto) 1 0-12 % Eosinophils (%) (Auto) 0 0-10 % Basophils (%) (Auto) 0 0-10 % Neutrophils # (Auto) 10.1 H 1.8-7.8 X 10^3 Lymphocytes # (Auto) 0.7 L 1.0-4.0 X 10^3 Monocytes # (Auto) 0.2 0.0-1.0 X 10^3 Eosinophils # (Auto) 0.0 0.0-0.3 10^3/uL Basophils # (Auto) 0.0 0.0-0.1 10^3/uL Immature Granulocyte # (Auto) 0.1 0.0-0.1 10^3/uL Neutrophils % (Manual) 87 % Lymphocytes % (Manual) 10 % Monocytes % (Manual) 2 % Eosinophils % (Manual) 1 % Prothrombin Time 13.1 12.2-14.7 SEC INR Comment 1.0 0.8-1.4 Activated Partial Thromboplast Time 29 24-35 SEC Blood Gas Puncture Site UNKNOWN Blood Gas Patient Temperature 36.5 Arterial Blood pH 7.28 *L 7.37-7.43 Arterial Blood Partial Pressure CO2 44 35-45 MMHG Arterial Blood Partial Pressure O2 79 79-93 MMHG Arterial Blood HCO3 21 L 23-27 MMOL/L Arterial Blood Total CO2 22.1 21.0-31.0 MMOL/L Arterial Blood Oxygen Saturation 94 94-100 % Arterial Blood Base Excess -5.9 L -2.5-2.5 MMOL/L Amanuel Test NEGATIVE Blood Gas Ventilator Setting NO Blood Gas Inspired Oxygen 2 Sodium Level 136 135-145 MMOL/L Potassium Level 4.9 3.6-5.0 MMOL/L Chloride Level 106 98-107 MMOL/L Carbon Dioxide Level 20 L 21-32 MMOL/L Anion Gap 10 5-14 MMOL/L Blood Urea Nitrogen 33 H 7-18 MG/DL Creatinine 0.72 0.60-1.30 MG/DL Estimat Glomerular Filtration Rate 80 BUN/Creatinine Ratio 46 Glucose Level 248 H 70-105 MG/DL Calcium Level 9.7 8.5-10.1 MG/DL Corrected Calcium 10.5 H 8.5-10.1 MG/DL Total Bilirubin 0.2 0.1-1.0 MG/DL Aspartate Amino Transf (AST/SGOT) 17 5-34 U/L Alanine Aminotransferase (ALT/SGPT) 15 0-55 U/L Alkaline Phosphatase 161 H 40-136 U/L C-Reactive Protein 12.65 H <0.50 MG/DL Total Protein 8.4 H 6.4-8.2 GM/DL Albumin 3.0 L 3.2-4.5 GM/DL My Orders Orders - CASTRO PÉREZ MD Monitor-Rhythm Ecg Trace Only (04/15/21 11:05) Ed Iv/Invasive Line Start (04/15/21 11:05) Cbc With Automated Diff (04/15/21 11:05) Comprehensive Metabolic Panel (04/15/21 11:05) Crp Fs (04/15/21 11:05) Protime With Inr (04/15/21 11:05) Partial Thromboplastin Time (04/15/21 11:05) Arterial Blood Gas (04/15/21 11:05) O2 (04/15/21 11:05) Manual Differential (04/15/21 11:15) Vital Signs/I&O 04/15/21 04/15/21 04/15/21 04/15/21 10:45 10:45 11:20 11:55 Temp 36.7 36.7 Pulse 97 82 Resp 22 18 B/P (MAP) 151/98 (115) 142/64 Pulse Ox 100 100 100 O2 Delivery Nasal Cannula Nasal Cannula Nasal Cannula Nasal Cannula O2 Flow Rate 2.00 2.00 2.00 Capillary Refill : Progress Note #1: Progress Note Oxygen saturation is 100% on 2 Lpm by n.c. when checking sats on forehead. Check labs and ABG since she has obesity, GERALDINE, COPD, COVID. Progress Note #2: Progress Note CBC is stable with white blood cell count of 11.1. She has a mild left shift. She has chemistries appear stable with some elevated glucose. Her CRP is elevated consistent with her Covid infection. She has some acidosis on her blood gas but it is compensated with normal PCO2 and PO2. This is likely related back to her Covid infection and underlying COPD, obesity, sleep apnea, diabetes. As she is satting 100% on 2 Lpm by nasal cannula will discharge back to medical [place] to continue with her treatments that she is undergoing for Covid and COPD. Departure Impression Primary Impression: COVID-19 virus infection Additional Impression: COPD (chronic obstructive pulmonary disease) Qualified Codes: J44.9 - Chronic obstructive pulmonary disease, unspecified Disposition: 01 HOME, SELF-CARE Condition: Stable Departure-Patient Inst. Decision time for Depature: 11:50 Referrals: FREEMAN CHAPA MD (PCP/Family) Primary Care Physician Patient Instructions: Pulmonary Rehabilitation, COVID-19 After You Have Been Vaccinated, COVID-19 ED Add. Discharge Instructions: Continue with supplemental oxygen. Continue with treatments for COVID and COPD at alf. Check back with primary care provider for continued concerns. All discharge instructions reviewed with patient and/or family. Voiced understanding. CASTRO PÉREZ MD Apr 15, 2021 11:21
[2021-04-15 11:22] LABS: ABG BASE EXCESS -5.9 MMOL/L (-2.5-2.5); ABG OXYGEN SATURATION 94 % (94-100); ABG PCO2 44 MMHG (35-45); ABG PO2 79 MMHG (79-93); ABG TCO2 22.1 MMOL/L (21.0-31.0); ALLENS TEST NEGATIVE; INSPIRED O2 2
[2021-04-15 11:23] LABS: PATIENT TEMP 36.5; VENTILATOR NO
[2021-04-15 11:25] LABS: ABG PH 7.28 (7.37-7.43)
[2021-04-15 11:26] LABS: BASOPHILS % (AUTO) 0 % (0-10); EOSINOPHILS % (AUTO) 0 % (0-10); HEMATOCRIT 37 % (35-52); LYMPHOCYTES # (AUTO) 0.7 X 10^3 (1.0-4.0); LYMPHOCYTES % (AUTO) 6 % (12-44); MEAN CORPUSCULAR HEMOGLOBIN 25 pg (25-34); MEAN CORPUSCULAR HGB CONC 30 g/dL (32-36); MEAN CORPUSCULAR VOLUME 86 fL (80-99); MONOCYTES # (AUTO) 0.2 X 10^3 (0.0-1.0); MONOCYTES % (AUTO) 1 % (0-12); NEUTROPHILS # (AUTO) 10.1 X 10^3 (1.8-7.8); NEUTROPHILS % (AUTO) 91 % (42-75); PLATELET COUNT 404 10^3/uL (130-400); WHITE BLOOD COUNT 11.1 10^3/uL (4.3-11.0)
[2021-04-15 11:36] LABS: PROTHROMBIN TIME PATIENT 13.1 SEC (12.2-14.7)
[2021-04-15 11:37] LABS: BILIRUBIN,TOTAL 0.2 MG/DL (0.1-1.0); CALCIUM 9.7 MG/DL (8.5-10.1); CREATININE SERUM 0.72 MG/DL (0.60-1.30); POTASSIUM 4.9 MMOL/L (3.6-5.0)
[2021-04-15 11:38] LABS: TOTAL PROTEIN 8.4 GM/DL (6.4-8.2)
[2021-04-15 11:51] LABS: EOSINOPHILS % (MANUAL) 1 %; LYMPHOCYTES % (MANUAL) 10 %; MONOCYTES % (MANUAL) 2 %; NEUTROPHILS % (MANUAL) 87 %
[2021-04-15 11:55] VITALS: BP 142/64
== END 2021-04-15 12:15 | disposition home or self-care (01) ==
LOC: ER FS 10:49 → EDUNIT# 10:58 → ER FS 12:15
DX: U07.1 COVID-19 (principal); J44.9 Chronic obstructive pulmonary disease, unspecified; E66.9 Obesity, unspecified; F41.9 Anxiety disorder, unspecified; F32.9 Major depressive disorder, single episode, unspecified; E11.9 Type 2 diabetes mellitus without complications; Z68.45 Body mass index [BMI] 70 or greater, adult; Z79.82 Long term (current) use of aspirin; Z79.4 Long term (current) use of insulin; Z79.899 Other long term (current) drug therapy
CPT/HCPCS: 36415; 80053; 82805; 85007; 85027; 85610; 85730; 86141; 93041

== ENCOUNTER → 2021-08-06 | Outpatient (CLI) | payer MEDICARE, MEDICAID ==
[~2021-08-06] MED LIST changes: +HOLD METFORMIN - RECEIVED CONTRAST 20 ML VIAL IV SCH; +IOHEXOL 350 MG/ML 100 ML (OMNIPAQUE 350) VIAL IV ONE; +MINE3.5O20 OU; +MOME17SP11 TOP; -MOME17SP9 TOP; +MONT-40 PO; -MONT10TA32 PO; +NS 100 ML (IVPB) BAG IV ONE; -PETR3.5O OU
--- NOTE | 2021-08-06 18:26 | Diagnostic Imaging Report ---
EXAM: CT CYSTOGRAM INDICATION: Colovesicular fistula. COMPARISON: CT abdomen and pelvis without contrast 02/23/2021. FINDINGS: A total of 85 mL of Omnipaque and water mixture was able to be administered through a Villanueva catheter which was properly positioned in the urinary bladder. The bladder was distended with marked irregularity about the periphery of the urinary bladder bilaterally. The bladder wall is not well-defined. There appears to be some leak of contrast anteriorly and laterally on the left. No communication with adjacent bowel is identified. Left lower quadrant ostomy. There is a 2nd ostomy near the midline on the right more superiorly. IUD. No evidence of bowel obstruction or free intraperitoneal air within the visualized pelvis. No acute osseous findings. IMPRESSION: 1. There appears to be a small amount of contrast leaking from the bladder along the left anterior margin. 2. The visualized bladder wall is markedly irregular. There was reportedly blood in the urine post drainage. This irregularity could be due to hematoma. A mass is not excluded. 3. No contrast is seen communicating with adjacent bowel loops. Dictated by: Dictated on workstation # [id number]
== END ==
LOC: RAD 15:15
PROVIDERS: ATTEND Urology
DX: N32.1 Vesicointestinal fistula (principal)
CPT/HCPCS: 72192

== ENCOUNTER 2021-08-07 09:15 | Emergency (ER) | payer MEDICARE, MEDICAID ==
[~2021-08-07 09:15] MED LIST changes: -HOLD METFORMIN - RECEIVED CONTRAST 20 ML VIAL IV SCH; -IOHEXOL 350 MG/ML 100 ML (OMNIPAQUE 350) VIAL IV ONE; -NS 100 ML (IVPB) BAG IV ONE
--- OUTSIDE RECORDS SUMMARY | 2021-08-07 09:31 | XMS REPORT | Clinical Summary ---
Author Author [facility] Organization [facility] Address Unknown Phone Unavailable Care Team Providers Care Renal Technician Name Role Phone Self, Gustavo BELTRE PCP [...] consult Transfusion of blood product refused for christian re ason 01/02/2021 Last Assessment & Plan: Formatting of this note might be differ ent from the original. Patient is of L[employer] and[employer] Family History Medical History Relation Name [...] 1950 Medicare Annual Wellness 1950 Td/Tdap# 1950 Diabetes Mellitus Foot 1961 Exam Colorectal Screening via 2001 Colonoscopy Mammogram Screening 2001 Zoster Vaccine# (1 of 2) 2001 Lipid Screening 03/23/2009 03/23/2008 Osteoporosis Screening 2016 Pneumococcal Vaccine: 65+ 01/02/2018 11/07/2017 Years (1 of 2 - PPSV23) COVID-19 Vaccine (3 - 03/26/2021 09/26/2020, Booster) 09/06/2020 Influenza Vaccine (#1) 2021 07/20/2009, 06/24/2002 Fall Risk Assessment # 01/08/2022 01/08/2021 Advance Care Plan Completed 11/28/2013, Document Filed # 11/28/2013 Results Not on filefrom Last 3 Months Insurance Type Payer Benefit Subscriber ID Effective Phone Address Plan / Dates Group Medicare RAILROAD MEDICARE RAILROAD [id number] 1982-P [phone] [address] MED[address]ARE resent [id number] [place] [address] MEDICAID MANAGED CARE [facility] [id number] 2020-P [address] [facility] resent [id number] [place] [address] [id number] Augustina Bains Personal/F Self 1950 [address] [place] (Home) [place] [address] Advance Directives For more information, please contact: [phone] Patient Office Support Explanation Type Date Recorded Advance Directives 11/28/2013 12:00 AM and Living Will Power of General Utility Worker 11/28/2013 12:00 AM Health Care 11/28/2013 12:40 PM Directive Health Care 11/27/2013 6:04 PM Directive Date Inactivated Comments Code Status Date Activated Full Code 01/02/2021 1:55 AM Care Teams Start Date End Date Renal Technician Relationship Specialty 01/02/21 Gustavo Up MD PCP - General Family [address] [place] [address] [place] [address]
[2021-08-07 09:42] LABS: HEMATOCRIT 36 % (35-52); HEMOGLOBIN 10.6 g/dL (11.5-16.0); MEAN CORPUSCULAR HEMOGLOBIN 25 pg (25-34); MEAN CORPUSCULAR VOLUME 85 fL (80-99); WHITE BLOOD COUNT 17.2 10^3/uL (4.3-11.0)
[2021-08-07 09:43] LABS: BASOPHILS # (AUTO) 0.1 10^3/uL (0.0-0.1); BASOPHILS % (AUTO) 0 % (0-10); EOSINOPHILS % (AUTO) 0 % (0-10); LYMPHOCYTES # (AUTO) 0.9 X 10^3 (1.0-4.0); LYMPHOCYTES % (AUTO) 5 % (12-44); MEAN CORPUSCULAR HGB CONC 29 g/dL (32-36); MEAN PLATELET VOLUME 9.2 fL (9.0-12.2); MONOCYTES # (AUTO) 0.7 X 10^3 (0.0-1.0); MONOCYTES % (AUTO) 4 % (0-12); NEUTROPHILS # (AUTO) 15.4 X 10^3 (1.8-7.8); NEUTROPHILS % (AUTO) 90 % (42-75); PLATELET COUNT 438 10^3/uL (130-400)
[2021-08-07 09:47] LABS: CLARITY,URINE TURBID; COLOR,URINE YELLOW; GLUCOSE, URINE (UA) NEGATIVE (NEGATIVE); KETONES,URINE TRACE (NEGATIVE); LEUKOCYTE ESTERASE ,URINE 2+ (NEGATIVE); NITRITE,URINE NEGATIVE (NEGATIVE); PROTEIN,URINE 3+ (NEGATIVE)
--- NOTE | 2021-08-07 09:56 | Diagnostic Imaging Report ---
INDICATION: Shortness of breath. COMPARISON: 03/17/2021. FINDINGS: There is poor inspiration with bibasilar atelectasis. No acute infiltrates are seen. The heart is not enlarged. No pneumothorax or pleural effusion. No bony abnormalities. IMPRESSION: Pickwician appearance of the chest with no acute abnormalities. Dictated by: Dictated on workstation # [id number]
[2021-08-07 09:58] LABS: INR 1.1 (0.8-1.4); PROTHROMBIN TIME PATIENT 14.5 SEC (12.2-14.7)
[2021-08-07 10:11] LABS: BACTERIA,URINE LARGE /HPF; BILIRUBIN,URINE 1+ (NEGATIVE)
[2021-08-07 10:31] LABS: SODIUM 133 MMOL/L (135-145)
[2021-08-07 10:32] LABS: ALANINE AMINOTRANSFERASE 17 U/L (0-55); ALKALINE PHOSPHATASE 220 U/L (40-136); BILIRUBIN,TOTAL 0.3 MG/DL (0.1-1.0); BUN/CREATININE RATIO 26; CALCIUM 9.4 MG/DL (8.5-10.1); CARBON DIOXIDE 20 MMOL/L (21-32); CHLORIDE 101 MMOL/L (98-107); CREATININE SERUM 1.29 MG/DL (0.60-1.30); GFR ESTIMATED 41; GLUCOSE 305 MG/DL (70-105); POTASSIUM 6.1 MMOL/L (3.6-5.0)
[2021-08-07 10:33] LABS: ALBUMIN 3.1 GM/DL (3.2-4.5); TOTAL PROTEIN 8.5 GM/DL (6.4-8.2)
[2021-08-07 10:40] LABS: BAND NEUTROPHILS 6 %; BASOPHILS % (MANUAL) 0 %; EOSINOPHILS % (MANUAL) 0 %; LYMPHOCYTES % (MANUAL) 5 %; MONOCYTES % (MANUAL) 2 %; NEUTROPHILS % (MANUAL) 87 %
[2021-08-07] MEDS ORDERED: cefTRIAXone 1,000 MG VIAL IV ONE (11:00)
[2021-08-07] MEDS ORDERED: cefTRIAXone 1 GM PRE-MIX 50 ML IV ONE (11:00)
--- NOTE | 2021-08-07 11:03 | ED General ---
General Chief Complaint: Altered Mental Status Stated Complaint: LOW O2 Nursing Triage Note: Patient brought to the ED by EMS for chief complaint of lethargy and decreased oxygen saturations. [facility] staff reports patient had a cystoscopy yesterday in [facility] for evaluation of a possible fistula. Patient has a urostomy, colostomy, and mc catheter present on arrival to the ED. Dark red bloody drainage present in mc, which [facility] staff reports patient has had recently. retirement staff states patient had her CPAP off at 0600 this morning, states they are unsure how long it was off during the night. Staff reports patient has been lethargic this morning and had oxygen saturations in the 60s; staff reports patient received her normal dose of xanax this morning. Patient is drowsy on arrival to ED, opens eyes to verbal stimuli, answers yes and no questions. Source of Information: EMS Exam Limitations: Other (Patient mental status) History of Present Illness Date Seen by Provider: Aug 07, 2021 Time Seen by Provider: 09:36 Initial Comments Patient is a 71-year-old female detention patient with history of insulin- dependent diabetes colon cancer, urostomy and sleep apnea who presents from the detention with decreased mental status. Patient was found this morning in bed, hypoxic obtunded with an O2 saturation in the mid 60s. She did not have her CPAP mask on. Nursing staff gave her Xanax and placed her on CPAP. On EMS arrival, the patient was found to have an O2 sat in the mid 80s with slightly increased alertness. Blood sugar was in the low 200 range. History is limited due to the patient's presentation. Patient did undergo cystoscopy yesterday for suspected fistula. Patient does have dark red bloody drainage coming from her Mc bag. Patient is not currently on antibiotics. Timing/Duration: Other (Unknown) Severity: Moderate Associated Systoms: Other Allergies and Home Medications Allergies Coded Allergies: exenatide (Verified Allergy, Unknown, nausea and vomiting, 01/09/19) liraglutide (Verified Allergy, Unknown, nausea and vomiting, abdominal pain, 01/09/19) nitrofurantoin (Verified Allergy, Unknown, diarrhea, 01/09/19) promethazine (Verified Allergy, Unknown, 08/07/21) terconazole (Verified Allergy, Unknown, 01/09/19) Patient Home Medication List Home Medication List Reviewed: Yes Acetaminophen (Tylenol) 325 Mg Capsule, 650 MG PO Q6H PRN for PAIN-MILD (1-4), (Reported) Entered as Reported by: MOSHE HOOD on 12/14/20 161 Albuterol Sulfate (Albuterol Sulfate) 2.5 Mg/0.5 Ml Vial.neb, 2.5 MG INH Q4H PRN for SHORTNESS OF BREATH, (Reported) Entered as Reported by: MOSHE HOOD on 12/14/20 161 Alprazolam (Alprazolam) 0.5 Mg Tablet, 0.25 MG PO 0100,1300 Prescribed by: BHARTI DAILY on 12/18/20 1023 Amoxicillin/Potassium Clav (Augmentin 875-125 Tablet) 1 Each Tablet, 1 EACH PO BID Prescribed by: BHARTI DAILY on 12/18/20 1023 Aspirin (Aspirin EC) 81 Mg Tablet.dr, 81 MG PO DAILY, (Reported) Entered as Reported by: MOSHE HOOD on 12/14/20 154 Baclofen (Baclofen) 20 Mg Tablet, 20 MG PO QID, (Reported) Entered as Reported by: MOSHE HOOD on 12/14/20 161 Bisacodyl (Bisacodyl) 5 Mg Tablet.dr, 10 MG PO DAILY PRN for CONSTIPATION-4TH LINE, (Reported) Entered as Reported by: MOSHE HOOD on 12/14/20 161 Cefdinir (Cefdinir) 300 Mg Capsule, 300 MG PO BID Prescribed by: ZULAY VILLASENOR on 03/17/212225 Cyanocobalamin (Vitamin B-12) (Vitamin B-12) 500 Mcg Tablet, 1,000 MCG PO DAILY, (Reported) Entered as Reported by: MOSHE HOOD on 12/14/20 154 Diphenhydramine HCl (Diphenhydramine HCl) 25 Mg Tablet, 25 MG PO Q6H PRN for INSOMNIA/ITCHING, (Reported) Entered as Reported by: MOSHE HOOD on 12/14/20 161 Doxazosin Mesylate (Doxazosin Mesylate) 2 Mg Tablet, 2 MG PO HS, (Reported) Entered as Reported by: MOSHE HOOD on 12/14/20 154 Fluticasone Propionate (Flonase Allergy Relief) 9.9 Ml [place].susp, 2 SPRAY NS DAILY, (Reported) Entered as Reported by: MOSHE HOOD on 12/14/201543 Folic Acid (Folic Acid) 1 Mg Tablet, 1 MG PO DAILY, (Reported) Entered as Reported by: MOSHE HOOD on 12/14/201543 Hyoscyamine Sulfate (Hyoscyamine Sulfate) 0.125 Mg Tablet, 0.125 MG PO Q6H PRN for BLADDER PAIN, (Reported) Entered as Reported by: MOSHE HOOD on 12/14/201612 Insulin Aspart (Novolog Flexpen) 300 Units/3 Ml Solution, UNITS SC AC, (Reported) Entered as Reported by: MOSHE HOOD on 12/14/201612 Insulin Detemir (Levemir Flextouch) 100 Unit/1 Ml Insuln.pen, 22 UNITS SC BID, (Reported) Entered as Reported by: MOSHE HOOD on 12/14/201612 L.acidoph & Paracasei,B.lactis (Probiotic) 1 Each Capsule, 2 EACH PO DAILY, (Reported) Entered as Reported by: MOSHE HOOD on 12/14/201543 Latanoprost (Xalatan) 2.5 Ml Drops, 1 DROP OU HS, (Reported) Entered as Reported by: MOSHE HOOD on 12/14/201543 Meloxicam (Meloxicam) 7.5 Mg Tablet, 7.5 MG PO DAILY, (Reported) Entered as Reported by: MOSHE HOOD on 12/14/201543 Mometasone Furoate (Mometasone Furoate) 17 Gm [place].pump, 1 APPLIC TOP DAILY PRN for ITCHING, (Reported) Entered as Reported by: MOSHE HOOD on 12/14/201612 Montelukast Sodium (Montelukast Sodium) 10 Mg Tablet, 10 MG PO DAILY, (Reported) Entered as Reported by: MOSHE HOOD on 12/14/201543 Multivitamin with Minerals (Multivitamins with Minerals) 1 Each Tablet, 1 EACH PO 1200, (Reported) Entered as Reported by: MOSHE HOOD on 12/14/201543 Nystatin (Nystop) 60 Gm Powder, 1 APPLIC TOP BID PRN PRN for SOILING AND SATURATION, (Reported) Entered as Reported by: MOSHE HOOD on 12/14/20 1544 Omeprazole (Omeprazole) 20 Mg Capsule.dr, 20 MG PO BID, (Reported) Entered as Reported by: MOSHE HOOD on 12/14/20 161 Ondansetron HCl (Ondansetron HCl) 4 Mg Tablet, 4 MG PO Q4H, (Reported) Entered as Reported by: MOSHE HOOD on 12/14/20 1613 Oxycodone HCl (Oxycodone HCl) 5 Mg Tablet, 5 MG PO Q8H PRN for PAIN-SEVERE (8- 10) Prescribed by: BHARTI DAILY on 12/18/20 1023 Petrolat,Wht/Min Oil/Sod Chl (Refresh P.m. Ointment P-F) 3.5 Gm Oint...g., 1 APPLIC OU Q8H PRN for DRY EYES, (Reported) Entered as Reported by: MOSHE HOOD on 12/14/20 161 Polyethylene Glycol 3350 (Miralax) 17 Gm Powd.pack, 8.5 GM PO DAILY, (Reported) Entered as Reported by: MOSHE HOOD on 12/14/20 1544 Sumatriptan Succinate (Sumatriptan Succinate) 100 Mg Tablet, 100 MG PO DAILY PRN for MIGRAINE, (Reported) Entered as Reported by: MOSHE HOOD on 12/14/20 161 Venlafaxine HCl (Venlafaxine HCl) 75 Mg Tab, 75 MG PO BID, (Reported) Entered as Reported by: MOSHE HOOD on 12/14/20 161 Review of Systems Review of Systems Constitutional: see HPI, other (Unable to obtain full review of systems due to patient's mental status) EENTM: see HPI Respiratory: see HPI Cardiovascular: see HPI Gastrointestinal: see HPI Musculoskeletal: see HPI Skin: see HPI Psychiatric/Neurological: See HPI Hematologic/Lymphatic: See HPI Immunological/Allergic: see HPI All Other Systems Reviewed Negative Unless Noted: Yes Past Yleuwtw-Unqdof-Zochwo Hx Patient Social History Substance use?: No Alcohol Use?: No Pt feels they are or have been: No Immunizations Up To Date First/Initial COVID19 Vaccinat: AUGUST 2020 Second COVID19 Vaccination Mehul: AUGUST 2020 Seasonal Allergies Seasonal Allergies: No Past Medical History Surgery/Hospitalization HX: COPD, GERALDINE, CPAP prescribed, Chronic UTI, Morbid Obesity, DM, chronic HTN, Paraplegic Surgeries: Yes (heart cath ) Appendectomy, Bladder Surgery, Bowel Surgery, Orthopedic Respiratory: Yes (questionable GERALDINE) COPD Cardiac: Yes Angina, Deep Vein Thrombosis, High Cholesterol Neurological: Yes (paraplegic) Paralysis, Spinal Cord Injury 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 Disorders: Menstrual Problems [employer] History: IUD Genitourinary: Yes (urostomy) Neurogenic Bladder, UTI-Chronic Gastrointestinal: Yes (Hx colon cancer; colectomy) Musculoskeletal: Yes (paraplegic; carpal tunnel ) Arthritis, Back Injury Endocrine: Yes Diabetes, Insulin dep HEENT: Yes Cataract Cancer: Yes Colon Did You Recieve Any Treatments: Yes What Type of Treatment Did You: Chemotherapy, Radiation, Surgical Intervention Psychosocial: Yes Anxiety, Bipolar, Depression Integumentary: Yes (chronic yeast infections; chronic pressure ulcers; cellulitis) Psoriasis Blood Disorders: Yes (anemia) Adverse Reaction/Blood Tranf: No (JEHOVA[facility] WITNESS-DOESNT TAKE BLOOD) Family Medical History No Pertinent Family Hx Physical Exam Vital Signs Vital Signs - First Documented Capillary Refill : Less Than 3 Seconds Height, Weight, BMI Height: 5'4.50" Weight: 319lbs. 0oz. [id number]; 68.00 BMI Method:Stated General Appearance: Other (Chronically ill, morbidly obese, depressed mental status) Eyes: Bilateral Eye Normal Inspection, Bilateral Eye PERRL HEENT: PERRL/EOMI, Other (Maintains airway) Neck: Non Tender, Supple Respiratory: Chest Non Tender, Lungs Clear, Other (Diminished breath sounds.) Cardiovascular: Regular Rate, Rhythm Gastrointestinal: Soft, Other (Obesity compromising exam. Urostomy, remnant colostomy or anterocutaneous fistula with stool present over the left abdomen) Extremity: Normal Capillary Refill Neurologic/Psychiatric: Other (Obtunded) Focused Exam Lactate Level 08/07/21 09:20: Lactic Acid Level 1.04 Lactic Acid Level Laboratory Tests Test 08/07/21 09:20 Lactic Acid Level 1.04 MMOL/L (0.50-2.00) Progress/Results/Core Measures Suspected Sepsis SIRS Temperature: Pulse: 82 Respiratory Rate: 26 Laboratory Tests 08/07/21 09:20: White Blood Count 17.2H Blood Pressure 133 /69 Mean: 90 08/07/21 09:20: Lactic Acid Level 1.04 Laboratory Tests 08/07/21 09:20: Creatinine 1.29, INR Comment 1.1, Platelet Count 438H, Total Bilirubin 0.3 Results/Orders Lab Results Laboratory Tests Test 08/07/21 09:20 08/07/21 09:36 08/07/21 11:24 Range/Units White Blood Count 17.2 H 4.3-11.0 10^3/uL Red Blood Count 4.24 3.80-5.11 10^6/uL Hemoglobin 10.6 L 11.5-16.0 g/dL Hematocrit 36 35-52 % Mean Corpuscular Volume 85 80-99 fL Mean Corpuscular Hemoglobin 25 25-34 pg Mean Corpuscular Hemoglobin Concent 29 L 32-36 g/dL Red Cell Distribution Width 17.4 H 10.0-14.5 % Platelet Count 438 H 130-400 10^3/uL Mean Platelet Volume 9.2 9.0-12.2 fL Immature Granulocyte % (Auto) 1 % Neutrophils (%) (Auto) 90 H 42-75 % Lymphocytes (%) (Auto) 5 L 12-44 % Monocytes (%) (Auto) 4 0-12 % Eosinophils (%) (Auto) 0 0-10 % Basophils (%) (Auto) 0 0-10 % Neutrophils # (Auto) 15.4 H 1.8-7.8 X 10^3 Lymphocytes # (Auto) 0.9 L 1.0-4.0 X 10^3 Monocytes # (Auto) 0.7 0.0-1.0 X 10^3 Eosinophils # (Auto) 0.0 0.0-0.3 10^3/uL Basophils # (Auto) 0.1 0.0-0.1 10^3/uL Immature Granulocyte # (Auto) 0.1 0.0-0.1 10^3/uL Neutrophils % (Manual) 87 % Lymphocytes % (Manual) 5 % Monocytes % (Manual) 2 % Eosinophils % (Manual) 0 % Basophils % (Manual) 0 % Band Neutrophils 6 % Prothrombin Time 14.5 12.2-14.7 SEC INR Comment 1.1 0.8-1.4 Activated Partial Thromboplast Time 30 24-35 SEC Sodium Level 133 L 135-145 MMOL/L Potassium Level 6.1 H 3.6-5.0 MMOL/L Chloride Level 101 98-107 MMOL/L Carbon Dioxide Level 20 L 21-32 MMOL/L Anion Gap 12 5-14 MMOL/L Blood Urea Nitrogen 33 H 7-18 MG/DL Creatinine 1.29 0.60-1.30 MG/DL Estimat Glomerular Filtration Rate 41 BUN/Creatinine Ratio 26 Glucose Level 305 H 70-105 MG/DL Lactic Acid Level 1.04 0.50-2.00 MMOL/L Calcium Level 9.4 8.5-10.1 MG/DL Corrected Calcium 10.1 8.5-10.1 MG/DL Total Bilirubin 0.3 0.1-1.0 MG/DL Aspartate Amino Transf (AST/SGOT) 18 5-34 U/L Alanine Aminotransferase (ALT/SGPT) 17 0-55 U/L Alkaline Phosphatase 220 H 40-136 U/L Troponin I < 0.30 <0.30 NG/ML Pro-B-Type Natriuretic Peptide 791.4 H <75.0 PG/ML Total Protein 8.5 H 6.4-8.2 GM/DL Albumin 3.1 L 3.2-4.5 GM/DL Urine Color YELLOW Urine Clarity TURBID Urine pH 7.0 5-9 Urine Specific [place] 1.020 1.016-1.022 Urine Protein 3+ H NEGATIVE Urine Glucose (UA) NEGATIVE NEGATIVE Urine Ketones TRACE H NEGATIVE Urine Nitrite NEGATIVE NEGATIVE Urine Bilirubin 1+ H NEGATIVE Urine Urobilinogen 1.0 < = 1.0 MG/DL Urine Leukocyte Esterase 2+ H NEGATIVE Urine RBC (Auto) NEGATIVE NEGATIVE Urine RBC NONE /HPF Urine WBC 10-25 H /HPF Urine Squamous Epithelial Cells NONE /HPF Urine Crystals NONE /LPF Urine Bacteria LARGE H /HPF Urine Casts NONE /LPF Urine Mucus NEGATIVE /LPF Urine Culture Indicated YES Blood Gas Puncture Site LT BRONCIAL Blood Gas Patient Temperature 37.8 Arterial Blood pH 7.29 *L 7.37-7.43 Arterial Blood Partial Pressure CO2 49 H 35-45 MMHG Arterial Blood Partial Pressure O2 72 L 79-93 MMHG Arterial Blood HCO3 24 23-27 MMOL/L Arterial Blood Total CO2 25.1 21.0-31.0 MMOL/L Arterial Blood Oxygen Saturation 92 L 94-100 % Arterial Blood Base Excess -3.3 L -2.5-2.5 MMOL/L Amanuel Test NO Blood Gas Ventilator Setting NO Blood Gas Inspired Oxygen ROOM AIR My Orders Orders - VIDHYA MALONE DO Cbc With Automated Diff (08/07/21 09:29) Comprehensive Metabolic Panel (08/07/21:29) Blood Culture (08/07/21:29) Urinalysis (08/07/21:29) Protime With Inr (08/07/21:29) Partial Thromboplastin Time (08/07/21:29) Chest 1 View Ap/Pa Only (08/07/21:29) Ed Iv/Invasive Line Start (08/07/21:29) Ed Iv/Invasive Line Start (08/07/21:29) Vital Signs Adult Sepsis Patie Q15M (08/07/21:29) O2 (08/07/21:29) Remove Rings In Anticipation O (08/07/21:) Lactic Acid Analyzer (08/07/21:29) Troponin I Fs (08/07/21:29) Probnp Fs (08/07/21:29) Ekg-Prn For Chest Pain Or Rhyt (08/07/21 09:29) Cpap (Set Up) (08/07/21 09:34) Manual Differential (08/07/21 09:20) Ekg Tracing (08/07/21 09:48) Urine Culture (08/07/21 09:36) Ceftriaxone (Rocephin) (08/07/21 11:00) Ceftriaxone 1 Gm Pre-Mix (Rocephin 1 Gm (08/07/21 11:00) Arterial Blood Gas (08/07/21 11:06) Medications Given in ED Current Medications Medications Dose Ordered Sig/Renato Route Start Time Stop Time Status Last Admin Dose Admin Ceftriaxone Sodium/Dextrose 50 ml @ ud STK-MED ONCE IV 08/07/21 11:00 08/07/21 11:03 DC 08/07/21 11:06 100 MLS/HR Vital Signs/I&O 08/07/21 08/07/21 09:15 09:15 Temp 36.9 Pulse 82 Resp 26 B/P (MAP) 133/69 (90) Pulse Ox 97 97 O2 Delivery Nasal Cannula Nasal Cannula O2 Flow Rate 2.00 2.00 Capillary Refill : Less Than 3 Seconds Blood Pressure Mean: 90 Departure Communication (Admissions) EKG: Normal sinus rhythm, no acute ST-T wave changes. Interpretation limited by artifact Chest x-ray: No acute findings per radiology report. Patient with respiratory depression placed on CPAP with improved oxygenation on CPAP. Patient encephalopathic likely secondary to urinary tract infection with chronic enteric-vesicular fistula. Antibiotics given. Patient stable on CPAP. Case discussed in detail with the patient's daughter who is medical power of obstetrics gyn. Patient's daughter confirms DNR and DNI status. Dr. daily accepts to [facility]. Impression Primary Impression: Acute encephalopathy Additional Impression: Urinary tract infection Disposition: [facility] Condition: Stable Departure-Patient Inst. Referrals: FREEMAN CHAPA MD (PCP/Family) Primary Care Physician VIDHYA MALONE DO Aug 07, 2021 11:03
[2021-08-07 11:42] LABS: ABG PCO2 49 MMHG (35-45); ABG PH 7.29 (7.37-7.43); ABG PO2 72 MMHG (79-93)
[2021-08-07 11:43] LABS: ABG BASE EXCESS -3.3 MMOL/L (-2.5-2.5); ABG OXYGEN SATURATION 92 % (94-100); ABG TCO2 25.1 MMOL/L (21.0-31.0)
[2021-08-07 11:47] LABS: ALLENS TEST NO; INSPIRED O2 ROOM AIR; PATIENT TEMP 37.8; VENTILATOR NO
[2021-08-07 15:55] VITALS: BP 134/85
== END 2021-08-07 15:55 | disposition short-term general hospital (02) ==
LOC: EDUNIT# 09:24 → ER FS 09:27
DX: G93.40 Encephalopathy, unspecified (principal); N39.0 Urinary tract infection, site not specified; J44.9 Chronic obstructive pulmonary disease, unspecified; E66.01 Morbid (severe) obesity due to excess calories; E11.9 Type 2 diabetes mellitus without complications; F41.9 Anxiety disorder, unspecified; F32.9 Major depressive disorder, single episode, unspecified; Z68.44 Body mass index [BMI] 60.0-69.9, adult; Z79.82 Long term (current) use of aspirin; Z79.4 Long term (current) use of insulin; Z79.899 Other long term (current) drug therapy
CPT/HCPCS: 36415; 71045; 80053; 81000; 82805; 83605; 83880; 84484; 85007; 85027; 85610; 85730; 87040; 87077; 87088; 93005

== ENCOUNTER 2021-09-15 04:34 | Emergency (ER) | payer MEDICARE, MEDICAID ==
[2021-09-15] MEDS ORDERED: NS IV 1000 ML 1,000 ML IV STA (04:44)
[2021-09-15] MEDS ORDERED: KETOROLAC 30 MG/ML VIAL IVP STA (04:44)
--- NOTE | 2021-09-15 04:44 | ED General ---
General Stated Complaint: LETHARGY History of Present Illness Date Seen by Provider: Sep 15, 2021 Time Seen by Provider: 04:41 Initial Comments 71-year-old female brought in from medical [place]. 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 She brought in because she is more fatigued than normal. Patient states that she is sleeping more than normal and more tired. Patient has arthritis in her shoulders and is complaining of arthritis. There is no reports of any fever, chills, chest pain, nausea, vomiting or other systemic complaints. Allergies and Home Medications Allergies Coded Allergies: exenatide (Verified Allergy, Unknown, nausea and vomiting, 01/09/19) liraglutide (Verified Allergy, Unknown, nausea and vomiting, abdominal pain, 01/09/19) nitrofurantoin (Verified Allergy, Unknown, diarrhea, 01/09/19) promethazine (Verified Allergy, Unknown, 08/07/21) terconazole (Verified Allergy, Unknown, 01/09/19) Patient Home Medication List Home Medication List Reviewed: Yes Acetaminophen (Tylenol) 325 Mg Capsule, 650 MG PO Q6H PRN for PAIN-MILD (1-4), (Reported) Entered as Reported by: MOSHE HOOD on 12/14/20 1613 Albuterol Sulfate (Albuterol Sulfate) 2.5 Mg/0.5 Ml Vial.neb, 2.5 MG INH Q4H PRN for SHORTNESS OF BREATH, (Reported) Entered as Reported by: MOSHE HOOD on 12/14/20 1613 Alprazolam (Alprazolam) 0.5 Mg Tablet, 0.25 MG PO 0100,1300 Prescribed by: BHARTI DAILY on 12/18/20 1023 Amoxicillin/Potassium Clav (Augmentin 875-125 Tablet) 1 Each Tablet, 1 EACH PO BID Prescribed by: BHRATI DAILY on 12/18/20 1023 Aspirin (Aspirin EC) 81 Mg Tablet.dr, 81 MG PO DAILY, (Reported) Entered as Reported by: MOSHE HOOD on 12/14/20 1544 Baclofen (Baclofen) 20 Mg Tablet, 20 MG PO QID, (Reported) Entered as Reported by: MOSHE HOOD on 12/14/20 1613 Bisacodyl (Bisacodyl) 5 Mg Tablet.dr, 10 MG PO DAILY PRN for CONSTIPATION-4TH LINE, (Reported) Entered as Reported by: MOSHE HOOD on 12/14/201612 Cefdinir (Cefdinir) 300 Mg Capsule, 300 MG PO BID Prescribed by: ZULAY VILLASENOR on 03/17/212225 Cyanocobalamin (Vitamin B-12) (Vitamin B-12) 500 Mcg Tablet, 1,000 MCG PO DAILY, (Reported) Entered as Reported by: MOSHE HOOD on 12/14/20 154 Diphenhydramine HCl (Diphenhydramine HCl) 25 Mg Tablet, 25 MG PO Q6H PRN for INSOMNIA/ITCHING, (Reported) Entered as Reported by: MOSHE HOOD on 12/14/201612 Doxazosin Mesylate (Doxazosin Mesylate) 2 Mg Tablet, 2 MG PO HS, (Reported) Entered as Reported by: MOSHE HOOD on 12/14/201543 Fluticasone Propionate (Flonase Allergy Relief) 9.9 Ml Talpa.susp, 2 SPRAY NS DAILY, (Reported) Entered as Reported by: MOSHE HOOD on 12/14/201543 Folic Acid (Folic Acid) 1 Mg Tablet, 1 MG PO DAILY, (Reported) Entered as Reported by: MOSHE HOOD on 12/14/201543 Hyoscyamine Sulfate (Hyoscyamine Sulfate) 0.125 Mg Tablet, 0.125 MG PO Q6H PRN for BLADDER PAIN, (Reported) Entered as Reported by: MOSHE HOOD on 12/14/201612 Insulin Aspart (Novolog Flexpen) 300 Units/3 Ml Solution, UNITS SC AC, (Reported) Entered as Reported by: MOSHE HOOD on 12/14/201612 Insulin Detemir (Levemir Flextouch) 100 Unit/1 Ml Insuln.pen, 22 UNITS SC BID, (Reported) Entered as Reported by: MOSHE HOOD on 12/14/201612 L.acidoph & Paracasei,B.lactis (Probiotic) 1 Each Capsule, 2 EACH PO DAILY, (Reported) Entered as Reported by: MOSHE HOOD on 12/14/201543 Latanoprost (Xalatan) 2.5 Ml Drops, 1 DROP OU HS, (Reported) Entered as Reported by: MOSHE HOOD on 12/14/20 154 Levofloxacin (Levofloxacin) 500 Mg Tablet, 500 MG PO DAILY Prescribed by: KALEN MEDINA on 09/15/21 0523 Meloxicam (Meloxicam) 7.5 Mg Tablet, 7.5 MG PO DAILY, (Reported) Entered as Reported by: MOSHE HOOD on 12/14/20 154 Mometasone Furoate (Mometasone Furoate) 17 Gm Talpa.pump, 1 APPLIC TOP DAILY PRN for ITCHING, (Reported) Entered as Reported by: MOSHE HOOD on 12/14/20 161 Montelukast Sodium (Montelukast Sodium) 10 Mg Tablet, 10 MG PO DAILY, (Reported) Entered as Reported by: MOSHE HOOD on 12/14/20 154 Multivitamin with Minerals (Multivitamins with Minerals) 1 Each Tablet, 1 EACH PO 1200, (Reported) Entered as Reported by: MOSHE HOOD on 12/14/20 154 Nystatin (Nystop) 60 Gm Powder, 1 APPLIC TOP BID PRN PRN for SOILING AND SATURATION, (Reported) Entered as Reported by: MOSHE HOOD on 12/14/20 154 Omeprazole (Omeprazole) 20 Mg Capsule.dr, 20 MG PO BID, (Reported) Entered as Reported by: MOSHE HOOD on 12/14/20 161 Ondansetron HCl (Ondansetron HCl) 4 Mg Tablet, 4 MG PO Q4H, (Reported) Entered as Reported by: MOSHE HOOD on 12/14/20 161 Oxycodone HCl (Oxycodone HCl) 5 Mg Tablet, 5 MG PO Q8H PRN for PAIN-SEVERE (8- 10) Prescribed by: BHARTI DAILY on 12/18/20 1023 Petrolat,Wht/Min Oil/Sod Chl (Refresh P.m. Ointment P-F) 3.5 Gm Oint...g., 1 APPLIC OU Q8H PRN for DRY EYES, (Reported) Entered as Reported by: MOSHE HOOD on 12/14/20 161 Polyethylene Glycol 3350 (Miralax) 17 Gm Powd.pack, 8.5 GM PO DAILY, (Reported) Entered as Reported by: MOSHE HOOD on 12/14/20 1544 Sumatriptan Succinate (Sumatriptan Succinate) 100 Mg Tablet, 100 MG PO DAILY PRN for MIGRAINE, (Reported) Entered as Reported by: MOSHE HOOD on 12/14/20 1613 Venlafaxine HCl (Venlafaxine HCl) 75 Mg Tab, 75 MG PO BID, (Reported) Entered as Reported by: MOSHE HOOD on 12/14/20 1613 Review of Systems Review of Systems Constitutional: No chills, No fever Respiratory: no symptoms reported Cardiovascular: no symptoms reported Gastrointestinal: no symptoms reported Genitourinary: no symptoms reported Musculoskeletal: see HPI Skin: no symptoms reported Psychiatric/Neurological: No Symptoms Reported Past Bnhejec-Inyftm-Etiein Hx Immunizations Up To Date First/Initial COVID19 Vaccinat: AUGUST 2020 Second COVID19 Vaccination Mehul: AUGUST 2020 Seasonal Allergies Seasonal Allergies: No Past Medical History Surgery/Hospitalization HX: COPD, GERALDINE, CPAP prescribed, Chronic UTI, Morbid Obesity, DM, chronic HTN, Paraplegic Surgeries: Yes (heart cath ) Appendectomy, Bladder Surgery, Bowel Surgery, Orthopedic Respiratory: Yes (questionable GERALDINE) COPD Cardiac: Yes Angina, Deep Vein Thrombosis, High Cholesterol Neurological: Yes (paraplegic) Paralysis, Spinal Cord Injury 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 Disorders: Menstrual Problems [employer] History: IUD Genitourinary: Yes (urostomy) Neurogenic Bladder, UTI-Chronic Gastrointestinal: Yes (Hx colon cancer; colectomy) Musculoskeletal: Yes (paraplegic; carpal tunnel ) Arthritis, Back Injury Endocrine: Yes Diabetes, Insulin dep HEENT: Yes Cataract Cancer: Yes Colon Did You Recieve Any Treatments: Yes What Type of Treatment Did You: Chemotherapy, Radiation, Surgical Intervention Psychosocial: Yes Anxiety, Bipolar, Depression Integumentary: Yes (chronic yeast infections; chronic pressure ulcers; cellulitis) Psoriasis Blood Disorders: Yes (anemia) Adverse Reaction/Blood Tranf: No (JEHOVAHS WITNESS-DOESNT TAKE BLOOD) Family Medical History No Pertinent Family Hx Physical Exam Vital Signs Vital Signs - First Documented 09/15/21 04:37 Temp 36.2 Pulse 94 Resp 18 B/P (MAP) 180/83 (115) Pulse Ox 95 O2 Delivery Nasal Cannula O2 Flow Rate 2.00 Capillary Refill : Height, Weight, BMI Height: 5'4.50" Weight: 319lbs. 0oz. [id number]; 68.00 BMI Method:Stated General Appearance: No Apparent Distress, Obese HEENT: Other (lips dry ) Respiratory: Lungs Clear, Normal Breath Sounds, No Accessory Muscle Use, No Respiratory Distress Cardiovascular: Regular Rate, Rhythm Gastrointestinal: Non Tender, Soft Extremity: Other (no acute changes ) Neurologic/Psychiatric: Alert, Normal Mood/Affect Progress/Results/Core Measures Suspected Sepsis SIRS Temperature: Pulse: Respiratory Rate: Laboratory Tests 09/15/21 04:48: White Blood Count 14.1H Blood Pressure / Mean: Laboratory Tests 09/15/21 04:48: Creatinine 0.93, Platelet Count 518H, Total Bilirubin 0.2 Results/Orders Lab Results Laboratory Tests Test 09/15/21 04:48 09/15/21 04:53 Range/Units White Blood Count 14.1 H 4.3-11.0 10^3/uL Red Blood Count 4.28 3.80-5.11 10^6/uL Hemoglobin 10.1 L 11.5-16.0 g/dL Hematocrit 36 35-52 % Mean Corpuscular Volume 83 80-99 fL Mean Corpuscular Hemoglobin 24 L 25-34 pg Mean Corpuscular Hemoglobin Concent 28 L 32-36 g/dL Red Cell Distribution Width 17.5 H 10.0-14.5 % Platelet Count 518 H 130-400 10^3/uL Mean Platelet Volume 8.6 L 9.0-12.2 fL Immature Granulocyte % (Auto) 1 % Neutrophils (%) (Auto) 81 H 42-75 % Lymphocytes (%) (Auto) 10 L 12-44 % Monocytes (%) (Auto) 5 0-12 % Eosinophils (%) (Auto) 2 0-10 % Basophils (%) (Auto) 1 0-10 % Neutrophils # (Auto) 11.5 H 1.8-7.8 X 10^3 Lymphocytes # (Auto) 1.5 1.0-4.0 X 10^3 Monocytes # (Auto) 0.8 0.0-1.0 X 10^3 Eosinophils # (Auto) 0.3 0.0-0.3 10^3/uL Basophils # (Auto) 0.1 0.0-0.1 10^3/uL Immature Granulocyte # (Auto) 0.1 0.0-0.1 10^3/uL Neutrophils % (Manual) 86 % Lymphocytes % (Manual) 10 % Monocytes % (Manual) 3 % Eosinophils % (Manual) 1 % Sodium Level 133 L 135-145 MMOL/L Potassium Level 5.0 3.6-5.0 MMOL/L Chloride Level 103 98-107 MMOL/L Carbon Dioxide Level 20 L 21-32 MMOL/L Anion Gap 10 5-14 MMOL/L Blood Urea Nitrogen 35 H 7-18 MG/DL Creatinine 0.93 0.60-1.30 MG/DL Estimat Glomerular Filtration Rate 66 BUN/Creatinine Ratio 38 Glucose Level 244 H 70-105 MG/DL Calcium Level 10.0 8.5-10.1 MG/DL Corrected Calcium 11.0 H 8.5-10.1 MG/DL Total Bilirubin 0.2 0.1-1.0 MG/DL Aspartate Amino Transf (AST/SGOT) 17 5-34 U/L Alanine Aminotransferase (ALT/SGPT) 17 0-55 U/L Alkaline Phosphatase 229 H 40-136 U/L C-Reactive Protein 17.12 H <0.50 MG/DL Total Protein 8.3 H 6.4-8.2 GM/DL Albumin 2.7 L 3.2-4.5 GM/DL Urine Color YELLOW Urine Clarity CLOUDY Urine pH 8.5 5-9 Urine Specific [place] <=1.005 1.016-1.022 Urine Protein 3+ H NEGATIVE Urine Glucose (UA) NEGATIVE NEGATIVE Urine Ketones NEGATIVE NEGATIVE Urine Nitrite NEGATIVE NEGATIVE Urine Bilirubin NEGATIVE NEGATIVE Urine Urobilinogen 0.2 < = 1.0 MG/DL Urine Leukocyte Esterase NEGATIVE NEGATIVE Urine RBC (Auto) NEGATIVE NEGATIVE Urine RBC NONE /HPF Urine WBC NONE /HPF Urine Squamous Epithelial Cells NONE /HPF Urine Crystals PRESENT H /LPF Urine Triple Phosphate Crystals MODERATE H /LPF Urine Bacteria LARGE H /HPF Urine Casts NONE /LPF Urine Mucus NEGATIVE /LPF Urine Culture Indicated YES My Orders Orders - MIR MEDINAVOR L DO Cbc With Automated Diff (09/15/21 04:44) Comprehensive Metabolic Panel (09/15/21 04:44) Ua Culture If Indicated (09/15/21 04:44) Crp Fs (09/15/21 04:44) Chest 1 View Ap/Pa Only (09/15/21 04:44) Ns Iv 1000 Ml (Sodium Chloride 0.9%) (09/15/21 04:44) Ketorolac Injection (Toradol Injection) (09/15/21 04:44) Ed Iv/Invasive Line Start (09/15/21 04:56) Manual Differential (09/15/21 04:48) Urine Culture (09/15/21 04:53) Levofloxacin Tablet (Levaquin Tablet) (09/15/21 05:30) Medications Given in ED Current Medications Medications Dose Ordered Sig/Renato Route Start Time Stop Time Status Last Admin Dose Admin Levofloxacin 500 mg ONCE ONCE PO 09/15/21 05:30 09/15/21 05:31 09/15/21 05:23 500 MG Vital Signs/I&O 09/15/21 04:37 Temp 36.2 Pulse 94 Resp 18 B/P (MAP) 180/83 (115) Pulse Ox 95 O2 Delivery Nasal Cannula O2 Flow Rate 2.00 Capillary Refill : Progress Note : Progress Note Patient with elevated white count elevated, CRP. She does have an indwelling catheter with what appears to be chronic UTI. There are no leukocyte esterase or nitrates however I will treat her with Levaquin due to the elevated white count and CRP. Patient complaints are minimal with just fatigue. I would also recommend a snf check her for Covid. Patient stable discharged back to medical [place] [facility] Diagonstic Imaging: Xray Plain Films/CT/US/NM/MRI: chest Comments Difficult x-ray due to body habitus however appears stable compared to previous Departure Impression Primary Impression: Urinary tract infection Qualified Codes: T83.511A - Infection and inflammatory reaction due to indwelling urethral catheter, initial encounter; N39.0 - Urinary tract infection, site not specified Additional Impression: Fatigue Qualified Codes: R53.83 - Other fatigue Disposition: 01 HOME, SELF-CARE Condition: Stable Departure-Patient Inst. Referrals: SELF,FREEMAN BELTRE (PCP/Family) Primary Care Physician Patient Instructions: Fatigue ED, Fatigue (DC) Add. Discharge Instructions: Patient prescribed Levaquin for potential urinary tract infection. I would recommend screening for COVID-19 due to prevalence in the community Scripts Levofloxacin (Levofloxacin) 500 Mg Tablet 500 MG PO DAILY, #7 TAB 0 Refills Prov: KALEN MEDINA DO 09/15/21 KALEN MEDINA DO Sep 15, 2021 04:43
[2021-09-15 05:01] LABS: HEMATOCRIT 36 % (35-52); HEMOGLOBIN 10.1 g/dL (11.5-16.0); MEAN CORPUSCULAR HEMOGLOBIN 24 pg (25-34); MEAN CORPUSCULAR HGB CONC 28 g/dL (32-36); MEAN CORPUSCULAR VOLUME 83 fL (80-99); MEAN PLATELET VOLUME 8.6 fL (9.0-12.2); PLATELET COUNT 518 10^3/uL (130-400); WHITE BLOOD COUNT 14.1 10^3/uL (4.3-11.0)
[2021-09-15 05:02] LABS: BASOPHILS # (AUTO) 0.1 10^3/uL (0.0-0.1); BASOPHILS % (AUTO) 1 % (0-10); EOSINOPHILS # (AUTO) 0.3 10^3/uL (0.0-0.3); EOSINOPHILS % (AUTO) 2 % (0-10); LYMPHOCYTES # (AUTO) 1.5 X 10^3 (1.0-4.0); LYMPHOCYTES % (AUTO) 10 % (12-44); MONOCYTES # (AUTO) 0.8 X 10^3 (0.0-1.0); MONOCYTES % (AUTO) 5 % (0-12); NEUTROPHILS # (AUTO) 11.5 X 10^3 (1.8-7.8); NEUTROPHILS % (AUTO) 81 % (42-75)
[2021-09-15 05:02] LABS: BILIRUBIN,URINE NEGATIVE (NEGATIVE); CLARITY,URINE CLOUDY; COLOR,URINE YELLOW; GLUCOSE, URINE (UA) NEGATIVE (NEGATIVE); KETONES,URINE NEGATIVE (NEGATIVE); NITRITE,URINE NEGATIVE (NEGATIVE); PH,URINE 8.5 (5-9); PROTEIN,URINE 3+ (NEGATIVE)
[2021-09-15 05:03] LABS: BACTERIA,URINE LARGE /HPF; LEUKOCYTE ESTERASE ,URINE NEGATIVE (NEGATIVE); TRIPLE PHOSPHATE CRYSTAL,UR MODERATE /LPF
[2021-09-15 05:11] LABS: ALBUMIN 2.7 GM/DL (3.2-4.5); BILIRUBIN,TOTAL 0.2 MG/DL (0.1-1.0); CREATININE SERUM 0.93 MG/DL (0.60-1.30); TOTAL PROTEIN 8.3 GM/DL (6.4-8.2)
[2021-09-15 05:19] LABS: EOSINOPHILS % (MANUAL) 1 %; LYMPHOCYTES % (MANUAL) 10 %; MONOCYTES % (MANUAL) 3 %; NEUTROPHILS % (MANUAL) 86 %
[2021-09-15] MEDS ORDERED: LEVO500T81 PO (05:23)
[2021-09-15 05:33] VITALS: BP 180/83
--- NOTE | 2021-09-15 06:08 | Diagnostic Imaging Report ---
EXAMINATION: Chest radiograph, portable AP view. DATE: 09/15/2021 4:54 AM INDICATION: 71-year-old female, lethargy, fatigue. COMPARISON: August 07, 2021. FINDINGS: There are technical limitations of the exam relating to patient body habitus and difficulties with exposure. Heart size and mediastinal contours are grossly unchanged. There is no identified pneumothorax. There is no large pleural effusion. There is no definite interval focal airspace consolidation. There is incompletely imaged hardware overlying the thoracolumbar spine. IMPRESSION: 1. Technically limited exam. 2. No definite interval acute cardiopulmonary abnormality. Dictated by: Dictated on workstation # [id number]
== END 2021-09-15 05:43 | disposition home or self-care (01) ==
LOC: EDUNIT# 04:34 → ER FS 04:36
DX: N39.0 Urinary tract infection, site not specified (principal); R53.83 Other fatigue; J44.9 Chronic obstructive pulmonary disease, unspecified; E11.9 Type 2 diabetes mellitus without complications; F41.9 Anxiety disorder, unspecified; I10 Essential (primary) hypertension; F32.9 Major depressive disorder, single episode, unspecified; E66.01 Morbid (severe) obesity due to excess calories; Z68.44 Body mass index [BMI] 60.0-69.9, adult; Z79.82 Long term (current) use of aspirin; Z79.4 Long term (current) use of insulin; Z79.899 Other long term (current) drug therapy
CPT/HCPCS: 36415; 71045; 80053; 81000; 85007; 85027; 86141; 87077; 87088; 87186

== ENCOUNTER 2021-09-22 14:47 | Emergency (ER) | payer MEDICARE, MEDICAID ==
[~2021-09-22 14:47] MED LIST changes: -FLUT9.9S NS; +FLUT9.9S NSEACH; +LEVO500T81 PO
[2021-09-22 14:52] VITALS: BP 130/53
[2021-09-22] MEDS ORDERED: NS IV 500 ML 500 ML IV ONE (15:00)
[2021-09-22 15:06] LABS: HEMATOCRIT 33 % (35-52); HEMOGLOBIN 9.5 g/dL (11.5-16.0); MEAN CORPUSCULAR HEMOGLOBIN 24 pg (25-34); WHITE BLOOD COUNT 16.9 10^3/uL (4.3-11.0)
[2021-09-22 15:07] LABS: BASOPHILS # (AUTO) 0.1 10^3/uL (0.0-0.1); BASOPHILS % (AUTO) 0 % (0-10); EOSINOPHILS # (AUTO) 0.4 10^3/uL (0.0-0.3); EOSINOPHILS % (AUTO) 2 % (0-10); LYMPHOCYTES # (AUTO) 1.6 X 10^3 (1.0-4.0); LYMPHOCYTES % (AUTO) 9 % (12-44); MEAN CORPUSCULAR HGB CONC 29 g/dL (32-36); MEAN CORPUSCULAR VOLUME 82 fL (80-99); MEAN PLATELET VOLUME 8.8 fL (9.0-12.2); MONOCYTES # (AUTO) 1.1 X 10^3 (0.0-1.0); MONOCYTES % (AUTO) 7 % (0-12); NEUTROPHILS # (AUTO) 13.5 X 10^3 (1.8-7.8); NEUTROPHILS % (AUTO) 80 % (42-75); PLATELET COUNT 569 10^3/uL (130-400)
[2021-09-22 15:24] LABS: EOSINOPHILS % (MANUAL) 3 %; LYMPHOCYTES % (MANUAL) 8 %; MONOCYTES % (MANUAL) 5 %; NEUTROPHILS % (MANUAL) 84 %; PLATELET ESTIMATE INCREASED; POLYCHROMASIA SLIGHT
[2021-09-22 15:25] LABS: CALCIUM 9.8 MG/DL (8.5-10.1); CREATININE SERUM 1.18 MG/DL (0.60-1.30); POTASSIUM 4.5 MMOL/L (3.6-5.0); TARGET CELLS SLIGHT; TOXIC GRANULATION/VACUOLAZATIO 4+
[2021-09-22 15:26] LABS: ALBUMIN 2.5 GM/DL (3.2-4.5); BILIRUBIN,TOTAL 0.2 MG/DL (0.1-1.0); TOTAL PROTEIN 7.9 GM/DL (6.4-8.2)
--- NOTE | 2021-09-22 15:36 | ED General ---
General Chief Complaint: Glucose Problems Stated Complaint: LOW BLOOD SUGAR Nursing Triage Note: Patient presents to the ED via EMS with c/o low blood sugar and slurred speech. EMS reports initial blood sugar reading by [facility] staff was 75. They administered orange juice with sugar packets PO. EMS recheck of blood sugar was 92. Upon arrival to the ED patient reports feeling, "tingly" and her blood sugar was low. She states she was recently diagnosed with a UTI, prescribed antibiotics and is experiencing decreased appetite and increased loose stools. Source of Information: Patient, EMS Exam Limitations: No Limitations History of Present Illness Date Seen by Provider: Sep 22, 2021 Time Seen by Provider: 14:50 Initial Comments 71-year-old female with past medical history most notable for diabetes coming in via EMS from her [facility] due to relatively low blood sugar. She typically runs in the 200s to 400s, and she was feeling slightly off so they took her blood sugar and it was 76. They gave her juice with sugar packets and it came up to the 90s. They then called EMS to have her transferred here. She said she was feeling slightly dazed and off, but denies any weakness, numbness, current headache, vision changes, voice changes, or any other concerns. She says she has been treated for UTI and has 5 more days of antibiotics. She says her urine has cleared up. She also has had less formed stool since starting the antibiotics but has not changed significantly. She is otherwise denying any chest pain, shortness of breath, abdominal pain, nausea, vomiting, or any other concerns. Allergies and Home Medications Allergies Coded Allergies: exenatide (Verified Allergy, Unknown, nausea and vomiting, 01/09/19) liraglutide (Verified Allergy, Unknown, nausea and vomiting, abdominal pain, 01/09/19) nitrofurantoin (Verified Allergy, Unknown, diarrhea, 01/09/19) promethazine (Verified Allergy, Unknown, 08/07/21) terconazole (Verified Allergy, Unknown, 01/09/19) Patient Home Medication List Home Medication List Reviewed: Yes Acetaminophen (Tylenol) 325 Mg Capsule, 650 MG PO Q6H PRN for PAIN-MILD (1-4), (Reported) Entered as Reported by: MOSHE HOOD on 12/14/20 3611 Albuterol Sulfate (Albuterol Sulfate) 2.5 Mg/0.5 Ml Vial.neb, 2.5 MG INH Q4H PRN for SHORTNESS OF BREATH, (Reported) Entered as Reported by: MOSHE HOOD on 12/14/20 161 Alprazolam (Alprazolam) 0.5 Mg Tablet, 0.25 MG PO 0100,1300 Prescribed by: BHARTI DAILY on 12/18/20 1023 Amoxicillin/Potassium Clav (Augmentin 875-125 Tablet) 1 Each Tablet, 1 EACH PO BID Prescribed by: BHARTI DAILY on 12/18/20 1023 Aspirin (Aspirin EC) 81 Mg Tablet.dr, 81 MG PO DAILY, (Reported) Entered as Reported by: MOSHE HOOD on 12/14/20 154 Baclofen (Baclofen) 20 Mg Tablet, 20 MG PO QID, (Reported) Entered as Reported by: MOSHE HOOD on 12/14/201612 Bisacodyl (Bisacodyl) 5 Mg Tablet.dr, 10 MG PO DAILY PRN for CONSTIPATION-4TH LI NE, (Reported) Entered as Reported by: MOSHE HOOD on 12/14/20 161 Cefdinir (Cefdinir) 300 Mg Capsule, 300 MG PO BID Prescribed by: ZULAY VILLASENOR on 03/17/212225 Cyanocobalamin (Vitamin B-12) (Vitamin B-12) 500 Mcg Tablet, 1,000 MCG PO DAILY, (Reported) Entered as Reported by: MOSHE HOOD on 12/14/20 154 Diphenhydramine HCl (Diphenhydramine HCl) 25 Mg Tablet, 25 MG PO Q6H PRN for INSOMNIA/ITCHING, (Reported) Entered as Reported by: MOSHE HOOD on 12/14/20 161 Doxazosin Mesylate (Doxazosin Mesylate) 2 Mg Tablet, 2 MG PO HS, (Reported) Entered as Reported by: MOSHE HOOD on 12/14/20 154 Fluticasone Propionate (Flonase Allergy Relief) 9.9 Ml [place].susp, 2 SPRAY NS DAILY, (Reported) Entered as Reported by: MOSHE HOOD on 12/14/20 154 Folic Acid (Folic Acid) 1 Mg Tablet, 1 MG PO DAILY, (Reported) Entered as Reported by: MOSHE HOOD on 12/14/201543 Hyoscyamine Sulfate (Hyoscyamine Sulfate) 0.125 Mg Tablet, 0.125 MG PO Q6H PRN for BLADDER PAIN, (Reported) Entered as Reported by: MOSHE HOOD on 12/14/201612 Insulin Aspart (Novolog Flexpen) 300 Units/3 Ml Solution, UNITS SC AC, (Reported) Entered as Reported by: MOSHE HOOD on 12/14/201612 Insulin Detemir (Levemir Flextouch) 100 Unit/1 Ml Insuln.pen, 22 UNITS SC BID, (Reported) Entered as Reported by: MOSHE HOOD on 12/14/201612 L.acidoph & Paracasei,B.lactis (Probiotic) 1 Each Capsule, 2 EACH PO DAILY, (Reported) Entered as Reported by: MOSHE HOOD on 12/14/201543 Latanoprost (Xalatan) 2.5 Ml Drops, 1 DROP OU HS, (Reported) Entered as Reported by: MOSHE HOOD on 12/14/201543 Levofloxacin (Levofloxacin) 500 Mg Tablet, 500 MG PO DAILY Prescribed by: KALEN MEDINA on 09/15/21 0523 Meloxicam (Meloxicam) 7.5 Mg Tablet, 7.5 MG PO DAILY, (Reported) Entered as Reported by: MOSHE HOOD on 12/14/201543 Mometasone Furoate (Mometasone Furoate) 17 Gm [place].pump, 1 APPLIC TOP DAILY PRN for ITCHING, (Reported) Entered as Reported by: MOSHE HOOD on 12/14/201612 Montelukast Sodium (Montelukast Sodium) 10 Mg Tablet, 10 MG PO DAILY, (Reported) Entered as Reported by: MOSHE HOOD on 12/14/201543 Multivitamin with Minerals (Multivitamins with Minerals) 1 Each Tablet, 1 EACH PO 1200, (Reported) Entered as Reported by: MOSHE HOOD on 12/14/201543 Nystatin (Nystop) 60 Gm Powder, 1 APPLIC TOP BID PRN PRN for SOILING AND SATURATION, (Reported) Entered as Reported by: MOSHE HOOD on 12/14/201543 Omeprazole (Omeprazole) 20 Mg Capsule.dr, 20 MG PO BID, (Reported) Entered as Reported by: MOSHE HOOD on 12/14/20 161 Ondansetron HCl (Ondansetron HCl) 4 Mg Tablet, 4 MG PO Q4H, (Reported) Entered as Reported by: MOSHE HOOD on 12/14/20 161 Oxycodone HCl (Oxycodone HCl) 5 Mg Tablet, 5 MG PO Q8H PRN for PAIN-SEVERE (8- 10) Prescribed by: BHARTI DAILY on 12/18/20 1023 Petrolat,Wht/Min Oil/Sod Chl (Refresh P.m. Ointment P-F) 3.5 Gm Oint...g., 1 APPLIC OU Q8H PRN for DRY EYES, (Reported) Entered as Reported by: MOSHE HOOD on 12/14/20 161 Polyethylene Glycol 3350 (Miralax) 17 Gm Powd.pack, 8.5 GM PO DAILY, (Reported) Entered as Reported by: MOSHE HOOD on 12/14/20 1544 Sumatriptan Succinate (Sumatriptan Succinate) 100 Mg Tablet, 100 MG PO DAILY PRN for MIGRAINE, (Reported) Entered as Reported by: MOSHE HOOD on 12/14/20 161 Venlafaxine HCl (Venlafaxine HCl) 75 Mg Tab, 75 MG PO BID, (Reported) Entered as Reported by: MOSHE HOOD on 12/14/201612 Review of Systems Review of Systems Constitutional: No chills, No fever EENTM: No blurred vision Respiratory: No cough, No short of breath Cardiovascular: no symptoms reported Gastrointestinal: no symptoms reported Genitourinary: no symptoms reported Musculoskeletal: no symptoms reported Skin: no symptoms reported Psychiatric/Neurological: No Symptoms Reported Hematologic/Lymphatic: No Symptoms Reported Immunological/Allergic: no symptoms reported All Other Systems Reviewed Negative Unless Noted: Yes Past Wjnzhcg-Lfqwhg-Gcsdok Hx Patient Social History Tobacco Use?: No Use of E-Cig and/or Vaping dev: No Substance use?: No Alcohol Use?: No Pt feels they are or have been: No Immunizations Up To Date First/Initial COVID19 Vaccinat: AUGUST 2020 Second COVID19 Vaccination Mehul: AUGUST 2020 Seasonal Allergies Seasonal Allergies: No Past Medical History Surgery/Hospitalization HX: COPD, GERALDINE, CPAP prescribed, Chronic UTI, Morbid Obesity, DM, chronic HTN, Paraplegic Surgeries: Yes (heart cath ) Appendectomy, Bladder Surgery, Bowel Surgery, Orthopedic Respiratory: Yes (questionable GERALDINE) COPD Cardiac: Yes Angina, Deep Vein Thrombosis, High Cholesterol Neurological: Yes (paraplegic) Paralysis, Spinal Cord Injury 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 Disorders: 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 Genitourinary: Yes (urostomy) Neurogenic Bladder, UTI-Chronic Gastrointestinal: Yes (Hx colon cancer; colectomy) Musculoskeletal: Yes (paraplegic; carpal tunnel ) Arthritis, Back Injury Endocrine: Yes Diabetes, Insulin dep HEENT: Yes Cataract Cancer: Yes Colon Did You Recieve Any Treatments: Yes What Type of Treatment Did You: Chemotherapy, Radiation, Surgical Intervention Psychosocial: Yes Anxiety, Bipolar, Depression Integumentary: Yes (chronic yeast infections; chronic pressure ulcers; cellulitis) Psoriasis Blood Disorders: Yes (anemia) Adverse Reaction/Blood Tranf: No (JEHOVAHS WITNESS-DOESNT TAKE BLOOD) Family Medical History No Pertinent Family Hx Physical Exam Vital Signs Vital Signs - First Documented 09/22/21 14:52 Temp 35.7 Pulse 83 Resp 18 B/P (MAP) 130/53 (78) Pulse Ox 98 O2 Delivery Room Air Capillary Refill : Less Than 3 Seconds Height, Weight, BMI Height: 5'4.50" Weight: 319lbs. 0oz. 144.186135zm; 68.00 BMI Method:Stated General Appearance: No Apparent Distress, WD/WN Eyes: Bilateral Eye Normal Inspection HEENT: PERRL/EOMI, Normal ENT Inspection, Pharynx Normal Neck: Full Range of Motion, Normal Inspection, Non Tender, Supple Respiratory: Chest Non Tender, Lungs Clear, Normal Breath Sounds, No Accessory Muscle Use, No Respiratory Distress Cardiovascular: Regular Rate, Rhythm, No Edema Gastrointestinal: Normal Bowel Sounds, Non Tender, Soft; No Distended, No Guarding; Other (Colostomy emptying brown stool) Genital/Rectal: Other (Urostomy with clear yellow urine) Back: Normal Inspection, No CVA Tenderness, No Vertebral Tenderness Extremity: Normal Capillary Refill, Normal Inspection, Normal Range of Motion, Non Tender, No Calf Tenderness, Pedal Edema Neurologic/Psychiatric: Alert, Oriented x3, No Motor/Sensory Deficits, Normal 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, 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 Norm as Tested, Other (Lower extremities paralyzed at baseline) Skin: Normal Color, Warm/Dry Lymphatic: No Adenopathy Progress/Results/Core Measures Suspected Sepsis SIRS Temperature: Pulse: 83 Respiratory Rate: 18 Laboratory Tests 09/22/21 15:03: White Blood Count 16.9H Blood Pressure 130 /53 Mean: 78 Laboratory Tests 09/22/21 15:03: Creatinine 1.18, Platelet Count 569H, Total Bilirubin 0.2 Results/Orders Lab Results Laboratory Tests Test 09/22/21 14:59 09/22/21 15:03 Range/Units Glucometer 94 70-110 MG/DL White Blood Count 16.9 H 4.3-11.0 10^3/uL Red Blood Count 3.99 3.80-5.11 10^6/uL Hemoglobin 9.5 L 11.5-16.0 g/dL Hematocrit 33 L 35-52 % Mean Corpuscular Volume 82 80-99 fL Mean Corpuscular Hemoglobin 24 L 25-34 pg Mean Corpuscular Hemoglobin Concent 29 L 32-36 g/dL Red Cell Distribution Width 17.9 H 10.0-14.5 % Platelet Count 569 H 130-400 10^3/uL Mean Platelet Volume 8.8 L 9.0-12.2 fL Immature Granulocyte % (Auto) 1 % Neutrophils (%) (Auto) 80 H 42-75 % Lymphocytes (%) (Auto) 9 L 12-44 % Monocytes (%) (Auto) 7 0-12 % Eosinophils (%) (Auto) 2 0-10 % Basophils (%) (Auto) 0 0-10 % Neutrophils # (Auto) 13.5 H 1.8-7.8 X 10^3 Lymphocytes # (Auto) 1.6 1.0-4.0 X 10^3 Monocytes # (Auto) 1.1 H 0.0-1.0 X 10^3 Eosinophils # (Auto) 0.4 H 0.0-0.3 10^3/uL Basophils # (Auto) 0.1 0.0-0.1 10^3/uL Immature Granulocyte # (Auto) 0.2 H 0.0-0.1 10^3/uL Neutrophils % (Manual) 84 % Lymphocytes % (Manual) 8 % Monocytes % (Manual) 5 % Eosinophils % (Manual) 3 % Toxic Granulation 4+ Platelet Estimate INCREASED Polychromasia SLIGHT Basophilic Stippling SLIGHT Target Cells SLIGHT Sodium Level 134 L 135-145 MMOL/L Potassium Level 4.5 3.6-5.0 MMOL/L Chloride Level 104 98-107 MMOL/L Carbon Dioxide Level 17 L 21-32 MMOL/L Anion Gap 13 5-14 MMOL/L Blood Urea Nitrogen 39 H 7-18 MG/DL Creatinine 1.18 0.60-1.30 MG/DL Estimat Glomerular Filtration Rate 50 BUN/Creatinine Ratio 33 Glucose Level 108 H 70-105 MG/DL Calcium Level 9.8 8.5-10.1 MG/DL Corrected Calcium 11.0 H 8.5-10.1 MG/DL Total Bilirubin 0.2 0.1-1.0 MG/DL Aspartate Amino Transf (AST/SGOT) 12 5-34 U/L Alanine Aminotransferase (ALT/SGPT) 11 0-55 U/L Alkaline Phosphatase 224 H 40-136 U/L Total Protein 7.9 6.4-8.2 GM/DL Albumin 2.5 L 3.2-4.5 GM/DL My Orders Orders - WENDI RUDOLPH MD Cbc With Automated Diff (09/22/21 14:57) Comprehensive Metabolic Panel (09/22/21 14:57) Accucheck Stat ONCE (09/22/21 14:57) Ed Iv/Invasive Line Start (09/22/21 14:57) Ns Iv 500 Ml (Sodium Chloride 0.9%) (09/22/21 15:00) Manual Differential (09/22/21 15:03) Medications Given in ED Current Medications Medications Dose Ordered Sig/Renato Route Start Time Stop Time Status Last Admin Dose Admin Sodium Chloride 500 ml @ 0 mls/hr Q0M ONCE IV 09/22/21 15:00 09/22/21 15:01 DC 09/22/21 15:11 500 MLS/HR Vital Signs/I&O 09/22/21 14:52 Temp 35.7 Pulse 83 Resp 18 B/P (MAP) 130/53 (78) Pulse Ox 98 O2 Delivery Room Air Capillary Refill : Less Than 3 Seconds Blood Pressure Mean: 78 Point of Care Testing Finger Stick Blood Glucose: 94 Progress Note : Progress Note 71-year-old female with above history coming in due to what EMS stated was low blood sugar. Her lowest sugar was 76 which technically is not low. She came up to the 90s prior to arrival and our repeat was in the 90s as well. CMP with sugar in the 200s. Creatinine near her baseline as well as other electrolytes. Her white count has been consistently elevated every visit to the emergency department and it is similar. She is at her neuro baseline and has no deficits on exam that would be concerning for stroke. She did get 500cc of IV fluids because she says she has been taking less the past couple days. I believe she is stable for discharge with outpatient follow-up. [facility] with strict return precautions. Departure Impression Primary Impression: Hypoglycemic event in diabetes Disposition: HOME, SELF-CARE Condition: Stable Departure-Patient Inst. Decision time for Depature: 15:35 Referrals: FREEMAN CHAPA MD (PCP/Family) Primary Care Physician Patient Instructions: Low Blood Sugar, Adult ED Add. Discharge Instructions: Please be sure to try to eat a protein meal at least 3 times a day and continue to check your blood sugar regularly. WENDI RUDOLPH MD Sep 22, 2021 15:36
== END 2021-09-22 17:00 | disposition home or self-care (01) ==
LOC: EDUNIT# 14:47 → ER FS 14:50
DX: E11.649 Type 2 diabetes mellitus with hypoglycemia without coma (principal); J44.9 Chronic obstructive pulmonary disease, unspecified; F32.9 Major depressive disorder, single episode, unspecified; F41.9 Anxiety disorder, unspecified; I10 Essential (primary) hypertension; E66.01 Morbid (severe) obesity due to excess calories; Z68.44 Body mass index [BMI] 60.0-69.9, adult; Z79.82 Long term (current) use of aspirin; Z79.4 Long term (current) use of insulin; Z79.899 Other long term (current) drug therapy
CPT/HCPCS: 36415; 80053; 82947; 85007; 85027

== ENCOUNTER 2021-09-23 10:42 | Inpatient (IN) | payer MEDICARE, MEDICAID ==
[~2021-09-23] VITALS: Ht 162.5 cm; Wt 166.9 kg
[2021-09-23 10:55] LABS: BASOPHILS # (AUTO) 0.1 10^3/uL (0.0-0.1); BASOPHILS % (AUTO) 0 % (0-10); EOSINOPHILS # (AUTO) 0.4 10^3/uL (0.0-0.3); EOSINOPHILS % (AUTO) 3 % (0-10); HEMATOCRIT 34 % (35-52); HEMOGLOBIN 9.7 g/dL (11.5-16.0); LYMPHOCYTES # (AUTO) 1.5 X 10^3 (1.0-4.0); LYMPHOCYTES % (AUTO) 10 % (12-44); MEAN CORPUSCULAR HEMOGLOBIN 23 pg (25-34); MEAN CORPUSCULAR HGB CONC 29 g/dL (32-36); MEAN CORPUSCULAR VOLUME 81 fL (80-99); MEAN PLATELET VOLUME 8.4 fL (9.0-12.2); MONOCYTES # (AUTO) 0.9 X 10^3 (0.0-1.0); MONOCYTES % (AUTO) 5 % (0-12); NEUTROPHILS % (AUTO) 81 % (42-75); PLATELET COUNT 589 10^3/uL (130-400); SMEAR SCAN COMMENT DIFF DONE 2.5
--- NOTE | 2021-09-23 10:59 | ED General ---
General Chief Complaint: Altered Mental Status Stated Complaint: LOW BLOOD SUGAR Source of Information: Patient, EMS, [facility]pc Records, Old Records History of Present Illness Date Seen by Provider: Sep 23, 2021 Time Seen by Provider: 10:42 Initial Comments 71-year-old female presenting by EMS from [facility]. Patient herself has no specific complaints. EMS reports that the [facility] and family of the patient were wanting her to be admitted to the hospital because they felt that she needed IV antibiotics for her chronic urinary tract infection. Patient does have irritation to the skin on her left lower abdomen from where she has a stoma that they have not been using a colostomy bag on it and there is skin irritation from the stool leaking out onto the skin. The [facility] was using part of an adult diaper to cover the stoma and collect the stool as it drained out rather than covering it with a colostomy bag. She reports the [facility] did a COVID swab on her and it was negative. She does have breathing treatments ordered to help with cough, wheezing and shortness of breath. She currently is taking Cefdinir for her chronic UTI. Associated Systoms: No Chest Pain; Cough (chronic); No Diaphoresis, No F ever/Chills, No Headaches, No Loss of Appetite, No Malaise, No Rash; Shortness of Air (chronic); No Syncope, No Weakness Allergies and Home Medications Allergies Coded Allergies: exenatide (Verified Allergy, Unknown, nausea and vomiting, 01/09/19) liraglutide (Verified Allergy, Unknown, nausea and vomiting, abdominal pain, 01/09/19) nitrofurantoin (Verified Allergy, Unknown, diarrhea, 01/09/19) promethazine (Verified Allergy, Unknown, 08/07/21) terconazole (Verified Allergy, Unknown, 01/09/19) Patient Home Medication List Home Medication List Reviewed: Yes Acetaminophen (Tylenol) 325 Mg Capsule, 650 MG PO Q6H PRN for PAIN-MILD (1-4), (Reported) Entered as Reported by: MOSHE HOOD on 12/14/201612 Albuterol Sulfate (Albuterol Sulfate) 2.5 Mg/0.5 Ml Vial.neb, 2.5 MG INH Q4H PRN for SHORTNESS OF BREATH, (Reported) Entered as Reported by: MOSHE HOOD on 12/14/201612 Alprazolam (Alprazolam) 0.5 Mg Tablet, 0.25 MG PO 0100,1300 Prescribed by: BHARTI DAILY on 12/18/20 1023 Amoxicillin/Potassium Clav (Augmentin 875-125 Tablet) 1 Each Tablet, 1 EACH PO BID Prescribed by: BHARTI DAILY on 12/18/20 1023 Aspirin (Aspirin EC) 81 Mg Tablet.dr, 81 MG PO DAILY, (Reported) Entered as Reported by: MOSHE HOOD on 12/14/20 154 Baclofen (Baclofen) 20 Mg Tablet, 20 MG PO QID, (Reported) Entered as Reported by: MOSHE HOOD on 12/14/20 161 Bisacodyl (Bisacodyl) 5 Mg Tablet.dr, 10 MG PO DAILY PRN for CONSTIPATION-4TH LINE, (Reported) Entered as Reported by: MOSHE HOOD on 12/14/20 161 Cefdinir (Cefdinir) 300 Mg Capsule, 300 MG PO BID Prescribed by: ZULAY VILLASENOR on 03/17/212225 Cyanocobalamin (Vitamin B-12) (Vitamin B-12) 500 Mcg Tablet, 1,000 MCG PO DAILY, (Reported) Entered as Reported by: MOSHE HOOD on 12/14/20 154 Diphenhydramine HCl (Diphenhydramine HCl) 25 Mg Tablet, 25 MG PO Q6H PRN for INSOMNIA/ITCHING, (Reported) Entered as Reported by: MOSHE HOOD on 12/14/20 161 Doxazosin Mesylate (Doxazosin Mesylate) 2 Mg Tablet, 2 MG PO HS, (Reported) Entered as Reported by: MOSHE HOOD on 12/14/20 154 Fluticasone Propionate (Flonase Allergy Relief) 9.9 Ml [place].susp, 2 SPRAY NS DAILY, (Reported) Entered as Reported by: MOSHE HOOD on 12/14/20 154 Folic Acid (Folic Acid) 1 Mg Tablet, 1 MG PO DAILY, (Reported) Entered as Reported by: MOSHE HOOD on 12/14/20 154 Hyoscyamine Sulfate (Hyoscyamine Sulfate) 0.125 Mg Tablet, 0.125 MG PO Q6H PRN for BLADDER PAIN, (Reported) Entered as Reported by: MOSHE HOOD on 12/14/201612 Insulin Aspart (Novolog Flexpen) 300 Units/3 Ml Solution, UNITS SC AC, (Reported) Entered as Reported by: MOSHE HOOD on 12/14/201612 Insulin Detemir (Levemir Flextouch) 100 Unit/1 Ml Insuln.pen, 22 UNITS SC BID, (Reported) Entered as Reported by: MOSHE HOOD on 12/14/201612 L.acidoph & Paracasei,B.lactis (Probiotic) 1 Each Capsule, 2 EACH PO DAILY, (Reported) Entered as Reported by: MOSHE HOOD on 12/14/201543 Latanoprost (Xalatan) 2.5 Ml Drops, 1 DROP OU HS, (Reported) Entered as Reported by: MOSHE HOOD on 12/14/201543 Levofloxacin (Levofloxacin) 500 Mg Tablet, 500 MG PO DAILY Prescribed by: KALEN MEDINA on 09/15/21 0523 Meloxicam (Meloxicam) 7.5 Mg Tablet, 7.5 MG PO DAILY, (Reported) Entered as Reported by: MOSHE HOOD on 12/14/201543 Mometasone Furoate (Mometasone Furoate) 17 Gm [place].pump, 1 APPLIC TOP DAILY PRN for ITCHING, (Reported) Entered as Reported by: MOSHE HOOD on 12/14/201612 Montelukast Sodium (Montelukast Sodium) 10 Mg Tablet, 10 MG PO DAILY, (Reported) Entered as Reported by: MOSHE HOOD on 12/14/201543 Multivitamin with Minerals (Multivitamins with Minerals) 1 Each Tablet, 1 EACH PO 1200, (Reported) Entered as Reported by: MOSHE HOOD on 12/14/201543 Nystatin (Nystop) 60 Gm Powder, 1 APPLIC TOP BID PRN PRN for SOILING AND SATURATION, (Reported) Entered as Reported by: MOSHE HOOD on 12/14/201543 Omeprazole (Omeprazole) 20 Mg Capsule.dr, 20 MG PO BID, (Reported) Entered as Reported by: MOSHE HOOD on 12/14/201612 Ondansetron HCl (Ondansetron HCl) 4 Mg Tablet, 4 MG PO Q4H, (Reported) Entered as Reported by: MOSHE HOOD on 12/14/20 1613 Oxycodone HCl (Oxycodone HCl) 5 Mg Tablet, 5 MG PO Q8H PRN for PAIN-SEVERE (8- 10) Prescribed by: BHARTI DAILY on 12/18/20 1023 Petrolat,Wht/Min Oil/Sod Chl (Refresh P.m. Ointment P-F) 3.5 Gm Oint...g., 1 APPLIC OU Q8H PRN for DRY EYES, (Reported) Entered as Reported by: MOSHE HOOD on 12/14/20 1613 Polyethylene Glycol 3350 (Miralax) 17 Gm Powd.pack, 8.5 GM PO DAILY, (Reported) Entered as Reported by: MOSHE HOOD on 12/14/20 1544 Sumatriptan Succinate (Sumatriptan Succinate) 100 Mg Tablet, 100 MG PO DAILY PRN for MIGRAINE, (Reported) Entered as Reported by: MOSHE HOOD on 12/14/20 1613 Venlafaxine HCl (Venlafaxine HCl) 75 Mg Tab, 75 MG PO BID, (Reported) Entered as Reported by: MOSHE HOOD on 12/14/20 1613 Review of Systems Review of Systems Constitutional: No chills, No fever EENTM: no symptoms reported Respiratory: see HPI Cardiovascular: No chest pain Gastrointestinal: see HPI Genitourinary: see HPI Musculoskeletal: no symptoms reported Skin: see HPI, change in color (redness and skin breakdown to abdominal wall from where her stoma is present on left lower abdomen and no colostomy bag is collecting stool so it is leaking out onto a cut up adult diaper) Psychiatric/Neurological: No Symptoms Reported Past Xigrhmj-Wyhfeu-Matxom Hx Patient Social History Tobacco Use?: Yes Tobacco type used: Cigarettes Smoking Status: Former Smoker Substance use?: No Alcohol Use?: No Pt feels they are or have been: No Immunizations Up To Date First/Initial COVID19 Vaccinat: AUGUST 2020 Second COVID19 Vaccination Mehul: AUGUST 2020 Seasonal Allergies Seasonal Allergies: No Past Medical History Surgery/Hospitalization HX: COPD, GERALDINE, CPAP prescribed, Chronic UTI, Morbid Obesity, DM, chronic HTN, Paraplegic Surgeries: Yes (heart cath ) Appendectomy, Bladder Surgery, Bowel Surgery, Orthopedic Respiratory: Yes (questionable GERALDINE) COPD Cardiac: Yes Angina, Deep Vein Thrombosis, High Cholesterol Neurological: Yes (paraplegic) Paralysis, Spinal Cord Injury 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 Disorders: Menstrual Problems [employer] History: IUD Genitourinary: Yes (urostomy) Neurogenic Bladder, UTI-Chronic Gastrointestinal: Yes (Hx colon cancer; colectomy) Musculoskeletal: Yes (paraplegic; carpal tunnel ) Arthritis, Back Injury Endocrine: Yes Diabetes, Insulin dep HEENT: Yes Cataract Cancer: Yes Colon Did You Recieve Any Treatments: Yes What Type of Treatment Did You: Chemotherapy, Radiation, Surgical Intervention Psychosocial: Yes Anxiety, Bipolar, Depression Integumentary: Yes (chronic yeast infections; chronic pressure ulcers; cellulitis) Psoriasis Blood Disorders: Yes (anemia) Adverse Reaction/Blood Tranf: No (JEHOVAHS WITNESS-DOESNT TAKE BLOOD) Family Medical History No Pertinent Family Hx Physical Exam Vital Signs Vital Signs - First Documented 09/23/21 10:42 Temp 35.6 Pulse 83 Resp 18 B/P (MAP) 135/52 (79) Pulse Ox 93 O2 Delivery Room Air Capillary Refill : Height, Weight, BMI Height: 5'4.50" Weight: 319lbs. 0oz. 144.479967dp; 68.00 BMI Method:Stated General Appearance: No Apparent Distress, Obese HEENT: Normal ENT Inspection, Pharynx Normal Neck: Full Range of Motion, Supple Respiratory: Chest Non Tender, No Accessory Muscle Use, No Respiratory Distress, Decreased Breath Sounds Cardiovascular: Regular Rate, Rhythm, Normal Peripheral Pulses Gastrointestinal: Normal Bowel Sounds, No Pulsatile Mass, Non Tender, Soft; No Distended, No Guarding, No Rebound Rectal: Deferred, Other (brown colored stool leaking from stoma on left side of abdomen) Extremity: Normal Capillary Refill, Pedal Edema (1+ BLE edema) Neurologic/Psychiatric: Alert, Oriented x3, 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 erythema with ulcerations to bilateral buttocks and perineal area ) Focused Exam Lactate Level 09/23/21 10:48: Lactic Acid Level 0.68 Lactic Acid Level Laboratory Tests Test 09/23/21 10:48 Lactic Acid Level 0.68 MMOL/L (0.50-2.00) Progress/Results/Core Measures Suspected Sepsis SIRS Temperature: Pulse: Respiratory Rate: Laboratory Tests 09/23/21 10:48: White Blood Count 16.0H Blood Pressure / Mean: 09/23/21 10:48: Lactic Acid Level 0.68 Laboratory Tests 09/23/21 10:48: Creatinine 1.02, INR Comment 1.1, Platelet Count 589H, Total Bilirubin 0.3 Results/Orders Lab Results Laboratory Tests Test 09/23/21 10:48 09/23/21 10:50 09/23/21 12:11 Range/Units White Blood Count 16.0 H 4.3-11.0 10^3/uL Red Blood Count 4.16 3.80-5.11 10^6/uL Hemoglobin 9.7 L 11.5-16.0 g/dL Hematocrit 34 L 35-52 % Mean Corpuscular Volume 81 80-99 fL Mean Corpuscular Hemoglobin 23 L 25-34 pg Mean Corpuscular Hemoglobin Concent 29 L 32-36 g/dL Red Cell Distribution Width 18.1 H 10.0-14.5 % Platelet Count 589 H 130-400 10^3/uL Mean Platelet Volume 8.4 L 9.0-12.2 fL Immature Granulocyte % (Auto) 1 % Neutrophils (%) (Auto) 81 H 42-75 % Lymphocytes (%) (Auto) 10 L 12-44 % Monocytes (%) (Auto) 5 0-12 % Eosinophils (%) (Auto) 3 0-10 % Basophils (%) (Auto) 0 0-10 % Neutrophils # (Auto) 13.0 H 1.8-7.8 X 10^3 Lymphocytes # (Auto) 1.5 1.0-4.0 X 10^3 Monocytes # (Auto) 0.9 0.0-1.0 X 10^3 Eosinophils # (Auto) 0.4 H 0.0-0.3 10^3/uL Basophils # (Auto) 0.1 0.0-0.1 10^3/uL Immature Granulocyte # (Auto) 0.2 H 0.0-0.1 10^3/uL Prothrombin Time 14.1 12.2-14.7 SEC INR Comment 1.1 0.8-1.4 Activated Partial Thromboplast Time 35 24-35 SEC Sodium Level 134 L 135-145 MMOL/L Potassium Level 5.1 H 3.6-5.0 MMOL/L Chloride Level 106 98-107 MMOL/L Carbon Dioxide Level 17 L 21-32 MMOL/L Anion Gap 11 5-14 MMOL/L Blood Urea Nitrogen 38 H 7-18 MG/DL Creatinine 1.02 0.60-1.30 MG/DL Estimat Glomerular Filtration Rate 59 BUN/Creatinine Ratio 37 Glucose Level 195 H 70-105 MG/DL Lactic Acid Level 0.68 0.50-2.00 MMOL/L Calcium Level 9.8 8.5-10.1 MG/DL Corrected Calcium 11.0 H 8.5-10.1 MG/DL Total Bilirubin 0.3 0.1-1.0 MG/DL Aspartate Amino Transf (AST/SGOT) 14 5-34 U/L Alanine Aminotransferase (ALT/SGPT) 11 0-55 U/L Alkaline Phosphatase 229 H 40-136 U/L C-Reactive Protein 20.15 H <0.50 MG/DL Total Protein 7.9 6.4-8.2 GM/DL Albumin 2.5 L 3.2-4.5 GM/DL Smear Scan DIFF DONE 2.5 Glucometer 165 H 70-110 MG/DL Urine Color YELLOW Urine Clarity CLEAR Urine pH 7.5 5-9 Urine Specific Isabel 1.010 L 1.016-1.022 Urine Protein 1+ H NEGATIVE Urine Glucose (UA) NEGATIVE NEGATIVE Urine Ketones NEGATIVE NEGATIVE Urine Nitrite NEGATIVE NEGATIVE Urine Bilirubin NEGATIVE NEGATIVE Urine Urobilinogen 0.2 < = 1.0 MG/DL Urine Leukocyte Esterase NEGATIVE NEGATIVE Urine RBC (Auto) TRACE-I H NEGATIVE Urine RBC NONE /HPF Urine WBC 10-25 H /HPF Urine Crystals NONE /LPF Urine Bacteria FEW H /HPF Urine Casts NONE /LPF Urine Mucus SMALL H /LPF Urine Culture Indicated YES My Orders Orders - CASTRO PÉREZ MD Monitor-Rhythm Ecg Trace Only (09/23/21 10:50) Ed Iv/Invasive Line Start (09/23/21 10:50) Cbc With Automated Diff (09/23/21 10:50) Comprehensive Metabolic Panel (09/23/21 10:50) Crp Fs (09/23/21 10:50) Lactic Acid Analyzer (09/23/21 10:50) Protime With Inr (09/23/21 10:50) Partial Thromboplastin Time (09/23/21 10:50) O2 (09/23/21 10:50) Ua Culture If Indicated (09/23/21 11:59) Ns Iv 1000 Ml (Sodium Chloride 0.9%) (09/23/21 11:59) Vancomycin Injection (Vancomycin Injecti (09/23/21 11:59) Ceftriaxone 1 Gm Pre-Mix (Rocephin 1 Gm (09/23/21 11:59) Urine Culture (09/23/21 12:11) Vital Signs/I&O 09/23/21 10:42 Temp 35.6 Pulse 83 Resp 18 B/P (MAP) 135/52 (79) Pulse Ox 93 O2 Delivery Room Air Capillary Refill : Progress Note #1: Progress Note check labs and lactic acid to see if there are signs of any acute issue to indicate need for inpatient medical admit. Progress Note #2: Progress Note Labs continue to appear stable with the elevated white blood cell count which has been chronic. She has chronic anemia which is also stable with a hemoglobin of 9.7. The highest her hemoglobin has been over the last several years was 11.5. Usually she runs around 10-10.5. Her chemistry panel appears stable with negative lactic acid of 0.68. Her CRP is greatly elevated over 20. Family was concerned and felt that she was more confused when she wakes up than usual. She awakens easily and is able to answer questions and is oriented for us here in the ED. She does have large decubitus ulcers to her bilateral buttocks and perineal area. She also has what appears to be developing cellulitis and skin breakdown around the stoma on the left lower abdominal wall. Family was concerned that she was not improving with the antibiotic she is taking for her urine infection and that the wound care and nursing care at [facility] was not managing her care. Her Daughter, who is her DPOA, felt that the skin infection was worsening. Will check about possible admit for cellulitis and ostomy and wound care consults. d/w Dr. Gaitan for [facility] and he accepted pt for admit and suggested Vancomycin in addition to the Rocephin for her cellulitis. Repeat urinalysis to look for addit ional bacteria causing symptoms and infection. Consult wound care and ostomy care. Departure Communication (Admissions) Time/Spoke to Admitting Phy: 12:01 d/w Dr. Gaitan and will admit to [facility] service for Wound care and Ostomy consult as well as IV antibiotics to treat for cellulitis to abdominal wall and decubitus ulcers to buttocks. Impression Primary Impression: Cellulitis of left abdominal wall Additional Impressions: Decubitus ulcer of buttock, stage 2 Qualified Codes: L89.312 - Pressure ulcer of right buttock, stage 2 Chronic urinary tract infection Decubitus ulcer of left buttock, stage 2 Disposition: 30 STILL A PATIENT Condition: Stable Admissions Decision to Admit Reason: Admit from ER (General) Decision to Admit/Date: Sep 23, 2021 Time/Decision to Admit Time: 12:01 Departure-Patient Inst. Referrals: FREEMAN CHAPA MD (PCP/Family) Primary Care Physician CASTRO PÉREZ MD Sep 23, 2021 10:59
[2021-09-23 11:05] LABS: INR 1.1 (0.8-1.4); PROTHROMBIN TIME PATIENT 14.1 SEC (12.2-14.7)
[2021-09-23 11:14] LABS: ALBUMIN 2.5 GM/DL (3.2-4.5); BILIRUBIN,TOTAL 0.3 MG/DL (0.1-1.0); CALCIUM 9.8 MG/DL (8.5-10.1); CREATININE SERUM 1.02 MG/DL (0.60-1.30); POTASSIUM 5.1 MMOL/L (3.6-5.0); TOTAL PROTEIN 7.9 GM/DL (6.4-8.2)
[2021-09-23] MEDS ORDERED: NS IV 1000 ML 1,000 ML IV STA (11:59)
[2021-09-23] MEDS ORDERED: cefTRIAXone 1 GM PRE-MIX 50 ML IV STA (11:59)
[2021-09-23] MEDS ORDERED: VANCOMYCIN INJECTION 1,000 MG in NS (IVPB) 250 ML IV STA (11:59)
[2021-09-23 12:18] LABS: BILIRUBIN,URINE NEGATIVE (NEGATIVE); CLARITY,URINE CLEAR; COLOR,URINE YELLOW; GLUCOSE, URINE (UA) NEGATIVE (NEGATIVE); KETONES,URINE NEGATIVE (NEGATIVE); LEUKOCYTE ESTERASE ,URINE NEGATIVE (NEGATIVE); NITRITE,URINE NEGATIVE (NEGATIVE); PH,URINE 7.5 (5-9); PROTEIN,URINE 1+ (NEGATIVE)
[2021-09-23 12:19] LABS: BACTERIA,URINE FEW /HPF
[2021-09-23 15:31] VITALS: BP 136/69
[2021-09-23] MEDS ORDERED: VANCOMYCIN 1250 MG/NS 250 ML IVPB IV SCH ×2 (16:00)
[2021-09-23] MEDS ORDERED: VANCOMYCIN 2000 MG/NS 500 ML IVPB IV NR ×2 (16:00)
[2021-09-23] MEDS: NS IV 1000 ML 1,000 ML IV SCH (16:09)
[2021-09-23 16:35] VITALS: BP 139/82
[2021-09-23] MEDS ORDERED: ONDANSETRON 4 MG/2 ML (SDV) Z0FRAN IVP PRN (18:00)
[2021-09-23] MEDS ORDERED: ONDANSETRON 4 MG/2 ML (SDV) Z0FRAN ONE (18:14)
[2021-09-23 20:27] VITALS: BP 160/75
[2021-09-23] MEDS: RT-ALBUTEROL SULF 2.5 MG/3 ML PRE-MIX VIAL INH SCH (21:02)
[2021-09-24] VITALS: BP 137/73
[2021-09-24] MEDS: VANCOMYCIN 1250 MG/NS 250 ML IVPB IV SCH ×6 (00:30→16:23)
[2021-09-24] MEDS: NS IV 1000 ML 1,000 ML IV SCH ×3 (00:31→14:56)
[2021-09-24] MEDS: RT-ALBUTEROL SULF 2.5 MG/3 ML PRE-MIX VIAL INH SCH ×4 (02:43→20:50)
[2021-09-24 04:00] VITALS: BP_SYST 103; BP_SYST 124; BP_DIAS 49; BP_DIAS 74
[2021-09-24 06:30] LABS: BASOPHILS # (AUTO) 0.1 10^3/uL (0.0-0.1); BASOPHILS % (AUTO) 1 % (0-10); EOSINOPHILS # (AUTO) 0.3 10^3/uL (0.0-0.3); EOSINOPHILS % (AUTO) 2 % (0-10); HEMATOCRIT 32 % (35-52); HEMOGLOBIN 9.1 g/dL (11.5-16.0); LYMPHOCYTES # (AUTO) 1.5 10^3/uL (1.0-4.0); LYMPHOCYTES % (AUTO) 10 % (12-44); MEAN CORPUSCULAR HEMOGLOBIN 24 pg (25-34); MEAN CORPUSCULAR HGB CONC 28 g/dL (32-36); MEAN CORPUSCULAR VOLUME 83 fL (80-99); MEAN PLATELET VOLUME 8.4 fL (9.0-12.2); MONOCYTES # (AUTO) 0.7 10^3/uL (0.0-1.0); MONOCYTES % (AUTO) 5 % (0-12); NEUTROPHILS # (AUTO) 12.6 10^3/uL (1.8-7.8); NEUTROPHILS % (AUTO) 82 % (42-75); PLATELET COUNT 483 10^3/uL (130-400); WHITE BLOOD COUNT 15.3 10^3/uL (4.3-11.0)
[2021-09-24 06:45] LABS: POTASSIUM 4.5 MMOL/L (3.6-5.0)
[2021-09-24 06:46] LABS: CALCIUM 9.7 MG/DL (8.5-10.1)
[2021-09-24 06:50] LABS: CREATININE SERUM 0.83 MG/DL (0.60-1.30)
[2021-09-24 08:00] VITALS: BP 141/65
[2021-09-24 12:00] VITALS: BP 169/73
[2021-09-24] MEDS: cefTRIAXone 1 GM IV (PRE-MIX) 50 ML IV SCH (12:52)
[2021-09-24] MEDS: ACETAMINOPHEN 325 MG TABLET PO PRN (12:52)
[2021-09-24] MEDS ORDERED: INSU100I14 SQ (14:45)
[2021-09-24] MEDS ORDERED: FLUT1DIS28 IH (14:45)
[2021-09-24] MEDS ORDERED: NYST1POW24 TOP (14:45)
[2021-09-24] MEDS ORDERED: DICL100G27 TP (14:45)
[2021-09-24] MEDS ORDERED: ALBU5SOL6 IH (14:45)
[2021-09-24] MEDS ORDERED: CEFD300C3 PO (14:45)
[2021-09-24] MEDS ORDERED: BENZ9GEL MM (14:45)
[2021-09-24] MEDS ORDERED: ALPR0.254 PO (14:45)
[2021-09-24] MEDS ORDERED: ACET325C7 PO (14:45)
[2021-09-24] MEDS ORDERED: SIME80TA60 PO (14:45)
[2021-09-24] MEDS ORDERED: ACHD5005 PO (14:45)
[2021-09-24] MEDS ORDERED: GABA-486 PO (14:45)
[2021-09-24] MEDS ORDERED: LIDO20SO23 MM (14:57)
--- NOTE | 2021-09-24 14:59 | Progress Note ---
Subjective Subjective/Events-last exam patient states that she is feeling better. Having some pain on her right side. Tolerating PO diet. Patient is paraplegic. Review of Systems General: Malaise Pulmonary: No Dyspnea, No Cough Cardiovascular: No: Chest Pain, Edema Gastrointestinal: Abdominal Pain; No: Nausea, Vomiting Neurological: Numbness, Other (Paraplegia) Focused Exam Lactate Level 09/23/21 10:48: Lactic Acid Level 0.68 Objective Exam Last Set of Vital Signs Vital Signs Date Time Temp Pulse Resp B/P (MAP) Pulse Ox O2 Delivery O2 Flow Rate FiO2 09/24/21 12:00 36.0 80 20 169/73 (105) 96 Nasal Cannula 1.00 Capillary Refill : Less Than 3 Seconds I&O Intake and Output 09/24/21 00:00 Intake Total 370 ml Output Total 650 ml Balance -280 ml Intake Oral 320 ml IV Total 50 ml Output Urine Total 650 ml Daily Weight Change No General: Alert, Oriented X3, No Acute Distress Lungs: Clear to Auscultation, Normal Air Movement Heart: Regular Rate, No Murmurs Abdomen: Soft, Other (erythema and maceration around ostomy and urostomy sites) Extremities: Other (2+ pitting edema) Skin: Other (severe maceration, erythema and pressure wound in perinium) Neuro: Normal Speech, Cranial Nerves 3-12 NL Psych/Mental Status: Mental Status NL, Mood NL Results/Procedures Lab Laboratory Tests 09/24/21 06:04: White Blood Count 15.3H, Red Blood Count 3.88, Hemoglobin 9.1L, Hematocrit 32L, Mean Corpuscular Volume 83, Mean Corpuscular Hemoglobin 24L, Mean Corpuscular Hemoglobin Concent 28L, Red Cell Distribution Width 18.0H, Platelet Count 483H, Mean Platelet Volume 8.4L, Immature Granulocyte % (Auto) 1, Neutrophils (%) (Auto) 82H, Lymphocytes (%) (Auto) 10L, Monocytes (%) (Auto) 5, Eosinophils (%) (Auto) 2, Basophils (%) (Auto) 1, Neutrophils # (Auto) 12.6H, Lymphocytes # (Auto) 1.5, Monocytes # (Auto) 0.7, Eosinophils # (Auto) 0.3, Basophils # (Auto) 0.1, Immature Granulocyte # (Auto) 0.2H, Sodium Level 138, Potassium Level 4.5, Chloride Level 116#H, Carbon Dioxide Level 15L, Anion Gap 7, Blood Urea Nitrogen 31H, Creatinine 0.83, Estimat Glomerular Filtration Rate 76, BUN/Creatinine Ratio 37, Glucose Level 165H, Calcium Level 9.7 Microbiology 09/23/21 Urine Culture - Preliminary, Resulted Slight Growth Present Assessment/Plan Assessment/Plan (1) Cellulitis of left abdominal wall Status: Acute Assessment & Plan: 09/24: Multiple skin wounds, Wound consult placed, may need surgical consult, continue IV antibiotics Rocephin/Vancomycin (2) Decubitus ulcer of left buttock, stage 2 Status: Acute (3) Decubitus ulcer of buttock, stage 2 Status: Acute Qualifiers: Qualified Codes: L89.312 - Pressure ulcer of right buttock, stage 2 (4) Paraplegia Status: Chronic (5) DVT prophylaxis Status: Acute Assessment & Plan: - Lovenox (6) BMI 60.0-69.9, adult Status: Chronic LEESA MEHTA MD Sep 24, 2021 14:59
[2021-09-24 16:09] VITALS: BP 189/73
[2021-09-24] MEDS ORDERED: HYPOCHLOROUS ACID/NaCl (VASHE) 250 ML IR PRN (17:15)
--- NOTE | 2021-09-24 18:08 | Wound Care Assessment ---
Wound Care Assessment Date Seen by Provider: Sep 24, 2021 Time Seen by Provider: 18:00 Chief Complaint Stage 2 and 3 pressure ulcers sacrum/buttock HPI This pleasant 71 year old female has a long h/o pressure injury to sacrum. She has both urostomy and colostomy and has no movement in b/l legs. She has been at local nursing facility and has not had ostomy care for some time. They have not placed bag and have just been covering the stoma with a diaper. This has led to significant irritant dermatitis to skin surrounding the stoma. Her stoma is inverted making it difficult to prevent this issue in its entirety but it can certainly be confined better than with current care. Plan for systemic diflucan as well as stoma powder for this area. She has chronic cutaneous candidal infections of both the abdomen and perineum. She is also covered with both Vanc and Rocephin. She also continues to leak stool from her rectum. She seems to also have some leakage from her vagina which I was unable to fully assess today. If there is concern for fistula, surgical input would be warranted (also if consideration of ostomy revision is deemed necessary). Her perineum reveals significant lichenification which is evidence of buttermaker continuous churn moisture and pressure injury. Most of her sacral/gluteal region is stage 2 in nature but there is one area on the buttock which is stage 3. Our plan will be to pack with vashe dampened gauze twice daily in addition to using nystatin powder and a thick layer of barrier ointment in periwound. My advice wound be to frequently change chucks/ABD and add barrier ointment with each soiling. Past Medical History: Admits Diabetes Type II Smoking Status: Former Smoker Review of Systems General: Other (Obesity) Neurological: Weakness Exam Vital Signs Date Time Temp Pulse Resp B/P (MAP) Pulse Ox O2 Delivery O2 Flow Rate FiO2 09/24/21 16:09 36.4 79 20 189/73 (111) 98 Nasal Cannula 2.00 Capillary Refill : Less Than 3 Seconds General Appearance: no apparent distress, obese Cardiovascular: other (Edema b/l LE) Respiratory: no respiratory distress, no accessory muscle use Gastrointestinal: other (ostomy with stool output) Extremities: pedal edema Neurologic/Psychiatric: motor weakness Skin: normal color, warm/dry, rash (periwound of stoma and perineum) Skin Character: erythema (perineum), rash (perineum and periwound of stoma) (Buttock) Wound assessment: 2x1.5x4.2cm. The epithelialization is none, drainage is large and purulent, granulation is none, necrotic is large slough, wound margins show epibolie. Periwound with lichenification, flaking and maceration from moisture damage. Results Laboratory Tests 09/24/21 06:04: White Blood Count 15.3H, Red Blood Count 3.88, Hemoglobin 9.1L, Hematocrit 32L, Mean Corpuscular Volume 83, Mean Corpuscular Hemoglobin 24L, Mean Corpuscular Hemoglobin Concent 28L, Red Cell Distribution Width 18.0H, Platelet Count 483H, Mean Platelet Volume 8.4L, Immature Granulocyte % (Auto) 1, Neutrophils (%) (Auto) 82H, Lymphocytes (%) (Auto) 10L, Monocytes (%) (Auto) 5, Eosinophils (%) (Auto) 2, Basophils (%) (Auto) 1, Neutrophils # (Auto) 12.6H, Lymphocytes # (Auto) 1.5, Monocytes # (Auto) 0.7, Eosinophils # (Auto) 0.3, Basophils # (Auto) 0.1, Immature Granulocyte # (Auto) 0.2H, Sodium Level 138, Potassium Level 4.5, Chloride Level 116#H, Carbon Dioxide Level 15L, Anion Gap 7, Blood Urea Nitrogen 31H, Creatinine 0.83, Estimat Glomerular Filtration Rate 76, BUN/Creatinine Ratio 37, Glucose Level 165H, Calcium Level 9.7 Microbiology 09/23/21 Urine Culture - Preliminary, Resulted Enterococcus faecium Microbiology 09/23/21 Urine Culture - Preliminary, Resulted Enterococcus faecium Assessment/Plan/Dx Assessment: 1. Stage 2 and 3 pressure ulcers of sacrum/buttock 2. Diaper dermatitis 3. Cutaneous candidiasis 4. Need of ostomy care 5. Morbid obesity 6. Paraplegia 7. Anemia Plan: 1. Cleanse all wounds twice daily with wound cleanser 2. Protect periwound (sacrum/perineum) with nystatin powder covered with thick layer of barrier ointment 3. Frequent changing of ABD/tanya pad and reapplication of barrier ointment with each soiling 4. Pack stage 3 pressure ulcer of buttock with gauze dampened with Vashe twice daily and cover with ABD 5. Appropriate ostomy care. Protect periwound with stoma powder 6. Diflucan 100mg po daily (may require 7-14 days therapy) CLARITZA TRIMBLE MD Sep 24, 2021 18:08
[2021-09-24 21:00] VITALS: BP 180/73
[2021-09-24] MEDS: NYSTATIN OINTMENT 30 GM TUBE TOP SCH (21:30)
[2021-09-24] MEDS: MICONAZOLE 2% POWDER (DESENEX AF) 90 GM TOP SCH (21:30)
[2021-09-25 00:03] VITALS: BP 163/75
[2021-09-25] MEDS: VANCOMYCIN 1250 MG/NS 250 ML IVPB IV SCH ×2 (00:08)
[2021-09-25] MEDS: RT-ALBUTEROL SULF 2.5 MG/3 ML PRE-MIX VIAL INH SCH ×4 (02:48→21:46)
[2021-09-25 03:53] VITALS: BP 144/72
[2021-09-25] MEDS: NS IV 1000 ML 1,000 ML IV SCH ×3 (06:04→17:31)
[2021-09-25 06:10] LABS: BASOPHILS # (AUTO) 0.1 10^3/uL (0.0-0.1); BASOPHILS % (AUTO) 1 % (0-10); EOSINOPHILS # (AUTO) 0.3 10^3/uL (0.0-0.3); EOSINOPHILS % (AUTO) 2 % (0-10); HEMATOCRIT 30 % (35-52); HEMOGLOBIN 8.7 g/dL (11.5-16.0); LYMPHOCYTES # (AUTO) 1.5 10^3/uL (1.0-4.0); LYMPHOCYTES % (AUTO) 11 % (12-44); MEAN CORPUSCULAR HEMOGLOBIN 24 pg (25-34); MEAN CORPUSCULAR HGB CONC 29 g/dL (32-36); MEAN CORPUSCULAR VOLUME 81 fL (80-99); MEAN PLATELET VOLUME 8.3 fL (9.0-12.2); MONOCYTES # (AUTO) 0.9 10^3/uL (0.0-1.0); MONOCYTES % (AUTO) 6 % (0-12); NEUTROPHILS # (AUTO) 11.2 10^3/uL (1.8-7.8); NEUTROPHILS % (AUTO) 80 % (42-75); PLATELET COUNT 457 10^3/uL (130-400); WHITE BLOOD COUNT 14.1 10^3/uL (4.3-11.0)
[2021-09-25 06:29] LABS: ALBUMIN 2.3 GM/DL (3.2-4.5)
[2021-09-25 06:31] LABS: CALCIUM 9.5 MG/DL (8.5-10.1)
[2021-09-25 06:32] LABS: TOTAL PROTEIN 7.1 GM/DL (6.4-8.2)
[2021-09-25 06:33] LABS: BILIRUBIN,TOTAL 0.3 MG/DL (0.1-1.0)
[2021-09-25 06:35] LABS: CREATININE SERUM 0.73 MG/DL (0.60-1.30)
[2021-09-25] MEDS ORDERED: TROUGH ORDER-PHARMACY XX ONE (07:00)
[2021-09-25 07:35] VITALS: BP 150/75
[2021-09-25] MEDS: ACETAMINOPHEN 325 MG TABLET PO PRN ×3 (08:31→21:36)
[2021-09-25] MEDS: MICONAZOLE 2% POWDER (DESENEX AF) 90 GM TOP SCH ×2 (10:38→21:36)
[2021-09-25] MEDS: NYSTATIN OINTMENT 30 GM TUBE TOP SCH ×2 (10:38→21:37)
[2021-09-25] MEDS: fluCOnazole (DIFLUCAN) 100 MG TAB PO SCH (10:38)
[2021-09-25] MEDS: cefTRIAXone 1 GM IV (PRE-MIX) 50 ML IV SCH (11:32)
[2021-09-25 11:52] VITALS: BP 148/73
[2021-09-25] MEDS ORDERED: TROUGH ORDER-PHARMACY XX NR (15:00)
[2021-09-25 15:30] VITALS: BP 167/74
[2021-09-25 19:30] VITALS: BP 168/82
--- NOTE | 2021-09-25 20:46 | Progress Note ---
Subjective Subjective/Events-last exam Patient is feeling at baseline. Pain well controlled. No leaks around stomas. Tolerated PO diet. Review of Systems General: Malaise Pulmonary: No Dyspnea, No Cough Cardiovascular: No: Chest Pain, Palpitations, Edema Gastrointestinal: No: Nausea, Vomiting, Abdominal Pain Focused Exam Lactate Level 09/23/21 10:48: Lactic Acid Level 0.68 Objective Exam Last Set of Vital Signs Vital Signs Date Time Temp Pulse Resp B/P (MAP) Pulse Ox O2 Delivery O2 Flow Rate FiO2 09/25/21 15:30 35.2 81 20 167/74 (105) 93 Nasal Cannula 3.00 Capillary Refill : Less Than 3 Seconds I&O Intake and Output 09/25/21 00:00 Intake Total 2960 ml Output Total 3275 ml Balance -315 ml Intake Oral 1960 ml IV Total 1000 ml Output Urine Total 3275 ml # Bowel Movements 2 General: Alert, Oriented X3, No Acute Distress Lungs: Clear to Auscultation, Normal Air Movement Heart: Regular Rate, No Murmurs Abdomen: Normal Bowel Sounds, Soft, No Tenderness Extremities: Other (Paralized waist down) Neuro: Normal Speech Results/Procedures Lab Laboratory Tests 09/25/21 06:02: White Blood Count 14.1H, Red Blood Count 3.69L, Hemoglobin 8.7L, Hematocrit 30L, Mean Corpuscular Volume 81, Mean Corpuscular Hemoglobin 24L, Mean Corpuscular Hemoglobin Concent 29L, Red Cell Distribution Width 17.9H, Platelet Count 457H, Mean Platelet Volume 8.3L, Immature Granulocyte % (Auto) 1, Neutrophils (%) (Auto) 80H, Lymphocytes (%) (Auto) 11L, Monocytes (%) (Auto) 6, Eosinophils (%) (Auto) 2, Basophils (%) (Auto) 1, Neutrophils # (Auto) 11.2H, Lymphocytes # (Auto) 1.5, Monocytes # (Auto) 0.9, Eosinophils # (Auto) 0.3, Basophils # (Auto) 0.1, Immature Granulocyte # (Auto) 0.1, Sodium Level 135, Potassium Level 4.0, Chloride Level 113H, Carbon Dioxide Level 15L, Anion Gap 7, Blood Urea Nitrogen 18, Creatinine 0.73, Estimat Glomerular Filtration Rate 88, BUN/Creatinine Ratio 25, Glucose Level 218H, Calcium Level 9.5, Corrected Calcium 10.9H, Total Bilirubin 0.3, Aspartate Amino Transf (AST/SGOT) 14, Alanine Aminotransferase (ALT/SGPT) 13, Alkaline Phosphatase 197H, Total Protein 7.1, Albumin 2.3L 09/25/21 07:43: Vancomycin Level Trough 35.0*H 09/25/21 14:58: Vancomycin Level Trough 28.7*H Microbiology 09/23/21 Urine Culture - Preliminary, Resulted Enterococcus faecium Assessment/Plan Assessment/Plan (1) Cellulitis of left abdominal wall Status: Acute Assessment & Plan: 09/24: Multiple skin wounds, Wound consult placed, may need surgical consult, continue IV antibiotics Rocephin/Vancomycin 09/25: infection improving, wound care plan in place, working on placement (2) Decubitus ulcer of left buttock, stage 2 Status: Acute (3) Decubitus ulcer of buttock, stage 2 Status: Acute Qualifiers: Qualified Codes: L89.312 - Pressure ulcer of right buttock, stage 2 (4) Paraplegia Status: Chronic (5) DVT prophylaxis Status: Acute Assessment & Plan: - Lovenox (6) BMI 60.0-69.9, adult Status: Chronic LEESA MEHTA MD Sep 25, 2021 20:46
[2021-09-25] MEDS ORDERED: ALPRAZolam 0.25 MG (XANAX) TAB ONE (21:06)
[2021-09-25] MEDS: ALPRAZolam 0.25 MG (XANAX) TAB PO SCH (21:36)
[2021-09-25] MEDS ORDERED: TICAGRELOR 90 MG TABLET (BRILINTA) PO ONE (22:54)
[2021-09-26 00:35] VITALS: BP 162/68
[2021-09-26] MEDS: RT-ALBUTEROL SULF 2.5 MG/3 ML PRE-MIX VIAL INH SCH ×2 (02:43→08:52)
[2021-09-26 04:05] VITALS: BP 177/71
[2021-09-26] MEDS: NS IV 1000 ML 1,000 ML IV SCH ×3 (06:09→17:24)
[2021-09-26] MEDS ORDERED: TROUGH ORDER-PHARMACY XX NR (07:00)
[2021-09-26 07:26] LABS: BASOPHILS # (AUTO) 0.1 10^3/uL (0.0-0.1); BASOPHILS % (AUTO) 1 % (0-10); EOSINOPHILS # (AUTO) 0.4 10^3/uL (0.0-0.3); EOSINOPHILS % (AUTO) 2 % (0-10); HEMATOCRIT 32 % (35-52); HEMOGLOBIN 9.3 g/dL (11.5-16.0); LYMPHOCYTES # (AUTO) 1.5 10^3/uL (1.0-4.0); LYMPHOCYTES % (AUTO) 11 % (12-44); MEAN CORPUSCULAR HEMOGLOBIN 23 pg (25-34); MEAN CORPUSCULAR HGB CONC 29 g/dL (32-36); MEAN CORPUSCULAR VOLUME 79 fL (80-99); MEAN PLATELET VOLUME 8.3 fL (9.0-12.2); MONOCYTES # (AUTO) 0.7 10^3/uL (0.0-1.0); MONOCYTES % (AUTO) 5 % (0-12); NEUTROPHILS # (AUTO) 11.6 10^3/uL (1.8-7.8); NEUTROPHILS % (AUTO) 81 % (42-75); PLATELET COUNT 510 10^3/uL (130-400); WHITE BLOOD COUNT 14.4 10^3/uL (4.3-11.0)
[2021-09-26 07:47] LABS: CALCIUM 9.7 MG/DL (8.5-10.1); CREATININE SERUM 0.67 MG/DL (0.60-1.30); POTASSIUM 3.6 MMOL/L (3.6-5.0)
[2021-09-26 07:54] LABS: VANCOMYCIN,TROUGH 17.9 UG/ML (10.0-20.0)
[2021-09-26 08:00] VITALS: BP 149/79
[2021-09-26] MEDS: fluCOnazole (DIFLUCAN) 100 MG TAB PO SCH (08:40)
[2021-09-26] MEDS: ALPRAZolam 0.25 MG (XANAX) TAB PO SCH ×4 (08:40→21:10)
[2021-09-26] MEDS: MICONAZOLE 2% POWDER (DESENEX AF) 90 GM TOP SCH ×2 (08:40→21:11)
[2021-09-26] MEDS: NYSTATIN OINTMENT 30 GM TUBE TOP SCH ×2 (08:40→21:11)
[2021-09-26] MEDS: ACETAMINOPHEN 325 MG TABLET PO PRN ×2 (08:55→17:24)
[2021-09-26 08:58] VITALS: BP 177/71
[2021-09-26] MEDS: VANCOMYCIN 1250 MG/NS 250 ML IVPB IV SCH ×2 (10:03)
[2021-09-26] MEDS ORDERED: RT-ALBUTEROL SULF 2.5 MG/3 ML PRE-MIX VIAL INH PRN (11:00)
[2021-09-26] MEDS: cefTRIAXone 1 GM IV (PRE-MIX) 50 ML IV SCH (12:27)
[2021-09-26 15:30] VITALS: BP 202/83
[2021-09-26] MEDS: VENlafaxine 75 MG (EFFEXOR) TAB PO SCH (18:33)
[2021-09-26 19:57] VITALS: BP 202/95
--- NOTE | 2021-09-26 20:01 | Progress Note ---
Subjective Subjective/Events-last exam Patient feeling good today. Tolerating PO diet. States that her last cleaning she said it no longer hurt. Review of Systems Pulmonary: No Dyspnea, No Cough Cardiovascular: No: Chest Pain, Palpitations Gastrointestinal: No: Nausea, Vomiting, Abdominal Pain, Diarrhea, Constipation Neurological: No: Weakness, Incoordination Objective Exam Last Set of Vital Signs Vital Signs Date Time Temp Pulse Resp B/P (MAP) Pulse Ox O2 Delivery O2 Flow Rate FiO2 09/26/21 15:30 36.5 73 21 202/83 (122) 92 Nasal Cannula 2.00 09/26/21 08:58 28 Capillary Refill : Less Than 3 Seconds I&O Intake and Output 09/25/21 23:59 Intake Total 2112 ml Output Total 4100 ml Balance -1988 ml Intake Oral 2112 ml Output Urine Total 4100 ml # Bowel Movements 1 General: Alert, Oriented X3, No Acute Distress Lungs: Clear to Auscultation, Normal Air Movement Heart: Regular Rate, No Murmurs Abdomen: Normal Bowel Sounds, Soft, No Tenderness Results/Procedures Lab Laboratory Tests 09/26/21 07:16: White Blood Count 14.4H, Red Blood Count 4.01, Hemoglobin 9.3L, Hematocrit 32L, Mean Corpuscular Volume 79L, Mean Corpuscular Hemoglobin 23L, Mean Corpuscular Hemoglobin Concent 29L, Red Cell Distribution Width 17.4H, Platelet Count 510H, Mean Platelet Volume 8.3L, Immature Granulocyte % (Auto) 1, Neutrophils (%) (Auto) 81H, Lymphocytes (%) (Auto) 11L, Monocytes (%) (Auto) 5, Eosinophils (%) (Auto) 2, Basophils (%) (Auto) 1, Neutrophils # (Auto) 11.6H, Lymphocytes # (Auto) 1.5, Monocytes # (Auto) 0.7, Eosinophils # (Auto) 0.4H, Basophils # (Auto) 0.1, Immature Granulocyte # (Auto) 0.1, Sodium Level 134L, Potassium Level 3.6, Chloride Level 109H, Carbon Dioxide Level 17L, Anion Gap 8, Blood Urea Nitrogen 11, Creatinine 0.67, Estimat Glomerular Filtration Rate 94, BUN/Creatinine Ratio 16, Glucose Level 220H, Calcium Level 9.7, Vancomycin Level Trough 17.9 Microbiology 09/23/21 Urine Culture - Final, Complete Enterococcus faecium Assessment/Plan Assessment/Plan (1) Cellulitis of left abdominal wall Status: Acute Assessment & Plan: 09/24: Multiple skin wounds, Wound consult placed, may need surgical consult, continue IV antibiotics Rocephin/Vancomycin 09/25: infection improving, wound care plan in place, working on placement 09/26: improving, ok to work on placement (2) Decubitus ulcer of left buttock, stage 2 Status: Acute (3) Decubitus ulcer of buttock, stage 2 Status: Acute Qualifiers: Qualified Codes: L89.312 - Pressure ulcer of right buttock, stage 2 (4) Paraplegia Status: Chronic (5) DVT prophylaxis Status: Acute Assessment & Plan: - Lovenox (6) BMI 60.0-69.9, adult Status: Chronic LEESA MEHTA MD Sep 26, 2021 20:01
[2021-09-26] MEDS ORDERED: hydrALAZINE (APESOLINE) 20 MG/ML VIAL IV ONE (21:00)
[2021-09-26] MEDS ORDERED: NON-FORMULARY MEDICATION 1 EA EA (Baclofen 20 MG) PO SCH (21:00)
[2021-09-26] MEDS: doxAzosin 2 MG (CARDURA) TAB PO SCH (21:10)
[2021-09-26] MEDS: GABAPENTIN 100 MG (NEURONTIN) CAP PO SCH (21:10)
[2021-09-26] MEDS: BACLOFEN 10 MG (LIORESAL) TAB PO SCH (21:10)
[2021-09-27 00:35] VITALS: BP 167/62
[2021-09-27] MEDS: NS IV 1000 ML 1,000 ML IV SCH ×2 (06:22→15:54)
[2021-09-27] MEDS: RT-ALBUTEROL SULF 2.5 MG/3 ML PRE-MIX VIAL INH SCH ×2 (07:12→20:12)
[2021-09-27 08:00] VITALS: BP 190/85
[2021-09-27] MEDS: fluCOnazole (DIFLUCAN) 100 MG TAB PO SCH (09:29)
[2021-09-27] MEDS: amLODIPine 5 MG (NORVASC) TAB PO SCH (09:29)
[2021-09-27] MEDS: BACLOFEN 10 MG (LIORESAL) TAB PO SCH ×4 (09:29→20:47)
[2021-09-27] MEDS: VANCOMYCIN 1250 MG/NS 250 ML IVPB IV SCH ×2 (09:29)
[2021-09-27] MEDS: VENlafaxine 75 MG (EFFEXOR) TAB PO SCH ×2 (09:29→17:01)
[2021-09-27] MEDS: MICONAZOLE 2% POWDER (DESENEX AF) 90 GM TOP SCH ×2 (09:30→20:47)
[2021-09-27] MEDS: GABAPENTIN 100 MG (NEURONTIN) CAP PO SCH ×3 (09:30→20:46)
[2021-09-27] MEDS: NYSTATIN OINTMENT 30 GM TUBE TOP SCH ×2 (09:30→20:48)
[2021-09-27] MEDS: ALPRAZolam 0.25 MG (XANAX) TAB PO SCH ×4 (09:30→20:47)
[2021-09-27] MEDS: cefTRIAXone 1 GM IV (PRE-MIX) 50 ML IV SCH (11:47)
[2021-09-27] MEDS: HYOSCYAMINE 0.125 MG (LEVSIN) TAB PO PRN (13:12)
[2021-09-27 15:30] VITALS: BP 191/94
[2021-09-27] MEDS: ACETAMINOPHEN 325 MG TABLET PO PRN ×2 (15:55→20:51)
--- NOTE | 2021-09-27 20:37 | Progress Note ---
Subjective Subjective/Events-last exam No concerns today. Patient tolerating PO diet. Patient wishes to return to [facility] [place] Review of Systems General: No Chills, No Fatigue, No Malaise Pulmonary: No Dyspnea, No Cough Cardiovascular: No: Chest Pain, Palpitations, Edema Gastrointestinal: No: Nausea, Vomiting, Abdominal Pain, Diarrhea, Constipation Neurological: Weakness, Numbness, Incoordination Objective Exam Last Set of Vital Signs Vital Signs Date Time Temp Pulse Resp B/P (MAP) Pulse Ox O2 Delivery O2 Flow Rate FiO2 09/27/21 20:13 96 Nasal Cannula 2.00 09/27/21 15:30 35.9 77 20 191/94 (126) 09/26/21 08:58 28 Capillary Refill : Less Than 3 Seconds I&O Intake and Output 09/27/21 00:00 Intake Total 1620 ml Output Total 3675 ml Balance -2055 ml Intake Oral 1620 ml Output Urine Total 3675 ml # Bowel Movements 2 General: Alert, Oriented X3, Cooperative, No Acute Distress Lungs: Clear to Auscultation, Normal Air Movement Heart: Regular Rate, No Murmurs Abdomen: Normal Bowel Sounds, Soft, No Tenderness, Other (ostomy bags properly placed) Results/Procedures Lab Microbiology 09/23/21 Urine Culture - Final, Complete Enterococcus faecium Assessment/Plan Assessment/Plan (1) Cellulitis of left abdominal wall Status: Acute Assessment & Plan: 09/24: Multiple skin wounds, Wound consult placed, may need surgical consult, continue IV antibiotics Rocephin/Vancomycin 09/25: infection improving, wound care plan in place, working on placement 09/26: improving, ok to work on placement 09/27: Doing well, plan to d/c back to [facility] tomorrow AM (2) Decubitus ulcer of left buttock, stage 2 Status: Acute (3) Decubitus ulcer of buttock, stage 2 Status: Acute Qualifiers: Qualified Codes: L89.312 - Pressure ulcer of right buttock, stage 2 (4) Paraplegia Status: Chronic (5) DVT prophylaxis Status: Acute Assessment & Plan: - Lovenox (6) BMI 60.0-69.9, adult Status: Chronic LEESA MEHTA MD Sep 27, 2021 20:37
[2021-09-27] MEDS: doxAzosin 2 MG (CARDURA) TAB PO SCH (20:46)
[2021-09-27 23:48] VITALS: BP 178/77
[2021-09-28] MEDS: ACETAMINOPHEN 325 MG TABLET PO PRN ×2 (02:22→15:58)
[2021-09-28] MEDS: RT-ALBUTEROL SULF 2.5 MG/3 ML PRE-MIX VIAL INH SCH (07:12)
[2021-09-28 08:00] VITALS: BP 147/68
[2021-09-28] MEDS: ALPRAZolam 0.25 MG (XANAX) TAB PO SCH ×3 (08:48→16:30)
[2021-09-28] MEDS: amLODIPine 5 MG (NORVASC) TAB PO SCH (08:48)
[2021-09-28] MEDS: fluCOnazole (DIFLUCAN) 100 MG TAB PO SCH (08:48)
[2021-09-28] MEDS: GABAPENTIN 100 MG (NEURONTIN) CAP PO SCH ×2 (08:48→13:00)
[2021-09-28] MEDS: VANCOMYCIN 1250 MG/NS 250 ML IVPB IV SCH ×2 (08:48)
[2021-09-28] MEDS: MICONAZOLE 2% POWDER (DESENEX AF) 90 GM TOP SCH (08:48)
[2021-09-28] MEDS: VENlafaxine 75 MG (EFFEXOR) TAB PO SCH (08:48)
[2021-09-28] MEDS: BACLOFEN 10 MG (LIORESAL) TAB PO SCH ×3 (08:48→16:30)
[2021-09-28] MEDS: NYSTATIN OINTMENT 30 GM TUBE TOP SCH (08:49)
--- NOTE | 2021-09-28 12:30 | Discharge Summary ---
Discharge Summary Reconcile Patient Problems Problems Reviewed?: Yes Hospital Course Hospital Course Date of Admission: Sep 23, 2021 at 14:00 Admission Diagnosis : Family Physician/Provider: Gustavo Up MD Date of Discharge: 09/27/21 Discharge Diagnosis: Cellulitis of the abdominal wall Decubitus Ulcer of buttock Paraplegia Hospital Course: 71 yo paraplegic female that presented with cellulitis of abdominal wall because the facility did not have the correct size of bags for her ostomy care and it caused cellulitis of abdominal wall. Cellulitis much improved with IV antibiotics. Will have several days left of antibiotics. Discussed with facility the importance of using the correct supplies to care for her colostomy and urostomy. Labs and Pending Lab Test: Microbiology 09/23/21 Urine Culture - Final, Complete Enterococcus faecium Home Meds Active Reported Lidocaine HCl Viscous (Lidocaine HCl) 15 Ml Solution 1 Applic MM Q6H PRN Nystatin 1 Each Powder.ea. 1 Each TOP BID PRN APPLY UNDER THE BREAST AND ABDOMINAL FOLD Diclofenac Sodium 100 Gm Gel..gram. 1 Applic TP DAILY PRN Tylenol (Acetaminophen) 325 Mg Capsule 650 Mg PO Q6H PRN Gas Relief (Simethicone) 80 Mg Tab.chew 80 Mg PO Q8H PRN Hydrocodone-Acetamin 5-325 mg (Hydrocodone/Acetaminophen) 1 Each Tablet 1 Ea PO Q4H PRN Albuterol Sulfate 5 Mg/1 Ml Solution 5 Mg IH Q4H PRN ALPRAZolam 0.25 Mg Tablet 0.25 Mg PO QID Novolog Flexpen (Insulin Aspart) 300 Units/3 Ml Solution Units SQ AC INJECT 14 UNITS PLUS THE FOLLOWING CORRECTIONS SCALE: 181-220=1 UNIT 221-280=2 UNITS 281-300=3 UNITS 301-350=4 UNITS 351-400=5 UNITS 401-700=6 UNITS Gabapentin 100 Mg Capsule 100 Mg PO TID Cefdinir 300 Mg Capsule 300 Mg PO BID FILLED 09-19-2021 #14/7 DAY SUPPLY. FIRST DOSE 09-20-2021 Advair 100-50 Diskus (Fluticasone/Salmeterol) 1 Each Blst.w.dev 1 Each IH DAILY Ondansetron HCl 4 Mg Tablet 4 Mg PO Q4H PRN Refresh P.m. Ointment P-F (Petrolat,Wht/Min Oil/Sod Chl) 3.5 Gm Oint...g. 1 Applic OU Q8H PRN Sumatriptan Succinate 100 Mg Tablet 100 Mg PO UD PRN MAY REPEAT DOSE X 1 Hyoscyamine Sulfate 0.125 Mg Tablet 0.125 Mg PO Q6H PRN Bisacodyl 5 Mg Tablet.dr 10 Mg PO DAILY PRN Diphenhydramine HCl 25 Mg Tablet 25 Mg PO Q6H PRN Albuterol Sulfate 2.5 Mg/0.5 Ml Vial.neb 2.5 Mg INH Q4H PRN Novolog Flexpen (Insulin Aspart) 300 Units/3 Ml Solution 14 Units SC AC Levemir Flextouch (Insulin Detemir) 100 Unit/1 Ml Insuln.pen 35 Units SC BID Baclofen 20 Mg Tablet 20 Mg PO QID Venlafaxine HCl 75 Mg Tab 75 Mg PO BID Omeprazole 20 Mg Capsule.dr 20 Mg PO BID Vitamin B-12 (Cyanocobalamin (Vitamin B-12)) 500 Mcg Tablet 1,000 Mcg PO DAILY Montelukast Sodium 10 Mg Tablet 10 Mg PO DAILY Probiotic (L.acidoph & Paracasei,B.lactis) 1 Each Capsule 1 Each PO DAILY Miralax (Polyethylene Glycol 3350) 17 Gm Powd.pack 8.5 Gm PO DAILY Multivitamins with Minerals (Multivitamin with Minerals) 1 Each Tablet 1 Each PO 1200 Meloxicam 7.5 Mg Tablet 7.5 Mg PO DAILY Xalatan (Latanoprost) 2.5 Ml Drops 1 Drop OU HS Folic Acid 1 Mg Tablet 1 Mg PO DAILY Flonase Allergy Relief (Fluticasone Propionate) 9.9 Ml [place].susp 1 [place] NSEACH DAILY Doxazosin Mesylate 2 Mg Tablet 2 Mg PO HS Aspirin EC (Aspirin) 81 Mg Tablet.dr 81 Mg PO DAILY Follow Up Appt.: 1-2 weeks with PCP Skilled NF Admit to: [facility] Certification (SNF) I certify that SNF services are required to be given on an inpatient basis because of the above named patient's need for assisted care on a continuing basis for the conditions(s) for which he/she was receiving inpatient hospital services prior to his/her transfer to the SNF. Nursing Home Facility Order: Nursing Services, Wound Care-Eval/Treat Oxygen Delivery Method: Nasal Cannula Discharge Diet: Cardiac Diet Resuscitation Status: Do Not Resuscitate Leesa Sullivan Sep 27, 2021 20:38 Discharge Physical Exam General: Alert, Oriented X3 Lungs: Clear to Auscultation, Normal Air Movement Heart: Regular Rate, No Murmurs Abdomen: Normal Bowel Sounds, Soft, No Tenderness, No Masses Extremities: Other (1+ Pitting edema) Skin: Other (ostomy sites improved) Neuro: Normal Speech LEESA SULLIVAN MD Sep 27, 2021 20:42
[2021-09-28] MEDS ORDERED: FLUC100T6 PO (12:33)
[2021-09-28] MEDS ORDERED: AMLO-250 PO (12:33)
[2021-09-28] MEDS ORDERED: CEFD300C3 PO (12:33)
[2021-09-28] MEDS: cefTRIAXone 1 GM IV (PRE-MIX) 50 ML IV SCH (13:01)
[2021-09-28] MEDS: HYOSCYAMINE 0.125 MG (LEVSIN) TAB PO PRN (16:30)
== END 2021-09-28 16:45 | DRG 602 ==
LOC: EDUNIT# 10:42 → ER FS 10:43 → 4TH 14:00
PROVIDERS: ADMIT Internal Medicine; ATTEND Family Medicine
DX: L03.311 Cellulitis of abdominal wall (principal); L89.323 Pressure ulcer of left buttock, stage 3; L89.313 Pressure ulcer of right buttock, stage 3; N39.0 Urinary tract infection, site not specified; G82.20 Paraplegia, unspecified; Z68.44 Body mass index [BMI] 60.0-69.9, adult; J44.9 Chronic obstructive pulmonary disease, unspecified; Z66 Do not resuscitate; E66.01 Morbid (severe) obesity due to excess calories; E11.9 Type 2 diabetes mellitus without complications; I10 Essential (primary) hypertension; G47.33 Obstructive sleep apnea (adult) (pediatric); E78.00 Pure hypercholesterolemia, unspecified; N31.9 Neuromuscular dysfunction of bladder, unspecified; M19.90 Unspecified osteoarthritis, unspecified site; F41.9 Anxiety disorder, unspecified; F31.9 Bipolar disorder, unspecified; Z20.822 Contact with and (suspected) exposure to COVID-19; L89.152 Pressure ulcer of sacral region, stage 2; Z86.718 Personal history of other venous thrombosis and embolism; Z79.4 Long term (current) use of insulin; Z85.038 Personal history of other malignant neoplasm of large intestine; Z92.21 Personal history of antineoplastic chemotherapy; Z92.3 Personal history of irradiation; Z87.891 Personal history of nicotine dependence; Z79.82 Long term (current) use of aspirin; Z79.899 Other long term (current) drug therapy
CPT/HCPCS: 36415; 80048; 80053; 80202; 81000; 82947; 83605; 85025; 85610; 85730; 86141; 87077; 87088; 87186; 94640; 94760; 96365